=== PATIENT | female | born 1960 | race Caucasian/White ===

== ENCOUNTER 2020-05-17 14:38 | Outpatient (REF) | payer OTHER, SELFPAY ==
[2020-05-17 15:36] LABS: MANUAL DIFF FLAG NO
[2020-05-17 15:38] LABS: Basophils Absolute Auto 0.1 X10*3/uL (0.0-0.2); Basophils Percent Auto 0.6 % (0-2); Eosinophils Absolute Auto 0.2 X10*3/uL (0.0-0.4); Eosinophils Percent Auto 2.6 % (0-4); Hematocrit 40.3 % (37-47); Imm Gran Abs Auto 0.04 X10*3/uL (0.00-0.03); Imm Gran Pct Auto 0.4 % (0.0-0.4); Lymphocytes Absolute Auto 2.6 X10*3/uL (1.2-4.9); Lymphocytes Percent Auto 29.2 % (20-40); Mean Corpuscular HGB Conc 32.3 g/dl (31.0-35.0); Mean Platelet Volume 11.6 fL (9.4-12.3); Monocytes Absolute Auto 0.8 X10*3/uL (0.1-1.2); Monocytes Percent Auto 8.7 % (2-11); NRBC Pct Auto 0.9 /100WBC (0.0-0.2); Neutrophils Absolute Auto 5.2 X10*3/uL (2.0-8.3); Neutrophils Percent Auto 58.5 % (45-73); Platelet Count 291 X10*3/uL (160-400); Red Blood Count 4.48 X10*6/uL (4.20-5.50); Red Cell Distribution Width 14.2 % (11.0-16.0); White Blood Count 8.9 X10*3/uL (4.8-10.8)
[2020-05-17 16:02] LABS: Alanine Aminotransferase 16 U/L (0-31); Alkaline Phosphatase 68 U/L (39-117); Aspartate Amino Transferase 19 U/L (5-31); Bilirubin Direct 0.2 mg/dL (0.0-0.5); Bilirubin Total 0.6 mg/dL (0.0-1.0)
[2020-05-17 16:23] LABS: Vitamin D 25-OH Total 31.5 ng/mL (>30)
[2020-05-17 18:53] LABS: Vitamin B12 755 pg/mL (200-900)
[2020-05-18 12:01] LABS: Lyme Abs Screen <0.90 index
[2020-05-18 13:32] LABS: Anti Nuclear Antibody Screen NEGATIVE (NEGATIVE)
[2020-05-21 14:07] LABS: DNAds, Crithidia Antibody Negative (Negative)
[2020-05-21 21:07] LABS: JCV Ab Inhibition FINAL RSLT: NEGATIVE; JCV Antibody INDETERMINATE; JCV Index Value 0.25
== END 2020-05-17 14:39 | disposition home or self-care (01) ==
LOC: HO.LAB 14:38
PROVIDERS: PCP Internal Medicine; Visit Provider Physician Assistant
DX: G35 Multiple sclerosis (principal)
CPT/HCPCS: 36415; 80076; 82306; 82607; 85025; 86038; 86039; 86255; 86618; 86711

== ENCOUNTER 2020-06-28 07:22 | Outpatient (REF) | payer OTHER, SELFPAY ==
--- NOTE | 2020-06-28 | MR_ITS ---
EXAMINATION: MR CERVICAL SPINE WITHOUT CONTRAST MR THORACIC SPINE WITHOUT CONTRAST CLINICAL INFORMATION: History of multiple sclerosis. Numbness in left thigh. Back pain. COMPARISON: None. TECHNIQUE: Multiplanar, multisequential imaging of the cervical and thoracic spine was performed without contrast. FINDINGS: CERVICAL SPINE: VERTEBRAL BODIES AND PARASPINAL SOFT TISSUES: The marrow signal is within normal limits. There is a mild reversal of the normal cervical lordosis. Moderate multilevel disc space narrowing and endplate spurring evident. There are no compression fractures or subluxations. The paraspinal soft tissues are unremarkable. The lung apices are clear. On the localizer acquisition, there is significant mucosal thickening in the maxillary sinuses with subtotal opacification. There is also severe frontoethmoid sinus disease partially visualized. CERVICOMEDULLARY JUNCTION AND VISUALIZED POSTERIOR FOSSA: The craniovertebral junction and imaged portions of the brain parenchyma are normal. There is fluid signal in the central canal cord from the C5-C7 levels, measuring up to 2 mm in diameter. No discrete cord lesion identified. SPINAL LEVELS: C2-C3: No focal disc protrusion, central canal stenosis, or foraminal narrowing. Mild facet arthropathy. C3-C4: Small central disc protrusion. No central canal stenosis or foraminal narrowing. C4-C5: Moderate loss of disc height with endplate spurring and a mild disc bulge. No central canal stenosis. Mild right foraminal narrowing. C5-C6: Moderate loss of disc height and disc-osteophyte complex without central canal stenosis. Eidbhdtb-tz-qukutk left foraminal narrowing and gvin-ze-czbrbuxd right foraminal encroachment. C6-C7: Disc-osteophyte complex without central canal stenosis. Severe left foraminal narrowing. Mild right foraminal encroachment. C7-T1: No disc pathology. Patent central canal and foramina. THORACIC SPINE: No cord lesions are identified. The conus tip terminates normally at the L1 level. The visualized cauda equina nerve roots are normal. There is no central canal stenosis or significant foraminal narrowing. At the T6-T7 level, there is a small right paracentral disc protrusion distortion of the ventral cord. A right paracentral disc protrusion mildly distorts the ventral cord at T7-T8. There is a small central disc protrusion at T8-T9 with ventral cord deformity as well. Small subarticular zone disc protrusions are visible at T9-T10. The marrow signal is heterogeneous with regions of fatty change. There is kamq-xs-lalhnqpv multilevel disc space narrowing particularly in the midthoracic spine. No subluxations or compression fractures identified. The paraspinal soft tissues are normal. The imaged portions of the lungs are clear. MR/MR cervical spine wo con IMPRESSION: CERVICAL SPINE: Moderate cervical spondylosis without central canal stenosis. Small central disc protrusion at C3-C4. Significant left foraminal narrowing at C5-C6 and C6-C7. 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 No cord lesions identified. Significant paranasal sinus disease. THORACIC SPINE: Small disc protrusions at T6-T7, T7-T8, T8-T9, and at T9-T10. No central canal stenosis or significant foraminal narrowing. Mild thoracic spondylosis. No cord signal abnormality.
--- NOTE | 2020-06-28 | MR_ITS ---
EXAMINATION: MR CERVICAL SPINE WITHOUT CONTRAST MR THORACIC SPINE WITHOUT CONTRAST CLINICAL INFORMATION: History of multiple sclerosis. Numbness in left thigh. Back pain. COMPARISON: None. TECHNIQUE: Multiplanar, multisequential imaging of the cervical and thoracic spine was performed without contrast. FINDINGS: CERVICAL SPINE: VERTEBRAL BODIES AND PARASPINAL SOFT TISSUES: The marrow signal is within normal limits. There is a mild reversal of the normal cervical lordosis. Moderate multilevel disc space narrowing and endplate spurring evident. There are no compression fractures or subluxations. The paraspinal soft tissues are unremarkable. The lung apices are clear. On the localizer acquisition, there is significant mucosal thickening in the maxillary sinuses with subtotal opacification. There is also severe frontoethmoid sinus disease partially visualized. CERVICOMEDULLARY JUNCTION AND VISUALIZED POSTERIOR FOSSA: The craniovertebral junction and imaged portions of the brain parenchyma are normal. There is fluid signal in the central canal cord from the C5-C7 levels, measuring up to 2 mm in diameter. No discrete cord lesion identified. SPINAL LEVELS: C2-C3: No focal disc protrusion, central canal stenosis, or foraminal narrowing. Mild facet arthropathy. C3-C4: Small central disc protrusion. No central canal stenosis or foraminal narrowing. C4-C5: Moderate loss of disc height with endplate spurring and a mild disc bulge. No central canal stenosis. Mild right foraminal narrowing. C5-C6: Moderate loss of disc height and disc-osteophyte complex without central canal stenosis. Yepncpml-ts-tqryhg left foraminal narrowing and uaxd-za-pvtpeazn right foraminal encroachment. C6-C7: Disc-osteophyte complex without central canal stenosis. Severe left foraminal narrowing. Mild right foraminal encroachment. C7-T1: No disc pathology. Patent central canal and foramina. THORACIC SPINE: No cord lesions are identified. The conus tip terminates normally at the L1 level. The visualized cauda equina nerve roots are normal. There is no central canal stenosis or significant foraminal narrowing. At the T6-T7 level, there is a small right paracentral disc protrusion distortion of the ventral cord. A right paracentral disc protrusion mildly distorts the ventral cord at T7-T8. There is a small central disc protrusion at T8-T9 with ventral cord deformity as well. Small subarticular zone disc protrusions are visible at T9-T10. The marrow signal is heterogeneous with regions of fatty change. There is oskk-zx-unruamxb multilevel disc space narrowing particularly in the midthoracic spine. No subluxations or compression fractures identified. The paraspinal soft tissues are normal. The imaged portions of the lungs are clear. MR/MR thoracic spine wo con IMPRESSION: CERVICAL SPINE: Moderate cervical spondylosis without central canal stenosis. Small central disc protrusion at C3-C4. Significant left foraminal narrowing at C5-C6 and C6-C7. 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 No cord lesions identified. Significant paranasal sinus disease. THORACIC SPINE: Small disc protrusions at T6-T7, T7-T8, T8-T9, and at T9-T10. No central canal stenosis or significant foraminal narrowing. Mild thoracic spondylosis. No cord signal abnormality.
== END 2020-06-28 07:23 | disposition home or self-care (01) ==
LOC: HO.MRI 07:22
PROVIDERS: PCP Internal Medicine; Visit Provider Physician Assistant
DX: G35 Multiple sclerosis (principal)
CPT/HCPCS: 72141; 72146

== ENCOUNTER 2021-01-05 06:24 | Outpatient (REF) | payer OTHER, SELFPAY ==
--- NOTE | ~2021-01-05 | XR_ITS ---
EXAMINATION: XR LUMBOSACRAL SPINE CLINICAL INFORMATION: Low back pain. COMPARISON: None TECHNIQUE: Three views of the lumbosacral spine. FINDINGS: There is maintained lumbar lordosis. There is loss of L2-L3 through L4-L5 disc heights with ventral and lateral spondylosis. There is minimal scoliosis mid lumbar spine. No visible acute fracture or dislocation seen. The vertebral heights is maintained normal. Bilateral SI joints are symmetrical and normal. XR/XR lumbar spine 2-3V IMPRESSION: There are degenerative disc changes with spondylosis L2-L3 through L4-L5 disc levels. There is moderate spondylosis lumbar spine. No visible acute fracture, dislocation or lytic process seen.
[2021-01-05 07:05] LABS: MANUAL DIFF FLAG NO
[2021-01-05 07:12] LABS: Basophils Absolute Auto 0.1 X10*3/uL (0.0-0.2); Eosinophils Absolute Auto 0.3 X10*3/uL (0.0-0.4); Eosinophils Percent Auto 4.1 % (0-4); Hemoglobin 12.8 g/dl (12.0-16.0); Imm Gran Abs Auto 0.04 X10*3/uL (0.00-0.03); Imm Gran Pct Auto 0.5 % (0.0-0.4); Lymphocytes Absolute Auto 2.9 X10*3/uL (1.2-4.9); Lymphocytes Percent Auto 36.8 % (20-40); Mean Corpuscular Hemoglobin 28.9 pg (27.0-33.0); Mean Corpuscular Volume 90.3 fL (80-98); Mean Platelet Volume 10.6 fL (9.4-12.3); Monocytes Absolute Auto 0.7 X10*3/uL (0.1-1.2); Monocytes Percent Auto 8.5 % (2-11); NRBC Pct Auto 0.6 /100WBC (0.0-0.2); Neutrophils Absolute Auto 3.8 X10*3/uL (2.0-8.3); Neutrophils Percent Auto 49.1 % (45-73); Platelet Count 303 X10*3/uL (160-400); Red Blood Count 4.43 X10*6/uL (4.20-5.50); Red Cell Distribution Width 13.1 % (11.0-16.0); White Blood Count 7.8 X10*3/uL (4.8-10.8)
[2021-01-05 07:30] LABS: Alanine Aminotransferase 20 U/L (0-31); Albumin Level 4.3 g/dL (3.5-5.0); Alkaline Phosphatase 98 U/L (39-117); Anion Gap 14 (12-20); Aspartate Amino Transferase 18 U/L (5-31); Bilirubin Total 0.8 mg/dL (0.0-1.0); Blood Urea Nitrogen 11 mg/dL (9-16); Calcium 9.6 mg/dL (8.4-10.2); Carbon Dioxide 27 mmol/L (22-29); Chloride 105 mmol/L (96-108); Cholesterol 192 mg/dL; Estimated Glomerular Filt Rate > 60; Glucose Fasting 99 mg/dL (60-99); HDL Cholesterol 70 mg/dL; LDL Cholesterol Calculated 111 mg/dl; Potassium 4.4 mmol/L (3.3-5.1); Sodium 142 mmol/L (135-145); Total Protein 6.5 g/dL (6.5-8.0); Triglycerides 58 mg/dL
[2021-01-05 09:11] LABS: Vitamin B12 250 pg/mL (200-900)
[2021-01-13 13:06] LABS: Vitamin D 25-OH, D2 <4 ng/mL; Vitamin D 25-OH, D3 23 ng/mL; Vitamin D 25-OH, Total 23 ng/mL (30-100)
== END 2021-01-05 06:25 | disposition home or self-care (01) ==
LOC: HO.LAB 06:24
PROVIDERS: PCP Internal Medicine; Visit Provider Internal Medicine
DX: M54.5 Low back pain (principal); F41.1 Generalized anxiety disorder; K21.9 Gastro-esophageal reflux disease without esophagitis; J45.909 Unspecified asthma, uncomplicated; E78.9 Disorder of lipoprotein metabolism, unspecified; G35 Multiple sclerosis; Z91.09 Other allergy status, other than to drugs and biological substances
CPT/HCPCS: 36415; 72100; 80053; 80061; 82306; 82607; 84443; 85025

== ENCOUNTER 2021-05-12 14:09 | Outpatient (REF) | payer OTHER, SELFPAY | END 2021-05-12 14:10 | disposition home or self-care (01) | LOC: HO.LNP 14:09 | PROVIDERS: Visit Provider Physician Assistant Medical | DX: J01.90 Acute sinusitis, unspecified (principal); Z20.822 Contact with and (suspected) exposure to COVID-19 | CPT/HCPCS: U0003; U0005 ==

== ENCOUNTER 2021-06-18 08:40 | Outpatient (REF) | payer OTHER, SELFPAY ==
--- NOTE | ~2021-06-18 | MM_ITS ---
EXAMINATION: MM SCREENING DIGITAL BREAST TOMOSYNTHESIS, BILATERAL CLINICAL INFORMATION: Screening. Asymptomatic. The lifetime risk of breast cancer based on the Tyrer-Cuzick Model is 9%. COMPARISON: Mammography: 04/10/2020, 10/26/2018, 09/01/2017 TECHNIQUE: Digital breast tomosynthesis is performed in both the craniocaudal and mediolateral oblique views along with computer-aided detection (CAD). Synthesized 2D images are generated from the tomosynthesis. FINDINGS: There are scattered areas of fibroglandular density (ACR BI-RADS breast composition Category b). There are no significant masses, abnormal calcifications, or other abnormalities. Parenchymal pattern is similar to prior studies. The axilla and skin contours are unremarkable. MM/MM tomosynthesis screening BI IMPRESSION: No mammographic evidence of malignancy. ASSESSMENT: BI-RADS 1: Negative RECOMMENDATION: Routine annual mammography screening. This patient's information was entered into a reminder system with a target due date for their next mammogram.
== END 2021-06-18 08:41 | disposition home or self-care (01) ==
LOC: HO.MAMMO 08:40
PROVIDERS: PCP Internal Medicine; Visit Provider Internal Medicine
DX: Z12.31 Encounter for screening mammogram for malignant neoplasm of breast (principal)
CPT/HCPCS: 77063; 77067

== ENCOUNTER 2021-06-21 16:29 | Outpatient (REF) | payer OTHER, SELFPAY ==
[2021-06-21 16:46] LABS: MANUAL DIFF FLAG NO
[2021-06-21 17:38] LABS: Basophils Absolute Auto 0.1 X10*3/uL (0.0-0.2); Basophils Percent Auto 1.1 % (0-2); Eosinophils Absolute Auto 0.5 X10*3/uL (0.0-0.4); Eosinophils Percent Auto 5.3 % (0-4); Hematocrit 36.9 % (37.0-47.0); Imm Gran Abs Auto 0.05 X10*3/uL (0.00-0.03); Imm Gran Pct Auto 0.5 % (0.0-0.4); Lymphocytes Absolute Auto 3.2 X10*3/uL (1.2-4.9); Lymphocytes Percent Auto 34.1 % (20-40); Mean Corpuscular HGB Conc 32.5 g/dl (31.0-35.0); Mean Corpuscular Hemoglobin 29.1 pg (27.0-33.0); Mean Corpuscular Volume 89.6 fL (80.0-98.0); Mean Platelet Volume 10.3 fL (9.4-12.3); Monocytes Absolute Auto 0.9 X10*3/uL (0.1-1.2); Monocytes Percent Auto 9.4 % (2-11); NRBC Pct Auto 0.8 /100WBC (0.0-0.2); Neutrophils Absolute Auto 4.6 x10*3/uL (2.0-8.3); Neutrophils Percent Auto 49.6 % (45-73); Platelet Count 282 X10*3/uL (160-400); Red Blood Count 4.12 X10*6/uL (4.20-5.50); Red Cell Distribution Width 13.6 % (11.0-16.0); White Blood Count 9.3 X10*3/uL (4.8-10.8)
[2021-06-24 23:41] LABS: JCV Antibody NEGATIVE; JCV Index Value 0.16
== END 2021-06-21 16:30 | disposition home or self-care (01) ==
LOC: HO.LAB 16:29
PROVIDERS: PCP Internal Medicine; Visit Provider Psychiatry & Neurology Neurology
DX: G35 Multiple sclerosis (principal)
CPT/HCPCS: 36415; 85025; 86711

== ENCOUNTER 2021-08-05 07:51 | Outpatient (REF) | payer OTHER, SELFPAY ==
[2021-08-05 08:02] LABS: MANUAL DIFF FLAG NO
[2021-08-05 09:56] LABS: Basophils Absolute Auto 0.1 X10*3/uL (0.0-0.2); Eosinophils Absolute Auto 0.6 X10*3/uL (0.0-0.4); Eosinophils Percent Auto 6.5 % (0-4); Hematocrit 43.2 % (37.0-47.0); Hemoglobin 13.8 g/dl (12.0-16.0); Imm Gran Abs Auto 0.03 X10*3/uL (0.00-0.03); Imm Gran Pct Auto 0.3 % (0.0-0.4); Lymphocytes Absolute Auto 3.4 X10*3/uL (1.2-4.9); Lymphocytes Percent Auto 34.7 % (20-40); Mean Corpuscular HGB Conc 31.9 g/dl (31.0-35.0); Mean Corpuscular Hemoglobin 28.8 pg (27.0-33.0); Mean Corpuscular Volume 90.2 fL (80.0-98.0); Mean Platelet Volume 10.5 fL (9.4-12.3); Monocytes Absolute Auto 0.8 X10*3/uL (0.1-1.2); Monocytes Percent Auto 7.9 % (2-11); NRBC Pct Auto 0.7 /100WBC (0.0-0.2); Neutrophils Absolute Auto 4.8 x10*3/uL (2.0-8.3); Neutrophils Percent Auto 49.6 % (45-73); Platelet Count 302 X10*3/uL (160-400); Red Blood Count 4.79 X10*6/uL (4.20-5.50); Red Cell Distribution Width 12.9 % (11.0-16.0); White Blood Count 9.7 X10*3/uL (4.8-10.8)
[2021-08-05 10:24] LABS: Alanine Aminotransferase 31 U/L (0-31); Albumin Level 4.5 g/dL (3.5-5.0); Alkaline Phosphatase 103 U/L (39-117); Anion Gap 16 (12-20); Aspartate Amino Transferase 34 U/L (5-31); Bilirubin Total 0.9 mg/dL (0.0-1.0); Blood Urea Nitrogen 15 mg/dL (9-16); Calcium 9.6 mg/dL (8.4-10.2); Carbon Dioxide 25 mmol/L (22-29); Chloride 103 mmol/L (96-108); Estimated Glomerular Filt Rate > 60; Glucose Random 62 mg/dL (60-115); Potassium 4.1 mmol/L (3.3-5.1); Sodium 140 mmol/L (135-145); Total Protein 7.3 g/dL (6.5-8.0)
== END 2021-08-05 07:52 | disposition home or self-care (01) ==
LOC: HO.LAB 07:51
PROVIDERS: PCP Internal Medicine; Visit Provider Internal Medicine
DX: E78.9 Disorder of lipoprotein metabolism, unspecified (principal); F41.1 Generalized anxiety disorder; J45.40 Moderate persistent asthma, uncomplicated; K21.9 Gastro-esophageal reflux disease without esophagitis; Z91.09 Other allergy status, other than to drugs and biological substances
CPT/HCPCS: 36415; 80053; 85025

== ENCOUNTER 2021-12-20 16:14 | Outpatient (REF) | payer OTHER, SELFPAY ==
[2021-12-20 16:30] LABS: MANUAL DIFF FLAG NO
[2021-12-20 16:56] LABS: Basophils Absolute Auto 0.1 X10*3/uL (0.0-0.2); Basophils Percent Auto 0.9 % (0-2); Eosinophils Absolute Auto 0.5 X10*3/uL (0.0-0.4); Eosinophils Percent Auto 5.8 % (0-4); Hematocrit 38.8 % (37.0-47.0); Hemoglobin 12.7 g/dl (12.0-16.0); Imm Gran Abs Auto 0.02 X10*3/uL (0.00-0.03); Imm Gran Pct Auto 0.2 % (0.0-0.4); Lymphocytes Absolute Auto 3.5 X10*3/uL (1.2-4.9); Mean Corpuscular HGB Conc 32.7 g/dl (31.0-35.0); Mean Corpuscular Hemoglobin 28.7 pg (27.0-33.0); Mean Corpuscular Volume 87.6 fL (80.0-98.0); Mean Platelet Volume 10.5 fL (9.4-12.3); Monocytes Absolute Auto 0.7 X10*3/uL (0.1-1.2); Monocytes Percent Auto 7.7 % (2-11); NRBC Pct Auto 0.5 /100WBC (0.0-0.2); Neutrophils Absolute Auto 4.5 x10*3/uL (2.0-8.3); Neutrophils Percent Auto 48.4 % (45-73); Platelet Count 276 X10*3/uL (160-400); Red Blood Count 4.43 X10*6/uL (4.20-5.50); Red Cell Distribution Width 13.3 % (11.0-16.0); White Blood Count 9.4 X10*3/uL (4.8-10.8)
[2021-12-20 17:45] LABS: Erythrocyte Sedimentation Rate 14 MM/HR (0-20)
[2021-12-22 03:15] LABS: Lyme Abs Screen <0.90 index
[2021-12-29 03:07] LABS: JCV Antibody INDETERMINATE; JCV Index Value 0.23
[2021-12-30 02:37] LABS: JCV Ab Inhibition FINAL RSLT: NEGATIVE
== END 2021-12-20 16:15 | disposition home or self-care (01) ==
LOC: HO.LAB 16:14
PROVIDERS: PCP Internal Medicine; Visit Provider Psychiatry & Neurology Neurology
DX: H46.9 Unspecified optic neuritis (principal)
CPT/HCPCS: 36415; 85025; 85652; 86617; 86618; 86711

== ENCOUNTER 2022-04-07 14:01 | Outpatient (REF) | payer OTHER, SELFPAY ==
[2022-04-07 14:24] LABS: Binax Internal Control QC Valid; Binax Now Covid-19 Ag Negative (Negative)
== END 2022-04-07 14:02 | disposition home or self-care (01) ==
LOC: HO.HMGCLDS 14:01
PROVIDERS: PCP Internal Medicine
DX: Z20.822 Contact with and (suspected) exposure to COVID-19 (principal); R11.10 Vomiting, unspecified; R35.0 Frequency of micturition
CPT/HCPCS: 87086; 87811; C9803

== ENCOUNTER 2022-05-15 14:07 | Outpatient (REF) | payer OTHER, SELFPAY ==
[2022-05-15 14:19] LABS: MANUAL DIFF FLAG NO
[2022-05-15 14:51] LABS: Basophils Absolute Auto 0.1 X10*3/uL (0.0-0.2); Basophils Percent Auto 0.9 % (0-2); Eosinophils Absolute Auto 0.1 X10*3/uL (0.0-0.4); Eosinophils Percent Auto 1.2 % (0-4); Hematocrit 40.1 % (37.0-47.0); Hemoglobin 12.9 g/dl (12.0-16.0); Imm Gran Abs Auto 0.04 X10*3/uL (0.00-0.03); Imm Gran Pct Auto 0.4 % (0.0-0.4); Lymphocytes Percent Auto 30.5 % (20-40); Mean Corpuscular HGB Conc 32.2 g/dl (31.0-35.0); Mean Corpuscular Hemoglobin 27.8 pg (27.0-33.0); Mean Corpuscular Volume 86.4 fL (80.0-98.0); Mean Platelet Volume 10.1 fL (9.4-12.3); Monocytes Absolute Auto 0.8 X10*3/uL (0.1-1.2); Monocytes Percent Auto 8.5 % (2-11); NRBC Pct Auto 0.6 /100WBC (0.0-0.2); Neutrophils Absolute Auto 5.8 x10*3/uL (2.0-8.3); Neutrophils Percent Auto 58.5 % (45-73); Platelet Count 290 X10*3/uL (160-400); Red Blood Count 4.64 X10*6/uL (4.20-5.50); Red Cell Distribution Width 14.2 % (11.0-16.0); White Blood Count 9.9 X10*3/uL (4.8-10.8)
[2022-05-23 19:16] LABS: JCV Antibody INDETERMINATE; JCV Index Value 0.23
[2022-05-23 20:48] LABS: JCV Ab Inhibition FINAL RSLT: NEGATIVE
== END 2022-05-15 14:08 | disposition home or self-care (01) ==
LOC: HO.LAB 14:07
PROVIDERS: Absent Provider Internal Medicine; PCP Internal Medicine; Visit Provider Psychiatry & Neurology Neurology
DX: R79.89 Other specified abnormal findings of blood chemistry (principal); H46.9 Unspecified optic neuritis
CPT/HCPCS: 36415; 85025; 86711

== ENCOUNTER 2022-06-24 08:30 | Outpatient (REF) | payer OTHER, SELFPAY ==
--- NOTE | ~2022-06-24 | MM_ITS ---
EXAMINATION: MM SCREENING DIGITAL BREAST TOMOSYNTHESIS, BILATERAL CLINICAL INFORMATION: Screening. Asymptomatic. The lifetime risk of breast cancer based on the Tyrer-Cuzick Model is 9%. COMPARISON: Mammography: 06/18/2021, 04/10/2020, 10/26/2018, 09/01/2017 TECHNIQUE: Digital breast tomosynthesis is performed in both the craniocaudal and mediolateral oblique views along with computer-aided detection (CAD). Synthesized 2D images are generated from the tomosynthesis. FINDINGS: There are scattered areas of fibroglandular density (ACR BI-RADS breast composition Category b). There are no significant masses, abnormal calcifications, or other abnormalities. Parenchymal pattern is similar to prior studies. Scattered minor asymmetries are stable. No developing density. The axilla are unremarkable. No significant changes. MM/MM tomosynthesis screening BI IMPRESSION: No mammographic evidence of malignancy. ASSESSMENT: BI-RADS 2: Benign RECOMMENDATION: Routine annual mammography screening. This patient's information was entered into a reminder system with a target due date for their next mammogram.
== END 2022-06-24 08:31 | disposition home or self-care (01) ==
LOC: HO.MAMMO 08:30
PROVIDERS: PCP Internal Medicine; Visit Provider Internal Medicine
DX: Z12.31 Encounter for screening mammogram for malignant neoplasm of breast (principal)
CPT/HCPCS: 77063; 77067

== ENCOUNTER 2022-09-26 06:17 | Emergency (ER) | payer OTHER, SELFPAY ==
[2022-09-26 07:03] VITALS: BP 147/79; PULSE 77; RESP 18; TEMP 36.4; O2SAT 98; BMI 35.7
[2022-09-26 07:29] LABS: Appearance Urine Clear; Color Urine Yellow; Glucose Urine UA Negative (Negative); Leukocyte Esterase Urine Small (1+) (Negative); Nitrite Urine Negative (Negative); PH 5.5 (5.0-9.0); UMIC TRIGGER UACC YES; Urine Blood Negative (Negative); Urine Ketones Negative (Negative); Urine Protein Negative (Neg-Trace)
[2022-09-26 07:39] LABS: Bacteria Urine None Seen (None Seen); Hyaline Casts Urine 0-2 /LPF (0-2); RBC Urine 0-2 /HPF (0-2); Squamous Epithelial Cell Urine 0-2 /HPF (0-2); UACC Culture Trigger YES; WBC Urine 0-5 /HPF (0-5)
--- NOTE | 2022-09-26 08:47 | ED.FEMALEGU ---
HPI - Female Genitourinary General Chief complaint: Urogenital-Female Stated complaint: ?uti Time Seen by Provider: 09/26/22 08:45 Source: patient Mode of arrival: ambulatory Limitations: no limitations History of Present Illness HPI Narrative: patient feels abdominal fullness, she is concerned that she has a UTI or MS flair, she discussed with Dr. Watkins, denies hematuria Pertinent past history: recurrent UTIs Onset (ago): day(s) Severity: mild Consistency: constant Related Data Home Medications Medication Instructions Recorded Confirmed albuterol sulfate 90 mcg/actuation 0 mcg inhalation 09/03/20 06/30/22 aerosol inhaler fluticasone 250 mcg-salmeterol 50 1 inh inhalation BID 09/03/20 06/30/22 mcg/dose blistr powdr for inhalation (Advair Diskus) natalizumab 300 mg/15 mL 300 mg IV Q4W 09/03/20 06/30/22 intravenous solution (Tysabri) omeprazole 20 mg tablet,delayed 20 mg PO DAILY 09/03/20 06/30/22 release fluticasone propionate 93 1 spray intranasal BID 12/31/20 06/30/22 mcg/actuation breath activated aerosol (Xhance) Previous Rx's Medication Instructions Recorded nitrofurantoin 100 mg PO Q12H 3 days #6 caps 04/04/22 monohydrate/macrocrystals 100 mg capsule (Macrobid) ondansetron 4 mg disintegrating 4 mg PO Q6H PRN nausea and 04/07/22 tablet vomiting #10 tabs azithromycin 250 mg tablet See Rx Instructions PO .COMPLEX #6 06/30/22 tabs Allergies Allergy/AdvReac Type Severity Reaction Status Date / Time hydrocodone [From VICODIN] Allergy Severe SWELLING Verified 06/30/22 11:26 aspirin [ASPIRIN] Allergy Intermediate HIVES Verified 06/30/22 11:26 oxycodone [OXYCODONE] Allergy Intermediate HIVES Verified 06/30/22 11:26 acetaminophen [Vicodin] Allergy Unknown rash, hives Verified 06/30/22 11:26 ibuprofen Allergy Unknown Unknown Verified 06/30/22 11:26 Environmental Allergy Unknown Unknown Uncoded 06/30/22 11:26 Review of Systems Review of Systems: Yes all other systems are reviewed and are negative Gastrointestinal: Comments: abdominal fullness Neurologic: Denies Sensory deficit (Neuro) PMFSH Past Medical History Medical History Vomiting Surgical History H/O arthroscopy of knee H/O prior ablation treatment History of arthroscopy of right shoulder History of esophagogastroduodenoscopy (EGD) History of sinus surgery S/P dilation and curettage Family History Family History Father HTN (hypertension) Mother HTN (hypertension) Rectal cancer Brother No problems noted. Brother No problems noted. Sister No problems noted. Sister No problems noted. Social History Social History Housing: Condominium Alcohol intake: current Alcohol intake frequency: a few times a month Patient Tobacco Use Status: Former Tobacco user (30 years ago ) Advance Directives: Yes Advance Directives Information Provided: No Advance Directives on File: No Current occupational status: employed Physical Exam Vital Signs: Vital Signs: Last Vital Signs Temp 97.6 F 09/26/22 07:03 Pulse 77 09/26/22 07:03 Resp 18 09/26/22 07:03 BP 147/79 H 09/26/22 07:03 Pulse Ox 98 09/26/22 07:03 O2 Del Method 09/26/22 07:03 BMI result Body Mass Index 35.7 Const: General: healthy appearing Nutritional Appearance: average body habitus Orientation/consciousness: oriented to person and patient oriented x3 Limitations: no limitations HEENT: Head: Yes normal to inspection Ears: external ears normal General nose exam: Normal external nose present Mouth: Normal oral and palatal mucosa present and oropharynx normal Throat: Yes posterior oropharynx normal Eyes: General: appearance normal, both eyes and all related structures Neck: Other: supple Neck: Yes normal visual inspection Chest: Chest palpation & inspection: normal inspection of the chest Resp: Auscultation: clear to auscultation bilaterally Cardio: Jugular venous distension: no JVD Rate: regular rate Rhythm: regular rhythm Heart sounds: S1 normal heart sound present and S2 normal heart sound present GI: Inspection: Yes normal to inspection Palpation (GI): Soft to palpation, nontender and No hepatosplenomegaly present Auscultation: normal bowel sounds : General: Yes no CVA tenderness Back/Spine/Pelvis: Back: no CVA tenderness Skin: General skin exam: no rashes or lesions noted Neuro: General: oriented to person and patient oriented x3 Cranial nerves: Yes CN's II-XII intact bilaterally Motor exam (neuro): 5/5 motor strength present throughout Sensory Exam: No Sensory deficit (Neuro) Extrem: General: Yes normal to inspection Psych: Appearance: grossly normal Medical Decision Making Differential Diagnosis Differential Diagnoses: The differential diagnosis associated with the presentation includes (UTI, kidney stone, diverticulitis all considered) Lab Data MDM Lab Attestation statement: I reviewed the patient's lab results. urine not infected Labs: Lab Results 09/26/22 Range/Units 07:21 Urine Color Yellow Urine Appearance Clear Urine pH 5.5 (5.0-9.0) Ur Specific [place] 1.020 (1.005-1.025) Urine Protein Negative (Neg-Trace) mg/dL Urine Glucose (UA) Negative (Negative) mg/dL Urine Ketones Negative (Negative) mg/dL Urine Blood Negative (Negative) Urine Nitrite Negative (Negative) Ur Leukocyte Esterase Small (1+) H (Negative) Urine RBC 0-2 (0-2) /HPF Urine WBC 0-5 (0-5) /HPF Ur Squamous Epith Cells 0-2 (0-2) /HPF Urine Bacteria None Seen (None Seen) Hyaline Casts 0-2 (0-2) /LPF Tests considered The following testing was considered but not selected: CT of abdomen considered but not indicated based on physical and vitals Discharge Plan Discharge Clinical Impression: Abdominal pain Patient Disposition: Home, Self-Care Instructions: Abdominal Pain (ED) Prescriptions: No Action omeprazole 20 mg tablet,delayed release (DR/EC) 20 mg PO DAILY albuterol sulfate 90 mcg/actuation HFA aerosol inhaler 0 mcg inhalation fluticasone propion-salmeterol [Advair Diskus] 250-50 mcg/dose blister with device 1 inh inhalation BID Tysabri 300 mg/15 mL solution 300 mg IV Q4W Rx Instructions: administer over 60 mins Xhance 93 mcg/actuation aerosol breath activated 1 spray intranasal BID Rx Instructions: into each nostril nitrofurantoin monohyd/m-cryst [Macrobid] 100 mg capsule 100 mg PO Q12H 3 Days Qty: 6 0RF Rx Instructions: must administer with a meal/food ondansetron 4 mg tablet,disintegrating 4 mg PO Q6H PRN (Reason: nausea and vomiting) Qty: 10 0RF azithromycin 250 mg tablet See Rx Instructions PO .COMPLEX Qty: 6 0RF Rx Instructions: take 500 mg today (day 1), then 250 mg for 4 days (days 2-5) PO Referrals: Cari Ambrose MD [Primary Care Provider] - 5 days
== END 2022-09-26 09:18 | disposition home or self-care (01) ==
PROVIDERS: Emergency Provider Emergency Medicine; PCP Internal Medicine
DX: R10.9 Unspecified abdominal pain (principal); Z87.440 Personal history of urinary (tract) infections
CPT/HCPCS: 81001; 87086; 99282

== ENCOUNTER 2023-01-16 13:53 | Outpatient (REF) | payer OTHER, SELFPAY | END 2023-01-16 13:54 | disposition home or self-care (01) | LOC: HO.MDS 13:53 | PROVIDERS: PCP Internal Medicine; Visit Provider Psychiatry & Neurology Neurology | DX: G35 Multiple sclerosis (principal) | CPT/HCPCS: 96365; J2930 ==

== ENCOUNTER 2023-01-17 13:46 | Outpatient (REF) | payer OTHER, SELFPAY | END 2023-01-17 13:47 | disposition home or self-care (01) | LOC: HO.MDS 13:46 | PROVIDERS: Visit Provider Psychiatry & Neurology Neurology | DX: G35 Multiple sclerosis (principal) | CPT/HCPCS: 96365; J2930 ==

== ENCOUNTER 2023-01-18 13:46 | Outpatient (REF) | payer OTHER, SELFPAY | END 2023-01-18 13:47 | disposition home or self-care (01) | LOC: HO.MDS 13:46 | PROVIDERS: PCP Internal Medicine; Visit Provider Psychiatry & Neurology Neurology | DX: G35 Multiple sclerosis (principal) | CPT/HCPCS: 96365; J2930 ==

== ENCOUNTER 2023-01-26 06:32 | Outpatient (REF) | payer OTHER, SELFPAY ==
[2023-01-26 06:43] LABS: MANUAL DIFF FLAG NO
[2023-01-26 07:29] LABS: Estimated Average Glucose 105 mg/dL; Hemoglobin A1c % 5.3 %
[2023-01-26 07:31] LABS: Basophils Absolute Auto 0.1 X10*3/uL (0.0-0.2); Basophils Percent Auto 0.7 % (0-2); Eosinophils Absolute Auto 0.2 X10*3/uL (0.0-0.4); Eosinophils Percent Auto 1.9 % (0-4); Hematocrit 42.1 % (37.0-47.0); Hemoglobin 13.3 g/dl (12.0-16.0); Imm Gran Abs Auto 0.28 X10*3/uL (0.00-0.03); Imm Gran Pct Auto 2.4 % (0.0-0.4); Lymphocytes Absolute Auto 4.2 X10*3/uL (1.2-4.9); Lymphocytes Percent Auto 35.8 % (20-40); Mean Corpuscular HGB Conc 31.6 g/dl (31.0-35.0); Mean Corpuscular Hemoglobin 28.5 pg (27.0-33.0); Mean Corpuscular Volume 90.3 fL (80.0-98.0); Mean Platelet Volume 10.4 fL (9.4-12.3); Monocytes Absolute Auto 1.1 X10*3/uL (0.1-1.2); Monocytes Percent Auto 9.6 % (2-11); Neutrophils Absolute Auto 5.9 x10*3/uL (2.0-8.3); Neutrophils Percent Auto 49.6 % (45-73); Platelet Count 275 X10*3/uL (160-400); Red Blood Count 4.66 X10*6/uL (4.20-5.50); Red Cell Distribution Width 14.5 % (11.0-16.0); White Blood Count 11.8 X10*3/uL (4.8-10.8)
[2023-01-26 07:34] LABS: NRBC Pct Auto 1.2 /100WBC (0.0-0.2)
[2023-01-26 08:06] LABS: Alanine Aminotransferase 21 U/L (0-31); Albumin Level 3.7 g/dL (3.5-5.0); Alkaline Phosphatase 84 U/L (39-117); Anion Gap 14 (12-20); Aspartate Amino Transferase 19 U/L (5-31); Bilirubin Total 0.7 mg/dL (0.0-1.0); Blood Urea Nitrogen 11 mg/dL (9-16); Calcium 9.7 mg/dL (8.4-10.2); Carbon Dioxide 25 mmol/L (22-29); Chloride 106 mmol/L (96-108); Cholesterol 278 mg/dL; Estimated Glomerular Filt Rate > 60; Glucose Fasting 79 mg/dL (60-99); HDL Cholesterol 63 mg/dL; LDL Cholesterol Calculated 195 mg/dl; Potassium 3.9 mmol/L (3.3-5.1); Sodium 141 mmol/L (135-145); Total Protein 6.6 g/dL (6.5-8.0); Triglycerides 104 mg/dL
[2023-01-26 08:39] LABS: Appearance Urine Clear; Color Urine Yellow; Glucose Urine UA Negative (Negative); Leukocyte Esterase Urine Trace (Negative); Nitrite Urine Negative (Negative); UMIC TRIGGER UACC YES; Urine Blood Negative (Negative); Urine Ketones Trace mg/dL (Negative); Urine Protein Negative (Neg-Trace)
[2023-01-26 08:44] LABS: Bacteria Urine None Seen (None Seen); Hyaline Casts Urine 0-2 /LPF (0-2); RBC Urine 0-2 /HPF (0-2); Squamous Epithelial Cell Urine 0-2 /HPF (0-2); WBC Urine 0-5 /HPF (0-5)
== END 2023-01-26 06:33 | disposition home or self-care (01) ==
LOC: HO.LAB 06:32
PROVIDERS: PCP Internal Medicine; Visit Provider Internal Medicine
DX: Z00.01 Encounter for general adult medical examination with abnormal findings (principal); E78.9 Disorder of lipoprotein metabolism, unspecified; G35 Multiple sclerosis; J45.909 Unspecified asthma, uncomplicated; K21.9 Gastro-esophageal reflux disease without esophagitis; E66.9 Obesity, unspecified
CPT/HCPCS: 36415; 80053; 80061; 81001; 83036; 84443; 85025

== ENCOUNTER 2023-03-13 16:13 | Outpatient (AMB) | payer OTHER, SELFPAY ==
--- NOTE | 2023-03-13 16:13 | MHC.OFFWIV ---
Intake Vital Signs 03/13/23 16:14 Height 5 ft 2 in Weight 204 lb 6 oz BMI 37.4 BP 134/76 Blood Pressure Location Rt brachial Position Sitting Pulse 85 Pulse Source Pulse Oximeter Temp 98.2 F Temp Source Oral Pulse Oximetry (%) 96 Oxygen Delivery Method Room Air Intake Visit Reasons: EP, Left Leg Pain Intake Note: Pt is here today for Lt leg pain. Pt states she had a couple falls. Been in pain since Sunday Pt says It feels broken . Patient Tobacco Use Status: Former Tobacco user (30 years ago ) Allergies hydrocodone [From VICODIN] Allergy (Severe, Verified 03/14/23 16:15) SWELLING aspirin [ASPIRIN] Allergy (Intermediate, Verified 03/14/23 16:15) HIVES oxycodone [OXYCODONE] Allergy (Intermediate, Verified 03/14/23 16:15) HIVES acetaminophen [Vicodin] Allergy (Unknown, Verified 03/14/23 16:15) rash, hives ibuprofen Allergy (Unknown, Verified 03/14/23 16:15) Unknown Environmental Allergy (Unknown, Uncoded 03/14/23 16:15) Unknown Medication List - Last Reconciled 03/14/23 by Daquan Sparks MD albuterol sulfate 90 mcg/actuation 0 mcg inhalation alprazolam 0.25 mg PO DAILY PRN cyclobenzaprine 10 mg PO BEDTIME fluticasone propion-salmeterol 250-50 mcg/dose (Advair Diskus) 1 inh inhalation BID fluticasone propionate 93 mcg/actuation (Xhance) 1 spray intranasal BID meloxicam 15 mg PO DAILY natalizumab (Tysabri) 300 mg IV Q4W omeprazole 20 mg PO DAILY simvastatin 10 mg PO DAILY 90 days HPI EP, Left Leg Pain HPI Details 62-year-old female presents to the office for a sick visit. Patient is complaining of left leg pain for the past few days. She came in walking without assistance. She had a fall few days ago. 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 PFSH Medical History Vomiting Surgical History H/O arthroscopy of knee H/O prior ablation treatment History of arthroscopy of right shoulder History of esophagogastroduodenoscopy (EGD) History of sinus surgery S/P dilation and curettage Family History Father HTN (hypertension) Mother HTN (hypertension) Rectal cancer Brother No problems noted. Brother No problems noted. Sister No problems noted. Sister No problems noted. 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 No visible bruising. Full range of motion of the ankle. Assessment & Plan Assessment & Plan (1) Contusion of leg, left: Code(s): S80.12XA - Contusion of left lower leg, initial encounter Plan: Meloxicam and Cyclobenzaprine prescribed. If sx are not better to follow up here. Medications: New meloxicam 15 mg PO DAILY 14 tabs 0RF cyclobenzaprine 10 mg PO BEDTIME 14 tabs 0RF Coding Level of Care Code Est Pt Level 3 (57138) Diagnoses Contusion of leg, left S80.12XA
[2023-03-13 16:14] VITALS: BP 134/76; PULSE 85; TEMP 36.8; O2SAT 96; BMI 37.4
== END 2023-03-13 16:42 | disposition home or self-care (01) ==
PROVIDERS: PCP Internal Medicine; Visit Provider Internal Medicine
DX: S80.12XA Contusion of left lower leg, initial encounter (principal)
CPT/HCPCS: 99213

== ENCOUNTER 2023-03-14 14:11 | Outpatient (REF) | payer OTHER, SELFPAY ==
[2023-03-14 17:06] LABS: Erythrocyte Sedimentation Rate 30 MM/HR (0-20)
[2023-03-16 05:33] LABS: Lyme Abs Screen <0.90 index
[2023-03-19 15:18] LABS: Anti Nuclear Antibody Screen NEGATIVE (NEGATIVE)
[2023-03-23 01:38] LABS: JCV Antibody NEGATIVE
== END 2023-03-14 14:12 | disposition home or self-care (01) ==
LOC: HO.LAB 14:11
PROVIDERS: PCP Internal Medicine; Visit Provider Psychiatry & Neurology Neurology
DX: H46.9 Unspecified optic neuritis (principal)
CPT/HCPCS: 36415; 85652; 86038; 86617; 86618; 86711

== ENCOUNTER 2023-04-19 06:51 | Outpatient (REF) | payer OTHER, SELFPAY ==
[2023-04-19 08:32] LABS: Erythrocyte Sedimentation Rate 21 MM/HR (0-20)
== END 2023-04-19 06:52 | disposition home or self-care (01) ==
LOC: HO.LAB 06:51
PROVIDERS: PCP Internal Medicine; Visit Provider Psychiatry & Neurology Neurology
DX: G35 Multiple sclerosis (principal)
CPT/HCPCS: 36415; 85652

== ENCOUNTER 2023-06-06 13:36 | Outpatient (REF) | payer OTHER, SELFPAY ==
[2023-06-06 16:00] LABS: Appearance Urine Clear; Color Urine Yellow; Glucose Urine UA Negative (Negative); Leukocyte Esterase Urine Trace (Negative); Nitrite Urine Negative (Negative); Specific Gravity - Urine <= 1.005 (1.005-1.025); UMIC TRIGGER UACC YES; Urine Blood Negative (Negative); Urine Ketones Negative (Negative); Urine Protein Negative (Neg-Trace)
[2023-06-06 16:02] LABS: Bacteria Urine None Seen (None Seen); Hyaline Casts Urine 0-2 /LPF (0-2); RBC Urine 0-2 /HPF (0-2); Squamous Epithelial Cell Urine 0-2 /HPF (0-2); WBC Urine 0-5 /HPF (0-5)
== END 2023-06-06 13:37 | disposition home or self-care (01) ==
LOC: HO.HMGCLDS 13:36
PROVIDERS: PCP Internal Medicine; Visit Provider Internal Medicine
DX: R30.0 Dysuria (principal)
CPT/HCPCS: 81001; 81003

== ENCOUNTER 2023-06-19 06:47 | Day surgery (SDC) | payer OTHER, SELFPAY ==
[2023-06-15 13:54] VITALS: BMI 37.5
--- NOTE | 2023-06-18 08:54 | HO.ANESPROP2 ---
Documented by User: So Koroma NP 06/18/23 09:03 HPI - Anesthesia Eval Consult details Narrative: 62yo F for Upper Endoscopy and Colonoscopy [facility] Active Problems Active Problems: All Active Problems (Updated 06/15/23 @ 13:50 by Daniela Lomeli RN) Contusion of leg, left (Acute) Colon cancer screening (Acute) Encounter for general adult medical examination with abnormal findings (Acute) Upper respiratory tract infection (Acute) Frequency of urination (Acute) Obesity (BMI 30-39.9) (Acute) Depression, major, recurrent, moderate (Acute) Radiculitis of left cervical region (Acute) Foraminal stenosis of cervical region (Acute) Abnormal CBC measurement (Acute) Dysuria (Acute) Sinusitis, acute (Acute) Anxiety, generalized (Acute) Lumbar pain (Acute) Cataract (Acute) Chronic GERD (Acute) Environmental allergies (Acute) Asthma, moderate (Acute) Lipid disorder (Acute) Multiple sclerosis (Acute) Vomiting (Acute) Past Medical History Medical History Elevated cholesterol Asthma Anxiety Multiple sclerosis GERD (gastroesophageal reflux disease) Depression Vomiting Family History Family History Father HTN (hypertension) Mother HTN (hypertension) Rectal cancer Brother No problems noted. Brother No problems noted. Sister No problems noted. Sister No problems noted. Surgical History Surgical History History of esophagogastroduodenoscopy (EGD) S/P dilation and curettage H/O prior ablation treatment H/O arthroscopy of knee History of arthroscopy of right shoulder History of sinus surgery Social History Social History Housing: Condominium Alcohol intake: current Alcohol intake frequency: holidays/special occasions only Patient Tobacco Use Status: Former Tobacco user Are you DNR?: No Advance Directives: No Advance Directives Information Provided: Yes Recently lost weight without trying: No Nutrition Risks: No Nutritional Risk Current occupational status: employed Cognitive needs: No Hearing needs: No Vision needs: Yes Meds Allergies Allergy/AdvReac Type Severity Reaction Status Date / Time hydrocodone [From VICODIN] Allergy Severe SWELLING Verified 03/14/23 16:15 aspirin [ASPIRIN] Allergy Intermediate HIVES Verified 03/14/23 16:15 oxycodone [OXYCODONE] Allergy Intermediate HIVES Verified 03/14/23 16:15 ibuprofen Allergy Unknown Unknown Verified 03/14/23 16:15 Environmental Allergy Unknown Unknown Uncoded 03/14/23 16:15 Home Medications Medication Instructions Recorded Confirmed Last Taken Type albuterol sulfate 90 mcg/actuation 1 puff inhalation Q4H PRN 09/03/20 06/15/23 Unknown History aerosol inhaler Shortness Of Breath Or Wheezing fluticasone 250 mcg-salmeterol 50 1 inh inhalation BID 09/03/20 06/15/23 Unknown History mcg/dose blistr powdr for inhalation (Advair Diskus) natalizumab 300 mg/15 mL 300 mg IV Q4W 09/03/20 06/15/23 Unknown History intravenous solution (Tysabri) omeprazole 20 mg tablet,delayed 20 mg PO DAILY 09/03/20 06/15/23 Unknown History release fluticasone propionate 93 1 spray intranasal BID 12/31/20 03/14/23 06/18/23 History mcg/actuation breath activated aerosol (Xhance) montelukast 10 mg tablet 10 mg PO QPM 06/15/23 06/15/23 Unknown History Exam Exam Date and Time: June 18, 2023 0854 Height,Weight and Vital Signs: Height 5 ft 2 in Weight 92.986 kg Pertinent Lab Results Pertinent Lab Results: Laboratory Tests 01/26/23 06:42 WBC 11.8 H Hgb 13.3 Hct 42.1 Plt Count 275 Sodium 141 Potassium 3.9 Chloride 106 Carbon Dioxide 25 BUN 11 Creatinine 0.73 Assessment and Plan Assessment Anesthesia Assessment: Chart Reviewed Documented by User: Mckenzie Otto MD 06/19/23 09:25 PMFSH Active Problems Active Problems: All Active Problems (Updated 06/19/23 @ 07:50 by Mckenzie Otto MD) Colon cancer screening (Acute) Encounter for general adult medical examination with abnormal findings (Acute) Obesity (BMI 30-39.9) (Acute) BMI 37.5 Denies LEIDY Depression, major, recurrent, moderate (Acute) Radiculitis of left cervical region (Acute) Foraminal stenosis of cervical region (Acute) H/o Abnormal CBC measurement (Acute) Anxiety, generalized (Acute) Lumbar pain (Acute) Cataract (Acute) Chronic GERD (Acute) Environmental allergies (Acute) Asthma, moderate (Acute) Lipid disorder (Acute) Multiple sclerosis (Acute)- stable. Injections every month. Next injection Sunday06/22/23 Past Medical History Medical History Elevated cholesterol Asthma Anxiety Multiple sclerosis GERD (gastroesophageal reflux disease) Depression Vomiting Family History Family History Father HTN (hypertension) Mother HTN (hypertension) Rectal cancer Brother No problems noted. Brother No problems noted. Sister No problems noted. Sister No problems noted. Family history of problems with anesthesia: No Surgical History Surgical History History of esophagogastroduodenoscopy (EGD) S/P dilation and curettage H/O prior ablation treatment H/O arthroscopy of knee History of arthroscopy of right shoulder History of sinus surgery History of Problems with Anesthesia: No Social History Social History Housing: Condominium Alcohol intake: current Alcohol intake frequency: holidays/special occasions only Patient Tobacco Use Status: Former Tobacco user Are you DNR?: No Advance Directives: No Advance Directives Information Provided: Yes Recently lost weight without trying: No Nutrition Risks: No Nutritional Risk Current occupational status: employed Cognitive needs: No Hearing needs: No Vision needs: Yes Meds Allergies Allergy/AdvReac Type Severity Reaction Status Date / Time hydrocodone [From VICODIN] Allergy Severe SWELLING Verified 03/14/23 16:15 aspirin [ASPIRIN] Allergy Intermediate HIVES Verified 03/14/23 16:15 oxycodone [OXYCODONE] Allergy Intermediate HIVES Verified 03/14/23 16:15 ibuprofen Allergy Unknown Unknown Verified 03/14/23 16:15 Environmental Allergy Unknown Unknown Uncoded 03/14/23 16:15 Home Medications Medication Instructions Recorded Confirmed Last Taken Type albuterol sulfate 90 mcg/actuation 1 puff inhalation Q4H PRN 09/03/20 06/15/23 Unknown History aerosol inhaler Shortness Of Breath Or Wheezing fluticasone 250 mcg-salmeterol 50 1 inh inhalation BID 09/03/20 06/15/23 Unknown History mcg/dose blistr powdr for inhalation (Advair Diskus) natalizumab 300 mg/15 mL 300 mg IV Q4W 09/03/20 06/15/23 Unknown History intravenous solution (Tysabri) omeprazole 20 mg tablet,delayed 20 mg PO DAILY 09/03/20 06/15/23 Unknown History release fluticasone propionate 93 1 spray intranasal BID 12/31/20 03/14/23 06/18/23 History mcg/actuation breath activated aerosol (Xhance) montelukast 10 mg tablet 10 mg PO QPM 06/15/23 06/15/23 Unknown History Exam Height,Weight and Vital Signs: Height 5 ft 2 in Weight 92.986 kg Vital Signs Temp Pulse Resp BP Pulse Ox O2 Del Method 06/19/23 06:59 97 F 79 18 136/71 97 Room Air Airway Mallampati Class: II TM Dist: >3cm Neck ROM: Full (extension ok but has arthritis in neck with UE numbness L>R sometimes ) Loose/Missing/Broken Teeth: No (Denies broken, loose, missing teeth) Heart: RRR Lungs: CTAB Assessment and Plan Assessment Anesthesia Assessment: Anesthesia Plan Discussed Final Anesthetic Review Family History of Problems with Anesthesia: No History of Problems with Anesthesia: No NPO: Yes ASA Class: III Final Preanesthetic Review: No Changes in Pt Med Stat, Meds/Allgs Chart Reviewed, Consent Obtained/Reviewed and Anes Risks/Benef Reviewed Patient Risk: Intermediate Procedure Risk: Low Assessment/Block/Sedation in SS: Assess/Block/Sedation-SS Anesthetic Plan Anesthetic Plan: MAC: Disposition: Standard PACU
--- OUTSIDE RECORDS SUMMARY | 2023-06-19 06:49 | XMS_ITS | Continuity of Care Document ---
Author Name Unknown Organization [facility] ter Address [address] [place] [id number] Care Team Providers Care Disease Case Manager Name Role Phone Arnol [facility]UT[facility]RRE[facility], [facility] Encounter [facility] Date(s): 10/06/20 - 10/06/[address] [id number] Discharge Disposition: A-D/C Home Attending Physician: Althea Morales MD Admitting Physician: Althea Morales MD Referring Physician: Althea Morales MD Allergies, Adverse Reactions, Alerts Substance Reaction Severity Status aspirin Resp DIstress Active Biaxin GI upset Active Bactrim hives Active NSAIDs resp distress Active oxyCODONE body swells up Active Medications Advair Diskus 250 mcg-50 mcg inhalation powder 1, puffs, Inhalation, 2 times a day, # 180 each, Refills 0, Maintenance, 08/31/20 16:13:00 EST, Powder Start Date: 08/31/20 Status: Ordered montelukast 10 mg oral tablet 10 mg, 1, tablet, By Mouth, Daily in PM, # 90 tablet, Refills 0, Maintenance, 08/31/20 16:15:00 EST, Partial fill upon patient request if the prescription is for a schedule II opioid drug. Start Date: 08/31/20 Status: Ordered omeprazole 20 mg oral delayed release tablet 1 tablet = 20 mg, By Mouth, Daily in AM, # 30 tablet, 0 Refills, Maintenance, 08/31/20 16:14:00 EST, CR Tablet, Partial fill upon patient request if the prescription is for a schedule II opioid drug. Start Date: 08/31/20 Status: Ordered simvastatin 10 mg oral tablet 10 mg, 1, tablet, By Mouth, Daily at bedtime, # 30 tablet, Refills 0, Maintenance, 08/31/20 16:14:00 EST, Partial fill upon patient request if the prescription is for a schedule II opioid drug. Start Date: 08/31/20 Status: Ordered Tysabri 300 mg/15 mL intravenous concentrate = 300 mg, IV Infusion, Every 30 days, 0 Refills, Maintenance, 08/31/20 16:16:00 EST, Partial fill upon patient request if the prescription is for a schedule II opioid drug. Start Date: 08/31/20 Status: Ordered ZyrTEC 10 mg oral tablet 1 tablet = 10 mg, By Mouth, Daily in AM, # 90 tablet, 0 Refills, Maintenance, 08/31/20 16:15:00 EST, Tablet, Partial fill upon patient request if the prescription is for a schedule II opioid drug. Start Date: 08/31/20 Status: Ordered Vital Signs Most recent to oldest [Reference Range]: 1 2 3 Height 157.48 cm (10/06/20 6:41 AM) 157.48 cm (09/29/20 10:47 AM) Weight 95.1 kg (10/06/20 6:41 AM) 95.91 kg (09/29/20 10:47 AM) Oxygen Saturation [94-100 %] 100 % (10/06/20 8:00 AM) 98 % (10/06/20 6:41 AM) Pulse Rate [55-90 bpm] 76 bpm (10/06/20 6:41 AM) Body Mass Index [18.5-24.99] 38.35 *>HHI* (10/06/20 6:41 AM) 38.67 *>HHI* (09/29/20 10:47 AM) Blood Pressure [90-138/55-84 mm Hg] 141/69mm Hg *H* (10/06/20 8:00 AM) 157/73mm Hg *H* (10/06/20 6:41 AM) Respiratory Rate [16-30 br/min] 36 br/min *H* (10/06/20 8:00 AM) 18 br/min (10/06/20 6:41 AM) Temperature [96.8-100.4 DegF] 98.5 DegF (10/06/20 8:45 AM) 98.2 DegF (10/06/20 8:00 AM) 98.8 DegF (10/06/20 6:41 AM) Mode of Delivery (Oxygen) Room air (10/06/20 8:45 AM) Room air (10/06/20 8:00 AM) Room air (10/06/20 6:41 AM) Blood pressure sites Arm, left (10/06/20 8:00 AM) Arm, right (10/06/20 6:41 AM) Temperature Route Temporal (10/06/20 8:45 AM) Temporal (10/06/20 8:00 AM) Temporal (10/06/20 6:41 AM) Dry Weight 95.1 kg (10/06/20 6:41 AM) 95.91 kg (09/29/20 10:47 AM) Weight Obtained Via Patient/family state d (09/29/20 10:47 AM) Dry Weight Obtained Via Patient/family s tated (09/29/20 10:47 AM)
--- OUTSIDE RECORDS SUMMARY | 2023-06-19 06:49 | XMS_ITS | Continuity of Care Document ---
Author Name Unknown Organization [facility] ter Address [address] [place] [id number]- Care Team Providers Care Manager Gaming Name Role Phone Arnol GUTIÉRREZ, Asma Primary Care Physician Encounter [facility] [facility] Date(s): 09/08/20 - 09/08/[address] [id number] Discharge Disposition: A-D/C Home Attending Physician: Althea [...] recent to oldest [Reference Range]: 1 2 Height 157.48 cm (09/08/20 8:32 AM) 157.48 cm (08/31/20 4:34 PM) Weight 94 kg (09/08/20 8:32 AM) 95.91 kg (08/31/20 4:34 PM) Oxygen Saturation [94-100 %] 98 % (09/08/20 10:15 AM) 99 % (09/08/20 8:32 AM) Pulse Rate [55-90 bpm] 80 bpm (09/08/20 8:32 AM) Body Mass Index [18.5-24.99] 37.9 *>HHI* (09/08/20 8:32 AM) 38.67 *>HHI* (08/31/20 4:34 PM) Blood Pressure [90-138/55-84 mm Hg] 144/ 78mm Hg *H* (09/08/20 10:15 AM) 137/78mm Hg (09/08/20 8:32 AM) Respiratory Rate [16-30 br/min] 21 br/mi n (09/08/20 10:15 AM) 16 br/min (09/08/20 8:32 AM) Temperature [96.8-100.4 DegF] 97.7 DegF (09/08/20 10:15 AM) 98.9 DegF (09/08/20 8:32 AM) Mode of Delivery (Oxygen) Room air (09/08/20 10:15 AM) Room air (09/08/20 8:32 AM) Blood pressure sites Arm, left (09/08/20 10:15 AM) Arm, left (09/08/20 8:32 AM) Temperature Route Temporal (09/08/20 10:15 AM) Temporal (09/08/20 8:32 AM) Dry Weight 94 kg (09/08/20 8:32 AM) 95.91 kg (08/31/20 4:34 PM) Weight Obtained Via Standing scale (09/08/20 8:32 AM) Patient/family stated (08/31/20 4:34 PM) Dry Weight Obtained Via Standing scale (09/08/20 8:32 AM) Patient/family stated (08/31/20 4:34 PM)
[2023-06-19 06:59] VITALS: BP 136/71; PULSE 79; RESP 18; TEMP 36.1; O2SAT 97
[2023-06-19] MEDS: Lactated Ringers 1,000 ML 100 ML IVCONT (07:18)
--- NOTE | 2023-06-19 08:50 | MHC.SHP ---
Pre-Procedural Eval Section A Date of Service: 06/19/23 The patient is an INPATIENT: No Changes since office visit: No Cold of Flu in the past 2 weeks, No New Medical Problems, No Changes in Medication and No Patient answered all questions The History & Physical has been completed within 30 days and I have reviewed it.: Yes Section B Chief Complaint: gerd,screening Allergies: Allergies Allergy/AdvReac Type Severity Reaction Status Date / Time hydrocodone [From VICODIN] Allergy Severe SWELLING Verified 03/14/23 16:15 aspirin [ASPIRIN] Allergy Intermediate HIVES Verified 03/14/23 16:15 oxycodone [OXYCODONE] Allergy Intermediate HIVES Verified 03/14/23 16:15 ibuprofen Allergy Unknown Unknown Verified 03/14/23 16:15 Environmental Allergy Unknown Unknown Uncoded 03/14/23 16:15 Plan I have reviewed the history and physical and performed a pertinent physical examination on my patient. No changes have occurred unless specified. Time Spent With Patient Time: Total time managing care of this patient today ____ minutes.
[2023-06-19 09:42] VITALS: BP 137/71; PULSE 88; RESP 16; TEMP 36.8; O2SAT 98
[2023-06-19 09:57] VITALS: BP 129/72; PULSE 74; RESP 18; TEMP 36.8; O2SAT 99
--- NOTE | 2023-06-19 09:57 | OP_ITS ---
DATE OF SERVICE: 06/19/2023 SURGEON: Ash Obando MD INDICATIONS: 1. Gastroesophageal reflux disease. 2. Colon cancer screening and family history of colon cancer. PREOPERATIVE DIAGNOSIS: POSTOPERATIVE DIAGNOSIS: PROCEDURE PERFORMED: ESTIMATED BLOOD LOSS: COMPLICATIONS: ANESTHESIA: Monitored anesthesia care. ASSISTANTS: SPECIMENS: PROCEDURES PERFORMED: Upper endoscopy with biopsy, colonoscopy to the terminal ileum with biopsy. DESCRIPTION OF PROCEDURE: A history and physical were performed. The risks and benefits of the procedure were explained to the patient. Informed consent was obtained. The patient was placed in the left lateral decubitus position. A digital rectal exam was performed prior to the colonoscopy and was found to be normal. The Olympus video gastroscope was introduced into the esophagus, stomach, and duodenum. Examination was performed, and the scope was removed. She tolerated the procedure well. She was repositioned for colonoscopy. The Olympus pediatric video colonoscope was introduced into the rectum and advanced to the cecum. The cecum was identified by transillumination, palpation, and identification of ileocecal valve. Examination was performed, and the scope was removed. She tolerated both procedures well and was returned to recovery in stable condition. FINDINGS: Upper endoscopy: 1. Esophagus. The esophagus was normal. There was no esophagitis. The EG junction was slightly irregular and this was biopsied. There was a small sliding hiatal hernia. 2. Stomach. The stomach showed several benign-appearing polyps, consistent with fundic gland polyps. Antral biopsies were obtained to rule out H. pylori. 3. Duodenum, the bulb and second portion were normal. Colonoscopy: The terminal ileum was normal. The visualized colonic mucosa was normal. The quality of prep was good. Two polyps were identified; the first was located at 65 cm and removed with biopsy forceps. The second was located at 15 cm and was removed with biopsy forceps. This measured less than 5 mm. No other polyps were identified. Retroflexed examination was normal. IMPRESSION: 1. Gastroesophageal reflux disease. 2. Colon polyps. RECOMMENDATION: 1. Follow up the biopsy results. MD ZENOBIA Archuleta/LUIS / [id number] MTDD
== END 2023-06-19 10:29 | disposition home or self-care (01) ==
PROVIDERS: PCP Internal Medicine; Visit Provider Internal Medicine Gastroenterology
PROC: (CPT 45380; principal; 2023-06-19 08:10)
DX: Z12.11 Encounter for screening for malignant neoplasm of colon (principal); Z80.0 Family history of malignant neoplasm of digestive organs; D12.4 Benign neoplasm of descending colon; K63.5 Polyp of colon; K59.00 Constipation, unspecified; K21.9 Gastro-esophageal reflux disease without esophagitis; K31.7 Polyp of stomach and duodenum; K44.9 Diaphragmatic hernia without obstruction or gangrene; K22.70 Barrett's esophagus without dysplasia; F50.2 Bulimia nervosa; Z68.37 Body mass index [BMI] 37.0-37.9, adult; J45.909 Unspecified asthma, uncomplicated; G35 Multiple sclerosis; E78.5 Hyperlipidemia, unspecified; Z79.51 Long term (current) use of inhaled steroids; Z79.899 Other long term (current) drug therapy; Z87.891 Personal history of nicotine dependence
CPT/HCPCS: 45380; 43239; 88305; 88342; J2704

== ENCOUNTER 2023-07-21 11:52 | Outpatient (AMB) | payer OTHER, SELFPAY ==
--- NOTE | 2023-07-21 11:54 | MHC.OFFWIV ---
Intake Vital Signs 07/21/23 12:00 BP 124/80 Blood Pressure Location Lt brachial Position Sitting Pulse 84 Pulse Source Pulse Oximeter Pulse Oximetry (%) 98 Oxygen Delivery Method Room Air Intake Visit Reasons: EP Lower RT back groin leg pain Intake Note: Patient here for lower right back pain, pain radiates to the groin which has been happening for about 1 week. Patient Tobacco Use Status: Former Tobacco user Allergies hydrocodone [From VICODIN] Allergy (Severe, Verified 07/21/23 11:59) SWELLING aspirin [ASPIRIN] Allergy (Intermediate, Verified 07/21/23 11:59) HIVES oxycodone [OXYCODONE] Allergy (Intermediate, Verified 07/21/23 11:59) HIVES ibuprofen Allergy (Unknown, Verified 07/21/23 11:59) Unknown Environmental Allergy (Unknown, Uncoded 07/21/23 11:59) Unknown Do you need a note to return to daycare/school/sports/work: No HPI HPI Comments History of Present Illness Details 62-year-old female history of MS, obesity, lipid disorder, asthma presenting to the clinic for evaluation of right-sided lower back pain, difficulties with urination, right-sided groin pain ongoing for the past week. No history of kidney stones. No blunt trauma. Pain worse with movement however present at all times, severe was intermittent stabbing now constant. No associated nausea, vomiting, fevers, chills, saddle paresthesias, numbness, tingling, urine/bowel incontinence/retention, fevers, chills Physical exam right lumbar paraspinous tenderness to the right. No saddle paresthesias. Ambulating with steady gait. Plan will obtain a urine UA without blood. This is likely musculoskeletal unlikely kidney stone. Unlikely pyelonephritis, cauda equina, epidural abscess, cord compression, acute MS flare At this time will discharge patient home with prednisone, Tylenol, Lidoderm and muscle relaxer [facility] Medical History Elevated cholesterol Asthma Anxiety Multiple sclerosis GERD (gastroesophageal reflux disease) Depression Vomiting Surgical History History of esophagogastroduodenoscopy (EGD) S/P dilation and curettage H/O prior ablation treatment H/O arthroscopy of knee History of arthroscopy of right shoulder History of sinus surgery Family History Father HTN (hypertension) Mother HTN (hypertension) Rectal cancer Brother No problems noted. Brother No problems noted. Sister No problems noted. Sister No problems noted. [facility] Alcohol intake: current Alcohol intake frequency: holidays/special occasions only Patient Tobacco Use Status: Former Tobacco user Current occupational status: employed Cognitive needs: No Hearing needs: No Vision needs: Yes Review of Systems Const Details: Constitutional : No Weight loss, No Fever, No Chills, ENT/Mouth : No Hearing loss, No Ear Pain, No Nasal Congestion, No Sinus Pain, No Hoarseness, No sore throat, No Rhinorrhea, No Swallowing Difficulty Cardiovascular : No Chest Pain, No SOB Respiratory : No Cough, No Dyspnea Gastrointestinal : No Nausea, No Vomiting, No Diarrhea, No abdominal Pain, No Hematochezia, No Melena Genitourinary : No Dysuria, No Urinary Frequency, No Hematuria, No Urinary Incontinence, Musculoskeletal : positive back pain Skin : No Skin Lesions, No rash Neuro : No Weakness, No Numbness, No Paresthesias, no loss of bowel or bladder incontinence, no saddle anesthesia All systems reviewed & are unremarkable except as noted in HPI and below Physical Exam Vital Signs: Last Vital Signs Pulse 84 07/21/23 12:00 BP 124/80 07/21/23 12:00 Pulse Ox 98 07/21/23 12:00 Oxygen Delivery Method Room Air 07/21/23 12:00 vss Appearance: Alert.? Oriented X3.? No acute distress.? Head: Normocephalic, atraumatic, no step-offs or deformities Eyes: Pupils equal, round and reactive to light.? CVS: Normal heart rate and rhythm.? Pulses normal.? Respiratory: No respiratory distress.? Breath sounds normal.? Abdomen: Soft and nontender.? Skin: Skin warm and dry.? Normal skin color.? Normal skin turgor.? back: lumbar paraspinous tenderness to the right. No saddle paresthesias. Ambulating with steady gait. Extremities: No lower extremity edema.? No calf ttp. 5/5 strength to bilateral upper and lower extremities Neuro: Oriented X 3.? No motor deficit.? No sensory deficit. CN 2-12 intact . No saddle paresthesias Results AMB Urinalysis, Automated UA Leukoctes 0 Yary/uL Last Edit by MARK Gil on 07/21/23 12:22 UA Nitrite Negative Last Edit by Gi Adams [facility] on 07/21/23 12:22 UA Urobilinogen 0.2 mg/dL Last Edit by Gi Adams [facility] on 07/21/23 12:22 UA Protein 0 mg/dL Last Edit by Gi Adams [facility] on 07/21/23 12:22 UA pH 6.0 Last Edit by Gi Adams [facility] on 07/21/23 12:22 UA Blood 0 Hossein/uL Last Edit by Gi Adams [facility] on 07/21/23 12:22 UA Specific [place] 1.030 Last Edit by Gi Adams [facility] on 07/21/23 12:22 UA Ketone Negative Last Edit by Gi Adams [facility] on 07/21/23 12:22 UA Bilirubin 0 mg/dL Last Edit by Gi Adams [facility] on 07/21/23 12:22 UA Glucose 0 mg/dL Last Edit by Gi Adams [facility] on 07/21/23 12:22 Assessment & Plan Assessment & Plan (1) Right low back pain: Code(s): M54.50 - Low back pain, unspecified Plan Take your medications as prescribed. If you were prescribed antibiotics today, it is important that you take your medication to their entirety, do not skip any doses, do not finish them early. Follow-up with your primary care provider this week. Return to the emergency department with new or worsening symptoms. Such as fevers, chills, chest pain, shortness of breath, nausea, vomiting, dizziness, headache, vision changes, lethargy In case of emergency call 911 Orders: Orders AMB Urinalysis Automated Today Z13.9 - Encounter for screening, unspecified Medications: New acetaminophen (Tylenol) 650 mg (2 x 325 mg) PO Q4H PRN 30 tabs 0RF fever lidocaine 4% (AsperFlex (lidocaine)) 1 patch topical DAILY PRN 15 ea 0RF pain cyclobenzaprine 10 mg PO BEDTIME PRN 14 tabs 0RF muscle spasm prednisone 40 mg (2 x 20 mg) PO DAILY 10 tabs 0RF 5 days Coding Level of Care Code Est Pt Level 3 (52899) Diagnoses Right low back pain M54.50
[2023-07-21 12:00] VITALS: BP 124/80; PULSE 84; O2SAT 98
== END 2023-07-21 13:17 | disposition home or self-care (01) ==
PROVIDERS: PCP Internal Medicine; Visit Provider Physician Assistant
DX: M54.50 Low back pain, unspecified (principal)
CPT/HCPCS: 81003; 99051; 99213

== ENCOUNTER 2023-08-11 08:23 | Outpatient (REF) | payer OTHER, SELFPAY | END 2023-08-11 08:24 | disposition home or self-care (01) | LOC: HO.MAMMO 08:23 | PROVIDERS: PCP Internal Medicine; Visit Provider Internal Medicine | DX: Z12.31 Encounter for screening mammogram for malignant neoplasm of breast (principal) | CPT/HCPCS: 77063; 77067 ==

== ENCOUNTER → 2023-08-11 08:45 | Outpatient (BNV) | payer OTHER, SELFPAY | PROVIDERS: PCP Internal Medicine; Visit Provider Radiology Diagnostic Radiology | DX: Z12.31 Encounter for screening mammogram for malignant neoplasm of breast (principal) | CPT/HCPCS: 77063; 77067 ==

== ENCOUNTER 2023-11-21 15:21 | Outpatient (AMB) | payer OTHER, SELFPAY ==
--- NOTE | 2023-11-21 15:26 | MHC.PC.OV ---
Vital Signs 11/21/23 15:28 Height 5 ft 2 in Weight 188 lb BMI 34.4 BP 110/70 Blood Pressure Location Rt brachial Position Sitting Pulse 79 Pulse Source Pulse Oximeter Pulse Oximetry (%) 98 Oxygen Delivery Method Room Air Intake Visit Reasons: PE Allergies hydrocodone [From VICODIN] Allergy (Severe, Verified 11/21/23 15:27) SWELLING aspirin [ASPIRIN] Allergy (Intermediate, Verified 11/21/23 15:27) HIVES oxycodone [OXYCODONE] Allergy (Intermediate, Verified 11/21/23 15:27) HIVES ibuprofen Allergy (Unknown, Verified 11/21/23 15:27) Unknown Environmental Allergy (Unknown, Uncoded 11/21/23 15:27) Unknown Medication List - Last Reconciled 11/21/23 by Cari Ambrose MD acetaminophen (Tylenol) 650 mg (2 x 325 mg) PO Q4H PRN albuterol sulfate 90 mcg/actuation 1 puff inhalation Q4H PRN alprazolam 0.25 mg PO DAILY PRN fluticasone propion-salmeterol 250-50 mcg/dose (Advair Diskus) 1 inh inhalation BID lidocaine 4% (AsperFlex (lidocaine)) 1 patch topical DAILY PRN meloxicam 15 mg PO DAILY montelukast 10 mg PO QPM natalizumab (Tysabri) 300 mg IV Q4W omeprazole 20 mg PO DAILY simvastatin 10 mg PO DAILY 90 days Tobacco use date assessed: 11/21/23 Dental Screening Dental Screen Date: 11/21/23 Did you have a dental visit in the last 12 months?: No Was dental information given to patient?: Patient has dentist HPI PE HPI Details Patient is 63-year-old female came in today for physical examination Patient have MS she is seeing Dr. 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 Brother No problems noted. Sister No problems noted. Sister No problems noted. [facility] Alcohol intake: current Alcohol intake frequency: holidays/special occasions only Patient Tobacco Use Status: Former Tobacco user e-Cigarette/Vaping Use: Never Used Current occupational status: employed Cognitive needs: No Hearing needs: No Vision needs: Yes Questionnaire PHQ-9 Over the last 2 weeks, how often have you been bothered by any of the following problems? 1. Little interest or pleasure in doing things: not at all 2. Feeling down, depressed, or hopeless: not at all 3. Trouble falling or staying asleep, or sleeping too much: not at all 4. Feeling tired or having little energy: not at all 5. Poor appetite or overeating: not at all 6. Feeling bad about yourself - or that you are a failure or have let yourself or your family down: not at all 7. Trouble concentrating on things, such as reading the newspaper or watching television: not at all 8. Moving or speaking so slowly that other people could have noticed. Or the opposite - being so fidgety or restless that you have been moving around a lot more than usual: not at all 9. Thoughts that you would be better off or of hurting yourself in some way: not at all Total score: 0 Depression Screening Interpretation: Negative Depression Screening Done: Yes 52910 - PHQ-9 Billing: Yes Source: Developed by Allan Españaet B.W. Silvano, Олег Robles and colleagues, with an educational azam from [employer]. Thrive Questionnaire Date Thrive assessed: 11/21/23 I am a: Patient What is your living situation today?: I have a steady place to live Within the past 12 months, did the food you bought not last and you didn't have the money to get more?: Never true Within the past 12 months, did you worry whether your food would run out before you got money to buy more?: Never true Do you have trouble paying for medicines?: No Do you have trouble getting transportation to medical appointments?: No Do you have trouble paying your heating and electricity bill?: No Do you have trouble taking care of your child, family member or friend?: No Do you have trouble with day-to-day activities such as bathing, preparing meals, shopping, managing finances, etc.?: No Are you currently unemployed and looking for a job?: No Are you interested in more education?: No THRIVE Score: 0 AUDIT C Alcohol Use Questionnaire (AUDIT-C) 1. How often do you have a drink containing alcohol?: Never Total Score: 0 ANTELMO-7 AMB Questionnaire ANTELMO-7 Date ANTELMO - 7 assessed: 11/21/23 Feeling nervous, anxious, or on edge: 0 = Not at all Not being able to stop or control worryin = Not at all Worrying too much about different things: 0 = Not at all Trouble relaxin = Not at all Being so restless that it is hard to sit still: 0 = Not at all Becoming easily annoyed or irritable: 0 = Not at all Feeling afraid as if something awful might happen: 0 = Not at all Total ANTELMO-7 score (0-4 normal; 5-9 mild; 10-14 moderate; 15-21 severe): 0 Source: Developed by Drs. Ino Horton, Lona Schaefer, Олег Robles and colleagues, with an educational azam from [employer]. Review of Systems Const Denies chills, Denies fever(s) and Denies headache(s) Eyes Denies blurry vision ENT Denies headache(s), Denies nasal discharge, Denies nasal obstruction, Denies odynophagia and Denies sinus pain Card Denies chest pain at rest and Denies chest pain with activity Resp Denies cough and Denies hemoptysis GI Denies diarrhea, Denies odynophagia, Denies vomiting and Denies hematemesis Reports as per HPI Musc Denies abnormal gait Skin/Breast Reports as per HPI Neuro Denies Neuro-related abnormal movements, Denies Abnormal speech present, Denies abnormal gait, Denies headache(s) and Denies Sensory deficit (Neuro) Psych Denies mood swings and Denies paranoia Endo Reports as per HPI Marcelo/Lymph Reports as per HPI Aller/Immun Reports as per HPI Physical exam (Primary Care) Vital Signs: Last Vital Signs Pulse 79 11/21/23 15:28 BP 110/70 11/21/23 15:28 Pulse Ox 98 11/21/23 15:28 Oxygen Delivery Method Room Air 11/21/23 15:28 BMI result Body Mass Index 34.4 Tobacco/Smoking Status: Tobacco use Status Tobacco use date assessed 11/21/23 11/21/23 15:30 Patient Tobacco Use Status Former Tobacco user 11/21/23 15:30 e-Cigarette/Vaping Use Never Used 11/21/23 15:30 PHQ-9: PHQ-9 Score PHQ-9: Total score 0 11/21/23 15:33 Depression Screening Interpretation: Negative Thrive Assessment: Date of Thrive Assessment Date Thrive assessed 11/21/23 11/21/23 15:33 Const General: cooperative, comfortable and no acute distress Orientation/consciousness: patient oriented x3 HENMT Head: Yes normocephalic and Yes atraumatic Eyes General: appearance normal, both eyes and all related structures Pupils: Equal, round and reactive pupils present EOM: EOMs intact bilaterally Neck Neck: Yes supple and No lymphadenopathy Thyroid: Thyroid normal Lymphatic: no lymphadenopathy noted Chest Breast/axilla palpation: normal palpation of the breasts Resp Effort & Inspection: normal respiratory effort and able to speak in complete sentences Auscultation: clear to auscultation bilaterally Cardio Heart sounds: S1 normal heart sound present and S2 normal heart sound present GI Palpation (GI): Soft to palpation and nontender Auscultation: normal bowel sounds General: Yes no CVA tenderness Back/Spine/Pelvis Back: no CVA tenderness Skin General skin exam: elasticity normal and turgor normal Neuro General: patient oriented x3 and gait normal Cranial nerves: Yes Equal, round and reactive pupils present Speech: No Abnormal speech present Sensory Exam: No Sensory deficit (Neuro) Coordination: tandem gait normal and Romberg test negative Extrem General: Yes normal exam except as noted and No edema Assessment and Plan Assessment & Plan (1) Encounter for general adult medical examination with abnormal findings: Code(s): Z00.01 - Encounter for general adult medical examination with abnormal findings (2) Obesity (BMI 30-39.9): Code(s): E66.9 - Obesity, unspecified (3) Chronic GERD: Code(s): K21.9 - Gastro-esophageal reflux disease without esophagitis (4) Environmental allergies: Code(s): Z91.09 - Other allergy status, other than to drugs and biological substances (5) Asthma, moderate: Code(s): J45.909 - Unspecified asthma, uncomplicated Qualifiers: Asthma persistence: persistent Asthma complication type: uncomplicated Qualified Code(s): J45.40 - Moderate persistent asthma, uncomplicated (6) Lipid disorder: Code(s): E78.9 - Disorder of lipoprotein metabolism, unspecified (7) Multiple sclerosis: Code(s): G35 - Multiple sclerosis Plan Patient is 63-year-old female came in today for physical examination Patient have MS she is seeing Dr. 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 Panel Fast Today E66.9 - Obesity, unspecified, E78.9 - Disorder of lipoprotein metabolism, unspecified, Z00.01 - Encounter for general adult medical examination with abnormal findings Lipid Panel Today E66.9 - Obesity, unspecified, E78.9 - Disorder of lipoprotein metabolism, unspecified, Z00.01 - Encounter for general adult medical examination with abnormal findings Lipid Panel 6 Months E78.9 - Disorder of lipoprotein metabolism, unspecified Liver Panel 6 Months E78.9 - Disorder of lipoprotein metabolism, unspecified Coding Level of Care Code Est Pt Prev Care 40-64y(57523) Diagnoses Encounter for general adult medical examination with abnormal findings Z00.01 Obesity (BMI 30-39.9) E66.9 Chronic GERD K21.9 Environmental allergies Z91.09 Moderate persistent asthma without complication J45.40 Asthma persistence: persistent Asthma complication type: uncomplicated Lipid disorder E78.9 Multiple sclerosis G35
[2023-11-21 15:28] VITALS: BP 110/70; PULSE 79; O2SAT 98; BMI 34.4
== END 2023-11-21 15:49 | disposition home or self-care (01) ==
PROVIDERS: Visit Provider Internal Medicine
DX: Z00.00 Encounter for general adult medical examination without abnormal findings (principal); G35 Multiple sclerosis; E66.9 Obesity, unspecified; Z68.34 Body mass index [BMI] 34.0-34.9, adult; J45.40 Moderate persistent asthma, uncomplicated; K21.9 Gastro-esophageal reflux disease without esophagitis; Z91.09 Other allergy status, other than to drugs and biological substances; E78.9 Disorder of lipoprotein metabolism, unspecified
CPT/HCPCS: 99396

== ENCOUNTER 2023-12-07 07:12 | Outpatient (REF) | payer OTHER, SELFPAY ==
[2023-12-07 07:23] LABS: MANUAL DIFF FLAG NO
[2023-12-07 09:08] LABS: Basophils Absolute Auto 0.1 X10*3/uL (0.0-0.2); Basophils Percent Auto 0.8 % (0-2); Eosinophils Absolute Auto 0.5 X10*3/uL (0.0-0.4); Eosinophils Percent Auto 4.7 % (0-4); Hematocrit 42.1 % (37.0-47.0); Hemoglobin 13.6 g/dl (12.0-16.0); Imm Gran Abs Auto 0.04 X10*3/uL (0.00-0.03); Imm Gran Pct Auto 0.4 % (0.0-0.4); Lymphocytes Absolute Auto 3.4 X10*3/uL (1.2-4.9); Lymphocytes Percent Auto 34.1 % (20-40); Mean Corpuscular HGB Conc 32.3 g/dl (31.0-35.0); Mean Corpuscular Hemoglobin 29.2 pg (27.0-33.0); Mean Corpuscular Volume 90.5 fL (80.0-98.0); Mean Platelet Volume 10.8 fL (9.4-12.3); Monocytes Absolute Auto 0.9 X10*3/uL (0.1-1.2); Monocytes Percent Auto 8.8 % (2-11); NRBC Pct Auto 0.9 /100WBC (0.0-0.2); Neutrophils Absolute Auto 5.1 x10*3/uL (2.0-8.3); Neutrophils Percent Auto 51.2 % (45-73); Platelet Count 302 X10*3/uL (160-400); Red Blood Count 4.65 X10*6/uL (4.20-5.50); Red Cell Distribution Width 14.7 % (11.0-16.0)
[2023-12-07 09:58] LABS: Alanine Aminotransferase 23 U/L (0-31); Albumin Level 4.2 g/dL (3.5-5.0); Alkaline Phosphatase 80 U/L (39-117); Anion Gap 16 (12-20); Aspartate Amino Transferase 23 U/L (5-31); Bilirubin Total 0.6 mg/dL (0.0-1.0); Blood Urea Nitrogen 7 mg/dL (9-16); Calcium 10.2 mg/dL (8.4-10.2); Carbon Dioxide 22 mmol/L (22-29); Chloride 105 mmol/L (96-108); Cholesterol 161 mg/dL (<200); Estimated Glomerular Filt Rate > 60; Glucose Fasting 92 mg/dL (60-99); HDL Cholesterol 53 mg/dL (>40); LDL Cholesterol Calculated 95 mg/dL (<100); Potassium 3.7 mmol/L (3.3-5.1); Sodium 139 mmol/L (135-145); Total Protein 6.8 g/dL (6.5-8.0); Triglycerides 66 mg/dL (<150)
== END 2023-12-07 07:13 | disposition home or self-care (01) ==
LOC: HO.LAB 07:12
PROVIDERS: PCP Internal Medicine; Visit Provider Internal Medicine
DX: Z00.01 Encounter for general adult medical examination with abnormal findings (principal); E66.9 Obesity, unspecified; E78.9 Disorder of lipoprotein metabolism, unspecified
CPT/HCPCS: 36415; 80053; 80061; 85025

== ENCOUNTER 2024-01-29 15:32 | Outpatient (REF) | payer OTHER, SELFPAY ==
[2024-01-29 17:41] LABS: Alanine Aminotransferase 24 U/L (0-31); Albumin Level 4.1 g/dL (3.5-5.0); Alkaline Phosphatase 85 U/L (39-117); Aspartate Amino Transferase 27 U/L (5-31); Bilirubin Direct 0.1 mg/dL (0.0-0.5); Bilirubin Total 0.4 mg/dL (0.0-1.0); Total Protein 6.7 g/dL (6.5-8.0)
[2024-02-05 03:19] LABS: JCV Antibody NEGATIVE; JCV Index Value 0.16
== END 2024-01-29 15:33 | disposition home or self-care (01) ==
LOC: HO.LAB 15:32
PROVIDERS: PCP Internal Medicine; Visit Provider Registered Nurse
DX: G35 Multiple sclerosis (principal)
CPT/HCPCS: 36415; 80076; 86711

== ENCOUNTER 2024-04-30 13:09 | Outpatient (AMB) | payer OTHER, SELFPAY ==
[2024-04-30 13:26] VITALS: BP 112/70; PULSE 90; O2SAT 98; BMI 36.9
--- NOTE | 2024-04-30 13:26 | A.OFFPC_ITS ---
Vital Signs 04/30/24 13:26 Height 5 ft 2 in Weight 201 lb 8 oz BMI 36.9 BP 112/70 Blood Pressure Location Rt brachial Position Sitting Pulse 90 Pulse Source Pulse Oximeter Pulse Oximetry (%) 98 Oxygen Delivery Method Room Air Intake Visit Reasons: Discuss weight med~ Allergies hydrocodone [From VICODIN] Allergy (Severe, Verified 04/30/24 13:31) SWELLING aspirin [ASPIRIN] Allergy (Intermediate, Verified 04/30/24 13:31) HIVES oxycodone [OXYCODONE] Allergy (Intermediate, Verified 04/30/24 13:31) HIVES ibuprofen Allergy (Unknown, Verified 04/30/24 13:31) Unknown Environmental Allergy (Unknown, Uncoded 11/21/23 15:27) Unknown Medication List - Last Reconciled 04/30/24 by Cari Ambrose MD acetaminophen (Tylenol) 650 mg (2 x 325 mg) PO Q4H PRN albuterol sulfate 90 mcg/actuation 1 puff inhalation Q4H PRN alprazolam 0.25 mg PO DAILY PRN fluticasone propion-salmeterol 250-50 mcg/dose (Advair Diskus) 1 inh inhalation BID lidocaine 4% (AsperFlex (lidocaine)) 1 patch topical DAILY PRN montelukast 10 mg PO QPM natalizumab (Tysabri) 300 mg IV Q4W omeprazole 20 mg PO DAILY simvastatin 10 mg PO DAILY 90 days Tobacco use date assessed: 04/30/24 Dental Screening Dental Screen Date: 04/30/24 Did you have a dental visit in the last 12 months?: Yes Did you have a dental problem in the last 6 months where you did not have access to dental care?: No Was dental information given to patient?: Patient has dentist HPI Discuss weight med~ HPI Details Patient is a 63-year-old female with a history of MS And BMI of 36.9 Patient also suffers from back pain and asthma She would like to start semaglutide injection to lose weight She will be also modified her diet and start to exercise more Mood trin[place] patient is stable there is no depression anxiety She will talk to neurologist before she starts the injection Lab order placed as a baseline She is aware of side effects of semaglutide, we reviewed them again Once she start the medication she will call so we can book appointment for follow-up in a month [facility] Medical History Elevated cholesterol Asthma Anxiety Multiple sclerosis GERD (gastroesophageal reflux disease) Depression Vomiting Surgical History History of esophagogastroduodenoscopy (EGD) S/P dilation and curettage H/O prior ablation treatment H/O arthroscopy of knee History of arthroscopy of right shoulder History of sinus surgery Family History Father HTN (hypertension) Mother HTN (hypertension) Rectal cancer Brother No problems noted. Brother No problems noted. Sister No problems noted. Sister No problems noted. Social History Housing: [facility]ominium Alcohol intake: current Alcohol intake frequency: holidays/special occasions only Patient Tobacco Use Status: Former Tobacco user e-Cigarette/Vaping Use: Never Used Current occupational status: employed Cognitive needs: No Hearing needs: No Vision needs: Yes Questionnaire PHQ-9 Over the last 2 weeks, how often have you been bothered by any of the following problems? 1. Little interest or pleasure in doing things: not at all 2. Feeling down, depressed, or hopeless: not at all 3. Trouble falling or staying asleep, or sleeping too much: not at all 4. Feeling tired or having little energy: not at all 5. Poor appetite or overeating: several days 6. Feeling bad about yourself - or that you are a failure or have let yourself or your family down: not at all 7. Trouble concentrating on things, such as reading the newspaper or watching television: not at all 8. Moving or speaking so slowly that other people could have noticed. Or the opposite - being so fidgety or restless that you have been moving around a lot more than usual: not at all 9. Thoughts that you would be better off or of hurting yourself in some way: not at all Total score: 1 Depression Screening Interpretation: Negative Depression Screening Done: Yes 75441 - PHQ-9 Billing: Yes Source: Developed by Drs. Ino Horton, Lona Schaefer, Олег Robles and colleagues, with an educational azam from [employer]. Thrive Questionnaire Date Thrive assessed: 04/30/24 I am a: Patient What is your living situation today?: I have a steady place to live Within the past 12 months, did the food you bought not last and you didn't have the money to get more?: Never true Within the past 12 months, did you worry whether your food would run out before you got money to buy more?: Never true Do you have trouble paying for medicines?: No Do you have trouble getting transportation to medical appointments?: No Do you have trouble paying your heating and electricity bill?: No Do you have trouble taking care of your child, family member or friend?: No Do you have trouble with day-to-day activities such as bathing, preparing meals, shopping, managing finances, etc.?: No Are you currently unemployed and looking for a job?: No Are you interested in more education?: No Please select the resources that you would like help with: None Currently or been in a relationship where the following occur: No concerns reported THRIVE Score: 0 AUDIT C Alcohol Use Questionnaire (AUDIT-C) 1. How often do you have a drink containing alcohol?: Monthly or less 2. How many drinks containing alcohol do you have on a typical day when you are drinking?: 1 or 2 3. How often do you have six or more drinks on one occasion?: Never Total Score: 1 Score Reviewed/Action Taken: Yes ANTELMO-7 AMB Questionnaire ANTELMO-7 Date ANTELMO - 7 assessed: 04/30/24 Feeling nervous, anxious, or on edge: 0 = Not at all Not being able to stop or control worryin = Not at all Worrying too much about different things: 0 = Not at all Trouble relaxin = Not at all Being so restless that it is hard to sit still: 0 = Not at all Becoming easily annoyed or irritable: 0 = Not at all Feeling afraid as if something awful might happen: 0 = Not at all Total ANTELMO-7 score (0-4 normal; 5-9 mild; 10-14 moderate; 15-21 severe): 0 Source: Developed by Drs. Ino Horton, Олег Rosales and colleagues, with an educational azam from [employer]. ANTELMO-7 Assessment Billing ANTELMO-7 Assessment Tool: ANTELMO-7 Assessment 05722 Review of Systems Const Denies chills and Denies fever(s) ENT Denies epistaxis and Denies nasal discharge Card Denies chest pain Resp Denies chest congestion, Denies cough and Denies hemoptysis GI Denies diarrhea and Denies nausea Skin/Breast Denies rash Neuro Reports no additional complaints Psych Reports no additional complaints Endo Reports no additional complaints Physical exam (Primary Care) Vital Signs: Last Vital Signs Pulse 90 04/30/24 13:26 BP 112/70 04/30/24 13:26 Pulse Ox 98 04/30/24 13:26 Oxygen Delivery Method Room Air 04/30/24 13:26 BMI result Body Mass Index 36.9 Tobacco/Smoking Status: Tobacco use Status Tobacco use date assessed 04/30/24 04/30/24 13:32 Patient Tobacco Use Status Former Tobacco user 04/30/24 13:30 e-Cigarette/Vaping Use Never Used 04/30/24 13:30 PHQ-9: PHQ-9 Score PHQ-9: Total score 1 04/30/24 13:46 Depression Screening Interpretation: Negative Thrive Assessment: Date of Thrive Assessment Date Thrive assessed 04/30/24 04/30/24 13:32 Currently or been in a relationship where the following occur: No concerns reported Const General: cooperative, comfortable and no acute distress Orientation/consciousness: patient oriented x3 HENMT Head: Yes normocephalic Eyes General: appearance normal, both eyes and all related structures Neck Neck: Yes supple Resp Effort & Inspection: normal respiratory effort, no cough and no stridor Cardio Rhythm: regular rhythm Heart sounds: S1 normal heart sound present and S2 normal heart sound present Skin General skin exam: turgor normal Neuro General: patient oriented x3, tone normal and moves all extremities Extrem Right lower extremity: no edema Left lower extremity: no edema Assessment and Plan Assessment & Plan (1) Obesity (BMI 30-39.9): Code(s): E66.9 - Obesity, unspecified (2) Lipid disorder: Code(s): E78.9 - Disorder of lipoprotein metabolism, unspecified (3) Asthma, moderate: Code(s): J45.909 - Unspecified asthma, uncomplicated Qualifiers: Asthma complication type: uncomplicated Asthma persistence: persistent Qualified Code(s): J45.40 - Moderate persistent asthma, uncomplicated (4) Chronic GERD: Code(s): K21.9 - Gastro-esophageal reflux disease without esophagitis (5) Lumbar pain: Code(s): M54.5 - Low back pain (6) Radiculitis of left cervical region: Code(s): M54.12 - Radiculopathy, cervical region Plan Patient is a 63-year-old female with a history of MS And BMI of 36.9 Patient also suffers from back pain and asthma She would like to start semaglutide injection to lose weight She will be also modified her diet and start to exercise more Mood trin[place] patient is stable there is no depression anxiety She will talk to neurologist before she starts the injection Lab order placed as a baseline She is aware of side effects of semaglutide, we reviewed them again Once she start the medication she will call so we can book appointment for follow-up in a month Orders: Orders TSH reflex Free T4 Today E66.9 - Obesity, unspecified, E78.9 - Disorder of lipoprotein metabolism, unspecified, J45.40 - Moderate persistent asthma, uncomplicated, M54.12 - Radiculopathy, cervical region Complete Blood Count Auto Diff Today E66.9 - Obesity, unspecified, E78.9 - Disorder of lipoprotein metabolism, unspecified, J45.40 - Moderate persistent asthma, uncomplicated, M54.12 - Radiculopathy, cervical region Comprehensive Met. Panel Today E66.9 - Obesity, unspecified, E78.9 - Disorder of lipoprotein metabolism, unspecified, J45.40 - Moderate persistent asthma, uncomplicated, M54.12 - Radiculopathy, cervical region Lipase Today E66.9 - Obesity, unspecified, E78.9 - Disorder of lipoprotein metabolism, unspecified, J45.40 - Moderate persistent asthma, uncomplicated, M54.12 - Radiculopathy, cervical region LDL Cholesterol Direct Today E66.9 - Obesity, unspecified, E78.9 - Disorder of lipoprotein metabolism, unspecified, J45.40 - Moderate persistent asthma, uncomplicated, M54.12 - Radiculopathy, cervical region Amylase Today E66.9 - Obesity, unspecified, E78.9 - Disorder of lipoprotein metabolism, unspecified, J45.40 - Moderate persistent asthma, uncomplicated, M54.12 - Radiculopathy, cervical region Medications: New semaglutide for 4 weeks 0.25 mg (0.368 mL) subcut QWEEK 2 mL 0RF 30 days E66.9 - Obesity, unspecified, E78.9 - Disorder of lipoprotein metabolism, unspecified, J45.40 - Moderate persistent asthma, uncomplicated, K21.9 - Gastro-esophageal reflux disease without esophagitis, M54.12 - Radiculopathy, cervical region, M54.5 - Low back pain Coding Level of Care Code Est Pt Level 4 (45728) Diagnoses Obesity (BMI 30-39.9) E66.9 Lipid disorder E78.9 Moderate persistent asthma without complication J45.40 Asthma complication type: uncomplicated Asthma persistence: persistent Chronic GERD K21.9 Lumbar pain M54.5 Radiculitis of left cervical region M54.12 Additional Codes ANTELMO-7 Assessment Billing - ANTELMO-7 Assessment Tool: ANTELMO-7 Assessment [id number] ([id number])
== END 2024-04-30 14:08 | disposition home or self-care (01) ==
PROVIDERS: PCP Internal Medicine; Visit Provider Internal Medicine
DX: J45.40 Moderate persistent asthma, uncomplicated (principal); E66.9 Obesity, unspecified; Z68.36 Body mass index [BMI] 36.0-36.9, adult; E78.9 Disorder of lipoprotein metabolism, unspecified; K21.9 Gastro-esophageal reflux disease without esophagitis; M54.50 Low back pain, unspecified; M54.12 Radiculopathy, cervical region

== ENCOUNTER → 2024-04-30 13:09 | Outpatient (BNVA) | payer OTHER, SELFPAY | PROVIDERS: PCP Internal Medicine; Visit Provider Internal Medicine | DX: E66.9 Obesity, unspecified (principal) ==

== ENCOUNTER 2024-04-30 13:44 | Outpatient (REF) | payer OTHER, SELFPAY ==
[2024-04-30 16:20] LABS: MANUAL DIFF FLAG NO
[2024-04-30 16:30] LABS: Basophils Absolute Auto 0.1 X10*3/uL (0.0-0.2); Eosinophils Absolute Auto 0.6 X10*3/uL (0.0-0.4); Eosinophils Percent Auto 6.4 % (0-4); Hematocrit 40.3 % (37.0-47.0); Hemoglobin 12.8 g/dl (12.0-16.0); Imm Gran Abs Auto 0.03 X10*3/uL (0.00-0.03); Imm Gran Pct Auto 0.3 % (0.0-0.4); Lymphocytes Absolute Auto 3.3 X10*3/uL (1.2-4.9); Lymphocytes Percent Auto 33.6 % (20-40); Mean Corpuscular HGB Conc 31.8 g/dl (31.0-35.0); Mean Corpuscular Hemoglobin 28.6 pg (27.0-33.0); Mean Platelet Volume 9.8 fL (9.4-12.3); Monocytes Absolute Auto 0.7 X10*3/uL (0.1-1.2); Monocytes Percent Auto 7.4 % (2-11); NRBC Pct Auto 0.4 /100WBC (0.0-0.2); Neutrophils Absolute Auto 5.1 x10*3/uL (2.0-8.3); Neutrophils Percent Auto 51.3 % (45-73); Platelet Count 287 X10*3/uL (160-400); Red Blood Count 4.48 X10*6/uL (4.20-5.50); Red Cell Distribution Width 13.7 % (11.0-16.0); White Blood Count 9.9 X10*3/uL (4.8-10.8)
[2024-04-30 17:02] LABS: Alanine Aminotransferase 22 U/L (0-31); Albumin Level 4.1 g/dL (3.5-5.0); Alkaline Phosphatase 86 U/L (39-117); Amylase 37 U/L (28-100); Anion Gap 12 (12-20); Aspartate Amino Transferase 24 U/L (5-31); Bilirubin Total 0.5 mg/dL (0.0-1.0); Blood Urea Nitrogen 7 mg/dL (9-16); Calcium 9.6 mg/dL (8.4-10.2); Carbon Dioxide 27 mmol/L (22-29); Chloride 107 mmol/L (96-108); Estimated Glomerular Filt Rate > 60; Glucose Random 106 mg/dL (60-115); Lipase 29 U/L (8-78); Sodium 142 mmol/L (135-145); Total Protein 6.8 g/dL (6.5-8.0)
[2024-04-30 17:18] LABS: TSH reflex Free T4 1.24 uIU/mL (0.32-4.0)
[2024-05-02 09:28] LABS: LDL Cholesterol Direct 108 mg/dL (<100)
== END 2024-04-30 13:45 | disposition home or self-care (01) ==
LOC: HO.HMGCLDS 13:44
PROVIDERS: PCP Internal Medicine; Visit Provider Internal Medicine
DX: E66.9 Obesity, unspecified (principal); M54.12 Radiculopathy, cervical region; J45.40 Moderate persistent asthma, uncomplicated; E78.9 Disorder of lipoprotein metabolism, unspecified
CPT/HCPCS: 36415; 80053; 82150; 83690; 83721; 84443; 85025; 96127

== ENCOUNTER 2024-06-10 14:56 | Outpatient (AMB) | payer OTHER, SELFPAY ==
[2024-06-10 15:02] VITALS: BP 118/82; PULSE 92; O2SAT 99; BMI 34.7
--- NOTE | 2024-06-10 15:02 | MHC.PC.OV ---
Vital Signs 06/10/24 15:02 Height 5 ft 2 in Weight 189 lb 8 oz BMI 34.7 BP 118/82 Blood Pressure Location Rt brachial Position Sitting Pulse 92 Pulse Source Pulse Oximeter Pulse Oximetry (%) 99 Oxygen Delivery Method Room Air Intake Visit Reasons: Follow Up Weight Check Allergies hydrocodone [From VICODIN] Allergy (Severe, Verified 06/10/24 15:02) SWELLING aspirin [ASPIRIN] Allergy (Intermediate, Verified 06/10/24 15:02) HIVES oxycodone [OXYCODONE] Allergy (Intermediate, Verified 06/10/24 15:02) HIVES ibuprofen Allergy (Unknown, Verified 06/10/24 15:02) Unknown Environmental Allergy (Unknown, Uncoded 11/21/23 15:27) Unknown Medication List - Last Reconciled 06/10/24 by Cari Ambrose MD acetaminophen (Tylenol) 650 mg (2 x 325 mg) PO Q4H PRN albuterol sulfate 90 mcg/actuation 1 puff inhalation Q4H PRN alprazolam 0.25 mg PO DAILY PRN fluticasone propion-salmeterol 250-50 mcg/dose (Advair Diskus) 1 inh inhalation BID lidocaine 4% (AsperFlex (lidocaine)) 1 patch topical DAILY PRN montelukast 10 mg PO QPM natalizumab (Tysabri) 300 mg IV Q4W omeprazole 20 mg PO DAILY semaglutide (weight loss) 0.5 mg (0.5 mL) subcut QWEEK 30 days simvastatin 10 mg PO DAILY 90 days Tobacco use date assessed: 06/10/24 Dental Screening Dental Screen Date: 06/10/24 Did you have a dental visit in the last 12 months?: Yes Did you have a dental problem in the last 6 months where you did not have access to dental care?: No Was dental information given to patient?: Patient has dentist HPI Follow Up Weight Check HPI Details Patient is 63-year-old female with a history of MS, lipid disorder, asthma Came in for weight management visit Patient is currently on semaglutide 0.25 mg injection weekly She has managed to lose 12 lb We are going up on the dose to 0.5 mg, patient is to continue that for next three-month She will return in 3 months for follow-up appointment Lab order placed that needs to be done before visit. [facility] Medical History Elevated cholesterol Asthma Anxiety Multiple sclerosis GERD (gastroesophageal reflux disease) Depression Vomiting Surgical History History of esophagogastroduodenoscopy (EGD) S/P dilation and curettage H/O prior ablation treatment H/O arthroscopy of knee History of arthroscopy of right shoulder History of sinus surgery Family History Father HTN (hypertension) Mother HTN (hypertension) Rectal cancer Brother No problems noted. Brother No problems noted. Sister No problems noted. Sister No problems noted. Social History Housing: Condominium Alcohol intake: current Alcohol intake frequency: holidays/special occasions only Patient Tobacco Use Status: Former Tobacco user e-Cigarette/Vaping Use: Never Used Current occupational status: employed Cognitive needs: No Hearing needs: No Vision needs: Yes Questionnaire PHQ-9 Over the last 2 weeks, how often have you been bothered by any of the following problems? 2. Feeling down, depressed, or hopeless: not at all Source: Developed by Drs. Ino Horton, Lona Schaefer, Олег Robles and colleagues, with an educational azam from [employer]. Thrive Questionnaire Date Thrive assessed: 06/10/24 I am a: Patient What is your living situation today?: I have a steady place to live Within the past 12 months, did the food you bought not last and you didn't have the money to get more?: Never true Within the past 12 months, did you worry whether your food would run out before you got money to buy more?: Never true Do you have trouble paying for medicines?: No Do you have trouble getting transportation to medical appointments?: No Do you have trouble paying your heating and electricity bill?: No Do you have trouble taking care of your child, family member or friend?: No Do you have trouble with day-to-day activities such as bathing, preparing meals, shopping, managing finances, etc.?: No Are you currently unemployed and looking for a job?: No Are you interested in more education?: No Please select the resources that you would like help with: None Currently or been in a relationship where the following occur: No concerns reported THRIVE Score: 0 AUDIT C Alcohol Use Questionnaire (AUDIT-C) 1. How often do you have a drink containing alcohol?: Monthly or less 2. How many drinks containing alcohol do you have on a typical day when you are drinking?: 1 or 2 3. How often do you have six or more drinks on one occasion?: Never Total Score: 1 Score Reviewed/Action Taken: Yes ANTELMO-7 AMB Questionnaire ANTELMO-7 Date ANTELMO - 7 assessed: 06/10/24 Source: Developed by Drs. Ino Horton, Lona Schaefer, Олег Robles and colleagues, with an educational azam from [employer]. Review of Systems Const Denies chills and Denies fever(s) ENT Denies epistaxis and Denies nasal discharge Card Denies chest pain Resp Denies chest congestion, Denies cough and Denies hemoptysis GI Denies diarrhea and Denies nausea Skin/Breast Denies rash Neuro Reports no additional complaints Psych Reports no additional complaints Endo Reports no additional complaints Physical exam (Primary Care) Vital Signs: Last Vital Signs Pulse 92 06/10/24 15:02 BP 118/82 06/10/24 15:02 Pulse Ox 99 06/10/24 15:02 Oxygen Delivery Method Room Air 06/10/24 15:02 BMI result Body Mass Index 34.7 Tobacco/Smoking Status: Tobacco use Status Tobacco use date assessed 04/30/24 06/10/24 15:02 Patient Tobacco Use Status Former Tobacco user 06/10/24 15:02 e-Cigarette/Vaping Use Never Used 06/10/24 15:02 Thrive Assessment: Date of Thrive Assessment Date Thrive assessed 04/23/24 06/10/24 15:02 Currently or been in a relationship where the following occur: No concerns reported Const General: cooperative, comfortable and no acute distress Orientation/consciousness: patient oriented x3 HENMT Head: Yes normocephalic Eyes General: appearance normal, both eyes and all related structures Neck Neck: Yes supple Resp Effort & Inspection: normal respiratory effort, no cough and no stridor Cardio Rhythm: regular rhythm Heart sounds: S1 normal heart sound present and S2 normal heart sound present Skin General skin exam: turgor normal Neuro General: patient oriented x3, tone normal and moves all extremities Extrem Right lower extremity: no edema Left lower extremity: no edema Coding Level of Care Code Est Pt Level 3 (19559) Diagnoses Multiple sclerosis G35 Lipid disorder E78.9 Moderate persistent asthma without complication J45.40 Asthma persistence: persistent Asthma complication type: uncomplicated Obesity (BMI 30-39.9) E66.9 Assessment & Plan Assessment & Plan (1) Multiple sclerosis: Code(s): G35 - Multiple sclerosis Category: Medical (2) Lipid disorder: Code(s): E78.9 - Disorder of lipoprotein metabolism, unspecified Category: Medical (3) Asthma, moderate: Code(s): J45.909 - Unspecified asthma, uncomplicated Category: Medical Qualifiers: Asthma persistence: persistent Asthma complication type: uncomplicated Qualified Code(s): J45.40 - Moderate persistent asthma, uncomplicated (4) Obesity (BMI 30-39.9): Code(s): E66.9 - Obesity, unspecified Category: Medical Plan Patient is 63-year-old female with a history of MS, lipid disorder, asthma Came in for weight management visit Patient is currently on semaglutide 0.25 mg injection weekly She has managed to lose 12 lb We are going up on the dose to 0.5 mg, patient is to continue that for next three-month She will return in 3 months for follow-up appointment Lab order placed that needs to be done before visit. Orders: Orders Amylase Today E66.9 - Obesity, unspecified, E78.9 - Disorder of lipoprotein metabolism, unspecified, G35 - Multiple sclerosis, J45.40 - Moderate persistent asthma, uncomplicated Lipase Today E66.9 - Obesity, unspecified, E78.9 - Disorder of lipoprotein metabolism, unspecified, G35 - Multiple sclerosis, J45.40 - Moderate persistent asthma, uncomplicated Complete Blood Count Auto Diff Today E66.9 - Obesity, unspecified, E78.9 - Disorder of lipoprotein metabolism, unspecified, G35 - Multiple sclerosis, J45.40 - Moderate persistent asthma, uncomplicated Comprehensive Met. Panel Today E66.9 - Obesity, unspecified, E78.9 - Disorder of lipoprotein metabolism, unspecified, G35 - Multiple sclerosis, J45.40 - Moderate persistent asthma, uncomplicated TSH reflex Free T4 Today E66.9 - Obesity, unspecified, E78.9 - Disorder of lipoprotein metabolism, unspecified, G35 - Multiple sclerosis, J45.40 - Moderate persistent asthma, uncomplicated Medications: Changed From Wegovy (semaglutide (weight loss)) administer weeks 1 through 4 of therapy 0.25 mg (0.5 mL) subcut QWEEK 2 mL 1RF NS To semaglutide (weight loss) administer weeks 1 through 4 of therapy 0.5 mg (0.5 mL) subcut QWEEK 30 days 2.5 mL 2RF
== END 2024-06-10 15:21 | disposition home or self-care (01) ==
LOC: HO.HMCC 14:57
PROVIDERS: PCP Internal Medicine; Visit Provider Internal Medicine
DX: J45.40 Moderate persistent asthma, uncomplicated (principal); G35 Multiple sclerosis; E66.9 Obesity, unspecified; Z68.34 Body mass index [BMI] 34.0-34.9, adult; E78.9 Disorder of lipoprotein metabolism, unspecified

== ENCOUNTER 2024-06-27 08:05 | Outpatient (AMB) | payer OTHER, SELFPAY ==
--- NOTE | 2024-06-27 08:10 | AM.OFFWIN_ITS ---
Intake Vital Signs 06/27/24 08:11 Height 5 ft 2 in Weight 184 lb BMI 33.7 BP 126/80 Blood Pressure Location Lt brachial Position Sitting Pulse 74 Pulse Source Pulse Oximeter Temp 98.6 F Temp Source Oral Pulse Oximetry (%) 95 Oxygen Delivery Method Room Air Intake Visit Reasons: EP lower back pain & stomach pain ? UTI also Intake Note: Patient here for lower back pain and lower abdominal pain that has been present for about 3 days. Patient Tobacco Use Status: Former Tobacco user Allergies hydrocodone [From VICODIN] Allergy (Severe, Verified 06/27/24 08:31) SWELLING aspirin [ASPIRIN] Allergy (Intermediate, Verified 06/27/24 08:31) HIVES oxycodone [OXYCODONE] Allergy (Intermediate, Verified 06/27/24 08:31) HIVES ibuprofen Allergy (Unknown, Verified 06/27/24 08:31) Unknown Environmental Allergy (Unknown, Uncoded 06/27/24 08:31) Unknown Do you need a note to return to daycare/school/sports/work: No HPI HPI Comments History of Present Illness Details The patient is a 63-year-old female presenting with symptoms consistent with a urinary tract infection. She reports experiencing significant lower back pain and lower middle/left abdominal pain, for the past three days. The pain is described as severe enough to impede walking and is associated with a sensation of fullness in the lower abdominal area. The patient has a history of multiple sclerosis, making her susceptible to urinary tract infections and bladder issues. For the management of multiple sclerosis and related symptoms, she uses acetaminophen and cyclobenzaprine; however, these medications have not provided relief for the current symptoms. Additionally, she is being treated with Wegovy for weight management, which has impacted her appetite and dietary habits. The patient has increased her fiber intake but continues to use a suppository for bowel movements. Three days prior to this visit, the patient experienced feverish feelings and clamminess, although she did not measure her temperature. There is no history of hematuria or kidney stones. The patient is also on a 40 mg dose of omeprazole daily for GERD, and she reports recent exacerbation in heartburn symptoms, possibly related to Wegovy administration. [facility] Medical History Elevated cholesterol Asthma Anxiety Multiple sclerosis GERD (gastroesophageal reflux disease) Depression Vomiting Surgical History History of esophagogastroduodenoscopy (EGD) S/P dilation and curettage H/O prior ablation treatment H/O arthroscopy of knee History of arthroscopy of right shoulder History of sinus surgery Family History Father HTN (hypertension) Mother HTN (hypertension) Rectal cancer Brother No problems noted. Brother No problems noted. Sister No problems noted. Sister No problems noted. Social History Housing: Condominium Alcohol intake: current Alcohol intake frequency: holidays/special occasions only Patient Tobacco Use Status: Former Tobacco user e-Cigarette/Vaping Use: Never Used Current occupational status: employed Cognitive needs: No Hearing needs: No Vision needs: Yes Review of Systems Const All systems reviewed & are unremarkable except as noted in HPI and below Physical Exam Vital Signs: Last Vital Signs Temp 98.6 F 06/27/24 08:11 Pulse 74 06/27/24 08:11 BP 126/80 06/27/24 08:11 Pulse Ox 95 06/27/24 08:11 Oxygen Delivery Method Room Air 06/27/24 08:11 BMI result Body Mass Index 33.7 Const General: cooperative, healthy appearing, comfortable and no acute distress Orientation/consciousness: patient oriented x3 HEENT Head: Yes normal to inspection Ears: hearing grossly normal bilaterally General nose exam: Normal external nose present Face and sinus: Yes normal facial exam Neck Neck: Yes normal visual inspection, Yes trachea midline and Yes supple Resp Effort & Inspection: normal respiratory effort and able to speak in complete sentences GI Inspection: Yes normal to inspection Palpation (GI): Soft to palpation and Tenderness to palpation present (GI) suprapubicly Skin General skin exam: no rashes or lesions noted Neuro General: patient oriented x3 Psych Appearance: grossly normal Speech and movement: Normal speech and movement present Attitude: cooperative Thought process: Normal thought process present Insight: Good insight present (Psych) Judgement: Good judgement present (Psych) Results AMB Urinalysis, Automated UA Leukoctes 15 Yary/uL Last Edit by MARK Gil on 06/27/24 08:5 5 UA Nitrite Negative Last Edit by Gi Adams CCM on 06/27/24 08:55 UA Urobilinogen 0.2 mg/dL Last Edit by Gi Adams [facility] on 06/27/24 08:55 UA Protein 0 mg/dL Last Edit by Gi Adams [facility] on 06/27/24 08:55 UA pH 6.0 Last Edit by Gi Adams [facility] on 06/27/24 08:55 UA Blood 0 Hossein/uL Last Edit by Gi Adams [facility] on 06/27/24 08:55 UA Specific [place] 1.015 Last Edit by Gi Adams [facility] on 06/27/24 08:55 UA Ketone Positive Last Edit by Gi Adams [facility] on 06/27/24 08:55 UA Bilirubin 0 mg/dL Last Edit by Gi Adams [facility] on 06/27/24 08:55 UA Glucose 0 mg/dL Last Edit by Gi Adams [facility] on 06/27/24 08:55 Assessment & Plan Assessment & Plan (1) UTI (urinary tract infection): Code(s): N39.0 - Urinary tract infection, site not specified Qualifiers: Urinary tract infection type: acute cystitis Hematuria presence: without hematuria Qualified Code(s): N30.00 - Acute cystitis without hematuria Plan: 1. Urinary Tract Infection: The patient will be treated with cefuroxime axetil, prescribed at a dosage of twice daily for five days. A urine culture will be sent to guide antibiotic therapy further and confirm the initial management choice. Adjustments to the antibiotic regimen may be made based on culture results. The patient is advised to increase fluid intake over the following days to aid in symptom relief. 2. GERD: Due to potential interaction with cefuroxime, the patient is encouraged to consider temporarily reducing the omeprazole dosage or using Tums if possible. She is advised to skip omeprazole on the days she takes cefuroxime if it does not exacerbate symptoms significantly. 3. Multiple Sclerosis: No changes to the current management plan for multiple sclerosis were discussed during this visit. The primary care physician should continue overseeing the comprehensive care of this condition. 4. Allergic Reaction to Aspirin: Although not directly relevant to the current presentation, medication selection will continue to account for this known drug allergy. Patient was informed and verbally consented to the use of an ambient scribe for clinic note documentation during this visit Orders: Orders Urine Culture Today N39.0 - Urinary tract infection, site not specified Medications: New cefuroxime axetil 500 mg PO Q12H 10 tabs 0RF Coding Level of Care Code Est Pt Level 3 (29374) Diagnoses Acute cystitis without hematuria N30.00 Urinary tract infection type: acute cystitis Hematuria presence: without hematuria
[2024-06-27 08:11] VITALS: BP 126/80; PULSE 74; TEMP 37; O2SAT 95; BMI 33.7
== END 2024-06-27 09:13 | disposition home or self-care (01) ==
PROVIDERS: PCP Internal Medicine; Visit Provider Physician Assistant
DX: Z13.9 Encounter for screening, unspecified (principal); N30.00 Acute cystitis without hematuria

== ENCOUNTER 2024-06-27 08:05 | Outpatient (REF) | payer OTHER, SELFPAY | END 2024-06-27 08:06 | disposition home or self-care (01) | LOC: HO.LAB 08:05 | PROVIDERS: PCP Internal Medicine; Visit Provider Physician Assistant | DX: N39.0 Urinary tract infection, site not specified (principal) | CPT/HCPCS: 81003; 87086 ==

== ENCOUNTER 2024-08-16 07:53 | Outpatient (REF) | payer OTHER, SELFPAY | END 2024-08-16 07:54 | disposition home or self-care (01) | LOC: HO.MAMMO 07:53 | PROVIDERS: PCP Internal Medicine; Visit Provider Internal Medicine | DX: Z12.31 Encounter for screening mammogram for malignant neoplasm of breast (principal) | CPT/HCPCS: 77063; 77067 ==

== ENCOUNTER → 2024-08-16 08:15 | Outpatient (BNV) | payer OTHER, SELFPAY | PROVIDERS: PCP Internal Medicine; Visit Provider Internal Medicine | DX: Z12.31 Encounter for screening mammogram for malignant neoplasm of breast (principal) | CPT/HCPCS: 77063; 77067 ==

== ENCOUNTER 2024-09-09 07:25 | Outpatient (REF) | payer OTHER, SELFPAY ==
--- OUTSIDE RECORDS SUMMARY | 2024-09-09 07:28 | XMS_ITS | Clinical Summary ---
Author Organization [facility] Address [address] [place] [id number] Care Team Providers Care Principal Administrative Clerk Name Role Phone Cari Ambrose MD Primary Care Provider [phone] Allergies Active Allergy Reactions Criticality Noted Date Comments Aspirin 04/13/2020 Hydrocodone 12/20/2021 Oxycodone 05/13/2020 Medications Medication Sig Dispensed Refills Start Date End Date Status cetirizine (ZyrTEC) 10 MG tablet Take 10 mg by mouth. 0 Active omeprazole (PriLOSEC) 20 MG capsule Take 2 capsules (40 mg total) by mouth daily. 0 Active simvastatin (ZOCOR) tablet 10 mg Take 10 mg by mouth every night at bedtime. 0 Active montelukast (SINGULAIR) 10 MG tablet Take 10 mg by mouth every night at bedtime. 0 Active fluticasone-salmeterol (ADVAIR HFA) 115-21 MCG/ACT inhaler Inhale 2 puffs into the lungs 2 (two) times a day. 0 Active NATALIZUMAB IV Inject 300 mg into the vein every 28 days. 0 Active amitriptyline (ELAVIL) 10 MG tablet 2.5 tablets (25 mg total). 0 07/26/2023 Active Wegovy 0.25 MG/0.5ML subcutaneous auto-injector 0 05/06/2024 Active Active Problems Problem Noted Date Diagnosed Date Multiple sclerosis 12/20/2021 Seasonal allergies 05/16/2020 HLD (hyperlipidemia) 05/16/2020 Social History Tobacco Use Types Packs/Day Years Used Date Smoking Tobacco: Former Smokeless Tobacco: Never Tobacco Cessation:Counseling Given: Not Answered Comments:quit 25yrs ago Sex and Gender Information Value Date Recorded Sex Assigned at Female 03/02/2022 9:19 AM EDT Gender Identity Female 06/23/2022 2:45 PM EST Sexual Orientation Straight 06/23/2022 2: 45 PM EST Job Start Date Occupation Industry Not on file Not on file Not on file Last Filed Vital Signs Vital Sign Reading Time Taken Comments Blood Pressure 129/70 05/23/2024 1:30 PM EDT Pulse 90 05/23/2024 1:30 PM EDT Temperature 36.4 ??C (97.5 ??F) 05/23/2024 1:30 PM ED T Respiratory Rate 18 05/23/2024 1:30 PM EDT Oxygen Saturation 98% 05/23/2024 1:30 PM EDT Inhaled Oxygen Concentration - - Weight 83 kg (182 lb 15.7 oz) 02/29/2024 1:33 PM EDT Height 157.5 cm (5' 2 ) 10/22/2020 7:50 AM EDT Body Mass Index 33.47 10/22/2020 7:50 AM EDT Plan of Treatment Health Maintenance Due Date Last Done Comments Hepatitis C Screening 1962 COVID-19 Vaccine (#1) 05/01/1963 Depression Screening 1974 BMI Counseling 1980 Preventative Health Evaluation 1980 DTap / Tdap / Td (1 - Tdap) 1981 Cervical Cancer Screening (P ap Smear) 10/30/1983 Colon Cancer Screening (Colonoscopy) 10/30/2007 Breast Cancer Screening (Mammogram) 2012 Shingrix-Zoster Vaccine (1 of 2) 2012 Influenza Vaccine (#1) 2024 RSV Adult > 60+ Yrs or Pregn ant (1 - 1-dose 75+ series) 2037 Hepatitis B Vaccines Aged Out No long er eligible based on patient's age to complete this topic Pneumococcal Vaccine Aged Out No long er eligible based on patient's age to complete this topic RSV Ped < 20 months Aged Out No longe r eligible based on patient's age to complete this topic Care Teams Principal Administrative Clerk Relationship Specialty Start Date End Date Cari Ambrose MD [address] [place] [phone] PCP - General Internal Medicine 04/13/20
--- OUTSIDE RECORDS SUMMARY | 2024-09-09 07:28 | XMS_ITS | Encounter Summary ---
Author Organization [facility] Address [address] [place] [address] Care Team Providers Care Optician Apprentice Dispensing Name Role Phone Cari Ambrose MD Primary Care Provider [phone] Encounter Details Date Type Department Care Team (Late st Contact Info) Description 05/23/2024 1:18 PM EDT Hospital Encounter TH HISTORIC ENCOUNTERS EASTERN CONVERSION ONLY Social History Tobacco Use Types Packs/Day Years Used Date Smoking Tobacco: Former Smokeless Tobacco: Never Sex and Gender Information Value Date Recorded Sex Assigned at Female 08/22/2024 1:17 PM EST Gender Identity Female 08/22/2024 1:17 PM EST Sexual Orientation Choose not to disclose 2024 1:17 PM EST Job Start Date Occupation Industry Not on file Not on file Not on file documented as of this encounter Last Filed [...] Care Team (Late st Contact Info) Description 09/19/2024 1:30 PM EST Appointment [facility] [address] [place] [phone] 10/17/2024 1:30 PM EDT Appointment [facility] [address] [place] [address] [phone] documented as of this encounter Visit Diagnoses Not on filedocumented in this encounter Care Teams Optician Apprentice Dispensing Relationship Specialty Start Date End Date Cari Ambrose MD [address] [place] [phone] PCP - General Internal Medicine 04/13/20 documented as of this encounter
--- OUTSIDE RECORDS SUMMARY | 2024-09-09 07:28 | XMS_ITS | Data Portability ---
Author Organization [place] - [facility], Allergy Address [address] [place] [phone] Care Team Providers Care Mmi Teacher Name Role Phone DESIREE SNYDER Primary Care Provider Assessment Encounter Date Assessment Date Assessment LastModified by Organization Details LastModified Time 03/24/2024 03/24/2024 Patient with history of aspirin exacerbated respiratory disease currently on topical steroid irrigations. Recent mild flareup of her moderately persistent asthma. I have suggested an extra dose of her long-acting beta agonist/inhaled corticosteroid in the evening for 2 weeks She will otherwise continue the current regimen and see me back in 6 months nanda Not available 03/24/2024 15:48:00 Plan of Treatment Reminders Order Date Submit Date Provider Last Modified By Organization Details Last Modified Time Details Appointments Establish ed 30 2024 03:30P M JAYCE HOOVER MD Not available Not available Not available Lab None recorded. Referral None recorded. Procedures None recorded. Surgeries None recorded. Imaging None recorded. Medication Orders budesonid e 0.5 mg/2 mL suspensio n for nebulizat ion 2023 024 [id number], [address], [place], [phone], 03/24/2024 15:49:24 Patient TargetsNo targets recorded. Patient InstructionsNo instructions recorded. Reason for Referral None Reported. Results Created Date Observation Date Name Description Value Unit Range Abnormal Flag Note LastModifiedBy Organization Detail LastModifiedTime 03/26/20 24 03/21/2022 imagi ng/di agnos tic resul t No observ ation record ed. [email or web address] Not Available 21:37:20 03/26/20 24 03/21/2022 imagi ng/di agnos tic resul t No observ ation record ed. [email or web address] Not Available 21:37:26 03/26/20 24 04/04/2020 imagi ng/di agnos tic resul t No observ ation record ed. [email or web address] Not Available 21:37:27 03/26/20 24 04/05/2020 imagi ng/di agnos tic resul t No observ ation record ed. [email or web address] Not Available 21:37:30 Result Notes None recorded. 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 Other specified respirator y disorders; Note: Date Diagnosed: 01/05/2020 1:51 PM (J98.8) Not Available [facility] 4 02:36:57 Uncomplic ated moderate persisten t asthma 569152690 Active 2016 Moderate persistent asthma, uncomplica ab; Note: Date Diagnosed: 10/07/2015 10:19 AM (J45.40) Not Available [facility] 4 02:36:51 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 374337352 Active 2016 Coagulatio n defects: Other hemorrhagi c disorder due to intrinsic circulatin g anticoagul ants, antibodies , or inhibitors ; Note: Date Diagnosed: 05/12/2015 8:41 AM () Not Available [facility] 4 02:36:51 Allergy to drug 612006374 Active 2016 Allergy status to analgesic agent status; CMS Risk: moderate risk Note: Date Diagnosed: 05/12/2015 8:43 AM (Z88.6) Not Available [facility] 4 02:36:57 Disorder of respirato ry system 14572994 Active 2016 Respirator y conditions due to other specified external agents; CMS Risk: moderate risk Note: Date Diagnosed: 05/12/2015 8:43 AM (J70.8) Not Available [facility] 4 02:36:57 Epistaxis Active 2016 Epistaxis; Note: Date Diagnosed: 05/12/2015 8:41 AM () Not Available [facility] 4 02:36:49 Uncomplic ated asthma 222622715 Active 2014 Asthma NOS; Note: Date Diagnosed: 02/03/2015 9:14 AM (J45.909) [mapped from ICD9 code: 493.90] Not Available [facility] 4 02:36:55 Nasal polyp Active 2014 Nasal polyps; Note: Date Diagnosed: 09/28/2014 5:00 PM (471.0) Not Available [facility] 4 02:36:45 Bleeding from nose 651132193 Active 2016 Epistaxis; Note: Date Diagnosed: 05/12/2015 8:42 AM () Note: Date Diagnosed: 05/12/2015 8:42 AM () Not Available [facility] 4 01:05:06 Chronic rhinitis 33612838 Active 2016 Rhinitis, chronic; Note: Date Diagnosed: 01/04/2017 12:17 PM (472.0) Chronic rhinitis; Note: Date Diagnosed: 11/27/2014 10:45 AM (472.0) ; Start Date : 11/27/2014 Not Available [facility] 4 02:36:46 Exacerbat ion of mild persisten t asthma 165074086 Active 2014 Mild persistent asthma with (acute) exacerbati on; CMS Risk: moderate risk [facility] Treatment: establishe d problem (to examiner): unstable or worsening Note: Date Diagnosed: 05/12/2015 9:03 AM (J45.31) Not Available [facility] 4 02:36:53 Herpes zoster with nervous system complicat ion 555774795 Active 2014 Herpes zoster: Other; Note: Date Diagnosed: 08/31/2014 3:03 PM (053.19) Not Available [facility] 4 02:36:46 Allergic rhinitis 50438626 Active 2019 Allergic Rhinitis; Note: Date Diagnosed: 03/04/2015 4:21 PM (477.9) ; Start Date : 03/04/2015 Allergic rhinitis: Due to other allergen; CMS Risk: moderate risk CMS Treatment: new problem (to examiner): additional workup planned No te: Date Diagnosed: 07/10/2014 3:08 PM (477.8) ; Start Date : 07/10/2014 Allergic rhinitis: Due to other allergen; CMS Risk: moderate risk CMS Treatment: new problem (to examiner): additional workup planned No te: Date Diagnosed: 02/12/2015 11:38 AM (477.8) ; Start Date : 07/10/2014 Other allergic rhinitis; Note: Date Diagnosed: 01/05/2020 1:51 PM (J30.89) Not Available [facility] 4 02:36:44 Disorder of smell 664917865 Active 2020 Other disturbanc es of smell and taste; Note: Date Diagnosed: 09/27/2020 3:36 PM (R43.8) Not Available [facility] 4 02:36:49 Disorder of taste 485925788 Active 2020 Other disturbanc es of smell and taste; Note: Date Diagnosed: 09/27/2020 3:36 PM (R43.8) Not Available [facility] 4 02:36:49 Chronic pansinusi tis 52653761 Active 2014 Chronic pansinusit is; Note: Date Diagnosed: 02/03/2015 9:14 AM (J32.4) [mapped from ICD9 code: 473.8] Not Available [facility] 4 02:36:54 Multiple sclerosis 30630973 Active 2019 Multiple sclerosis; Note: Date Diagnosed: 04/07/2020 10:34 AM (G35) Not Available [facility] 4 02:36:48 Postopera tive visit 203088031 Active 2016 Post Op Visit; Note: Date Diagnosed: 12/22/2016 1:59 PM (V67.0) Not Available [facility] 4 02:36:51 Uncomplic ated mild persisten t asthma 060042603 Active 2016 Mild persistent asthma, uncomplica ab; Note: Date Diagnosed: 10/07/2015 10:18 AM (J45.30) Not Available [facility] 4 02:36:54 Headache 99187640 Active 2021 Headache, unspecifie d; Note: Date Diagnosed: 02/03/2022 4:09 PM (R51.9) Not Available [facility] 4 02:36:49 Long-term current use of anticoagu lant 968115421 Active 2016 snf (current) use of anticoagul ants; Note: Date Diagnosed: 05/12/2015 8:42 AM () Not Available [facility] 4 02:36:45 Chronic maxillary sinusitis 34196859 Active 2014 Chronic maxillary sinusitis; Note: Date Diagnosed: 11/27/2014 10:45 AM (473.0) Not Available [facility] 4 02:36:46 Seasonal allergic rhinitis 800706012 Active 2014 Other seasonal allergic rhinitis; Note: Date Diagnosed: 02/03/2015 9:14 AM (J30.2) [mapped from ICD9 code: 477.8] Not Available [facility] 4 02:36:47 Chronic sinusitis 52261889 Active 2018 Chronic pansinusit is; CMS Risk: moderate risk CMS Treatment: establishe d problem (to examiner): unstable or worsening Note: Date Diagnosed: 07/24/2014 11:10 AM (473.8) ; Start Date : 07/24/2014 Other chronic sinusitis; Note: Date Diagnosed: 11/20/2018 4:09 PM (J32.8) Not Available [facility] 4 02:36:48 Asthma 264449277 Active 2014 Asthma; Note: Date Diagnosed: 09/28/2014 5:00 PM (493.90) Not Available [facility] 4 02:36:48 Acute sinusitis 34469001 Active 2019 Other acute sinusitis; Note: Date Diagnosed: 03/18/2020 3:53 PM (J01.80) Not Available [facility] 4 02:36:55 Polyp of nasal cavity 476598673 Active 2014 Polyp of nasal cavity; Note: Date Diagnosed: 02/03/2015 9:14 AM (J33.0) [mapped from ICD9 code: 471.0] Not Available [facility] 4 02:36:51 Polyp of nasal cavity and/or nasal sinus 538098488 Active 2023 JAYCE COVARRUBIAS MD [address] [facility],[place] [address], [place], [phone] , [facility] - [facility] 4 15:46:43 Moderate persisten t asthma 233708511 Active 2023 JAYCE COVARRUBIAS MD [address] [facility],[place] [address], [place], [phone] , [facility] 4 09:29:22 Problem Notes None recorded. Procedures Surgical History Date Name Laterality Status Provider Name and Address Organization Details Recorded Time 4 JMSNasal/Sinu s Endoscopy-BIANKA OR surgical cavities completed JAYCE SNYDER MD [address] [facility],[place] [address], [place], [phone], [facility] 03/24/2024 15:46:29 Imaging Results Imaging Date Name Status LastModified by Organiz ation Details LastModified Time 03/21/2022 imaging/diag nostic result completed Information not available 03/26/2024 21:37:20 03/21/2022 imaging/diag nostic result completed Information not available 03/26/2024 21:37:26 04/04/2020 imaging/diag nostic result completed Information not available 03/26/2024 21:37:27 04/05/2020 imaging/diag nostic result completed Information not available 03/26/2024 21:37:30 Procedure Notes None recorded. Medical Equipment None Reported. Allergies Allergen ID Allergen Name Allergen Category Reaction Reaction Severity Criticality Documentation Date Start Date Code Code System Note Provider Name and Address Organization Details Recorded Time 46800 aspirin medicatio n wheezing Not available Not available 12/18/2023 1191 RxNorm React ion: asthm a;; Not Available [facility] 4 00:58:11 69692 clarithro mycin medicatio n other Not available Not available 12/18/2023 85468 RxNorm React ion: unkno wn, unspe cifie d;; Not Available [facility] 4 00:28:41 59737 oxycodone medicatio n other Not available Not available 12/18/2023 7804 RxNorm React ion: unkno wn, unspe cifie d;; Not Available [facility] 4 00:58:13 Medications Name Sig Start Date Stop Date Status Note LastModified by Organization Details LastModified Time Prescript ion - Prior Authoriza tion Request active Script Copy/Bianka or Auth^ ipt Copy/Bianka or Auth Not Available Not Available Not Available cyclobenz aprine 10 mg tablet TAKE 1 TABLET BY MOUTH AT BEDTIME NEEDED FOR MUSCLE SPASM active Not Available Not Available No t Available Topamax 200 mg tablet 03/04 completed Medicati on ID: [id number] Br and Name: Topamax Send Method: E-Prescr ibed Sub s Allowed: subs OK Medic ationGen ericName : Topamax Not Available Not Available Not Available Augmentin 875 mg-125 mg tablet 2013 active Medicati on ID: [id number] Du ration Value: 21 Prescri bed By Name: Tay Fraga nd Name: Augmenti n Send Method: E-Prescr ibed Sub s Allowed: subs OK Speci al Instruct ion: 1 po bid for 21 days Med icationG enericNa me: Augmenti n Not Available Not Available Not Available acetamino phen 325 mg tablet TAKE 1 TABLET BY MOUTH EVERY 8 HOURS NEEDED active Not Available Not Available No t Available prednison e 10 mg tablet 2013 active Medicati on ID: [id number] Du ration Value: 5 Prescri bed By Name: Tay Fraga nd Name: predniso ne Send Method: E-Prescr ibed Sub s Allowed: subs OK Speci al Instruct ion: take as instruct ed Medic ationGen ericName : predniso ne Not Available Not Available Not Available doxycycli ne hyclate 100 mg capsule by mouth 05/21 completed Medicati on ID: [id number] D uration Value: 10 Prescri bed By Name: Tay Reed nd Name: doxycycl ine hyclate Send Method: E-Prescr ibed Sub s Allowed: subs OK Speci al Instruct ion: Take 1 po BID X 10 days Med icationG enericNa me: doxycycl ine hyclate Not Available Not Available Not Available valacyclo vir 1 gram tablet 03/04 completed Medicati on ID: [id number] Pr escribed By Name: Tay Fraga nd Name: valacycl ovir Sen d Method: E-Prescr ibed Sub s Allowed: subs OK Speci al Instruct ion: 1 pill PO q8hr x 7 days Med icationG enericNa me: valacycl ovir Not Available Not Available Not Available sumatript an 100 mg tablet TAKE 1 TABLET BY MOUTH AT ONSET OF MIGRAINE EVERY 4 HOURS UP TO 2X FOR 24 HOURS active Not Available Not Available No t Available hydrocodo ne 5 mg-acetam inophen 325 mg tablet 1 tablet by mouth 2016 active Medicati on ID: [id number] D uration Value: 3 Prescri bed By Name: Tay Reed nd Name: hydrocod one-acet aminophe n Send Method: E-Prescr ibed Sub s Allowed: subs OK Medic ationGen ericName : hydrocod one-acet aminophe n Not Available Not Available Not Available prednison e 20 mg tablet TAKE 2 TABLETS BY MOUTH DAILY FOR 5 DAYS active Not Available Not Available No t Available rizatript an 10 mg tablet TAKE 1 TABLET AT LEAST 4 HOURS BETWEEN DOSES NEEDED UP TO 2 DOSES PER 24 HOURS active Not Available Not Available No t Available sertralin e 100 mg tablet 03/04 completed Medicati on ID: [id number] Br and Name: sertrali ne Send Method: E-Prescr ibed Sub s Allowed: subs OK Medic ationGen ericName : sertrali ne Not Available Not Available Not Available simvastat in 10 mg tablet TAKE 1 TABLET BY MOUTH DAILY active Not Available Not Available No t Available Biaxin 500 mg tablet 1 tablet by mouth 2015 active Medicati on ID: [id number] D uration Value: 21 Prescri bed By Name: MITZI Alfredo nd Name: Biaxin S end Method: E-Prescr ibed Sub s Allowed: subs OK Medic ationGen ericName : Biaxin Not Available Not Available Not Available Nexium 40 mg capsule,d elayed release 10/27 completed Medicati on ID: [id number] D uration Value: 30 Reason: () Brand Name: Nexium S end Method: E-Prescr ibed Sub s Allowed: subs OK Speci al Instruct ion: 1 po qam Medi cationGe nericNam e: Nexium Not Available Not Available Not Available Zyrtec 10 mg tablet 2013 active Medicati on ID: [id number] Br and Name: Zyrtec S end Method: E-Prescr ibed Sub s Allowed: subs OK Medic ationGen ericName : Zyrtec Not Available Not Available Not Available Aspir-Low 81 mg tablet,de layed release 12/30 completed Medicati on ID: [id number] Br and Name: Aspir-Lo w Send Method: E-Prescr ibed Sub s Allowed: subs OK Medic ationGen ericName : Aspir-Lo w Not Available Not Available Not Available omeprazol e 40 mg capsule,d elayed release TAKE 1 CAPSULE BY MOUTH EVERY DAY 30 MINUTES BEFORE BREAKFAS T active Not Available Not Available No t Available lidocaine -prilocai ne 2.5 %-2.5 % topical cream active Not Available Not Available Not Available alprazola m 0.25 mg tablet active Medicati on ID: [id number] B rand Name: alprazol am Send Method: E-Prescr ibed Sub s Allowed: subs OK Medic ationGen ericName : alprazol am Not Available Not Available Not Available amitripty line 25 mg tablet TAKE 1 TABLET BY MOUTH EVERY NIGHT AT BEDTIME active Not Available Not Available No t Available amitripty line 10 mg tablet TAKE 1 TABLET BY MOUTH EVERY NIGHT AT BEDTIME FOR 1 WEEK THEN 2 TABLETS DIRECTED active Not Available Not Available No t Available doxycycli ne monohydra te 100 mg capsule 1 capsule by mouth 2016 active Medicati on ID: [id number] D uration Value: 21 Prescri bed By Name: Tay Reed nd Name: doxycycl ine monohydr ate Send Method: E-Prescr ibed Sub s Allowed: subs OK Medic ationGen ericName : doxycycl ine monohydr ate Not Available Not Available Not Available Advair Diskus 500 mcg-50 mcg/dose powder for inhalatio n 1 puff 2019 active Medicati on ID: [id number] D uration Value: 30 Prescri bed By Name: Tay Reed nd Name: Advair Diskus S end Method: E-Prescr ibed Sub s Allowed: subs OK Medic ationGen ericName : Advair Diskus Not Available Not Available Not Available budesonid e 0.5 mg/2 mL suspensio n for nebulizat ion Mix 1 vial in 8 ounces of distille d water with a buffered saline packet. Irrigate nose twice daily. Use half a bottle on each side 2023 active Not Available Not Available Not Avai lable monteluka st 10 mg tablet TAKE 1 TABLET BY MOUTH DAILY active Not Available Not Available No t Available mupirocin 2 % topical ointment APPLY A SMALL AMOUNT TOPICALL Y EVERY [address] IN IRRIGATI ON TWICE DAILY AND ALONG THE NASAL APERTURE active Not Available Not Available No t Available epinephri ne 0.3 mg/0.3 mL injection , auto-inje ctor Inject 1 pen injector single dose as needed 2022 active Medicati on ID: [id number] D uration Value: 180 Brand Name: epinephr ine Send Method: E-Prescr ibed Sub s Allowed: subs OK Medic ationGen ericName : epinephr ine Not Available Not Available Not Available Bactrim DS 800 mg-160 mg tablet 1 tablet by mouth 01/06 completed Medicati on ID: [id number] Pr escribed By Name: Tay Reed nd Name: Bactrim DS Send Method: E-Prescr ibed Sub s Allowed: subs OK Medic ationGen ericName : Bactrim DS Not Available Not Available Not Available cyclobenz aprine 5 mg tablet TAKE 1 TABLET BY MOUTH DAILY AT BEDTIME NEEDED active Not Available Not Available No t Available Spiriva with HandiHale r 18 mcg and inhalatio n capsules Inhale 1 capsule once a day 03/21 completed Medicati on ID: [id number] D uration Value: 30 Prescri bed By Name: Tay Reed nd Name: Spiriva with HandiHal er Send Method: E-Prescr ibed Sub s Allowed: subs OK Medic ationGen ericName : Spiriva with HandiHal er Not Available Not Available Not Available Tysabri 300 mg/15 mL intraveno us solution 2019 active Medicati on ID: [id number] B rand Name: Tysabri Send Method: E-Prescr ibed Sub s Allowed: subs OK Medic ationGen ericName : Tysabri Not Available Not Available Not Available prednison e 2016 active Medicati on ID: [id number] D uration Value: 10 Prescri bed By Name: Tay Reed nd Name: predniso ne Send Method: E-Prescr ibed Sub s Allowed: subs OK Speci al Instruct ion: takes 3 tablets daily for 3 days, 2 tablets daily for 3 daysand 1 tablet daily for 3 days Med icationG enericNa me: predniso ne Not Available Not Available Not Available ProAir HFA 90 mcg/actua tion aerosol inhaler Inhale 2 puff every six hours as needed 2021 active Medicati on ID: [id number] D uration Value: 30 Prescri bed By Name: Tay Reed nd Name: ProAir HFA Send Method: E-Prescr ibed Sub s Allowed: subs OK Medic ationGen ericName : ProAir HFA Not Available Not Available Not Available Theraflu Cold-Sore Throat (PE) 20 mg-10 mg-325 mg oral powder packet 03/04 completed Medicati on ID: [id number] Br and Name: Theraflu Cold-Sor e Throat (PE) Sen d Method: E-Prescr ibed Sub s Allowed: subs OK Medic ationGen ericName : Theraflu Cold-Sor e Throat (PE) Not Available Not Available Not Available Nasacort 55 mcg nasal spray aerosol 12/30 completed Medicati on ID: [id number] Br and Name: Nasacort Send Method: E-Prescr ibed Sub s Allowed: subs OK Medic ationGen ericName : Nasacort Not Available Not Available Not Available Aspercrem e (lidocain e) 4 % topical patch APPLY 1 PATCH TOPICALL Y DAILY NEEDED FOR PAIN active Not Available Not Available No t Available Xhance 93 mcg/actua tion breath activated aerosol Inhale 1 puff twice a day 2023 active Medicati on ID: [id number] D uration Value: 90 Prescri bed By Name: Tay Reed nd Name: Andres Macias end Method: E-Prescr ibed Sub s Allowed: subs OK Medic ationGen ericName : Xhance Not Available Not Available Not Available Wixela Inhub 250 mcg-50 mcg/dose powder for inhalatio n 1 puff BID 2023 active Not Available Not Available Not Avai lable Wegovy 0.25 mg/0.5 mL subcutane ous pen injector active Not Available Not Available Not Available Vitals Date Recorded Body height Body mass index (BMI) Body weight Provider Name and Address Organization Details Last Updated DateTime 03/24/2024 157.48 cm 33.8 kg/m2 96893.59 g Humphrey Benton [place] - [facility] 03/24/2024 15:29:33 Social History None recorded. Functional Status None recorded. Mental Status None recorded. Family History Nothing Reported. Medical History No medical history recorded. Gynecological HistoryNo gynecological history recorded. Obstetrics History GPAL:G 0 P 0 0 0 0 Past Encounters Encounter ID Performer Location Encounter Start Date Encounter Closed Date Diagnosis/Indication Diagnosis SNOMED-CT Code Diagnosis ICD10 Code Diagnosis Note [id number] JAYCE COVARRUBIAS MD [facility] [address] [phone] 03/24/2024 15:11:59 03/24/2024 15:51:16 Allergy to drug 187335074 Z88.6 Exacerbati on of moderate persistent asthma 799884926 J45.41 Disorder o f respiratory system 30895268 J70.8 Polyp of nasal cavity 73 9645334 J33.0 Chronic sinusitis 270148 00 J32.9 Health Concerns Section Related Observation LastModified by Organization Detai ls LastModified Time None Recorded Concern Status LastModified by Organization Details LastModified Time None Recorded Advance Directives Directive None Recorded Payers Encounter Date Sequence Insurance Name Policy Number Policy Benavides Covered Member ID Benavides Member ID Guarantor Name 03/24/2024 1 [facility] Tanya Bonilla [id number] Tanya Bonilla Notes Date Note Type Note Provider Name and Address Organization Details Recorded Time 03/24/2024 text/html Patient with his tory of aspirin exacerbated respiratory disease. They {{have* have not}} undergone aspirin desensitization. It {{was was not*}} successful. They {{are are not*}} presently taking{{325 mg of 650 mg of 975mg of 1350mg of}} aspirin daily. They are presently using {{topical budesonide irrigations* enhance d delivery fluticasone standard fluticasone intranas al steroids}}. They are taking a {{leukotriene modifier long-acting beta agonist with inhaled corticosteroid* inha led corticosteroid for asthma}} and a {{leukotriene modifier* long-actin g beta agonist with inhaled corticosteroid inhal ed corticosteroid for asthma}}. Albuterol not needed recently < >They {{have* have not}} previously undergone endoscopic sinus surgery {{once twice* multip le procedures}}. < >Presently {{the are* are not}} experiencing asthma symptoms. No need for albuterol < > Their sense of smell is {{normal abnormal*}} . < > They {{are are not*}} presently taking biologic therapy {{Dupixent Nucal Fas enra Xolair}}.She is on Tysabri for MS JAYCE SNYDER MD [address] [place] [address], [phone], [facility] 03/24/2024 15:49:52 OBGyn Episode No OBEpisode recorded.
--- OUTSIDE RECORDS SUMMARY | 2024-09-09 07:28 | XMS_ITS | Encounter Summary ---
Author Organization [facility] Address [address] [place] [address] Care Team Providers Care Dinkey Engineer Name Role Phone Cari Ambrose MD Primary Care Provider [phone] Reason for Visit * Episode Based Medications (Routine) - Authorized Specialty Diagnoses / Procedures Referred By Charlene t Referred To Contact Diagnoses MS (multiple sclerosis) (CMS/HCC) Manda Casillas MD [address] [place] [address] [place] [address] [facility] [address] [place] [phone] Referral ID Status Reason Start Date Expiration Date V isits Requested Visits Authorized [id number] Authorized 06/20/2024 06/20/2025 1 51 Encounter Details Date Type Department Care Team (Latest Contact Info) Description 08/22/2024 1:20 PM EST - 08/22/2024 11:59 PM EST Hospital Encounter [facility] [address] [place] [phone] Manda Casillas MD [address] [place] [address] [place] [id number] MS (multiple sclerosis) (CMS/HCC) (Primary Dx) Discharge Disposition: Home or Self Care Social History Tobacco Use Types Packs/Day Years [...] Sign Reading Time Taken Comments Blood Pressure 123/72 08/22/2024 1:27 PM EST Pulse 93 08/22/2024 1:27 PM EST Temperature 36.7 ??C (98 ??F) 08/22/2024 1:27 PM EST Respiratory Rate 18 08/22/2024 1:27 PM EST Oxygen Saturation 100% 08/22/2024 1:27 PM EST Inhaled Oxygen Concentration - - Weight 80.3 kg (177 lb 0.5 oz) 08/22/2024 1:27 P M EST Height - - Body Mass Index 32.38 10/22/2020 7:50 AM EDT documented in this encounter Medications at Time of Discharge Medication Sig Dispensed Refills Start Date End Date acetaminophen (TYLENOL) 325 mg tablet Take 1 tablet (325 mg total) by mouth every 8 (eight) hours if needed. 05/23/2024 albuterol HFA (PROAIR HFA ; PROVENTIL HFA ; VENTOLIN HFA) 90 mcg/actuation inhaler Inhale 2 puffs by mouth every 6 hours as needed. 11/20/2017 amitriptyline (ELAVIL) 25 mg tablet Take 1 tablet (25 mg total) by mouth. at bedtime Aspercreme, lidocaine, 4 % patch APPLY 1 PATCH TOPICALLY DAILY NEEDED FOR PAIN 07/21/2023 budesonide (PULMICORT) 0.5 mg/2 mL nebulizer solution Inhale 4 mL (1 mg total) by mouth daily. 04/25/2017 cyclobenzaprine (FLEXERIL) 5 mg tablet Take 1 tablet (5 mg total) by mouth at bedtime as needed. 05/21/2024 EPINEPHrine (EPIPEN) 0.3 mg/0.3 mL injection Inject 0.3 mL (0.3 mg total) into the thigh once daily as needed. fluticasone propion-salmeteroL (ADVAIR DISKUS) 500-50 mcg/dose diskus inhaler Inhale 1 puff by mouth 2 times daily. 10/31/2016 lidocaine-prilocaine (EMLA) 2.5-2.5 % cream External for 30 montelukast (SINGULAIR) 10 mg tablet TAKE 1 TABLET BY MOUTH EVERY DAY IN THE EVENING Oral for 90 08/03/2017 natalizumab (Tysabri) 300 mg/15 mL injection as directed Intravenous 021 omeprazole (PriLOSEC) [address] capsule TAKE 1 CAPSULE BY MOUTH EVERY DAY 30 MINUTES BEFORE BREAKFAST rizatriptan (MAXALT) 10 mg tablet 1 tablet (10 mg total). simvastatin (ZOCOR) 10 mg tablet Take 1 tablet (10 mg total) by mouth 1 (one) time each day. Wegovy 0.5 mg/0.5 mL injection pen 06/19/2024 documented as of this encounter Discharge Disposition Disposition Code Departure Means Destination Home or Self Care documented in this encounter Progress Notes * Paola Pisano RN - 08/22/2024 1:30 PM EST 1410- Pt arrived today for monthly tysabri infusion. Pt reports continued left leg numbness but expressed for the past week a tightness/pressure in the calf like someone is squeezing it. Stable assessment otherwise. Tysabri checklist completed. Port accessed without diff. Treatment released and initiated. Pt resting comfortably at this time. Call hutchinson in reach. 1525- Pt rested comfortably throughout treatment. Tysabri completed without incident. Next appts made and provided. No further questions. Port flushed/deaccessed per protocol. Pt left unit, stable atD/C. documented in this encounter Plan of Treatment Upcoming Encounters Date Type Department Care Team (Late st Contact Info) Description 09/19/2024 1:30 PM EST Appointment [facility] [address] [place] [phone] 10/17/2024 1:30 PM EDT Appointment [facility] [address] [place] [phone] documented as of this encounter Visit Diagnoses Diagnosis MS (multiple sclerosis) ([facility])- Primary Multiple sclerosis documented in this encounter Administered Medications Inactive Administered Medications - up to 3 most recent administrations Medication Order MAR Action Action Date Dose Rate Site natalizumab (TYSABRI) 300 mg in sodium chloride 0.9 % 115 mL IVPB 300 mg, intravenous, at 115 mL/hr, Administer over 60 Minutes, Once, On Sun08/22/24 at 1400, For 1 dose, ?? After the infusion is complete, flush with Sodium Chloride Injection 0.9% (NS) New Bag 08/22/2024 2:07 PM EST 300 mg 115 mL/hr documented in this encounter Orders Medications Ordered That James ht Not Have Been Administered Count Last Ordered Date First Ordered Date sodium chloride 0.9 % infusion 1 08/22/2024 Nursing Count Last Ordered Date First Orde red Date ONC NURSING COMMUNICATION 1 08/22/2024 ONC NURSING COMMUNICATION 10 1 08/22/2024 ONC NURSING COMMUNICATION 3 1 08/22/2024 ONC NURSING COMMUNICATION 5 1 08/22/2024 TREATMENT CONDITIONS 3 08/22/2024 Appointment Requests Count Last Ordered Date Fi rst Ordered Date ONCBCN INFUSION APPOINTMENT REQUEST 06 1 documented in this encounter Care Teams Dinkey Engineer Relationship Specialty Start Date End Date Cari Ambrose MD [address] [place] [phone] PCP - General Internal Medicine 04/13/20 documented as of this encounter
--- OUTSIDE RECORDS SUMMARY | 2024-09-09 07:28 | XMS_ITS | Clinical Summary ---
Author Organization [facility] Address [address] [place] [address] Phone Care Team Providers Care Atomizer Assembler Name Role Phone Cari Ambrose MD Primary Care Provider [phone] Allergies No known active allergies Medications Medication Sig Dispensed Refills Start Date End Date Status acetaminophen (TYLENOL) 325 mg tablet Take 1 tablet (325 mg total) by mouth every 8 (eight) hours if needed. 05/23/2024 Active albuterol HFA (PROAIR HFA ; PROVENTIL HFA ; VENTOLIN HFA) 90 mcg/actuation inhaler Inhale 2 puffs by mouth every 6 hours as needed. 11/20/2017 Active amitriptyline (ELAVIL) 25 mg tablet Take 1 tablet (25 mg total) by mouth. at bedtime Active budesonide (PULMICORT) 0.5 mg/2 mL nebulizer solution Inhale 4 mL (1 mg total) by mouth daily. 04/25/2017 Active cyclobenzaprine (FLEXERIL) 5 mg tablet Take 1 tablet (5 mg total) by mouth at bedtime as needed. 05/21/2024 Active EPINEPHrine (EPIPEN) 0.3 mg/0.3 mL injection Inject 0.3 mL (0.3 mg total) into the thigh once daily as needed. Active fluticasone propion-salmeteroL (ADVAIR DISKUS) 500-50 mcg/dose diskus inhaler Inhale 1 puff by mouth 2 times daily. 10/31/2016 Active Aspercreme, lidocaine, 4 % patch APPLY 1 PATCH TOPICALLY DAILY NEEDED FOR PAIN 07/21/2023 Active lidocaine-prilocaine (EMLA) 2.5-2.5 % cream External for 30 Active montelukast (SINGULAIR) 10 mg tablet TAKE 1 TABLET BY MOUTH EVERY DAY IN THE EVENING Oral for 90 08/03/2017 Active natalizumab (Tysabri) 300 mg/15 mL injection as directed Intravenous 08/31/2020 Active omeprazole (PriLOSEC) [address] capsule TAKE 1 CAPSULE BY MOUTH EVERY DAY 30 MINUTES BEFORE BREAKFAST Active rizatriptan (MAXALT) 10 mg tablet 1 tablet (10 mg total). Active Wegovy 0.5 mg/0.5 mL injection pen 06/19/2024 Active simvastatin (ZOCOR) 10 mg tablet Take 1 tablet (10 mg total) by mouth 1 (one) time each day. Active Active Problems Problem Noted Date Diagnosed Date MS (multiple sclerosis) 06/20/2024 Encounters Date Type Department Care Team Description 08/22/2024 1:20 PM EST - 08/22/2024 11:59 PM EST Hospital Encounter [facility] In[facility] [address] [place] [phone] Manda Casillas MD MS (multiple sclerosis) ([facility]) (Primary Dx) Discharge Disposition: Home or Self Care 07/18/2024 1:16 PM EST - 07/18/2024 11:59 PM EST Hospital Encounter [facility] [address] [place] [phone] MS (multiple sclerosis) ([facility]) (Primary Dx) Discharge Disposition: Home or Self Care 06/20/2024 1:20 PM EST - 06/20/2024 11:59 PM EST Hospital Encounter [facility] [address] [place] [phone] MS (multiple sclerosis) ([facility]) (Primary Dx) Discharge Disposition: Home or Self Care from Last 3 Months Surgical History Surgery Date Site/Laterality Comments KNEE ARTHROSCOPY W/ PARTIAL MEDIAL MENISCECTOMY Bilateral PROCEDURE:KNEE ARTHROSCOPY W/ PARTIAL MEDIAL MENISCECTOMY SHOULDER ARTHROSCOPY Bilateral PROCEDURE:SHOULDER ARTHROSCOPY PORTACATH PLACEMENT Right Anterior PROCEDURE:PORTACATH PLACEMENT CATARACT EXTRACTION, BILATERAL Bilateral PROCEDURE:CATARACT EXTRACTION, BILATERAL Medical History Medical History Date Comments Optic neuritis DX:Optic neuriti s Multiple sclerosis (CMS/HCC) DX: Multiple sclerosis (HCC) Insomnia DX:Insomnia Asthma DX:Asthma Cataracts, bilateral 07/2021 DX:Cataract s, bilateral;COMMENT:first surgery in first week of September Viveros esophagus DX:Viveros eso phagus Social History Tobacco Use Types Packs/Day Years Used Date Smoking Tobacco: Former Smokeless Tobacco: Never Sex and Gender Information Value Date Recorded Sex Assigned at Female 08/22/2024 1:17 PM EST Gender Identity Female 08/22/2024 1:17 PM EST Sexual Orientation Choose not to disclose 2024 1:17 PM EST Job Start Date Occupation Industry Not on file Not on file Not on file Obstetrics History Last Filed Vital Signs Vital Sign Reading [...] oz) 08/22/2024 1:27 P M EST Height 157.5 cm (5' 2 ) 10/22/2020 7:50 AM EDT Body Mass Index 32.38 10/22/2020 7:50 AM EDT Plan of Treatment Upcoming Encounters Date Type Department Care Team (Late st Contact Info) Description 09/19/2024 1:30 PM EST Appointment [facility] [address] [phone] 10/17/2024 1:30 PM EDT Appointment [facility] [address] [place] [phone] Health Maintenance Due Date Last Done Comments Breast Cancer Screening 1962 Pneumococcal Vaccine: Pediatrics (0 to 5 Years) and At-Risk Patients (6 to 64 Years) (1 of 2 - PCV) 1968 DTaP,Tdap,and Td Vaccines (1 - Tdap) 1981 Cervical Cancer Screening: Pap Smear 10/30/1983 Zoster Vaccines (1 of 2) 2012 Cholesterol Screening (Lipid Panel) 07/08/2022 Colorectal Cancer Screening: Colonoscopy 07/08/2022 Depression Screening 07/08/2022 HIV Screening 07/08/2022 Hepatitis C Screening 07/08/2022 Social Influencers of Health Screening 07/08/2022 RSV Immunization Patients 60+ Years Old (1 - Risk 60-74 years 1-dose series) 2022 COVID-19 Vaccine ( season) 2024 06/07/2022, 11/21/2021, 06/01/2021, Additional history exists Influenza Vaccine (#1) 2024 , 05/07/2019, 05/09/2017, Additional history exists HIB Vaccines Aged Out No longer eligi ble based on patient's age to complete this topic HPV Vaccines Aged Out No longer eligi ble based on patient's age to complete this topic Hepatitis A Vaccines Aged Out No long er eligible based on patient's age to complete this topic Hepatitis B Vaccines Aged Out No long er eligible based on patient's age to complete this topic IPV Vaccines Aged Out No longer eligi ble based on patient's age to complete this topic MMR Vaccines Aged Out No longer eligi ble based on patient's age to complete this topic Meningococcal ACWY Vaccine Aged Out N o longer eligible based on patient's age to complete this topic RSV Immunization Patients Under 20 months Aged Out No longer eligible based on patient's age to complete this topic Varicella Vaccines Aged Out No longer eligible based on patient's age to complete this topic Care Teams Atomizer Assembler Relationship Specialty Start Date End Date Cari Ambrose MD [address] [place] [phone] PCP - General Internal Medicine 04/13/20
[2024-09-09 07:36] LABS: MANUAL DIFF FLAG NO
[2024-09-09 08:02] LABS: Basophils Absolute Auto 0.1 X10*3/uL (0.0-0.2); Basophils Percent Auto 0.8 % (0-2); Eosinophils Absolute Auto 0.2 X10*3/uL (0.0-0.4); Hematocrit 40.1 % (37.0-47.0); Imm Gran Abs Auto 0.03 X10*3/uL (0.00-0.03); Imm Gran Pct Auto 0.4 % (0.0-0.4); Lymphocytes Absolute Auto 2.9 X10*3/uL (1.2-4.9); Lymphocytes Percent Auto 37.1 % (20-40); Mean Corpuscular HGB Conc 32.4 g/dl (31.0-35.0); Mean Corpuscular Hemoglobin 29.3 pg (27.0-33.0); Mean Corpuscular Volume 90.5 fL (80.0-98.0); Mean Platelet Volume 10.1 fL (9.4-12.3); Monocytes Absolute Auto 0.7 X10*3/uL (0.1-1.2); Monocytes Percent Auto 8.8 % (2-11); NRBC Pct Auto 0.5 /100WBC (0.0-0.2); Neutrophils Absolute Auto 3.9 x10*3/uL (2.0-8.3); Neutrophils Percent Auto 49.9 % (45-73); Platelet Count 254 X10*3/uL (160-400); Red Blood Count 4.43 X10*6/uL (4.20-5.50); Red Cell Distribution Width 14.1 % (11.0-16.0); White Blood Count 7.9 X10*3/uL (4.8-10.8)
[2024-09-09 08:45] LABS: Alanine Aminotransferase 24 U/L (0-31); Albumin Level 4.1 g/dL (3.5-5.0); Alkaline Phosphatase 71 U/L (39-117); Amylase 39 U/L (28-100); Anion Gap 17 (12-20); Aspartate Amino Transferase 37 U/L (5-31); Bilirubin Direct 0.1 mg/dL (0.0-0.5); Bilirubin Total 0.5 mg/dL (0.0-1.0); Blood Urea Nitrogen 12 mg/dL (9-16); Calcium 8.9 mg/dL (8.4-10.2); Carbon Dioxide 26 mmol/L (22-29); Chloride 104 mmol/L (96-108); Cholesterol 155 mg/dL (<200); Estimated Glomerular Filt Rate > 60; Glucose Random 79 mg/dL (60-115); HDL Cholesterol 55 mg/dL (>40); LDL Cholesterol Calculated 90 mg/dL (<100); Lipase 35 U/L (8-78); Potassium 4.1 mmol/L (3.3-5.1); Sodium 143 mmol/L (135-145); Total Protein 7.3 g/dL (6.5-8.0); Triglycerides 50 mg/dL (<150)
[2024-09-09 08:54] LABS: TSH reflex Free T4 1.46 uIU/mL (0.32-4.0)
== END 2024-09-09 07:26 | disposition home or self-care (01) ==
LOC: HO.LAB 07:25
PROVIDERS: Visit Provider Internal Medicine
DX: E66.9 Obesity, unspecified (principal); E78.9 Disorder of lipoprotein metabolism, unspecified; J45.40 Moderate persistent asthma, uncomplicated; G35 Multiple sclerosis
CPT/HCPCS: 36415; 80053; 80061; 82150; 82248; 83690; 84443; 85025

== ENCOUNTER 2024-09-10 14:59 | Outpatient (AMB) | payer OTHER, SELFPAY ==
[2024-09-10 15:01] VITALS: BP 120/76; PULSE 78; TEMP 36.8; O2SAT 98; BMI 31.7
--- NOTE | 2024-09-10 15:01 | A.OFFPC_ITS ---
Vital Signs 09/10/24 15:01 Height 5 ft 2 in Weight 173 lb 6 oz BMI 31.7 BP 120/76 Blood Pressure Location Rt brachial Position Sitting Pulse 78 Pulse Source Pulse Oximeter Temp 98.2 F Temp Source Oral Pulse Oximetry (%) 98 Oxygen Delivery Method Room Air Intake Visit Reasons: 3m follow up Allergies hydrocodone [From VICODIN] Allergy (Severe, Verified 09/10/24 15:01) SWELLING aspirin [ASPIRIN] Allergy (Intermediate, Verified 09/10/24 15:01) HIVES oxycodone [OXYCODONE] Allergy (Intermediate, Verified 09/10/24 15:01) HIVES ibuprofen Allergy (Unknown, Verified 09/10/24 15:01) Unknown Environmental Allergy (Unknown, Uncoded 06/27/24 08:31) Unknown Medication List - Last Reconciled 09/10/24 by Cari Ambrose MD acetaminophen (Tylenol) 650 mg (2 x 325 mg) PO Q4H PRN albuterol sulfate 90 mcg/actuation 1 puff inhalation Q4H PRN alprazolam 0.25 mg PO DAILY PRN amitriptyline 25 mg PO BEDTIME fluticasone propion-salmeterol 250-50 mcg/dose (Advair Diskus) 1 inh inhalation BID lidocaine 4% (AsperFlex (lidocaine)) 1 patch topical DAILY PRN montelukast 10 mg PO QPM natalizumab (Tysabri) 300 mg IV Q4W omeprazole 40 mg PO DAILY semaglutide (weight loss) 1 mg (0.5 mL) subcut QWEEK 90 days simvastatin 10 mg PO DAILY 90 days Tobacco use date assessed: 09/10/24 Dental Screening Dental Screen Date: 09/10/24 Did you have a dental visit in the last 12 months?: Yes Did you have a dental problem in the last 6 months where you did not have access to dental care?: No Was dental information given to patient?: Patient has dentist HPI 3m follow up HPI Details - Patient is a 63-year-old female presen ting for follow up apt - She experiences increased joint crepit us, likely representing osteoarthritic changes. - She reports neck muscle tightness and tenderness persisting for two to three weeks. she is being treated by her Neuro with Tylenol and muscle relaxer I do not have any x-ray in the chart, order is placed - Her weight management has involved tary changes with significant weight loss over a three-month period. - Her multiple sclerosis conditions infl uence her mobility and necessitate adapted exercise programs. - She denies nausea or vomiting and is a ddressing dietary challenges with protein supplementation. - asthma is stable - allergies stable - continue simvastatin 10 mg for lipid d isorder - continue omeprazole for GERD Medications - Semaglutide 1 mg for weight management - Amitriptyline 25 mg at bedtime for brittany n management - Advair for asthma, taken in the mornin g - Montelukast taken at night for asthma/ allergies - Omeprazole for gastroesophageal reflux disease in the morning - Simvastatin at night for hyperlipidemi a - Acetaminophen and cyclobenzaprine 5 mg at night for muscle pain Problem List - Multiple Sclerosis (MS) - Osteoarthritis - Neck Pain - obesity - Gastroesophageal Reflux Disease (GERD) - Asthma - Hyperlipidemia Diagnostic results - Labs: All recent blood work was review ed and within normal limits. [place] of Care: Dr. Casillas Neu[facility] Patient Instructions - Continue current medications as prescr ibed. - For neck pain, continue stretching exe rcises as tolerated, and consider Tylenol during the day. - Complete neck x-ray today, results aj l be communicated once available. - Maintain dietary alterations aimed at weight loss, continue supplementation with protein shakes and bars. - Participate in prescribed eight-week l ow-impact exercise program. - Follow-up appointment scheduled for ph ysical examination in November. Review of Systems General: No fever no chills neurological: No headaches no dizziness ear nose throat: No sore throat no hearing difficulty no ear pain cardiovascular: No syncope, no chest pain, no palpitations gastrointestinal: No nausea vomiting or diarrhea endocrine: No polyuria polydipsia no heat intolerance genitourinary: No dysuria skin: No new complaints Physical Exam general: No acute distress HEENT: No acute findings neck: Tender, tight, and has been for at least two or three weeks respiratory system: Able to talk in full sentences, no audible wheeze no stridor cardiovascular: S1-S2 gastrointestinal: No pain extremities: No new findings CHASSIS WIRER: Alert awake oriented x3 motor sensory intact skin: Normal turgor [facility] Medical History Elevated cholesterol Asthma Anxiety Multiple sclerosis GERD (gastroesophageal reflux disease) Depression Vomiting Surgical History History of esophagogastroduodenoscopy (EGD) S/P dilation and curettage H/O prior ablation treatment H/O arthroscopy of knee History of arthroscopy of right shoulder History of sinus surgery Family History Father HTN (hypertension) Mother HTN (hypertension) Rectal cancer Brother No problems noted. Brother No problems noted. Sister No problems noted. Sister No problems noted. Social History Housing: Condominium Alcohol intake: current Alcohol intake frequency: holidays/special occasions only Patient Tobacco Use Status: Former Tobacco user e-Cigarette/Vaping Use: Never Used service: No Current occupational status: employed Cognitive needs: No Hearing needs: No Vision needs: Yes Questionnaire PHQ-9 Over the last 2 weeks, how often have you been bothered by any of the following problems? 1. Little interest or pleasure in doing things: not at all 2. Feeling down, depressed, or hopeless: not at all 3. Trouble falling or staying asleep, or sleeping too much: not at all 4. Feeling tired or having little energy: not at all 5. Poor appetite or overeating: not at all 6. Feeling bad about yourself - or that you are a failure or have let yourself or your family down: not at all 7. Trouble concentrating on things, such as reading the newspaper or watching television: not at all 8. Moving or speaking so slowly that other people could have noticed. Or the opposite - being so fidgety or restless that you have been moving around a lot more than usual: not at all 9. Thoughts that you would be better off or of hurting yourself in some way: not at all Total score: 0 Depression Screening Interpretation: Negative Depression Screening Done: Yes 99159 - PHQ-9 Billing: Yes Source: Developed by Drs. Ino Horton, Lona Schaefer, Олег Robles and colleagues, with an educational azam from [employer]. Thrive Questionnaire Date Thrive assessed: 09/10/24 I am a: Patient What is your living situation today?: I have a steady place to live Within the past 12 months, did the food you bought not last and you didn't have the money to get more?: Never true Within the past 12 months, did you worry whether your food would run out before you got money to buy more?: Never true Do you have trouble paying for medicines?: No Do you have trouble getting transportation to medical appointments?: No Do you have trouble paying your heating and electricity bill?: No Do you have trouble taking care of your child, family member or friend?: No Do you have trouble with day-to-day activities such as bathing, preparing meals, shopping, managing finances, etc.?: No Are you currently unemployed and looking for a job?: No Are you interested in more education?: No Please select the resources that you would like help with: None Currently or been in a relationship where the following occur: No concerns reported THRIVE Score: 0 AUDIT C Alcohol Use Questionnaire (AUDIT-C) 1. How often do you have a drink containing alcohol?: 2-4 times a month 2. How many drinks containing alcohol do you have on a typical day when you are drinking?: 1 or 2 3. How often do you have six or more drinks on one occasion?: Never Total Score: 2 Score Reviewed/Action Taken: Yes ANTELMO-7 AMB Questionnaire ANTELMO-7 Date ANTELMO - 7 assessed: 09/10/24 Feeling nervous, anxious, or on edge: 0 = Not at all Not being able to stop or control worryin = Not at all Worrying too much about different things: 0 = Not at all Trouble relaxin = Not at all Being so restless that it is hard to sit still: 0 = Not at all Becoming easily annoyed or irritable: 0 = Not at all Feeling afraid as if something awful might happen: 0 = Not at all Total ANTELMO-7 score (0-4 normal; 5-9 mild; 10-14 moderate; 15-21 severe): 0 Source: Developed by Drs. Ino Horton, Lona Schaefer, Олег Robles and colleagues, with an educational azam from [employer]. ANTELMO-7 Assessment Billing ANTELMO-7 Assessment Tool: ANTELMO-7 Assessment 21246 Physical exam (Primary Care) Vital Signs: Last Vital Signs Temp 98.2 F 09/10/24 15:01 Pulse 78 09/10/24 15:01 BP 120/76 09/10/24 15:01 Pulse Ox 98 09/10/24 15:01 Oxygen Delivery Method Room Air 09/10/24 15:01 BMI result Body Mass Index 31.7 Tobacco/Smoking Status: Tobacco use Status Tobacco use date assessed 09/10/24 09/10/24 15:04 Patient Tobacco Use Status Former Tobacco user 09/10/24 15:04 e-Cigarette/Vaping Use Never Used 09/10/24 15:04 PHQ-9: PHQ-9 Score PHQ-9: Total score 0 09/10/24 15:04 Depression Screening Interpretation: Negative Thrive Assessment: Date of Thrive Assessment Date Thrive assessed 09/10/24 09/10/24 15:04 Currently or been in a relationship where the following occur: No concerns reported Coding Level of Care Code Est Pt Level 4 (38166) Diagnoses Neck pain M54.2 Obesity (BMI 30-39.9) E66.9 Moderate persistent asthma without complication J45.40 Asthma persistence: persistent Asthma complication type: uncomplicated Multiple sclerosis G35 Lipid disorder E78.9 Environmental allergies Z91.09 Chronic GERD K21.9 Additional Codes ANTELMO-7 Assessment Billing - ANTELMO-7 Assessment Tool: ANTELMO-7 Assessment 25869 ([id number]) PHQ-9 - 45737 - PHQ-9 Billing: Yes ([id number]) Assessment & Plan Assessment & Plan (1) Neck pain: Code(s): M54.2 - Cervicalgia Category: Medical (2) Obesity (BMI 30-39.9): Code(s): E66.9 - Obesity, unspecified Category: Medical (3) Asthma, moderate: Code(s): J45.909 - Unspecified asthma, uncomplicated Category: Medical Qualifiers: Asthma persistence: persistent Asthma complication type: uncomplicated Qualified Code(s): J45.40 - Moderate persistent asthma, uncomplicated (4) Multiple sclerosis: Code(s): G35 - Multiple sclerosis Category: Medical (5) Lipid disorder: Code(s): E78.9 - Disorder of lipoprotein metabolism, unspecified Category: Medical (6) Environmental allergies: Code(s): Z91.09 - Other allergy status, other than to drugs and biological substances Category: Medical (7) Chronic GERD: Code(s): K21.9 - Gastro-esophageal reflux disease without esophagitis Category: Medical Plan - Patient is a 63-year-old female presenting for follow up apt - She experiences increased joint crepitus, likely representing osteoarthritic changes. - She reports neck muscle tightness and tenderness persisting for two to three weeks. she is being treated by her Neuro with Tylenol and muscle relaxer I do not have any x-ray in the chart, order is placed - Her weight management has involved dietary changes with significant weight loss over a three-month period. - Her multiple sclerosis conditions influence her mobility and necessitate adapted exercise programs. - She denies nausea or vomiting and is addressing dietary challenges with protein supplementation. - asthma is stable - allergies stable - continue simvastatin 10 mg for lipid disorder - continue omeprazole for GERD Medications - Semaglutide 1 mg for weight management - Amitriptyline 25 mg at bedtime for pain management - Advair for asthma, taken in the morning - Montelukast taken at night for asthma/allergies - Omeprazole for gastroesophageal reflux disease in the morning - Simvastatin at night for hyperlipidemia - Acetaminophen and cyclobenzaprine 5 mg at night for muscle pain Problem List - Multiple Sclerosis (MS) - Osteoarthritis - Neck Pain - obesity - Gastroesophageal Reflux Disease (GERD) - Asthma - Hyperlipidemia Diagnostic results - Labs: All recent blood work was reviewed and within normal limits. [place] of Care: Dr. Casillas Neurology Patient Instructions - Continue current medications as prescribed. - For neck pain, continue stretching exercises as tolerated, and consider Tylenol during the day. - Complete neck x-ray today, results will be communicated once available. - Maintain dietary alterations aimed at weight loss, continue supplementation with protein shakes and bars. - Participate in prescribed eight-week low-impact exercise program. - Follow-up appointment scheduled for physical examination in November. Orders: Orders Amylase 3 Months E66.9 - Obesity, unspecified, E78.9 - Disorder of lipoprotein metabolism, unspecified, G35 - Multiple sclerosis, J45.40 - Moderate persistent asthma, uncomplicated, K21.9 - Gastro-esophageal reflux disease without esophagitis, M54.2 - Cervicalgia, Z91.09 - Other allergy status, other than to drugs and biological substances TSH reflex Free T4 3 Months E66.9 - Obesity, unspecified, E78.9 - Disorder of lipoprotein metabolism, unspecified, G35 - Multiple sclerosis, J45.40 - Moderate persistent asthma, uncomplicated, K21.9 - Gastro-esophageal reflux disease without esophagitis, M54.2 - Cervicalgia, Z91.09 - Other allergy status, other than to drugs and biological substances XR cervical spine 2V Today M54.2 - Cervicalgia Lipase 3 Months E66.9 - Obesity, unspecified, E78.9 - Disorder of lipoprotein metabolism, unspecified, G35 - Multiple sclerosis, J45.40 - Moderate persistent asthma, uncomplicated, K21.9 - Gastro-esophageal reflux disease without esophagitis, M54.2 - Cervicalgia, Z91.09 - Other allergy status, other than to drugs and biological substances Comprehensive Met. Panel 3 Months E66.9 - Obesity, unspecified, E78.9 - Disorder of lipoprotein metabolism, unspecified, G35 - Multiple sclerosis, J45.40 - Moderate persistent asthma, uncomplicated, K21.9 - Gastro-esophageal reflux disease without esophagitis, M54.2 - Cervicalgia, Z91.09 - Other allergy status, other than to drugs and biological substances Medications: New [low impact exercise program] as tolerated by the patient 1 units 0RF E66.9 - Obesity, unspecified Discontinued alprazolam Discontinued Reason: Doctor's Order 0.25 mg PO DAILY PRN 30 tabs 0RF anxiety
--- OUTSIDE RECORDS SUMMARY | 2024-09-10 16:05 | XMS_ITS | Data Portability ---
Author Organization [place] - [facility], Allergy Address [address] [place] [address] Care Team Providers Care Manager Long Term Care Name Role Phone DESIREE SNYDER Primary Care Provider [phone] Assessment Encounter Date Assessment Date Assessment LastModified [...] suspensio n for nebulizat ion 2023 024 [id number], [address], [place], [id number], 03/24/2024 15:49:24 Patient TargetsNo targets recorded. 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 Other specified respirator y disorders; Note: Date Diagnosed: 01/05/2020 1:51 PM (J98.8) Not Available [facility] 4 02:36:57 Uncomplic ated moderate persisten t asthma 833737309 Active 2016 Moderate persistent asthma, uncomplica ab; Note: Date Diagnosed: 10/07/2015 10:19 AM (J45.40) Not Available [facility] 4 02:36:51 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 932626058 Active 2016 Coagulatio n defects: Other hemorrhagi c disorder due to intrinsic circulatin g anticoagul ants, antibodies , or inhibitors ; Note: Date Diagnosed: 05/12/2015 8:41 AM () Not Available [facility] 4 02:36:51 Allergy to drug 856129532 Active 2016 Allergy status to analgesic agent status; CMS Risk: moderate risk Note: Date Diagnosed: 05/12/2015 8:43 AM (Z88.6) Not Available [facility] 4 02:36:57 Disorder of respirato ry system 15389529 Active 2016 Respirator y conditions due to other specified external agents; CMS Risk: moderate risk Note: Date Diagnosed: 05/12/2015 8:43 AM (J70.8) Not Available [facility] 4 02:36:57 Epistaxis Active 2016 Epistaxis; Note: Date Diagnosed: 05/12/2015 8:41 AM () Not Available [facility] 4 02:36:49 Uncomplic ated asthma 078950696 Active 2014 Asthma NOS; Note: Date Diagnosed: 02/03/2015 9:14 AM (J45.909) [mapped from ICD9 code: 493.90] Not Available [facility] 4 02:36:55 Nasal polyp Active 2014 Nasal polyps; Note: Date Diagnosed: 09/28/2014 5:00 PM (471.0) Not Available [facility] 4 02:36:45 Bleeding from nose 291829747 Active 2016 Epistaxis; Note: Date Diagnosed: 05/12/2015 8:42 AM () Note: Date Diagnosed: 05/12/2015 8:42 AM () Not Available [facility] 4 01:05:06 Chronic rhinitis 48615527 Active 2016 Rhinitis, chronic; Note: Date Diagnosed: 01/04/2017 12:17 PM (472.0) Chronic rhinitis; Note: Date Diagnosed: 11/27/2014 10:45 AM (472.0) ; Start Date : 11/27/2014 Not Available [facility] 4 02:36:46 Exacerbat ion of mild persisten t asthma 293758751 Active 2014 Mild persistent asthma with (acute) exacerbati on; CMS Risk: moderate risk [facility] Treatment: establishe d problem (to examiner): unstable or worsening Note: Date Diagnosed: 05/12/2015 9:03 AM (J45.31) Not Available [facility] 4 02:36:53 Herpes zoster with nervous system complicat ion 620821379 Active 2014 Herpes zoster: Other; Note: Date Diagnosed: 08/31/2014 3:03 PM (053.19) Not Available [facility] 4 02:36:46 Allergic rhinitis 36456579 Active 2019 Allergic Rhinitis; Note: Date Diagnosed: [...] Diagnosed: 01/05/2020 1:51 PM (J30.89) Not Available [facility] 4 02:36:44 Disorder of smell 134611712 Active 2020 Other disturbanc es of smell and taste; Note: Date Diagnosed: 09/27/2020 3:36 PM (R43.8) Not Available [facility] 4 02:36:49 Disorder of taste 702846069 Active 2020 Other disturbanc es of smell and taste; Note: Date Diagnosed: 09/27/2020 3:36 PM (R43.8) Not Available [facility] 4 02:36:49 Chronic pansinusi tis 16436179 Active 2014 Chronic pansinusit is; Note: Date Diagnosed: 02/03/2015 9:14 AM (J32.4) [mapped from ICD9 code: 473.8] Not Available [facility] 4 02:36:54 Multiple sclerosis 95415805 Active 2019 Multiple sclerosis; Note: Date Diagnosed: 04/07/2020 10:34 AM (G35) Not Available [facility] 4 02:36:48 Postopera tive visit 344595470 Active 2016 Post Op Visit; Note: Date Diagnosed: 12/22/2016 1:59 PM (V67.0) Not Available [facility] 4 02:36:51 Uncomplic ated mild persisten t asthma 098769300 Active 2016 Mild persistent asthma, uncomplica ab; Note: Date Diagnosed: 10/07/2015 10:18 AM (J45.30) Not Available [facility] 4 02:36:54 Headache 68139205 Active 2021 Headache, unspecifie d; Note: Date Diagnosed: 02/03/2022 4:09 PM (R51.9) Not Available [facility] 4 02:36:49 Long-term current use of anticoagu lant 985200496 Active 2016 detention (current) use of anticoagul ants; Note: Date Diagnosed: 05/12/2015 8:42 AM () Not Available [facility] 4 02:36:45 Chronic maxillary sinusitis 56013908 Active 2014 Chronic maxillary sinusitis; Note: Date Diagnosed: 11/27/2014 10:45 AM (473.0) Not Available [facility] 4 02:36:46 Seasonal allergic rhinitis 698972187 Active 2014 Other seasonal allergic rhinitis; Note: Date Diagnosed: 02/03/2015 9:14 AM (J30.2) [mapped from ICD9 code: 477.8] Not Available [facility] 4 02:36:47 Chronic sinusitis 36119745 Active 2018 Chronic pansinusit is; CMS Risk: moderate risk CMS Treatment: establishe d problem (to examiner): unstable or worsening Note: Date Diagnosed: 07/24/2014 11:10 AM (473.8) ; Start Date : 07/24/2014 Other chronic sinusitis; Note: Date Diagnosed: 11/20/2018 4:09 PM (J32.8) Not Available [facility] 4 02:36:48 Asthma 670014287 Active 2014 Asthma; Note: Date Diagnosed: 09/28/2014 5:00 PM (493.90) Not Available [facility] 4 02:36:48 Acute sinusitis 44068785 Active 2019 Other acute sinusitis; Note: Date Diagnosed: 03/18/2020 3:53 PM (J01.80) Not Available [facility] 4 02:36:55 Polyp of nasal cavity 448596156 Active 2014 Polyp of nasal cavity; Note: Date Diagnosed: 02/03/2015 9:14 AM (J33.0) [mapped from ICD9 code: 471.0] Not Available [facility] 4 02:36:51 Polyp of nasal cavity and/or nasal sinus 991101025 Active 2023 JAYCE COVARRUBIAS MD [address] [facility],[place] [address], [place], [address] , [facility] - [facility] 4 15:46:43 Moderate persisten t asthma 414783314 Active 2023 JAYCE COVARRUBIAS MD [address] [facility],[place] [address], [place], [address] , [facility] 4 09:29:22 Problem Notes None recorded. Procedures Surgical History Date Name Laterality Status Provider Name and Address Organization Details Recorded Time 4 JMSNasal/Sinu s Endoscopy-BIANKA OR surgical cavities completed JAYCE SNYDER MD [address] [facility],[place] [address], [place], [phone], [facility] 03/24/2024 15:46:29 Imaging Results Imaging Date Name [...] Name and Address Organization Details Recorded Time 07160 aspirin medicatio n wheezing Not available Not available 12/18/2023 1191 RxNorm React ion: asthm a;; Not Available [facility] 4 00:58:11 09586 clarithro mycin medicatio n other Not available Not available 12/18/2023 92513 RxNorm React ion: unkno wn, unspe cifie d;; Not Available [facility] 4 00:28:41 42409 oxycodone medicatio n other Not available Not available 12/18/2023 7804 RxNorm React ion: unkno wn, unspe cifie d;; Not Available [facility] 4 00:58:13 Medications Name Sig Start Date [...] mg tablet 03/04 completed Medicati on ID: 12655 Br and Name: Topamax Send Method: E-Prescr ibed Sub s Allowed: subs OK Medic ationGen ericName : Topamax Not Available Not Available Not Available Augmentin 875 mg-125 mg tablet 2013 active Medicati on ID: 54128 Du ration Value: 21 Prescri bed By [...] mg tablet 2013 active Medicati on ID: 07065 Du ration Value: 5 Prescri bed By Name: Tay Fraga nd Name: predniso ne Send Method: E-Prescr ibed Sub s Allowed: subs OK Speci al Instruct ion: take as instruct ed Medic ationGen ericName : predniso ne Not Available Not Available Not Available doxycycli ne hyclate 100 mg capsule by mouth 05/21 completed Medicati on ID: 651085 D uration Value: 10 Prescri bed By Name: Tay Reed nd Name: doxycycl ine hyclate Send Method: E-Prescr ibed Sub s Allowed: subs OK Speci al Instruct ion: Take 1 po BID X 10 days Med icationG enericNa me: doxycycl ine hyclate Not Available Not Available Not Available valacyclo vir 1 gram tablet 03/04 completed Medicati on ID: 44226 Pr escribed By Name: Tay Fraga nd [...] by mouth 2016 active Medicati on ID: 580099 D uration Value: 3 Prescri bed By [...] mg tablet 03/04 completed Medicati on ID: 61759 Br and Name: sertrali ne Send Method: E-Prescr ibed Sub s Allowed: subs OK Medic ationGen ericName : sertrali ne Not Available Not Available Not Available simvastat in 10 mg tablet TAKE 1 TABLET BY MOUTH DAILY active Not Available Not Available No t Available Biaxin 500 mg tablet 1 tablet by mouth 2015 active Medicati on ID: 230874 D uration Value: 21 Prescri bed By Name: MITZI Alfredo nd Name: Biaxin S end Method: E-Prescr ibed Sub s Allowed: subs OK Medic ationGen ericName : Biaxin Not Available Not Available Not Available Nexium 40 mg capsule,d elayed release 10/27 completed Medicati on ID: 901120 D uration Value: 30 Reason: () Brand Name: Nexium S end Method: E-Prescr ibed Sub s Allowed: subs OK Speci al Instruct ion: 1 po qam Medi cationGe nericNam e: Nexium Not Available Not Available Not Available Zyrtec 10 mg tablet 2013 active Medicati on ID: 80071 Br and Name: Zyrtec S end Method: E-Prescr ibed Sub s Allowed: subs OK Medic ationGen ericName : Zyrtec Not Available Not Available Not Available Aspir-Low 81 mg tablet,de layed release 12/30 completed Medicati on ID: 60131 Br and Name: Aspir-Lo w Send Method: [...] 0.25 mg tablet active Medicati on ID: 800084 B rand Name: alprazol am Send Method: [...] by mouth 2016 active Medicati on ID: 684671 D uration Value: 21 Prescri bed By Name: Tay Reed nd Name: doxycycl ine monohydr ate Send Method: E-Prescr ibed Sub s Allowed: subs OK Medic ationGen ericName : doxycycl ine monohydr ate Not Available Not Available Not Available Advair Diskus 500 mcg-50 mcg/dose powder for inhalatio n 1 puff 2019 active Medicati on ID: 651548 D uration Value: 30 Prescri bed By [...] as needed 2022 active Medicati on ID: 676766 D uration Value: 180 Brand Name: epinephr ine Send Method: E-Prescr ibed Sub s Allowed: subs OK Medic ationGen ericName : epinephr ine Not Available Not Available Not Available Bactrim DS 800 mg-160 mg tablet 1 tablet by mouth 01/06 completed Medicati on ID: 40360 Pr escribed By Name: Tay Reed nd [...] a day 03/21 completed Medicati on ID: 959325 D uration Value: 30 Prescri bed By Name: Tay Reed nd Name: Spiriva with HandiHal er Send Method: E-Prescr ibed Sub s Allowed: subs OK Medic ationGen ericName : Spiriva with HandiHal er Not Available Not Available Not Available Tysabri 300 mg/15 mL intraveno us solution 2019 active Medicati on ID: 745617 B rand Name: Tysabri Send Method: E-Prescr ibed Sub s Allowed: subs OK Medic ationGen ericName : Tysabri Not Available Not Available Not Available prednison e 2016 active Medicati on ID: 777034 D uration Value: 10 Prescri bed By [...] as needed 2021 active Medicati on ID: 254413 D uration Value: 30 Prescri bed By Name: Tay Reed nd Name: ProAir HFA Send Method: E-Prescr ibed Sub s Allowed: subs OK Medic ationGen ericName : ProAir HFA Not Available Not Available Not Available Theraflu Cold-Sore Throat (PE) 20 mg-10 mg-325 mg oral powder packet 03/04 completed Medicati on ID: 95769 Br and Name: Theraflu Cold-Sor e Throat (PE) Sen d Method: E-Prescr ibed Sub s Allowed: subs OK Medic ationGen ericName : Theraflu Cold-Sor e Throat (PE) Not Available Not Available Not Available Nasacort 55 mcg nasal spray aerosol 12/30 completed Medicati on ID: 78988 Br and Name: Nasacort Send Method: E-Prescr [...] a day 2023 active Medicati on ID: 099930 D uration Value: 90 Prescri bed By [...] Updated DateTime 03/24/2024 157.48 cm 33.8 kg/m2 95553.59 g Humphrey Benton [place] - [facility] 03/24/2024 15:29:33 Social History None recorded. Functional Status None recorded. Mental Status None recorded. Family History Nothing Reported. Medical History No medical history recorded. Gynecological HistoryNo gynecological history recorded. Obstetrics History GPAL:G 0 P 0 0 0 0 Past Encounters Encounter ID Performer Location Encounter Start Date Encounter Closed Date Diagnosis/Indication Diagnosis SNOMED-CT Code Diagnosis ICD10 Code Diagnosis Note [id number] JAYCE COVARRUBIAS MD [facility] [address] [phone] 03/24/2024 15:11:59 03/24/2024 15:51:16 Allergy to drug 408948696 Z88.6 Exacerbati on of moderate persistent asthma 130883341 J45.41 Disorder o f respiratory system 64330153 J70.8 Polyp of nasal cavity 73 1011785 J33.0 Chronic sinusitis 021091 00 J32.9 Health Concerns Section Related Observation LastModified by Organization Detai ls LastModified Time None Recorded Concern Status LastModified by Organization Details LastModified Time None Recorded Advance Directives Directive None Recorded Payers Encounter Date Sequence Insurance Name Policy Number Policy Benavides Covered Member ID Benavides Member ID Guarantor Name 03/24/2024 1 [facility] [place] [place] Tanya Bonilla [id number] Tanya Bonilla Notes Date Note Type [...] on Tysabri for MS JAYCE SNYDER MD [address] [place] [address], [phone], [facility] 03/24/2024 15:49:52 OBGyn Episode No OBEpisode recorded.
--- OUTSIDE RECORDS SUMMARY | 2024-09-10 16:05 | XMS_ITS | Encounter Summary ---
Author Organization [facility] Address [address] [place] [address] Care Team Providers Care Industrial Machinery Mechanic Name Role Phone Cari Ambrose MD Primary Care Provider [phone] Encounter Details Date Type Department Care Team [...] Info) Description 09/19/2024 1:30 PM EST Appointment [facility] [address] [place] [phone] 10/17/2024 1:30 PM EDT Appointment [facility] [address] [place] [phone] documented as of this encounter Visit Diagnoses Not on filedocumented in this encounter Care Teams Industrial Machinery Mechanic Relationship Specialty Start Date End Date Cari Ambrose MD [address] [place] [phone] PCP - General Internal Medicine 04/13/20 documented as of this encounter
--- OUTSIDE RECORDS SUMMARY | 2024-09-10 16:05 | XMS_ITS | Clinical Summary ---
Author Organization [facility] Address [address] [place] [address] Care Team Providers Care Vet Assistant Name Role Phone Cari Ambrose MD Primary Care Provider [phone] Allergies Active Allergy Reactions Criticality Noted Date [...] age to complete this topic Care Teams Vet Assistant Relationship Specialty Start Date End Date Cari Ambrose MD [address] [place] [address] PCP - General Internal Medicine 04/13/20
--- OUTSIDE RECORDS SUMMARY | 2024-09-10 16:05 | XMS_ITS | Clinical Summary ---
Author Organization [facility] Address [address] [place] [address] Phone Care Team Providers Care Sand Tester Name Role Phone Cari Ambrose MD Primary Care Provider [phone] Allergies No known active allergies Medications Medication [...] - 08/22/2024 11:59 PM EST Hospital Encounter [facility] [address] [place] [phone] Manda Casillas MD MS (multiple sclerosis) ([facility]) (Primary Dx) Discharge Disposition: Home or Self Care 07/18/2024 1:16 PM EST - 07/18/2024 11:59 PM EST Hospital Encounter [facility] [address] [place] [phone] MS (multiple sclerosis) ([facility]) (Primary Dx) Discharge Disposition: Home or Self Care 06/20/2024 1:20 PM EST - 06/20/2024 11:59 PM EST Hospital Encounter [facility] [address] [place] [phone] MS (multiple sclerosis) ([facility]) (Primary Dx) Discharge Disposition: Home or Self [...] Info) Description 09/19/2024 1:30 PM EST Appointment [facility] [address] [phone] 10/17/2024 1:30 PM EDT Appointment [facility] [address] [place] [phone] Health Maintenance Due Date Last Done Comments [...] age to complete this topic Care Teams Sand Tester Relationship Specialty Start Date End Date Cari Ambrose MD [address] [place] [address] PCP - General Internal Medicine 04/13/20
--- OUTSIDE RECORDS SUMMARY | 2024-09-10 16:06 | XMS_ITS | Encounter Summary ---
Author Organization [facility] Address [address] [place] [address] Care Team Providers Care Material Mover Name Role Phone Cari Ambrose MD Primary Care Provider [phone] Reason for Visit * Episode Based Medications (Routine) - Authorized Specialty Diagnoses / Procedures Referred By Charlene t Referred To Contact Diagnoses MS (multiple sclerosis) (CMS/HCC) Manda Casillas MD [address] [place] [address] [place] [address] [facility] [address] [place] [phone] Referral ID Status Reason Start Date Expiration Date V isits Requested Visits Authorized [id number] Authorized 06/20/2024 06/20/2025 1 51 Encounter Details Date Type Department Care Team (Latest Contact Info) Description 08/22/2024 1:20 PM EST - 08/22/2024 11:59 PM EST Hospital Encounter [facility] [address] [place] [phone] Manda Casillas MD [address] [place] [address] [place] [address] MS (multiple sclerosis) (CMS/HCC) (Primary Dx) Discharge [...] Info) Description 09/19/2024 1:30 PM EST Appointment [facility] [address] [place] [phone] 10/17/2024 1:30 PM EDT Appointment [facility] [address] [place] [phone] documented as of this encounter Visit Diagnoses Diagnosis MS (multiple sclerosis) ([facility])- Primary Multiple sclerosis documented in this [...] 1 documented in this encounter Care Teams Material Mover Relationship Specialty Start Date End Date Cari Ambrose MD [address] [place] [phone] PCP - General Internal Medicine 04/13/20 documented as of this encounter
== END 2024-09-10 15:32 | disposition home or self-care (01) ==
PROVIDERS: PCP Internal Medicine; Visit Provider Internal Medicine
DX: M54.2 Cervicalgia (principal); E66.9 Obesity, unspecified; G35 Multiple sclerosis; Z68.31 Body mass index [BMI] 31.0-31.9, adult; J45.40 Moderate persistent asthma, uncomplicated; E78.9 Disorder of lipoprotein metabolism, unspecified; Z91.09 Other allergy status, other than to drugs and biological substances; K21.9 Gastro-esophageal reflux disease without esophagitis

== ENCOUNTER 2024-09-10 14:59 | Outpatient (REF) | payer OTHER, SELFPAY ==
--- NOTE | ~2024-09-10 | XR_ITS ---
EXAMINATION: XR CERVICAL SPINE CLINICAL INFORMATION: M54.2 - Cervicalgia COMPARISON: None available. TECHNIQUE: 3 views of the cervical spine were obtained. FINDINGS: Is mild straightening of cervical lordosis. There is loss of C4-C5, C5-6 and C6 testis 7 disc heights with ventral spondylosis. Rest of the disc heights are normal. There is no visible acute fracture, dislocation or subluxation seen. The prevertebral soft tissues are normal. XR/XR cervical spine 2V IMPRESSION: Degenerative disc changes C4-C5, C5-6 and C6-7 disc levels . Electronically signed by: Kris Muniz MD 09/11/2024 07:45 AM EST
== END 2024-09-10 15:00 | disposition home or self-care (01) ==
LOC: HO.HMGCX 14:59
PROVIDERS: PCP Internal Medicine; Visit Provider Internal Medicine
DX: M54.2 Cervicalgia (principal); E66.9 Obesity, unspecified; Z68.31 Body mass index [BMI] 31.0-31.9, adult; J45.40 Moderate persistent asthma, uncomplicated; G35 Multiple sclerosis; E78.9 Disorder of lipoprotein metabolism, unspecified; K21.9 Gastro-esophageal reflux disease without esophagitis; Z79.899 Other long term (current) drug therapy; Z91.09 Other allergy status, other than to drugs and biological substances
CPT/HCPCS: 72040; 96127

== ENCOUNTER → 2024-09-10 15:25 | Outpatient (BNV) | payer OTHER, SELFPAY | PROVIDERS: PCP Internal Medicine; Visit Provider Radiology Diagnostic Radiology | DX: M50.321 Other cervical disc degeneration at C4-C5 level (principal); M50.322 Other cervical disc degeneration at C5-C6 level; M50.323 Other cervical disc degeneration at C6-C7 level | CPT/HCPCS: 72040 ==

== ENCOUNTER 2024-10-13 15:08 | Outpatient (AMB) | payer OTHER, SELFPAY ==
--- NOTE | 2024-10-13 15:14 | AM.OFFWIN_ITS ---
Intake Vital Signs 10/13/24 15:17 Height 5 ft 2 in Weight 169 lb BMI 30.9 BP 122/80 Blood Pressure Location Rt brachial Position Sitting Pulse 107 H Pulse Source Pulse Oximeter Temp 98.9 F Temp Source Oral Pulse Oximetry (%) 98 Oxygen Delivery Method Room Air Intake Visit Reasons: EP Gerd, aspirated?? Intake Note: Patient here for GERD, woke up in the middle of the night chocking. Patient Tobacco Use Status: Former Tobacco user Allergies hydrocodone [From VICODIN] Allergy (Severe, Verified 10/13/24 15:18) SWELLING aspirin [ASPIRIN] Allergy (Intermediate, Verified 10/13/24 15:18) HIVES oxycodone [OXYCODONE] Allergy (Intermediate, Verified 10/13/24 15:18) HIVES ibuprofen Allergy (Unknown, Verified 10/13/24 15:18) Unknown Environmental Allergy (Unknown, Uncoded 10/13/24 15:18) Unknown Do you need a note to return to daycare/school/sports/work: No HPI HPI Comments History of Present Illness Details 63 y/o female patient who presents to [facility] walk [facility] with c/o low energy, body aches, chills, cough and Fatigue since this morning. Pt reports waking up in the middle of the night coughing and choking and thinks she might have aspirated and could have Pneumonia. She does have h/o chronic GERD/Viveros esophagus and uses Omeprazole 20 mg daily. She is also under the care of GI. Denies SOB, chest tightness, wheezing, chest Pains, nausea or vomiting. [facility] Medical History Elevated cholesterol Asthma Anxiety Multiple sclerosis GERD (gastroesophageal reflux disease) Depression Vomiting Surgical History History of esophagogastroduodenoscopy (EGD) S/P dilation and curettage H/O prior ablation treatment H/O arthroscopy of knee History of arthroscopy of right shoulder History of sinus surgery Family History Father HTN (hypertension) Mother HTN (hypertension) Rectal cancer Brother No problems noted. Brother No problems noted. Sister No problems noted. Sister No problems noted. Social History Housing: Condominium Alcohol intake: current Alcohol intake frequency: holidays/special occasions only Patient Tobacco Use Status: Former Tobacco user e-Cigarette/Vaping Use: Never Used service: No Current occupational status: employed Cognitive needs: No Hearing needs: No Vision needs: Yes Review of Systems Const All systems reviewed & are unremarkable except as noted in HPI and below Physical Exam Vital Signs: Last Vital Signs Temp 98.9 F 10/13/24 15:17 Pulse 107 H 10/13/24 15:17 BP 122/80 10/13/24 15:17 Pulse Ox 98 10/13/24 15:17 Oxygen Delivery Method Room Air 10/13/24 15:17 BMI result Body Mass Index 30.9 Const General: cooperative and no acute distress Nutritional Appearance: overweight Orientation/consciousness: patient oriented x3 Resp Effort & Inspection: normal respiratory effort, able to speak in complete senten maddie and no audible wheezes Auscultation: clear to auscultation bilaterally, no crackles, no rales, no rhonchi and no wheezes Cardio Rate: regular rate Heart sounds: S1 normal heart sound present and S2 normal heart sound present Neuro General: patient oriented x3 Psych Speech and movement: Normal speech and movement present Assessment & Plan Assessment & Plan (1) Chronic GERD: Code(s): K21.9 - Gastro-esophageal reflux disease without esophagitis Plan: Low Risk for Aspiration at this time. Vital signs and exam negative. Advised to continue monitoring her symptoms at home, RTC if getting worse. Continue taking Omeprazole as prescribed. F/U with GI Coding Level of Care Code Est Pt Level 4 (43840) Diagnoses Chronic GERD K21.9 Time Spent (min) 20
[2024-10-13 15:17] VITALS: BP 122/80; PULSE 107; TEMP 37.2; O2SAT 98; BMI 30.9
--- OUTSIDE RECORDS SUMMARY | 2024-10-13 17:18 | XMS_ITS ---
Author Organization [facility] Address [address] [place] [address] Care Team Providers Care Black Mill Operator Name Role Phone Arnol GUTIÉRREZ, [facility] Primary Care Provider Ash Ernandez Jr REASON FOR VISIT new insurance? Encounters Encounter Location Date Provider Diagnosis [facility] [address] [place] [address] 10/02/2023 Ash Obando Jr Plan Of Treatment Next Appt Details Provider Name:Ash escobar Jr, 10/30/2024 03:35:00 PM, [address], [address], [place], [address], Progress Notes * LUZMARIA COLESOB:1960 (62 yo F)Acc No.[id number]:10/02/2023 Patient:?CORINA COLES :1960???Age:62 Y???Sex:Female Address:[address] [place] [address], [id number] * true * Date:? Generated for Jen painter/Rachel/eTransmitting on:?10/13/2024 05:18 PM EDT
--- OUTSIDE RECORDS SUMMARY | 2024-10-13 17:18 | XMS_ITS | Continuity of Care Document ---
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 Breathing and asthma are doing well. She will continue the current regimen and see me back in 6 months nanda Not available 09/26/2024 15:59:50 Plan of Treatment Reminders Order Date Submit Date Provider Last Modified By Organization Details Last Modified Time Details Appointments Establish ed 30 2024 03:30P M JAYCE HOOVER MD Not available Not available Not available Lab None recorded. Referral None recorded. Procedures None recorded. Surgeries None recorded. Imaging None recorded. Medication Orders None recorded. Patient TargetsNo targets recorded. Patient Instructions Encounter Date Encounter Id Patient Instructions Last Modified By Organization Details Last Modified Time 09/26/2024 [id number] Overall doing well. No evidence of recurrent nasal polyps. Cerumen impaction removed from the left ear. Asthma appears to be under control. Continue current regimen. Vinegar drops recommended to prevent cerumen buildup. Avoid Q-tips erickstein Not available 09/26/2024 15:59:30 Reason for Referral None Reported. 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 Other specified respirato ry disorders ; Note: Date Diagnosed : 01/05/2020 1:51 PM (J98.8) Not Available [facility] 4 02:36:57 Uncomplic ated moderate persisten t asthma 481492457 Active 2016 Moderate persisten t asthma, uncomplic ated; Note: Date Diagnosed : 10/07/2015 10:19 AM (J45.40) Not Available [facility] 4 02:36:51 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 130716107 Active 2016 Coagulati on defects: Other hemorrhag ic disorder due to intrinsic circulati ng anticoagu lants, antibodie s, or inhibitor s; Note: Date Diagnosed : 05/12/2015 8:41 AM () Not Available [facility] 4 02:36:51 Allergy to drug 087579844 Active 2016 Allergy status to analgesic agent status; CMS Risk: moderate risk Note : Date Diagnosed : 05/12/2015 8:43 AM (Z88.6) Not Available [facility] 4 02:36:57 Disorder of respirato ry system 82720103 Active 2016 Respirato ry condition s due to other specified external agents; CMS Risk: moderate risk Note : Date Diagnosed : 05/12/2015 8:43 AM (J70.8) Not Available [facility] 4 02:36:57 Epistaxis Active 2016 Epistaxis ; Note: Date Diagnosed : 05/12/2015 8:41 AM () Not Available [facility] 4 02:36:49 Uncomplic ated asthma 107408651 Active 2014 Asthma NOS; Note: Date Diagnosed : 02/03/2015 9:14 AM (J45.909) [mapped from ICD9 code: 493.90] Not Available [facility] 4 02:36:55 Nasal polyp Active 2014 Nasal polyps; Note: Date Diagnosed : 09/28/2014 5:00 PM (471.0) Not Available [facility] 4 02:36:45 Bleeding from nose 773825543 Active 2016 Epistaxis ; Note: Date Diagnosed : 05/12/2015 8:42 AM () Note: Date Diagnosed : 05/12/2015 8:42 AM () Not Available [facility] 4 01:05:06 Chronic rhinitis 49960488 Active 2016 Rhinitis, chronic; Note: Date Diagnosed : 01/04/2017 12:17 PM (472.0) Chronic rhinitis; Note: Date Diagnosed : 11/27/2014 10:45 AM (472.0) ; Start Date : 5 Not Available [facility] 4 02:36:46 Exacerbat ion of mild persisten t asthma 088986819 Active 2014 Mild persisten t asthma with (acute) exacerbat ion; CMS Risk: moderate risk CMS Treatment : establish ed problem (to examiner) : unstable or worsening Note: Date Diagnosed : 05/12/2015 9:03 AM (J45.31) Not Available [facility] 4 02:36:53 Herpes zoster with nervous system complicat ion 068938188 Active 2014 Herpes zoster: Other; Note: Date Diagnosed : 08/31/2014 3:03 PM (053.19) Not Available [facility] 4 02:36:46 Allergic rhinitis 10949080 Active 2019 Allergic Rhinitis; Note: Date Diagnosed : 03/04/2015 4:21 PM (477.9) ; Start Date : 5 Allergi c rhinitis: Due to other allergen; CMS Risk: moderate risk CMS Treatment : new problem (to examiner) : additiona l workup planned N ote: Date Diagnosed : 07/10/2014 3:08 PM (477.8) ; Start Date : 4 Allergi c rhinitis: Due to other allergen; CMS Risk: moderate risk [facility] Treatment : new problem (to examiner) : additiona l workup planned N ote: Date Diagnosed : 02/12/2015 11:38 AM (477.8) ; Start Date : 4 Other allergic rhinitis; Note: Date Diagnosed : 01/05/2020 1:51 PM (J30.89) Not Available [facility] 4 02:36:44 Disorder of smell 776554872 Active 2020 Other disturban maddie of smell and taste; Note: Date Diagnosed : 09/27/2020 3:36 PM (R43.8) Not Available [facility] 4 02:36:49 Disorder of taste 890691559 Active 2020 Other disturban maddie of smell and taste; Note: Date Diagnosed : 09/27/2020 3:36 PM (R43.8) Not Available [facility] 4 02:36:49 Chronic pansinusi tis 97139153 Active 2014 Chronic pansinusi tis; Note: Date Diagnosed : 02/03/2015 9:14 AM (J32.4) [mapped from ICD9 code: 473.8] Not Available [facility] 4 02:36:54 Multiple sclerosis 64302719 Active 2019 Multiple sclerosis ; Note: Date Diagnosed : 04/07/2020 10:34 AM (G35) Not Available [facility] 4 02:36:48 Postopera tive visit 098384421 Active 2016 Post Op Visit; Note: Date Diagnosed : 12/22/2016 1:59 PM (V67.0) Not Available [facility] 4 02:36:51 Uncomplic ated mild persisten t asthma 965203850 Active 2016 Mild persisten t asthma, uncomplic ated; Note: Date Diagnosed : 10/07/2015 10:18 AM (J45.30) Not Available [facility] 4 02:36:54 Headache 85154687 Active 2021 Headache, unspecifi ed; Note: Date Diagnosed : 02/03/2022 4:09 PM (R51.9) Not Available [facility] 4 02:36:49 Long-term current use of anticoagu lant 880484404 Active 2016 [facility] (current) use of anticoagu lants; Note: Date Diagnosed : 05/12/2015 8:42 AM () Not Available [facility] 4 02:36:45 Chronic maxillary sinusitis 29691761 Active 2014 Chronic maxillary sinusitis ; Note: Date Diagnosed : 11/27/2014 10:45 AM (473.0) Not Available [facility] 4 02:36:46 Seasonal allergic rhinitis 697444625 Active 2014 Other seasonal allergic rhinitis; Note: Date Diagnosed : 02/03/2015 9:14 AM (J30.2) [mapped from ICD9 code: 477.8] Not Available [facility] 4 02:36:47 Chronic sinusitis 31345463 Active 2018 Chronic pansinusi tis; CMS Risk: moderate risk CMS Treatment : establish ed problem (to examiner) : unstable or worsening Note: Date Diagnosed : 4 11:10 AM (473.8) ; Start Date : 4 Other chronic sinusitis ; Note: Date Diagnosed : 11/20/2018 4:09 PM (J32.8) Not Available [facility] 4 02:36:48 Asthma 417019274 Active 2014 Asthma; Note: Date Diagnosed : 09/28/2014 5:00 PM (493.90) Not Available [facility] 4 02:36:48 Acute sinusitis 83611487 Active 2019 Other acute sinusitis ; Note: Date Diagnosed : 03/18/2020 3:53 PM (J01.80) Not Available [facility] 4 02:36:55 Polyp of nasal cavity 171394994 Active 2014 Polyp of nasal cavity; Note: Date Diagnosed : 02/03/2015 9:14 AM (J33.0) [mapped from ICD9 code: 471.0] Not Available [facility] 4 02:36:51 Polyp of nasal cavity and/or nasal sinus 861038787 Active 2023 JAYCE COVARRUBIAS MD [address], [place], [address] , [facility] - [facility] 4 15:46:43 Moderate persisten t asthma 862400650 Active 2023 JAYCE COVARRUBIAS MD [address], [place], [place], [address] , [facility] - [facility] 4 09:29:22 Impacted cerumen in left ear 33991651449 96816 Active 2024 JAYCE COVARRUBIAS MD [address], [place], [place], [address] , [facility] - [facility] 5 15:58:55 Problem Notes None recorded. Procedures Surgical History Date Name Laterality Status Provider Name and Address Organization Details Recorded Time 5 JMSNasal/Sinu s Endoscopy-BIANKA OR surgical cavities completed JAYCE SNYDER MD [address] [address], [place], [address], [facility] 09/26/2024 16:00:02 4 JMSNasal/Sinu s Endoscopy-BIANKA OR surgical cavities completed JAYCE SNYDER MD [address] [facility], [place], [address], [facility] 03/24/2024 15:46:29 Imaging Results None recorded. Procedure Notes None recorded. Medical Equipment None Reported. Allergies Allergen ID Allergen Name Allergen Category Reaction Reaction Severity Criticality Documentation Date Start Date Code Code System Note Provider Name and Address Organization Details Recorded Time 87709 aspirin medicatio n wheezing Not available Not available 12/18/2023 1191 RxNorm React ion: asthm a;; Not Available [facility] 4 00:58:11 20412 clarithro mycin medicatio n other Not available Not available 12/18/2023 16405 RxNorm React ion: unkno wn, unspe cifie d;; Not Available [facility] 4 00:28:41 09313 oxycodone medicatio n other Not available Not available 12/18/2023 7804 RxNorm React ion: unkno wn, unspe cifie d;; Not Available [facility] 4 00:58:13 Medications Name Sig Start Date Stop Date Status Note LastModified by Organization Details LastModified Time Prescript ion - Prior Authoriza tion Request active Script Copy/Bianka or Auth^Scr ipt Copy/Bianka or Auth_202 Not Available Not Available Not Available cyclobenz aprine 10 mg tablet TAKE 1 TABLET BY MOUTH AT BEDTIME NEEDED FOR MUSCLE SPASM active Not Available Not Available No t Available Topamax 200 mg tablet 03/04 completed Medicati on ID: [id number] Br and Name: Topamax Send Method: E-Prescr ibed Sub s Allowed: subs OK Medic ationGen ericName : Topamax Not Available Not Available Not Available Augmentin 875 mg-125 mg tablet 09/26 completed Medicati on ID: [id number] Du ration Value: 21 Prescri bed By Name: Tay Fraga nd Name: Augmenti n Send Method: E-Prescr ibed Sub s Allowed: subs OK Speci al Instruct ion: 1 po bid for 21 days Med icationG enericNa me: Augmenti n Not Available Not Available Not Available fluticaso ne 250 mcg-salme terol 50 mcg/dose blistr powdr for inhalatio n 1 puff BID active Not Available Not Available No t Available acetamino phen 325 mg tablet TAKE 1 TABLET BY MOUTH EVERY 8 HOURS NEEDED active Not Available Not Available No t Available prednison e 10 mg tablet 09/26 completed Medicati on ID: [id number] Du ration Value: 5 Prescri bed By Name: Tay Fraga nd Name: predniso ne Send Method: E-Prescr ibed Sub s Allowed: subs OK Speci al Instruct ion: take as instruct ed Medic ationGen ericName : predniso ne Not Available Not Available Not Available doxycycli ne hyclate 100 mg capsule by mouth 05/21 completed Medicati on ID: [id number] D uration Value: 10 Prescri bed By Name: Tay Reed nd Name: doxycycl ine hyclate Send Method: E-Prescr ibed Sub s Allowed: subs OK Speci al Instruct ion: Take 1 po BID X 10 days Med icationG enericNa me: doxycycl ine hyclate Not Available Not Available Not Available valacyclo vir 1 gram tablet 03/04 [place]: [id number] Pr escribed By Name: Tay Fraga nd [...] HOURS UP TO 2X FOR 24 HOURS 09/26 completed Not Available Not Available Not Available hydrocodo ne 5 mg-acetam inophen 325 mg tablet 1 tablet by mouth 09/26 completed Medicati on ID: [id number] D uration Value: 3 Prescri bed By Name: Tay Reed nd Name: hydrocod one-acet aminophe n Send Method: E-Prescr ibed Sub s Allowed: subs OK Medic ationGen ericName : hydrocod one-acet aminophe n Not Available Not Available Not Available prednison e 20 mg tablet TAKE 2 TABLETS BY MOUTH DAILY FOR 5 DAYS 09/26 completed Not Available Not Available Not Available rizatript an 10 mg tablet TAKE 1 TABLET AT LEAST 4 HOURS BETWEEN DOSES NEEDED UP TO 2 DOSES PER 24 HOURS 09/26 completed Not Available Not Available Not Available sertralin e 100 mg tablet 03/04 completed Medicati on ID: [id number] Br and Name: sertrali ne Send Method: E-Prescr ibed Sub s Allowed: subs OK Medic ationGen ericName : sertrali ne Not Available Not Available Not Available simvastat in 10 mg tablet TAKE 1 TABLET BY MOUTH EVERY DAY active Not Available Not Available No t Available Biaxin 500 mg tablet 1 tablet by mouth 09/26 completed Medicati on ID: [id number] D uration Value: 21 Prescri bed By Name: MITZI Alfredo nd Name: Biaxin S end Method: E-Prescr ibed Sub s Allowed: subs OK Medic ationGen ericName : Biaxin Not Available Not Available Not Available Nexium 40 mg capsule,d elayed release 10/27 completed Medicati on ID: [id number] D uration Value: 30 Reason: () Brand Name: Nexium S end Method: E-Prescr ibed Sub s Allowed: subs OK Speci al Instruct ion: 1 po qam Medi cationGe nericNam e: Nexium Not Available Not Available Not Available Zyrtec 10 mg tablet 09/26 completed Medicati on ID: [id number] Br and Name: Zyrtec S end Method: E-Prescr ibed Sub s Allowed: subs OK Medic ationGen ericName : Zyrtec Not Available Not Available Not Available Aspir-Low 81 mg tablet,de layed release 12/30 completed Medicati on ID: [id number] Br and Name: Aspir-Lo w Send Method: E-Prescr ibed Sub s Allowed: subs OK Medic ationGen ericName : Aspir-Lo w Not Available Not Available Not Available omeprazol e 40 mg capsule,d elayed release TAKE 1 CAPSULE BY MOUTH EVERY DAY 30 MINUTES BEFORE BREAKFAS T active Not Available Not Available No t Available lidocaine -prilocai ne 2.5 %-2.5 % topical cream 09/26 completed Not Available Not Available Not Available alprazola m 0.25 mg tablet 09/26 completed Medicati on ID: [id number] B rand Name: alprazol am Send Method: [...] FOR 1 WEEK THEN 2 TABLETS DIRECTED 09/26 completed Not Available Not Available Not Available doxycycli ne monohydra te 100 mg capsule 1 capsule by mouth 09/26 completed Medicati on ID: [id number] D uration Value: 21 Prescri bed By Name: Tay Reed nd Name: doxycycl ine monohydr ate Send Method: E-Prescr ibed Sub s Allowed: subs OK Medic ationGen ericName : doxycycl ine monohydr ate Not Available Not Available Not Available Advair Diskus 500 mcg-50 mcg/dose powder for inhalatio n 1 puff 2019 active Medicati on ID: [id number] D uration Value: 30 Prescri bed By [...] TWICE DAILY AND ALONG THE NASAL APERTURE 09/26 completed Not Available Not Available Not Available epinephri ne 0.3 mg/0.3 mL injection , auto-inje ctor Inject 1 pen injector single dose as needed 2022 active Medicati on ID: [id number] D uration Value: 180 Brand Name: epinephr ine Send Method: E-Prescr ibed Sub s Allowed: subs OK Medic ationGen ericName : epinephr ine Not Available Not Available Not Available cefuroxim e axetil 500 mg tablet TAKE 1 TABLET BY MOUTH EVERY 12 HOURS active Not Available Not Available No t Available Bactrim DS 800 mg-160 mg tablet 1 tablet by mouth 01/06 completed Medicati on ID: [id number] Pr escribed By Name: Tay Reed nd Name: Bactrim DS Send Method: E-Prescr ibed Sub s Allowed: subs OK Medic ationGen ericName : Bactrim DS Not Available Not Available Not Available cyclobenz aprine 5 mg tablet TAKE 1 TABLET BY MOUTH DAILY AT BEDTIME NEEDED 09/26 completed Not Available Not Available Not Available Spiriva with HandiHale r 18 mcg and inhalatio n capsules Inhale 1 capsule once a day 03/21 completed Medicati on ID: [id number] D uration Value: 30 Prescri bed By Name: Tay Reed nd Name: Spiriva with HandiHal er Send Method: E-Prescr ibed Sub s Allowed: subs OK Medic ationGen ericName : Spiriva with HandiHal er Not Available Not Available Not Available Tysabri 300 mg/15 mL intraveno us solution 09/26 completed Medicati on ID: [id number] B rand Name: Tysabri Send Method: E-Prescr ibed Sub s Allowed: subs OK Medic ationGen ericName : Tysabri Not Available Not Available Not Available prednison e 09/26 completed Medicati on ID: [id number] D uration Value: 10 Prescri bed By [...] 2 puff every six hours as needed 09/26 completed Medicati on ID: [id number] D uration Value: 30 Prescri bed By Name: Tay Reed nd Name: ProAir HFA Send Method: E-Prescr ibed Sub s Allowed: subs OK Medic ationGen ericName : ProAir HFA Not Available Not Available Not Available Theraflu Cold-Sore Throat (PE) 20 mg-10 mg-325 mg oral powder packet 03/04 completed Medicati on ID: [id number] Br and Name: Theraflu Cold-Sor e Throat (PE) Sen d Method: E-Prescr ibed Sub s Allowed: subs OK Medic ationGen ericName : Theraflu Cold-Sor e Throat (PE) Not Available Not Available Not Available Nasacort 55 mcg nasal spray aerosol 12/30 completed Medicati on ID: [id number] Br and Name: Nasacort Send Method: E-Prescr ibed Sub s Allowed: subs OK Medic ationGen ericName : Nasacort Not Available Not Available Not Available Aspercrem e (lidocain e) 4 % topical patch APPLY 1 PATCH TOPICALL Y DAILY NEEDED FOR PAIN 09/26 completed Not Available Not Available Not Available Xhance 93 mcg/actua tion breath activated aerosol Inhale 1 puff twice a day 2023 active Medicati on ID: [id number] D uration Value: 90 Prescri bed By Name: Tay Reed nd Name: Xana S end Method: E-Prescr ibed Sub s Allowed: subs OK Medic ationGen ericName : Xhance Not Available Not Available Not Available Wegovy 1 mg/0.5 mL subcutane ous pen injector active Not Available Not Available Not Available Wegovy 0.25 mg/0.5 mL subcutane ous pen injector 09/26 completed Not Available Not Available Not Available Wegovy 0.5 mg/0.5 mL subcutane ous pen injector 09/26 completed Not Available Not Available Not Available Vitals Date Recorded Body height Body weight Provider Name and Address Organization Details Last Updated DateTime 09/26/2024 157.48 cm 96749.59 g Danika Smith [place] - [facility] 09/26/2024 15:23:55 Social History None recorded. Functional Status None recorded. Mental Status None recorded. Family History Nothing Reported. Medical History Condition Response Allergies/Hayfever Y Rhinitis Y Arthritis Y Migraines Y Nasal polyps Y Asthma Y Nasal or Sinus Problems Y Immune System Disorder Y High Cholesterol Y GERD/Reflux Y Headaches Y Gynecological HistoryNo gynecological history recorded. Obstetrics History GPAL:G 0 P 0 0 0 0 Past Encounters Encounter ID Performer Location Encounter Start Date Encounter Closed Date Diagnosis/Indication Diagnosis SNOMED-CT Code Diagnosis ICD10 Code Diagnosis Note [id number] JAYCE COVARRUBIAS MD [facility] [address] [address] 09/26/2024 15:06:10 09/26/2024 16:01:28 Allergy to drug 539738077 Z88.6 Polyp of n [place] cavity and/or nasal sinus 428508880 J33.1 Moderate p ersistent asthma 779992569 J45.40 Disorder o f respiratory system 16617020 J70.8 Impacted c erumen in left ear 2849295798 452932 H61.22 Suggested 3 drops distilled vinegar in each ear twice weekly to prevent the buildup of cerumen Health Concerns Section Related Observation LastModified by Organization Detai ls LastModified Time None Recorded Concern Status LastModified by Organization Details LastModified Time None Recorded Payers Encounter Date Sequence Insurance Name Policy Number Policy Benavides Covered Member ID Benavides Member ID Guarantor Name 09/26/2024 1 [facility] Tanya Bonilla [id number] Tanya Bonilla Notes Date Note Type Note Provider Name and Address Organization Details Recorded Time 09/26/2024 text/html Patient with his tory of aspirin [...] ed corticosteroid for asthma}}. Albuterol not needed recently<>They {{have* have not}} previously undergone endoscopic sinus surgery {{once twice* multip le procedures}}.<>Prese ntly {{the are are not*}} experiencing asthma symptoms. No need for albuterol for over 30 days<> Their sense of smell is {{normal abnormal*}} .<> They {{are are not*}} presently taking biologic therapy {{Dupixent Nucal Fas enra Xolair}}.She is on Tysabri for MS She notes blockage and crackling in the left ear. She has lost 35 pounds since starting Wegovy May 06 JAYCE SNYDER MD [address] [place] [address], [place], [address], [facility] - [facility] 09/26/2024 16:00:28 OBGyn Episode No OBEpisode recorded.
--- OUTSIDE RECORDS SUMMARY | 2024-10-13 17:18 | XMS_ITS ---
Author Organization [facility] Address [address] [place] [phone] Care Team Providers Care Underwater Hunter Name Role Phone Arnol GUTIÉRREZ, [facility] Primary Care Provider Ash Ernandez Jr Unavailable [phone] Allergies Allergen (clinical drug ingredient) Drug/Non Drug Allergy documented on EMR Reaction Allergy Type Onset Date Status Vicodin Unknown Drug Allergy Active acetaminophen / oxycodone Percocet Unknown Drug Allergy Active aspirin Aspirin Unknown Drug Allergy Active REASON FOR VISIT Patient presents today for Viveros's Esophagus Medications Medication SIG (Take, Route, Frequency, Duration) Notes Start Date End Date Status ProAir HFA Active Simvastatin 10 MG TAKE 1 TABLET BY DAILY Oral for 90 Active Tysabri 300 MG/15ML as directed Intravenous Active Budesonide Active EpiPen Active Montelukast Sodium 10 MG TAKE 1 TABLET B Y MOUTH EVERY DAY IN THE EVENING Oral for 90 Active Lidocaine-Prilocaine 2.5-2.5 % External for 30 Not-Taking Amitriptyline HCl 25 MG Oral for 30 Active Fluticasone-Salmeterol 250-50 MCG/ACT INHALE 2 PUFFS INTO THE LUNGS EVERY DAY DIRECTED Inhalation for 90 Active Omeprazole 40 MG 1 capsule 30 minutes before morning meal Orally Once a day for 30 day(s) 06/19/2023 Active Rizatriptan Benzoate 10 MG TAKE 1 TABLET AT LEAST 4 HOURS BETWEEN DOSES NEEDED UP TO 2 DOSES PER 24 HOURS Oral for 30 Active Social History Tobacco Use: Social History Observation Description Date Details (start date - stop date) Former Smoker NA - NA Tobacco Use/Smoking Question Answer Notes Patient is a former smoker When did you stop smoking? 25 years ago How long has it been since you last smoked? > 10 years Alcohol Screen Question Answer Notes Did you have a drink containing alcohol in the p ast year? 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) Active confirmed Problem 206812406 Adenomatous polyp of colon, unspecified part of colon (D12.6) Active confirmed Vital Signs Blood pressure systolic 00 mm Hg 11/01/19 24 Blood pressure diastolic 00 mm Hg 024 Height 62 in 11/01/2023 Weight 190 lbs 11/01/2023 BMI 34.75 kg/m2 11/01/2023 Encounters Encounter Location Date Provider Diagnosis [facility] [address] [place] [address] 11/01/2023 Ash Obando Jr Viveros's esophagus without dysplasia K22.70 ; Adenomatous polyp of colon, unspecified part of colon D12.6 and Family history of colon cancer Z80.0 Assessments Encounter Date Diagnosis (ICD Code) Assessment Notes Treatment Notes Treatment Clinical Notes Section Notes 11/01/2023 Viveros's esophagus without dysplasia (ICD-10 - K22.70) Viveros esophagus material was printed We discussed Viveros's esophagus today including pathophysiology and increased risk of esophageal adenocarcinoma. We recommended she continue to use diet, lifestyle modifications, and weight management to control her reflux. She'll also continue omeprazole. Two-year followup endoscopy will be arranged. We reviewed the pathology of her colon polyp. We did recommend followup colonoscopy in 5 years. 11/01/2023 Adenomatous polyp of colon, unspecified part of colon (ICD-10 - D12.6) We discussed Viveros's esophagus today including pathophysiology and increased risk of esophageal adenocarcinoma. We recommended she continue to use diet, lifestyle modifications, and weight management to control her reflux. She'll also continue omeprazole. Two-year followup endoscopy will be arranged. We reviewed the pathology of her colon polyp. We did recommend followup colonoscopy in 5 years. 11/01/2023 Family history of colon cancer (ICD-10 - Z80.0) We discussed Viveros's esophagus today including pathophysiology and increased risk of esophageal adenocarcinoma. We recommended she continue to use diet, lifestyle modifications, and weight management to control her reflux. She'll also continue omeprazole. Two-year followup endoscopy will be arranged. We reviewed the pathology of her colon polyp. We did recommend followup colonoscopy in 5 years. Plan Of Treatment Treatment Notes Assessment Notes Viveros's esophagus without dysplasia Ba rrett esophagus material was printed Next Appt Details Follow Up: 1 Year, Reason: Provider Name:Ash escobar , 10/30/2024 03:35:00 PM, [address] [place] [address], [address], [place], [phone], Progress Notes * CORINA COLES ADOB:[birth year] (63 yo F)Acc No.[id number]:11/01/2023 Progress Notes Patient:?CORINA COLES A Provider:?Ash Obando MD :1960???Age:63 Y???Sex:Female D ate:11/01/2023 Address:[address] [place], [place] [id number] Pcp:Cari Ambrose MD Subjective: * Chief Complaints: * ???1. Patient presents today for Viveros's Esophagus. * HPI: ???New symptom(s):? Corina is a 63-year-old woman seen today in followup. She underwent upper endoscopy in June, which showed no H. pylori. Viveros's esophagus changes were noted with no dysplasia. Colonoscopy at the same time showed a tubular adenoma. Five-year followup was recommended. ?Currently she is doing well. She continues on omeprazole 40 mg daily with good control her reflux. She has no dysphagia, hematemesis, or melena. She has no lower GI symptoms. * ROS:?No dysphagia. * Medical History:?Gastroesoph ageal reflux disease, EGD in 06/28, BE with no dysplasia, ten-year followup, Seasonal allergies, Asthma, Bulimia, Multiple sclerosis, Colonoscopy 06/28, tubular adenoma, five-year followup, Hyperlipidemia. * Surgical History:?Shoulder s urgery x2 , Knee surgery x2 . * Family History:?Father: dece ased, diagnosed with HTN (hypertension).?Mother: , rectal cancer/ heart failure/ kidney cancer, diagnosed with Heart disease, HTN (hypertension).? Mother had rectal cancer and underwent colostomy surgery at 86. Her brother had polyps. Her father had Viveros's esophagus. past in 2020 two sisters with barretts esophagus. * Social History:?Tobacco Use:?Tobacco Use/Smoking?Patient is a?former smoker,?When did you stop smoking??25 years ago,?How long has it been since you last smoked??> 10 years.?Drugs/Alcohol:?Alcohol Screen?Did you have a drink containing alcohol in the past year??No,?Points?0,?Interpretation?Negative.?Miscellaneous:?Marital status: . 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 * Medications:?Taking Tysabri 300 MG/15ML Concentrate as directed Intravenous , Taking Budesonide , Taking EpiPen , Taking ProAir HFA , Taking Simvastatin 10 MG Tablet TAKE 1 TABLET BY MOUTH DAILY Oral , Taking Omeprazole 40 MG Capsule Delayed Release 1 capsule 30 minutes before morning meal Orally Once a day, Taking Rizatriptan Benzoate 10 MG Tablet TAKE 1 TABLET AT LEAST 4 HOURS BETWEEN DOSES NEEDED UP TO 2 DOSES PER 24 HOURS Oral , Taking Amitriptyline HCl 25 MG Tablet Oral , Taking Fluticasone-Salmeterol 250-50 MCG/ACT Aerosol Powder Breath Activated INHALE 2 PUFFS INTO THE LUNGS EVERY DAY DIRECTED Inhalation , Taking Montelukast Sodium 10 MG Tablet TAKE 1 TABLET BY MOUTH EVERY DAY IN THE EVENING Oral , Not-Taking/PRN Lidocaine-Prilocaine 2.5-2.5 % Cream External , Discontinued Wixela Inhub 250-50 MCG/ACT Aerosol Powder Breath Activated INHALE 2 PUFFS INTO THE LUNGS TWICE DAILY DIRECTED Inhalation , Discontinued Singulair , Medication List reviewed and reconciled with the patient * Allergies:?Aspirin, Vicodin, Percocet. Objective: * Vitals:?Wt: 190 lbs, Ht: 62 in, BMI:34.75 Index, BP: 00/00 mm Hg. * Examination: ???General Examination: ???On examination today, she appears well. Skin is anicteric. Lungs are clear. Heart shows regular rate and rhythm. Abdomen is soft without focal masses or tenderness. Extremities are without edema. Assessment: * Assessment: 1.?Viveros's esophagus witho ut dysplasia - K22.70 (Primary)?2.?Adenomatous polyp of colon, unspecified part of colon - D12.6?3.?Family history of colon cancer - Z80.0? We discussed Viveros's esoph lisa today including pathophysiology and increased risk of esophageal adenocarcinoma. We recommended she continue to use diet, lifestyle modifications, and weight management to control her reflux. She'll also continue omeprazole. Two-year followup endoscopy will be arranged. We reviewed the pathology of her colon polyp. We did recommend followup colonoscopy in 5 years. Plan: * Treatment: * Procedure Codes:?3017F COLOR ECTAL CA SCREEN DOC REV, G9903 Pt scrn tbco id as non user, G9745 DOC RSN FOR NOT SCREEN/REC F/U HBP * Preventive Medicine:? ??Counseling:?Care goal follow-up plan:?Above Normal BMI Follow-up?Giving encouragement to exercise,?BMI management provided?Yes.? * Follow Up:?1 Year * * Sign off status: Completed true * Provider:?Ash Obando MD Date:?0 11/01/2023 Generated for Jen painter/Rachel/eTaaronsmitting on:?10/13/2024 05:18 PM EDT History and Physical Notes * HPI (History of Present Illness) Category Sub-Category Detail Notes Category Not es New symptom(s) Corina is a 63-year-old woman seen today in followup. She underwent upper endoscopy in June, which showed no H. pylori. Viveros's esophagus changes were noted with no dysplasia. Colonoscopy at the same time showed a tubular adenoma. Five-year followup was recommended. Currently she is doing well. She continues on omeprazole 40 mg daily with good control her reflux. She has no dysphagia, hematemesis, or melena. She has no lower GI symptoms. Examination Category Sub-Category Detail Notes Category Not es General Examination On exami nation today, she appears well. Skin is anicteric. Lungs are clear. Heart shows regular rate and rhythm. Abdomen is soft without focal masses or tenderness. Extremities are without edema.
--- OUTSIDE RECORDS SUMMARY | 2024-10-13 17:18 | XMS_ITS | Clinical Summary ---
Author Organization [facility] Address [address] [place] [address] Care Team Providers Care Pickers Material Handlers Name Role Phone Cari Ambrose MD Primary Care Provider [phone] Allergies Active Allergy Reactions Criticality Noted Date [...] age to complete this topic Care Teams Pickers Material Handlers Relationship Specialty Start Date End Date Cari Ambrose MD [address] [place] [address] PCP - General Internal Medicine 04/13/20
--- OUTSIDE RECORDS SUMMARY | 2024-10-13 17:19 | XMS_ITS | Clinical Summary ---
Author Organization [facility] Address [address] [place] [address] Phone Care Team Providers Care Warehouse Puller Name Role Phone Cari Ambrose MD Primary Care Provider [phone] Allergies No known active allergies Medications acetaminophen (TYLENOL) 325 mg tablet Take 1 tablet (325 mg total) by mouth every 8 (eight) hours if needed. 4 Active albuterol HFA (PROAIR HFA ; PROVENTIL HFA ; VENTOLIN HFA) 90 mcg/actuation inhaler Inhale 2 puffs by mouth every 6 hours as needed. 8 Active amitriptyline (ELAVIL) 25 mg tablet Take 1 tablet (25 mg total) by mouth. at bedtime Active budesonide (PULMICORT) 0.5 mg/2 mL nebulizer solution Inhale 4 mL (1 mg total) by mouth daily. 7 Active cyclobenzaprine (FLEXERIL) 5 mg tablet Take 1 tablet (5 mg total) by mouth at bedtime as needed. 4 Active EPINEPHrine (EPIPEN) 0.3 mg/0.3 mL injection Inject 0.3 mL (0.3 mg total) into the thigh once daily as needed. Active fluticasone propion-salmete roL (ADVAIR DISKUS) 500-50 mcg/dose diskus inhaler Inhale 1 puff by mouth 2 times daily. 7 Active Aspercreme, lidocaine, 4 % patch APPLY 1 PATCH TOPICALLY DAILY NEEDED FOR PAIN 3 Active lidocaine-prilo matilda (EMLA) 2.5-2.5 % cream External for 30 Active montelukast (SINGULAIR) 10 mg tablet TAKE 1 TABLET BY MOUTH EVERY DAY IN THE EVENING Oral for 90 7 Active natalizumab (Tysabri) 300 mg/15 mL injection as directed Intravenous 1 Active omeprazole (PriLOSEC) [address] capsule TAKE 1 CAPSULE BY MOUTH EVERY DAY 30 MINUTES BEFORE BREAKFAST Active rizatriptan (MAXALT) 10 mg tablet 1 tablet (10 mg total). Active Wegovy 0.5 mg/0.5 mL injection pen 4 Active simvastatin (ZOCOR) 10 mg tablet Take 1 tablet (10 mg total) by mouth 1 (one) time each day. Active Active Problems Problem Noted Date Diagnosed Date MS (multiple sclerosis) 06/20/2024 Encounters Date Type Department Care Team Description 09/19/2024 1:13 PM EST - 09/19/2024 11:59 PM EST Hospital Encounter [facility] [address] [place] [phone] Manda Casillas MD MS (multiple sclerosis) ([facility]) (Primary Dx) Discharge Disposition: Home or Self Care 08/22/2024 1:20 PM EST - 08/22/2024 11:59 PM EST Hospital Encounter [facility] [address] [place] [phone] Manda Casillas MD MS (multiple sclerosis) ([facility]) (Primary Dx) Discharge Disposition: Home or Self Care 07/18/2024 1:16 PM EST - 07/18/2024 11:59 PM EST Hospital Encounter [facility] [address] [place] [phone] MS (multiple sclerosis) ([facility]) (Primary Dx) Discharge Disposition: Home or Self [...] not to disclose 2024 1:17 PM EST Obstetrics History Last Filed Vital Signs Vital Sign Reading Time Taken Comments Blood Pressure 120/80 09/19/2024 1:25 PM EST Pulse 84 09/19/2024 1:25 PM EST Temperature 36.4 ??C (97.6 ??F) 09/19/2024 1:25 PM ES T Respiratory Rate 18 09/19/2024 1:25 PM EST Oxygen Saturation 98% 09/19/2024 1:25 PM EST Inhaled Oxygen Concentration - - Weight 78.2 kg (172 lb 6.4 oz) 09/19/2024 1:25 P M EST Height 157.5 cm (5' 2 ) 10/22/2020 7:50 AM EDT Body Mass Index 31.53 10/22/2020 7:50 AM EDT Plan of Treatment Upcoming Encounters Date Type Department Care Team (Late st Contact Info) Description 10/17/2024 1:[address] [facility] [address] [place] [phone] 11/14/2024 1:30 PM EDT Appointment [facility] [address] [place] [phone] 12/12/2024 1:30 PM EDT Appointment [facility] [address] [phone] 01/09/2025 1:[address] [facility] [address] [phone] Health Maintenance Due Date Last Done Comments Breast Cancer Screening 1960 DTaP,Tdap,and Td Vaccines (1 - Tdap) 1981 Pneumococcal Vaccine: 50+ Years (1 of 2 - PCV) 1981 Pneumococcal Vaccine: Pediatrics (0 to 5 Years) and At-Risk Patients (6 to 64 Years) (1 of 2 - PCV) 1981 Cervical Cancer Screening: Pap Smear 10/30/1983 [...] patient's age to complete this topic Meningococcal B Vacine Aged Out No lo nger eligible based on patient's age to complete this topic RSV Immunization Patients Under 20 months Aged Out No longer eligible based on patient's age to complete this topic Varicella Vaccines Aged Out No longer eligible based on patient's age to complete this topic Insurance [facility] Care Teams Warehouse Puller Relationship Specialty Start Date End Date Cari Ambrose MD [address] [place] [address] PCP - General Internal Medicine 04/13/20
--- OUTSIDE RECORDS SUMMARY | 2024-10-13 17:19 | XMS_ITS | Data Portability ---
Author Organization [place] - [facility], Allergy Address [address] [address] Care Team Providers Care Pvc Monitor Name Role Phone DESIREE SNYDER Primary Care Provider [phone] Assessment Encounter Date Assessment Date Assessment LastModified [...] and see me back in 6 months [email or web address] Not available 03/24/2024 15:48:00 09/26/2024 09/26/2024 Patient with history of aspirin exacerbated respiratory disease currently on topical steroid irrigations. Breathing and asthma are doing well. She will continue the current regimen and see me back in 6 months [email or web address] Not available 09/26/2024 15:59:50 Plan of Treatment [...] suspensio n for nebulizat ion 2023 024 [id number], [address], [place], [phone], 03/24/2024 15:49:24 Patient TargetsNo targets recorded. Patient Instructions Encounter Date Encounter Id Patient Instructions Last Modified By Organization Details Last Modified Time 09/26/2024 [id number] Overall doing well. No evidence of recurrent nasal polyps. Cerumen impaction removed from the left ear. Asthma appears to be under control. Continue current regimen. Vinegar drops recommended to prevent cerumen buildup. Avoid Q-tips [email or web address] Not available 09/26/2024 15:59:30 Reason for Referral None Reported. 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 2019 Other specified respirato ry disorders ; Note: Date Diagnosed : 01/05/2020 1:51 PM (J98.8) Not Available [facility] 4 02:36:57 Uncomplic ated moderate persisten t asthma 894795965 Active 2016 Moderate persisten t asthma, uncomplic ated; Note: Date Diagnosed : 10/07/2015 10:19 AM (J45.40) Not Available [facility] 4 02:36:51 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 685365946 Active 2016 Coagulati on defects: Other hemorrhag ic disorder due to intrinsic circulati ng anticoagu lants, antibodie s, or inhibitor s; Note: Date Diagnosed : 05/12/2015 8:41 AM () Not Available [facility] 4 02:36:51 Allergy to drug 928000240 Active 2016 Allergy status to analgesic agent status; CMS Risk: moderate risk Note : Date Diagnosed : 05/12/2015 8:43 AM (Z88.6) Not Available [facility] 4 02:36:57 Disorder of respirato ry system 47789671 Active 2016 Respirato ry condition s due to other specified external agents; CMS Risk: moderate risk Note : Date Diagnosed : 05/12/2015 8:43 AM (J70.8) Not Available [facility] 4 02:36:57 Epistaxis Active 2016 Epistaxis ; Note: Date Diagnosed : 05/12/2015 8:41 AM () Not Available [facility] 4 02:36:49 Uncomplic ated asthma 030966330 Active 2014 Asthma NOS; Note: Date Diagnosed : 02/03/2015 9:14 AM (J45.909) [mapped from ICD9 code: 493.90] Not Available [facility] 4 02:36:55 Nasal polyp Active 2014 Nasal polyps; Note: Date Diagnosed : 09/28/2014 5:00 PM (471.0) Not Available [facility] 4 02:36:45 Bleeding from nose 374990602 Active 2016 Epistaxis ; Note: Date Diagnosed : 05/12/2015 8:42 AM () Note: Date Diagnosed : 05/12/2015 8:42 AM () Not Available [facility] 4 01:05:06 Chronic rhinitis 19020686 Active 2016 Rhinitis, chronic; Note: Date Diagnosed : 01/04/2017 12:17 PM (472.0) Chronic rhinitis; Note: Date Diagnosed : 11/27/2014 10:45 AM (472.0) ; Start Date : 5 Not Available [facility] 4 02:36:46 Exacerbat ion of mild persisten t asthma 540094525 Active 2014 Mild persisten t asthma with (acute) exacerbat ion; CMS Risk: moderate risk CMS Treatment : establish ed problem (to examiner) : unstable or worsening Note: Date Diagnosed : 05/12/2015 9:03 AM (J45.31) Not Available [facility] 4 02:36:53 Herpes zoster with nervous system complicat ion 496858880 Active 2014 Herpes zoster: Other; Note: Date Diagnosed : 08/31/2014 3:03 PM (053.19) Not Available [facility] 4 02:36:46 Allergic rhinitis 00043362 Active 2019 Allergic Rhinitis; Note: Date Diagnosed [...] : 01/05/2020 1:51 PM (J30.89) Not Available [facility] 4 02:36:44 Disorder of smell 092901300 Active 2020 Other disturban maddie of smell and taste; Note: Date Diagnosed : 09/27/2020 3:36 PM (R43.8) Not Available [facility] 4 02:36:49 Disorder of taste 096191701 Active 2020 Other disturban maddie of smell and taste; Note: Date Diagnosed : 09/27/2020 3:36 PM (R43.8) Not Available [facility] 4 02:36:49 Chronic pansinusi tis 25577538 Active 2014 Chronic pansinusi tis; Note: Date Diagnosed : 02/03/2015 9:14 AM (J32.4) [mapped from ICD9 code: 473.8] Not Available [facility] 4 02:36:54 Multiple sclerosis 51346317 Active 2019 Multiple sclerosis ; Note: Date Diagnosed : 04/07/2020 10:34 AM (G35) Not Available [facility] 4 02:36:48 Postopera tive visit 575472859 Active 2016 Post Op Visit; Note: Date Diagnosed : 12/22/2016 1:59 PM (V67.0) Not Available [facility] 4 02:36:51 Uncomplic ated mild persisten t asthma 613522419 Active 2016 Mild persisten t asthma, uncomplic ated; Note: Date Diagnosed : 10/07/2015 10:18 AM (J45.30) Not Available [facility] 4 02:36:54 Headache 34163913 Active 2021 Headache, unspecifi ed; Note: Date Diagnosed : 02/03/2022 4:09 PM (R51.9) Not Available [facility] 4 02:36:49 Long-term current use of anticoagu lant 264264120 Active 2016 care home (current) use of anticoagu lants; Note: Date Diagnosed : 05/12/2015 8:42 AM () Not Available [facility] 4 02:36:45 Chronic maxillary sinusitis 73277416 Active 2014 Chronic maxillary sinusitis ; Note: Date Diagnosed : 11/27/2014 10:45 AM (473.0) Not Available [facility] 4 02:36:46 Seasonal allergic rhinitis 745110429 Active 2014 Other seasonal allergic rhinitis; Note: Date Diagnosed : 02/03/2015 9:14 AM (J30.2) [mapped from ICD9 code: 477.8] Not Available [facility] 4 02:36:47 Chronic sinusitis 74663288 Active 2018 Chronic pansinusi tis; CMS Risk: moderate risk CMS Treatment : establish ed problem (to examiner) : unstable or worsening Note: Date Diagnosed : 4 11:10 AM (473.8) ; Start Date : 4 Other chronic sinusitis ; Note: Date Diagnosed : 11/20/2018 4:09 PM (J32.8) Not Available [facility] 4 02:36:48 Asthma 680066013 Active 2014 Asthma; Note: Date Diagnosed : 09/28/2014 5:00 PM (493.90) Not Available [facility] 4 02:36:48 Acute sinusitis 79812729 Active 2019 Other acute sinusitis ; Note: Date Diagnosed : 03/18/2020 3:53 PM (J01.80) Not Available [facility] 4 02:36:55 Polyp of nasal cavity 989694756 Active 2014 Polyp of nasal cavity; Note: Date Diagnosed : 02/03/2015 9:14 AM (J33.0) [mapped from ICD9 code: 471.0] Not Available [facility] 4 02:36:51 Polyp of nasal cavity and/or nasal sinus 764071432 Active 2023 JAYCE COVARRUBIAS MD [address] [facility],[place] [address], [place], [address] , [place] - [facility] 4 15:46:43 Moderate persisten t asthma 167946175 Active 2023 JAYCE COVARRUBIAS MD [address] [place] [address],[place] [address], [place], [address] , [place] - [facility] 4 09:29:22 Impacted cerumen in left ear 96606000795 53577 Active 2024 JAYCE COVARRUBIAS MD [address] [facility],[place] [address], [place], [address] , [place] - [facility] 5 15:58:55 Problem Notes None recorded. Procedures Surgical History Date Name Laterality Status Provider Name and Address Organization Details Recorded Time 5 JMSNasal/Sinu s Endoscopy[facility] [place] surgical cavities completed JAYCE SNYDER MD [address] [facility],[place] [address], [place], [address], [facility] - [facility] 09/26/2024 16:00:02 4 JMSNasal/Sinu s Endoscopy[facility] [place] surgical cavities completed JAYCE SNYDER MD [address] [facility],[place] [address], [place], [address], [place] - [facility] 03/24/2024 15:46:29 Imaging Results Imaging Date Name [...] Name and Address Organization Details Recorded Time 40466 aspirin medicatio n wheezing Not available Not available 12/18/2023 1191 RxNorm React ion: asthm a;; Not Available [facility] 00:58:11 79000 clarithro mycin medicatio n other Not available Not available 12/18/2023 60620 RxNorm React ion: unkno wn, unspe cifie d;; Not Available [facility] 4 00:28:41 59585 oxycodone medicatio n other Not available Not available 12/18/2023 7804 RxNorm React ion: unkno wn, unspe cifie d;; Not Available [facility] 4 00:58:13 Medications Name Sig Start Date [...] mg tablet 03/04 completed Medicati on ID: [id number] Br and Name: Topamax Send Method: E-Prescr ibed Sub s Allowed: subs OK Medic ationGen ericName : Topamax Not Available Not Available Not Available Augmentin 875 mg-125 mg tablet 09/26 [place]: [id number] Du ration Value: 21 Prescri bed By [...] mg tablet 09/26 completed Medicati on ID: [id number] Du ration Value: 5 Prescri bed By Name: Tay Fraga nd Name: predniso ne Send Method: E-Prescr ibed Sub s Allowed: subs OK Speci al Instruct ion: take as instruct ed Medic ationGen ericName : predniso ne Not Available Not Available Not Available doxycycli ne hyclate 100 mg capsule by mouth 05/21 completed Medicati on ID: [id number] D uration Value: 10 Prescri bed By Name: Tay Reed nd Name: doxycycl ine hyclate Send Method: E-Prescr ibed Sub s Allowed: subs OK Speci al Instruct ion: Take 1 po BID X 10 days Med icationG enericNa me: doxycycl ine hyclate Not Available Not Available Not Available valacyclo vir 1 gram tablet 03/04 completed Medicati on ID: [id number] Pr escribed By Name: Tay Fraga nd [...] by mouth 09/26 completed Medicati on ID: [id number] D uration Value: 3 Prescri bed By [...] mg tablet 03/04 completed Medicati on ID: [id number] Br and Name: sertrali ne Send Method: E-Prescr ibed Sub s Allowed: subs OK Medic ationGen ericName : sertrali ne Not Available Not Available Not Available simvastat in 10 mg tablet TAKE 1 TABLET BY MOUTH EVERY DAY active Not Available Not Available No t Available Biaxin 500 mg tablet 1 tablet by mouth 09/26 completed Medicati on ID: [id number] D uration Value: 21 Prescri bed By Name: MITZI Alfredo nd Name: Biaxin S end Method: E-Prescr ibed Sub s Allowed: subs OK Medic ationGen ericName : Biaxin Not Available Not Available Not Available Nexium 40 mg capsule,d elayed release 10/27 completed Medicati on ID: [id number] D uration Value: 30 Reason: () Brand Name: Nexium S end Method: E-Prescr ibed Sub s Allowed: subs OK Speci al Instruct ion: 1 po qam Medi cationGe nericNam e: Nexium Not Available Not Available Not Available Zyrtec 10 mg tablet 09/26 completed Medicati on ID: [id number] Br and Name: Zyrtec S end Method: E-Prescr ibed Sub s Allowed: subs OK Medic ationGen ericName : Zyrtec Not Available Not Available Not Available Aspir-Low 81 mg tablet,de layed release 12/30 completed Medicati on ID: [id number] Br and Name: Aspir-Lo w Send Method: [...] mg tablet 09/26 completed Medicati on ID: [id number] B rand Name: alprazol am Send Method: [...] by mouth 09/26 completed Medicati on ID: [id number] D uration Value: 21 Prescri bed By Name: Tay Reed nd Name: doxycycl ine monohydr ate Send Method: E-Prescr ibed Sub s Allowed: subs OK Medic ationGen ericName : doxycycl ine monohydr ate Not Available Not Available Not Available Advair Diskus 500 mcg-50 mcg/dose powder for inhalatio n 1 puff 2019 active Medicati on ID: [id number] D uration Value: 30 Prescri bed By [...] as needed 2022 active Medicati on ID: [id number] D uration Value: 180 Brand Name: epinephr [...] by mouth 01/06 completed Medicati on ID: [id number] Pr escribed By Name: Tay Reed nd [...] a day 03/21 completed Medicati on ID: [id number] D uration Value: 30 Prescri bed By Name: Tay Reed nd Name: Spiriva with HandiHal er Send Method: E-Prescr ibed Sub s Allowed: subs OK Medic ationGen ericName : Spiriva with HandiHal er Not Available Not Available Not Available Tysabri 300 mg/15 mL intraveno us solution 09/26 completed Medicati on ID: [id number] B rand Name: Tysabri Send Method: E-Prescr ibed Sub s Allowed: subs OK Medic ationGen ericName : Tysabri Not Available Not Available Not Available prednison e 09/26 completed Medicati on ID: [id number] D uration Value: 10 Prescri bed By [...] as needed 09/26 completed Medicati on ID: [id number] D uration Value: 30 Prescri bed By Name: Tay Reed nd Name: ProAir HFA Send Method: E-Prescr ibed Sub s Allowed: subs OK Medic ationGen ericName : ProAir HFA Not Available Not Available Not Available Theraflu Cold-Sore Throat (PE) 20 mg-10 mg-325 mg oral powder packet 03/04 completed Medicati on ID: [id number] Br and Name: Theraflu Cold-Sor e Throat (PE) Sen d Method: E-Prescr ibed Sub s Allowed: subs OK Medic ationGen ericName : Theraflu Cold-Sor e Throat (PE) Not Available Not Available Not Available Nasacort 55 mcg nasal spray aerosol 12/30 completed Medicati on ID: [id number] Br and Name: Nasacort Send Method: E-Prescr [...] a day 2023 active Medicati on ID: [id number] D uration Value: 90 Prescri bed By Name: Tay Reed nd Name: Xhance S end Method: E-Prescr ibed Sub s [...] Updated DateTime 03/24/2024 157.48 cm 33.8 kg/m2 34416.59 g Humphrey Benton [place] - [facility] 03/24/2024 15:29:33 Date Recorded Body height Body weight Provider Name and Address Organization Details Last Updated DateTime 09/26/2024 157.48 cm 43591.59 g Danika Smith [place] - [facility] 09/26/2024 15:23:55 Social History None recorded. Functional [...] SNOMED-CT Code Diagnosis ICD10 Code Diagnosis Note [id number] JAYCE COVARRUBIAS MD [facility] [address] [address] 03/24/2024 15:11:59 03/24/2024 15:51:16 Allergy to drug 188795611 Z88.6 Exacerbati on of moderate persistent asthma 330332627 J45.41 Disorder o f respiratory system 24489266 J70.8 Polyp of nasal cavity 73 7668098 J33.0 Chronic sinusitis 113532 00 J32.9 [id number] JAYCE COVARRUBIAS MD [facility] [address] [address] 09/26/2024 15:06:10 09/26/2024 16:01:28 Allergy to drug 716223275 Z88.6 Polyp of n [place] cavity and/or nasal sinus 206030049 J33.1 Moderate p ersistent asthma 613902599 J45.40 Disorder o f respiratory system 92850719 J70.8 Impacted c erumen in left ear 5116935560 571453 H61.22 Suggested 3 drops distilled vinegar in [...] Benavides Member ID Guarantor Name 03/24/2024 1 [facility] Tanya Bonilla [id number] Tanya Bonilla 09/26/2024 1 [facility] Tanya Castilloraul [id number] Tanya A Irene Notes Date Note Type Note Provider Name [...] on Tysabri for MS JAYCE SNYDER MD [address] [place] [address], [address], [facility] 03/24/2024 15:49:52 09/26/2024 text/html Patient with his tory of [...] starting Wegovy May 06 JAYCE SNYDER MD [address] [place] [address], [address], [facility] - [facility] 09/26/2024 16:00:28 OBGyn Episode No OBEpisode recorded.
--- OUTSIDE RECORDS SUMMARY | 2024-10-13 17:19 | XMS_ITS | Patient Health Record ---
Author Organization [facility] Address [address] [facility] [address] [place] [address] Care Team Providers Care Instrument Panel Assembler Name Role Phone Arnol GUTIÉRREZ, [facility] Primary [facility] Provider Ash Ernandez Jr Unavailable Allergies Allergen (clinical drug ingredient) Drug/Non Drug Allergy documented on EMR Reaction Allergy Type Onset Date Status Vicodin Unknown Drug Allergy Active acetaminophen / oxycodone Percocet Unknown Drug Allergy Active aspirin Aspirin Unknown Drug Allergy Active Reason For Referral Referring Provider First Name Cari Referring Provider Last Name Arnol Referring Provider Speciality Internal M edicine Referred Organization [facility] Referred Provider Ash Obando Jr Referred Address [address] [place] [address], [address],[place], [place],[address], Referred Provider Specialty Gastroentero logy General Notes Maureen Cannon 2024 12:44:32 PM >requested a [facility] referral from Dr. Ambrose's office for appt with Dr. Obando on 10-30-2024 Referral Priority Routine Medications Medication SIG (Take, Route, Frequency, Duration) Notes Start Date End Date Status ProAir HFA Active Simvastatin 10 MG TAKE 1 TABLET BY YASMEEN DAILY Oral for 90 Active Omeprazole 40 MG 1 capsule 30 minutes before morning meal Orally Once a day for 30 day(s) 06/19/2023 Active Montelukast Sodium 10 MG TAKE 1 TABLET B Y MOUTH EVERY DAY IN THE EVENING Oral for 90 Active Tysabri 300 MG/15ML as directed Intravenous Active Lidocaine-Prilocaine 2.5-2.5 % External for 30 Not-Taking Budesonide Active EpiPen Active Amitriptyline HCl 25 MG Oral for 30 Active Fluticasone-Salmeterol 250-50 MCG/ACT INHALE 2 PUFFS INTO THE LUNGS EVERY DAY DIRECTED Inhalation for 90 Active Rizatriptan Benzoate 10 MG TAKE 1 [...] ast year? 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) Active confirmed Problem 671087044 Gastroesophageal reflux disease without esophagitis (K21.9) Active confirmed Problem 236035863 Family history o f colon cancer (Z80.0) Active confirmed Problem 099387550 FH: colon cancer (Z80.0) Active confirmed Problem 014641789 Adenomatous poly p of colon, unspecified part of colon (D12.6) Active confirmed Vital Signs Blood pressure diastolic 00 mm Hg 11/01/2023 Height 62 in 11/01/2023 Blood pressure systolic 00 mm Hg 11/01/2023 Weight 190 lbs 11/01/2023 BMI 34.75 kg/m2 11/01/2023 Encounters Encounter Location Date Provider Diagnosis [facility] [address] [place] [address] 11/01/2023 Ash Obando Jr Viveros's esophagus without dysplasia K22.70 ; Adenomatous polyp of colon, unspecified part of colon D12.6 and Family history of colon cancer Z80.0 [facility] [address] [place] [address] 10/13/2024 Ash Obando Jr Assessments Encounter Date Diagnosis (ICD Code) Assessment [...] colonoscopy in 5 years. Plan Of Treatment Future Test Test Name Order Date UPPER GI ENDOSCOPY 12/27/2017 COLONOSCOPY 12/27/2017 UPPER GI ENDOSCOPY 05/24/2023 COLONOSCOPY 05/24/2023 Next Appt Details Provider Name:Ashdemarco escobar , 10/30/2024 03:35:00 PM, [address] [place] [address], [address], [place], [address], Insurance Providers Payer Name Payer Address Payer Phone Subscriber Number Group Number Insured Name Patient Relationship to Insured Coverage Start Date Coverage End Date [employer]ATT[employer]GRIM [address] [place] [phone] [id number] CORINA COLES Self - patient is the insured Medical (General) History Medical History History ICD Code Gastroesophageal reflux dise ase, EGD in 06/28, BE with no dysplasia, ten-year followup Seasonal allergies Asthma Bulimia Multiple sclerosis Colonoscopy 06/28, tubular adenoma, five -year followup Hyperlipidemia Surgical History Surgery Date(Month/Year) Shoulder surgery x2 Knee surgery x2
--- OUTSIDE RECORDS SUMMARY | 2024-10-13 17:19 | XMS_ITS ---
Author Organization [facility] Address [address] [place] [address] Care Team Providers Care Marketing Rotation Associate Name Role Phone Arnol GUTI[facility]RREZ, [facility] Primary [facility] Provider Ash Ernandez Jr REASON FOR VISIT choked/aspirated Encounters Encounter Location Date Provider Diagnosis [facility] [address] [facility] [address] [place] [address] 10/13/2024 Ash Obando Jr Plan Of Treatment Next Appt Details Provider Name:Ash escobar Jr, 10/30/2024 03:35:00 PM, [address] [facility], [address], [place], [address], Progress Notes * CORINA COLES ADOB:[birth year] (63 yo F)Acc No.[id number]:10/13/2024 Patient:?CORINA COLES :1960???Age:63 Y???Sex:Female Address:[address] [place] [address], [address] * * Date:?
--- OUTSIDE RECORDS SUMMARY | 2024-10-13 17:19 | XMS_ITS | Encounter Summary ---
Author Organization [facility] Address [address] [place] [address] Care Team Providers Care Dairy Specialist Name Role Phone Cari Ambrose MD Primary Care Provider [phone] Reason for Visit * Episode Based Medications (Routine) - Authorized Specialty Diagnoses / Procedures Referred By Charlene t Referred To Contact Diagnoses MS (multiple sclerosis) ([facility]) Manda Casillas MD [address] [place] [address] [place] [address] Phone: tel: fax: [facility] [address] [place] [phone] Phone: tel: fax: Referral ID Status Reason Start Date Expiration Date V isits Requested Visits Authorized [id number] Authorized 06/20/2024 06/20/2025 1 52 Encounter Details Date Type Department Care Team (Latest Contact Info) Description 09/19/2024 1:13 PM EST - 09/19/2024 11:59 PM EST Hospital Encounter [facility] [address] [place] [phone] Manda Casillas MD [address] [place] [address] Dr [place]in [place] [phone] MS (multiple sclerosis) ([facility]) (Primary Dx) Discharge Disposition: Home [...] oz) 09/19/2024 1:25 P M EST Height - - Body Mass Index 31.53 10/22/2020 7:50 AM EDT documented in this encounter Medications at Time of Discharge acetaminophen (TYLENOL) 325 mg tablet Take 1 [...] the thigh once daily as needed. fluticasone propion-salmeter oL (ADVAIR DISKUS) 500-50 mcg/dose diskus inhaler Inhale 1 puff by mouth 2 times daily. 10/31/2016 lidocaine-priloc abdiel (EMLA) 2.5-2.5 % cream External for 30 montelukast (SINGULAIR) 10 mg tablet TAKE 1 TABLET BY MOUTH EVERY DAY IN THE EVENING Oral for 90 08/03/2017 natalizumab (Tysabri) 300 mg/15 mL injection as directed Intravenous 08/31/2020 omeprazole (PriLOSEC) [address] capsule TAKE [...] Progress Notes * Paola Pisano RN - 09/19/2024 1:30 PM EST 1340- Pt arrived today for Tysabri infusion. Pt feeling well overall but does express having difficulty starting stream for urinating when she first wakes up in the morning. Pt continues with fatigueas well. Port accessed without diff. Treatment released. Pt resting comfortably at this time. Call hutchinson in reach. 1505- Pt rested comfortably throughout treatment. Tysabri initiated and completed without incident.Next appts in place and reviewed. A few more appts requested as well. Port flushed/deaccessed per protocol. Pt up to BR without issue. Left unit, stable at D/C. documented in this encounter Plan of Treatment Upcoming Encounters Date Type Department Care Team (Late st Contact Info) Description 10/17/2024 1:30 PM EDT Appointment [facility] [address] [place] [phone] 11/14/2024 1:30 PM EDT Appointment [facility] [address] [phone] 12/12/2024 1:30 PM EDT Appointment [facility] [address] [phone] 01/09/2025 1:30 PM EDT Appointment [facility] [address] [place] [phone] documented as of this encounter Visit Diagnoses Diagnosis MS (multiple sclerosis) ([facility])- Primary Multiple sclerosis documented in this encounter Administered Medications Inactive Administered Medications - up to 3 most recent administrations Medication Order MAR Action Action Date Dose Rate Site natalizumab (TYSABRI) 300 mg in sodium chloride 0.9 % 115 mL IVPB 300 mg, intravenous, at 115 mL/hr, Administer over 60 Minutes, Once, On Sun09/19/24 at 1400, For 1 dose, ?? After the infusion is complete, flush with Sodium Chloride Injection 0.9% (NS)Indications:MS (multiple sclerosis) (CMS/HCC) New Bag 09/19/2024 1:48 PM EST 300 mg 115 mL/hr documented in this encounter Orders Medications Ordered That James ht Not Have Been Administered Count Last Ordered Date First Ordered Date sodium chloride 0.9 % infusion 1 09/19/2024 Nursing Count Last Ordered Date First Orde red Date ONC NURSING COMMUNICATION 10 1 09/19/2024 ONC NURSING COMMUNICATION 3 1 09/19/2024 ONC NURSING COMMUNICATION 5 09/19/2024 ONC PROVIDER COMMUNICATION 1 09/19/2024 Appointment Requests Count Last Ordered Date Fi rst Ordered Date ONCBCN INFUSION APPOINTMENT REQUEST 06 documented in this encounter Care Teams Dairy Specialist Relationship Specialty Start Date End Date Cari Ambrose MD [address] [place] [phone] PCP - General Internal Medicine 04/13/20 documented as of this encounter
--- OUTSIDE RECORDS SUMMARY | 2024-10-13 17:19 | XMS_ITS | Encounter Summary ---
Author Organization [facility] Address [address] [place] [address] Care Team Providers Care Sales Operations Director Name Role Phone Cari Ambrose MD Primary Care Provider [phone] Encounter Details Date Type Department Care Team [...] Info) Description 10/17/2024 1:30 PM EDT Appointment [facility] [address] [place] [phone] 11/14/2024 1:30 PM EDT Appointment [address] [phone] 12/12/2024 1:30 PM EDT Appointment [facility] [address] [place] [phone] 01/09/2025 1:30 PM EDT Appointment [facility] [address] [place] [phone] documented as of this encounter Visit Diagnoses Not on filedocumented in this encounter Care Teams Sales Operations Director Relationship Specialty Start Date End Date Cari Ambrose MD [address] [place] [phone] PCP - General Internal Medicine 04/13/20 documented as of this encounter
== END 2024-10-13 15:39 | disposition home or self-care (01) ==
PROVIDERS: PCP Internal Medicine; Visit Provider Nurse Practitioner Family
DX: K21.9 Gastro-esophageal reflux disease without esophagitis (principal)

== ENCOUNTER → 2024-10-13 15:08 | Outpatient (BNVA) | payer OTHER, SELFPAY | PROVIDERS: PCP Internal Medicine; Visit Provider Nurse Practitioner Family ==

== ENCOUNTER 2024-11-03 12:53 | Outpatient (REF) | payer OTHER, SELFPAY ==
--- OUTSIDE RECORDS SUMMARY | 2024-11-03 15:50 | XMS_ITS | Clinical Summary ---
Author Organization [facility] Address [address] [place] [address] Phone Care Team Providers Care Jewel Bearing Maker Name Role Phone Cari Ambrose MD Primary Care Provider [phone] Allergies No known active allergies Medications acetaminophen [...] - 10/17/2024 11:59 PM EDT Hospital Encounter [facility] [address] [place] [phone] Manda Casillas MD MS (multiple sclerosis) ([facility]) (Primary Dx) Discharge Disposition: Home or Self Care 09/19/2024 1:13 PM EST - 09/19/2024 11:59 PM EST Hospital Encounter [facility] [address] [place] [phone] Manda Casillas MD MS (multiple sclerosis) ([facility]) (Primary Dx) Discharge Disposition: Home or Self Care 08/22/2024 1:20 PM EST - 08/22/2024 11:59 PM EST Hospital Encounter [facility] [address] [place] [phone] Manda Casillas MD MS (multiple sclerosis) (CMS/HCC) [...] Info) Description 11/14/2024 1:30 PM EDT Appointment [facility] [address] [place] [phone] 12/12/2024 1:30 PM EDT Appointment [facility] [address] [place] [phone] 01/09/2025 1:30 PM EDT Appointment [facility] [address] [phone] Health Maintenance Due Date Last Done Comments [...] patient's age to complete this topic Insurance [facility] Care Teams Jewel Bearing Maker Relationship Specialty Start Date End Date Cari Ambrose MD [address] [place] [phone] PCP - General Internal Medicine 04/13/20
--- OUTSIDE RECORDS SUMMARY | 2024-11-03 15:50 | XMS_ITS | Encounter Summary ---
Author Organization [facility] Address [address] [place] [address] Care Team Providers Care Hunting Sales Associate Name Role Phone Cari Ambrose MD Primary Care Provider [phone] Encounter Details Date Type Department Care Team [...] Info) Description 11/14/2024 1:30 PM EDT Appointment [address] [phone] 12/12/2024 1:30 PM EDT Appointment [address] [phone] 01/09/2025 1:30 PM EDT Appointment [address] [phone] documented as of this encounter Visit Diagnoses Not on filedocumented in this encounter Care Teams Hunting Sales Associate Relationship Specialty Start Date End Date Cari Ambrose MD [address] [place] [address] PCP - General Internal Medicine 04/13/20 documented as of this encounter
--- OUTSIDE RECORDS SUMMARY | 2024-11-03 15:50 | XMS_ITS | Data Portability ---
Author Organization [place] - [facility], Allergy Address [address] [address] Care Team Providers Care Fur Finisher Tailor Name Role Phone DESIREE SNYDER Primary Care [...] suspensio n for nebulizat ion 2023 024 [id number], [address], [place], [phone], 03/24/2024 15:49:24 Patient TargetsNo targets recorded. Patient Instructions Encounter Date Encounter Id Patient Instructions Last Modified By Organization Details Last Modified Time 09/26/2024 [id number] Overall doing well. 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 Other specified respirato ry disorders ; Note: Date Diagnosed : 01/05/2020 1:51 PM (J98.8) Not Available [facility] 4 02:36:57 Uncomplic ated moderate persisten t asthma 544457409 Active 2016 Moderate persisten t asthma, uncomplic ated; Note: Date Diagnosed : 10/07/2015 10:19 AM (J45.40) Not Available [facility] 4 02:36:51 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 958781272 Active 2016 Coagulati on defects: Other hemorrhag ic disorder due to intrinsic circulati ng anticoagu lants, antibodie s, or inhibitor s; Note: Date Diagnosed : 05/12/2015 8:41 AM () Not Available [facility] 4 02:36:51 Allergy to drug 652618180 Active 2016 Allergy status to analgesic agent status; CMS Risk: moderate risk Note : Date Diagnosed : 05/12/2015 8:43 AM (Z88.6) Not Available [facility] 4 02:36:57 Disorder of respirato ry system 62156270 Active 2016 Respirato ry condition s due to other specified external agents; CMS Risk: moderate risk Note : Date Diagnosed : 05/12/2015 8:43 AM (J70.8) Not Available [facility] 4 02:36:57 Epistaxis Active 2016 Epistaxis ; Note: Date Diagnosed : 05/12/2015 8:41 AM () Not Available [facility] 4 02:36:49 Uncomplic ated asthma 368606432 Active 2014 Asthma NOS; Note: Date Diagnosed : 02/03/2015 9:14 AM (J45.909) [mapped from ICD9 code: 493.90] Not Available [facility] 4 02:36:55 Nasal polyp Active 2014 Nasal polyps; Note: Date Diagnosed : 09/28/2014 5:00 PM (471.0) Not Available [facility] 4 02:36:45 Bleeding from nose 556119467 Active 2016 Epistaxis ; Note: Date Diagnosed : 05/12/2015 8:42 AM () Note: Date Diagnosed : 05/12/2015 8:42 AM () Not Available [facility] 4 01:05:06 Chronic rhinitis 08391856 Active 2016 Rhinitis, chronic; Note: Date Diagnosed : 01/04/2017 12:17 PM (472.0) Chronic rhinitis; Note: Date Diagnosed : 11/27/2014 10:45 AM (472.0) ; Start Date : 5 Not Available [facility] 4 02:36:46 Exacerbat ion of mild persisten t asthma 015836684 Active 2014 Mild persisten t asthma with (acute) exacerbat ion; CMS Risk: moderate risk CMS Treatment : establish ed problem (to examiner) : unstable or worsening Note: Date Diagnosed : 05/12/2015 9:03 AM (J45.31) Not Available [facility] 4 02:36:53 Herpes zoster with nervous system complicat ion 658091647 Active 2014 Herpes zoster: Other; Note: Date Diagnosed : 08/31/2014 3:03 PM (053.19) Not Available [facility] 4 02:36:46 Allergic rhinitis 72668056 Active 2019 Allergic Rhinitis; Note: Date Diagnosed [...] : 01/05/2020 1:51 PM (J30.89) Not Available [facility] 4 02:36:44 Disorder of smell 532606815 Active 2020 Other disturban maddie of smell and taste; Note: Date Diagnosed : 09/27/2020 3:36 PM (R43.8) Not Available [facility] 4 02:36:49 Disorder of taste 566064154 Active 2020 Other disturban maddie of smell and taste; Note: Date Diagnosed : 09/27/2020 3:36 PM (R43.8) Not Available [facility] 4 02:36:49 Chronic pansinusi tis 78276234 Active 2014 Chronic pansinusi tis; Note: Date Diagnosed : 02/03/2015 9:14 AM (J32.4) [mapped from ICD9 code: 473.8] Not Available [facility] 4 02:36:54 Multiple sclerosis 62619935 Active 2019 Multiple sclerosis ; Note: Date Diagnosed : 04/07/2020 10:34 AM (G35) Not Available [facility] 4 02:36:48 Postopera tive visit 304881195 Active 2016 Post Op Visit; Note: Date Diagnosed : 12/22/2016 1:59 PM (V67.0) Not Available [facility] 4 02:36:51 Uncomplic ated mild persisten t asthma 315791533 Active 2016 Mild persisten t asthma, uncomplic ated; Note: Date Diagnosed : 10/07/2015 10:18 AM (J45.30) Not Available [facility] 4 02:36:54 Headache 81843383 Active 2021 Headache, unspecifi ed; Note: Date Diagnosed : 02/03/2022 4:09 PM (R51.9) Not Available [facility] 4 02:36:49 Long-term current use of anticoagu lant 315156991 Active 2016 shelter (current) use of anticoagu lants; Note: Date Diagnosed : 05/12/2015 8:42 AM () Not Available [facility] 4 02:36:45 Chronic maxillary sinusitis 11471363 Active 2014 Chronic maxillary sinusitis ; Note: Date Diagnosed : 11/27/2014 10:45 AM (473.0) Not Available [facility] 4 02:36:46 Seasonal allergic rhinitis 038071481 Active 2014 Other seasonal allergic rhinitis; Note: Date Diagnosed : 02/03/2015 9:14 AM (J30.2) [mapped from ICD9 code: 477.8] Not Available [facility] 4 02:36:47 Chronic sinusitis 41002074 Active 2018 Chronic pansinusi tis; CMS Risk: moderate risk CMS Treatment : establish ed problem (to examiner) : unstable or worsening Note: Date Diagnosed : 4 11:10 AM (473.8) ; Start Date : 4 Other chronic sinusitis ; Note: Date Diagnosed : 11/20/2018 4:09 PM (J32.8) Not Available [facility] 4 02:36:48 Asthma 448509992 Active 2014 Asthma; Note: Date Diagnosed : 09/28/2014 5:00 PM (493.90) Not Available [facility] 4 02:36:48 Acute sinusitis 52247366 Active 2019 Other acute sinusitis ; Note: Date Diagnosed : 03/18/2020 3:53 PM (J01.80) Not Available [facility] 4 02:36:55 Polyp of nasal cavity 770300444 Active 2014 Polyp of nasal cavity; Note: Date Diagnosed : 02/03/2015 9:14 AM (J33.0) [mapped from ICD9 code: 471.0] Not Available [facility] 4 02:36:51 Polyp of nasal cavity and/or nasal sinus 508989736 Active 2023 JAYCE COVARRUBIAS MD [address] [facility],[place] [address], [place], [address] , [place] - [facility] 4 15:46:43 Moderate persisten t asthma 602795042 Active 2023 JAYCE COVARRUBIAS MD [address] [place] [address],[place] [address], [place], [address] , [place] - [facility] 4 09:29:22 Impacted cerumen in left ear 30180584837 94311 Active 2024 JAYCE COVARRUBIAS MD [address] [facility],[place] [address], [place], [address] , [place] - [facility] 5 15:58:55 Problem Notes None recorded. Procedures Surgical History Date Name Laterality Status Provider Name and Address Organization Details Recorded Time 5 JMSNasal/Sinu s Endoscopy[facility] [place] surgical cavities completed JAYCE SNYDER MD [address] [facility],[place] [address], [place], [address], [facility] - [facility] 09/26/2024 16:00:02 4 JMSNasal/[facility]u s [facility] [place] surgical cavities completed JAYCE SNYDER MD [address] [facility],[place] [address], [place], [address], [place] - [facility] 03/24/2024 15:46:29 Imaging Results Imaging Date Name [...] Name and Address Organization Details Recorded Time 04607 aspirin medicatio n wheezing Not available Not available 12/18/2023 1191 RxNorm React ion: asthm a;; Not Available [facility] 00:58:11 46070 clarithro mycin medicatio n other Not available Not available 12/18/2023 62550 RxNorm React ion: unkno wn, unspe cifie d;; Not Available [facility] 4 00:28:41 09854 oxycodone medicatio n other Not available Not available 12/18/2023 7804 RxNorm React ion: unkno wn, unspe cifie d;; Not Available [facility] 4 00:58:13 Medications Name Sig Start [...] mg tablet 03/04 completed Medicati on ID: [id number] Br and Name: Topamax Send Method: E-Prescr ibed Sub s Allowed: subs OK Medic ationGen ericName : Topamax Not Available Not Available Not Available Augmentin 875 mg-125 mg tablet 09/26 completed Medicati on ID: [id number] Du ration Value: 21 Prescri bed By [...] mg tablet 09/26 completed Medicati on ID: [id number] Du ration Value: 5 Prescri bed By Name: Tay Fraga nd Name: predniso ne Send Method: E-Prescr ibed Sub s Allowed: subs OK Speci al Instruct ion: take as instruct ed Medic ationGen ericName : predniso ne Not Available Not Available Not Available doxycycli ne hyclate 100 mg capsule by mouth 05/21 completed Medicati on ID: [id number] D uration Value: 10 Prescri bed By Name: Tay Reed nd Name: doxycycl ine hyclate Send Method: E-Prescr ibed Sub s Allowed: subs OK Speci al Instruct ion: Take 1 po BID X 10 days Med icationG enericNa me: doxycycl ine hyclate Not Available Not Available Not Available valacyclo vir 1 gram tablet 03/04 completed Medicati on ID: 94219 Pr escribed By Name: Tay Fraga nd [...] by mouth 09/26 completed Medicati on ID: [id number] D uration Value: 3 Prescri bed By [...] mg tablet 03/04 completed Medicati on ID: [id number] Br and Name: sertrali ne Send Method: E-Prescr ibed Sub s Allowed: subs OK Medic ationGen ericName : sertrali ne Not Available Not Available Not Available simvastat in 10 mg tablet TAKE 1 TABLET BY MOUTH EVERY DAY active Not Available Not Available No t Available Biaxin 500 mg tablet 1 tablet by mouth 09/26 completed Medicati on ID: 379720 D uration Value: 21 Prescri bed By Name: MITZI Alfredo nd Name: Biaxin S end Method: E-Prescr ibed Sub s Allowed: subs OK Medic ationGen ericName : Biaxin Not Available Not Available Not Available Nexium 40 mg capsule,d elayed release 10/27 completed Medicati on ID: 256330 D uration Value: 30 Reason: () Brand Name: Nexium S end Method: E-Prescr ibed Sub s Allowed: subs OK Speci al Instruct ion: 1 po qam Medi cationGe nericNam e: Nexium Not Available Not Available Not Available Zyrtec 10 mg tablet 09/26 completed Medicati on ID: [id number] Br and Name: Zyrtec S end Method: E-Prescr ibed Sub s Allowed: subs OK Medic ationGen ericName : Zyrtec Not Available Not Available Not Available Aspir-Low 81 mg tablet,de layed release 12/30 completed Medicati on ID: 84250 Br and Name: Aspir-Lo w Send Method: [...] mg tablet 09/26 completed Medicati on ID: 109071 B rand Name: alprazol am Send Method: [...] by mouth 09/26 completed Medicati on ID: [id number] D uration Value: 21 Prescri bed By Name: Tay Reed nd Name: doxycycl ine monohydr ate Send Method: E-Prescr ibed Sub s Allowed: subs OK Medic ationGen ericName : doxycycl ine monohydr ate Not Available Not Available Not Available Advair Diskus 500 mcg-50 mcg/dose powder for inhalatio n 1 puff 2019 active Medicati on ID: 343870 D uration Value: 30 Prescri bed By [...] as needed 2022 active Medicati on ID: 158875 D uration Value: 180 Brand Name: epinephr [...] by mouth 01/06 completed Medicati on ID: 87569 Pr escribed By Name: Tay Reed nd [...] a day 03/21 completed Medicati on ID: 615386 D uration Value: 30 Prescri bed By Name: Tay Reed nd Name: Spiriva with HandiHal er Send Method: E-Prescr ibed Sub s Allowed: subs OK Medic ationGen ericName : Spiriva with HandiHal er Not Available Not Available Not Available Tysabri 300 mg/15 mL intraveno us solution 09/26 completed Medicati on ID: [id number] B rand Name: Tysabri Send Method: E-Prescr ibed Sub s Allowed: subs OK Medic ationGen ericName : Tysabri Not Available Not Available Not Available prednison e 09/26 completed Medicati on ID: 533137 D uration Value: 10 Prescri bed By [...] as needed 09/26 completed Medicati on ID: 872181 D uration Value: 30 Prescri bed By Name: Tay Reed nd Name: ProAir HFA Send Method: E-Prescr ibed Sub s Allowed: subs OK Medic ationGen ericName : ProAir HFA Not Available Not Available Not Available Theraflu Cold-Sore Throat (PE) 20 mg-10 mg-325 mg oral powder packet 03/04 completed Medicati on ID: [id number] Br and Name: Theraflu Cold-Sor e Throat (PE) Sen d Method: E-Prescr ibed Sub s Allowed: subs OK Medic ationGen ericName : Theraflu Cold-Sor e Throat (PE) Not Available Not Available Not Available Nasacort 55 mcg nasal spray aerosol 12/30 completed Medicati on ID: 56924 Br and Name: Nasacort Send Method: E-Prescr [...] a day 2023 active Medicati on ID: 219251 D uration Value: 90 Prescri bed By [...] Updated DateTime 03/24/2024 157.48 cm 33.8 kg/m2 59816.59 g Humphrey Benton [place] - [facility] 03/24/2024 15:29:33 Date Recorded Body height Body weight Provider Name and Address Organization Details Last Updated DateTime 09/26/2024 157.48 cm 51323.59 g Danika Smith [place] - [facility] No [...] SNOMED-CT Code Diagnosis ICD10 Code Diagnosis Note [id number] JAYCE COVARRUBIAS MD [facility] [address] [address] 03/24/2024 15:11:59 03/24/2024 15:51:16 Allergy to drug 409966796 Z88.6 Exacerbati on of moderate persistent asthma 085829037 J45.41 Disorder o f respiratory system 03900016 J70.8 Polyp of nasal cavity 73 5883553 J33.0 Chronic sinusitis 564780 00 J32.9 [id number] JAYCE COVARRUBIAS MD [facility] [address] [address] 09/26/2024 15:06:10 09/26/2024 16:01:28 Allergy to drug 499377923 Z88.6 Polyp of n [place] cavity and/or nasal sinus 562301580 J33.1 Moderate p ersistent asthma 836924088 J45.40 Disorder o f respiratory system 82723665 J70.8 Impacted c erumen in left ear 4062219521 441235 H61.22 Suggested 3 drops distilled vinegar in [...] Benavides Member ID Guarantor Name 03/24/2024 1 [facility] ([facility] Tanya Bonilla [id number] 0 Tanya Bonilla 09/26/2024 1 [facility] ([facility] Tanya Castilloraul [id number] Tanya A Irene Notes Date Note [...] on Tysabri for MS JAYCE SNYDER MD [address] [place] [address], [address], [facility] 03/24/2024 [...] starting Wegovy May 06 JAYCE SNYDER MD [address] [place] [address], [address], [facility] - [facility] 09/26/2024 16:00:28 OBGyn Episode No OBEpisode recorded.
--- OUTSIDE RECORDS SUMMARY | 2024-11-03 15:50 | XMS_ITS | Clinical Summary ---
Author Organization [facility] Address [address] [place] [id number] Care Team Providers Care Model Builder Name Role Phone Cari Ambrose MD Primary Care Provider [phone] Allergies Active Allergy Reactions Criticality Noted Date [...] age to complete this topic Care Teams Model Builder Relationship Specialty Start Date End Date Cari Ambrose MD [address] [place] [address] PCP - General Internal Medicine 04/13/20
== END 2024-11-03 12:54 | disposition home or self-care (01) ==
LOC: HO.LAB 12:53
PROVIDERS: PCP Internal Medicine
DX: Z13.9 Encounter for screening, unspecified (principal)
CPT/HCPCS: 81003

== ENCOUNTER 2024-11-03 12:53 | Outpatient (AMB) | payer OTHER, SELFPAY ==
--- NOTE | 2024-11-03 13:25 | MHC.OFFWIV ---
Intake Vital Signs 11/03/24 13:33 Weight 170 lb BP 124/72 Blood Pressure Location Rt brachial Position Sitting Pulse 92 Pulse Source Pulse Oximeter Pulse Oximetry (%) 98 Oxygen Delivery Method Room Air Intake Visit Reasons: EP ? UTI Patient Tobacco Use Status: Former Tobacco user Allergies hydrocodone [From VICODIN] Allergy (Severe, Verified 11/03/24 13:44) SWELLING aspirin [ASPIRIN] Allergy (Intermediate, Verified 11/03/24 13:44) HIVES oxycodone [OXYCODONE] Allergy (Intermediate, Verified 11/03/24 13:44) HIVES ibuprofen Allergy (Unknown, Verified 11/03/24 13:44) Unknown Environmental Allergy (Unknown, Uncoded 11/03/24 13:44) Unknown Do you need a note to return to daycare/school/sports/work: No HPI HPI Comments History of Present Illness Details History of Present Illness - The patient is a 64-year-old female presenting with back pain possibly related to a urinary tract infection x2d. - She reports recent onset of significant lower back pain that interferes with standing and walking. The pain was not alleviated by cyclobenzaprine, aspirin, or acetaminophen. - Frequent urination with a sensation of incomplete voiding suggests a urinary tract infection. No pain, fever, or odor in the urine and no hematuria noted. - Possible recent exposure to COVID-19. The patient tested negative this morning and has no COVID-19 symptoms noted at this time. - Bowel movements remain regular, with one bowel movement per day, and no signs of constipation. - She is advised to stop omeprazole during the antibiotic course to ensure proper medication absorption. Physical Exam General: Cooperative, healthy appearing, comfortable, no acute distress and well developed Orientation: Patient oriented x3 Limitations: No limitations Head: Normal to inspection Ears: Hearing grossly normal bilaterally Nose: Normal External nose present Face and sinus: Normal facial exam Eyes: Appearance normal, both eyes and all related structures Neck: Normal visual inspection and Yes full ROM Respiratory: Normal respiratory effort and able to speak in complete sentences. Skin: No rashes or lesions noted Neuro: Patient oriented x3 Extremities: Normal to inspection [facility] Medical History Elevated cholesterol Asthma Anxiety Multiple sclerosis GERD (gastroesophageal reflux disease) Depression Vomiting Surgical History History of esophagogastroduodenoscopy (EGD) S/P dilation and curettage H/O prior ablation treatment H/O arthroscopy of knee History of arthroscopy of right shoulder History of sinus surgery Family History Father HTN (hypertension) Mother HTN (hypertension) Rectal cancer Brother No problems noted. Brother No problems noted. Sister No problems noted. Sister No problems noted. Social History Housing: Condominium Alcohol intake: current Alcohol intake frequency: holidays/special occasions only Patient Tobacco Use Status: Former Tobacco user e-Cigarette/Vaping Use: Never Used service: No Current occupational status: employed Cognitive needs: No Hearing needs: No Vision needs: Yes Review of Systems Const All systems reviewed & are unremarkable except as noted in HPI and below Physical Exam Vital Signs: Last Vital Signs Pulse 92 11/03/24 13:33 BP 124/72 11/03/24 13:33 Pulse Ox 98 11/03/24 13:33 Oxygen Delivery Method Room Air 11/03/24 13:33 Assessment & Plan Assessment & Plan (1) UTI (urinary tract infection): Code(s): N39.0 - Urinary tract infection, site not specified Qualifiers: Urinary tract infection type: acute cystitis Hematuria presence: without hematuria Qualified Code(s): N30.00 - Acute cystitis without hematuria Plan: A urine culture will be conducted to confirm a urinary tract infection, although the patient displays clear urinalysis but has suggestive symptoms. An empirical antibiotic treatment with cefuroxime will begin for broad bacterial coverage. She is advised to pause omeprazole during the antibiotic course and manage acid issues with an alternative such as Pepcid. She was directed to follow up with her primary care doctor should symptoms persist for further investigation into non-urinary causes of her symptoms. In addition, for possible COVID-19 exposure, she is instructed to observe any symptoms and retest if they develop. No immediate concerns warranted work excuses. Patient was informed and verbally consented to the use of an ambient scribe for clinic note documentation during this visit. Orders: Orders Urine Culture Today N39.0 - Urinary tract infection, site not specified Medications: New cefuroxime axetil 500 mg PO Q12H 10 tabs 0RF Coding Level of Care Code Est Pt Level 3 (28116) Diagnoses Acute cystitis without hematuria N30.00 Urinary tract infection type: acute cystitis Hematuria presence: without hematuria
[2024-11-03 13:33] VITALS: BP 124/72; PULSE 92; O2SAT 98
--- OUTSIDE RECORDS SUMMARY | 2024-11-03 14:27 | XMS_ITS | Encounter Summary ---
Author Organization [facility] Address [address] [place] [address] Care Team Providers Care Health Education Aide Name Role Phone Cari Ambrose MD Primary Care Provider [phone] Encounter Details Date Type Department Care Team [...] Care Team (Late st Contact Info) Description 11/14/2024 1:30 PM EDT Appointment [address] [phone] 12/12/2024 1:30 PM EDT Appointment [address] [phone] 01/09/2025 1:30 PM EDT Appointment [address] [phone] documented as of this encounter Visit Diagnoses Not on filedocumented in this encounter Care Teams Health Education Aide Relationship Specialty Start Date End Date Cari Ambrose MD [address] [place] [phone] PCP - General Internal Medicine 04/13/20 documented as of this encounter
--- OUTSIDE RECORDS SUMMARY | 2024-11-03 14:27 | XMS_ITS ---
Author Organization 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) Active confirmed Problem 702953920 Adenomatous polyp of colon, unspecified part of colon (D12.6) Active confirmed Vital Signs Blood pressure systolic 00 mm Hg 11/01/19 24 Blood pressure diastolic 00 mm Hg 024 Height 62 in 11/01/2023 Weight 190 lbs 11/01/2023 BMI 34.75 kg/m2 11/01/2023 Encounters Encounter Location Date Provider Diagnosis [facility] [address] [place] [address] 11/01/2023 Ash Obando Jr Vievros's esophagus without dysplasia K22.70 ; Adenomatous polyp [...] Follow Up: 1 Year, Reason: Provider Name:Ash Velacso escobar , 06/09/2025 07:30:00 AM, [address] [place] [address] , [place], [place], [phone], Progress Notes * CORINA COLES ADOB:[birth year] (63 yo F)Acc No.[id number]:11/01/2023 Progress Notes Patient:?CORINA COLES A Provider:?Ash Obando MD :1960???Age:63 Y???Sex:Female D ate:11/01/2023 Address:[address] [place] [address] Pcp:Cari Ambrose MD Subjective: * Chief Complaints: [...] the past year??No,?Points?0,?Interpretation?Negative.?Miscellaneous:?Marital status: . 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 * Medications:?Taking Tysabri 300 MG/15ML Concentrate as [...] Obando MD Date:?0 11/01/2023 Generated for Jen painter/Rachel/eTransmitting on:?11/03/2024 02:27 PM EDT History and Physical Notes * [...] Category Not es General Examination On [facility] today, she appears well. Skin is anicteric. Lungs are clear. Heart shows regular rate and rhythm. Abdomen is soft without focal masses or tenderness. Extremities are without edema.
--- OUTSIDE RECORDS SUMMARY | 2024-11-03 14:27 | XMS_ITS | Patient Health Record ---
Author Organization [facility] Address [address] [place] [address] Care Team Providers Care Bulk Sealer Name Role Phone Arnol GUTIÉRREZ, [facility] Primary Care Provider Ash Ernandez Jr [...] Provider Speciality Internal M edicine Referred Organization [facility] Referred Provider Ash Obando Jr Referred Address [address] [place] [address], [address],[place], [place],[address], Referred Provider Specialty Gastroentero logy General Notes Maureen Cannon 2024 12:44:32 PM >requested a orogrande pilgrim referral from Dr. Ambrose's office for appt with Dr. Obando on 10-30-2024 Referral Priority Routine Medications Medication SIG (Take, Route, Frequency, Duration) Notes Start Date End Date Status EpiPen Active Omeprazole 40 MG 1 capsule 30 minutes before morning meal Orally Once a day for 30 day(s) 06/19/2023 Active Rizatriptan Benzoate 10 MG TAKE 1 TABLET AT LEAST 4 HOURS BETWEEN DOSES NEEDED UP TO 2 DOSES PER 24 HOURS Oral for 30 Active Amitriptyline HCl 25 MG Oral for 30 Active Fluticasone-Salmeterol 250-50 MCG/ACT INHALE 2 PUFFS INTO THE LUNGS EVERY DAY DIRECTED Inhalation for 90 Active Montelukast Sodium 10 MG TAKE 1 TABLET B Y MOUTH EVERY DAY IN THE EVENING Oral for 90 Active Famotidine 20 MG 1 tablet at bedtime as needed Orally Once a day for 30 days 10/30/2024 Active Ashwagandha Active Wegovy 1 MG/0.5ML Subcutaneous for 28 Days Active Tysabri 300 MG/15ML as directed Intravenous Active Lidocaine-Prilocaine 2.5-2.5 % External for 30 Not-Taking Budesonide Active ProAir HFA Active Simvastatin 10 MG TAKE 1 TABLET BY YASMEEN DAILY Oral for 90 Active Social History Tobacco Use: Social History [...] Problem Status W/U Status Risk Notes Problem [id number] Colon cancer screening (Z12.11) Active confirmed Problem 825250280 Viveros's esopha thais without dysplasia (K22.70) Active confirmed Problem 055050494 Gastroesophageal reflux disease without esophagitis (K21.9) Active confirmed Problem 268417985 Family history o f colon cancer (Z80.0) Active confirmed Problem 480519404 FH: colon cancer (Z80.0) Active confirmed Problem 319028272 Adenomatous poly p of colon, unspecified part of colon (D12.6) Active confirmed Vital Signs Blood pressure diastolic 11 mm Hg 10/30/2024 Height 62 in 10/30/2024 Blood pressure systolic 111 mm Hg 10/30/2024 Weight 166 lbs 10/30/2024 BMI 30.36 kg/m2 10/30/2024 Encounters Encounter Location Date Provider Diagnosis [facility] [address] [place] [phone] 10/30/2024 Ash Obando Jr Viveros's esophagus without dysplasia K22.70 and Colon cancer screening Z12.11 [facility] [address] [place] [phone] 10/13/2024 Ash Obando Jr Assessments Encounter Date Diagnosis (ICD Code) Assessment Notes Treatment Notes Treatment Clinical Notes Section Notes 10/30/2024 Colon cancer screening (ICD-10 - Z12.11) Currently, she is doing well. She is due for follow-up endoscopy for her history of Viveros's esophagus. We discussed this today. We discussed risks and benefits of endoscopy today. She understands these and agrees to proceed. She is up-to-date on colorectal cancer screening. We reviewed this today. For her breakthrough symptoms of reflux, we have prescribed famotidine 20 mg to be taken in the evening in addition to her PPI therapy. 10/30/2024 Viveros's esophagus without dysplasia (ICD-10 - K22.70) Currently, she is doing well. She is due for follow-up endoscopy for her history of Viveros's esophagus. We discussed this today. We discussed risks and benefits of endoscopy today. She understands these and agrees to proceed. She is up-to-date on colorectal cancer screening. We reviewed this today. For her breakthrough symptoms of reflux, we have prescribed famotidine 20 mg to be taken in the evening in addition to her PPI therapy. Plan Of Treatment Future Test Test Name Order Date UPPER GI ENDOSCOPY 12/27/2017 COLONOSCOPY 12/27/2017 UPPER GI ENDOSCOPY 05/24/2023 COLONOSCOPY 05/24/2023 UPPER GI ENDOSCOPY 10/30/2024 Next Appt Details Provider Name:Ash escobar , 06/09/2025 07:30:00 AM, [address] [place] [address] , [place], [place], [phone], Insurance Providers Payer Name Payer Address Payer Phone Subscriber Number Group Number Insured Name Patient Relationship to Insured Coverage Start Date Coverage End Date [employer] [address] [place] [phone] [id number] CORINA COLES Self - patient is the insured Medical (General) History Medical History History ICD Code Gastroesophageal reflux dise ase, EGD in 06/28, BE with no dysplasia, two-year followup Seasonal allergies Asthma Bulimia Multiple sclerosis Colonoscopy 06/28, tubular adenoma, five -year followup Hyperlipidemia Surgical History Surgery Date(Month/Year) cateracts sinus surgeries x2 Knee surgery x2 Shoulder surgery x2
--- OUTSIDE RECORDS SUMMARY | 2024-11-03 14:27 | XMS_ITS | Clinical Summary ---
Author Organization [facility] Address [address] [place] [address] Phone Care Team Providers Care Dust Sampler Name Role Phone Cari Ambrose MD Primary Care Provider Allergies No known active allergies Medications acetaminophen [...] mouth 1 (one) time each day. Active cyclobenzaprine (FLEXERIL) 10 mg tablet Take 1 tablet (10 mg total) by mouth 2 (two) times a day if needed. Active Active Problems Problem Noted Date Diagnosed Date MS (multiple sclerosis) 06/20/2024 Encounters Date Type Department Care Team Description 10/17/2024 1:22 PM EDT - 10/17/2024 11:59 PM EDT Hospital Encounter [facility] [address] [place] [phone] Manda Casillas MD MS (multiple sclerosis) ([facility]) (Primary Dx) Discharge Disposition: Home or Self Care 09/19/2024 1:13 PM EST - 09/19/2024 11:59 PM EST Hospital Encounter [facility] [address] [place] [phone] Manda Casillas MD MS (multiple sclerosis) ([facility]) (Primary Dx) Discharge Disposition: Home or Self Care 08/22/2024 1:20 PM EST - 08/22/2024 11:59 PM EST Hospital Encounter [facility] [address] [place] [phone] Manda Casillas MD MS (multiple sclerosis) (CMS/HCC) (Primary Dx) Discharge [...] Sign Reading Time Taken Comments Blood Pressure 123/71 10/17/2024 1:35 PM EDT Pulse 84 10/17/2024 1:35 PM EDT Temperature 36.7 ??C (98 ??F) 10/17/2024 1:35 PM EDT Respiratory Rate 16 10/17/2024 1:35 PM EDT Oxygen Saturation 98% 10/17/2024 1:35 PM EDT Inhaled Oxygen Concentration - - Weight 78.2 kg (172 lb 6.4 oz) 09/19/2024 1:25 P M EST Height 157.5 cm (5' 2 ) 10/22/2020 7:50 AM EDT Body Mass Index 31.53 10/22/2020 7:50 AM EDT Plan of Treatment Upcoming Encounters Date Type Department Care Team (Late st Contact Info) Description 11/14/2024 1:30 PM EDT Appointment [facility] [address] [place] [phone] 12/12/2024 1:30 PM EDT Appointment [facility] [address] [place] [phone] 01/09/2025 1:30 PM EDT Appointment [facility] [address] [phone] Health Maintenance Due Date Last Done Comments [...] patient's age to complete this topic Insurance [facility] Care Teams Dust Sampler Relationship Specialty Start Date End Date Cari Ambrose MD [address] [place] [phone] PCP - General Internal Medicine 04/13/20
--- OUTSIDE RECORDS SUMMARY | 2024-11-03 14:27 | XMS_ITS ---
Author Organization [facility] Address [address] [place] [phone] Care Team Providers Care Supervising Floorperson Name Role Phone Arnol [facility]UT[facility]RREZ, [facility] Primary Care Provider Ash Ernandez Jr REASON FOR VISIT choked/aspirated Encounters Encounter Location Date Provider Diagnosis [facility] [address] [place] [phone] 10/13/2024 Ash Obando Jr Plan Of Treatment Next Appt Details Provider Name:Ash escobar Jr, 06/09/2025 07:30:00 AM, [address] [place] [address] , [place], [place], [phone], Progress Notes * CORINA COLES ADOB:[birth year] (63 yo F)Acc No.[id number]:10/13/2024 Patient:?CORINA COLES :1960???Age:63 Y???Sex:Female Address:[address] [place] [address], [address] * true * Date:? Generated for Jen painter/Rachel/eTransmitting on:?11/03/2024 02:27 PM EDT
--- OUTSIDE RECORDS SUMMARY | 2024-11-03 14:27 | XMS_ITS | Clinical Summary ---
Author Organization [facility] Address [address] [place] [address] Care Team Providers Care Diversified Crops Farmworker Name Role Phone Cari Ambrose MD Primary Care Provider [phone] Allergies Active Allergy Reactions Criticality Noted Date [...] age to complete this topic Care Teams Diversified Crops Farmworker Relationship Specialty Start Date End Date Cari Ambrose MD [address] [place] [phone] PCP - General Internal Medicine 04/13/20
--- OUTSIDE RECORDS SUMMARY | 2024-11-03 14:27 | XMS_ITS ---
Author Organization [facility] Address [address] [place] [phone] Care Team Providers Care Car Shakeout Operator Name Role Phone Arnol GUTIÉRREZ, [facility] Primary Care Provider Ash Ernandez Jr Unavailable [phone] Allergies Allergen (clinical drug ingredient) Drug/Non Drug Allergy documented on EMR Reaction Allergy Type Onset Date Status Vicodin Unknown Drug Allergy Active acetaminophen / oxycodone Percocet Unknown Drug Allergy Active aspirin Aspirin Unknown Drug Allergy Active REASON FOR VISIT Patient presents today for barretts Medications Medication SIG (Take, Route, Frequency, Duration) Notes Start Date End Date Status Ashwagandha Active Tysabri 300 MG/15ML as directed Intravenous Active Budesonide Active EpiPen Active ProAir HFA Active Amitriptyline HCl 25 MG Oral for 30 Active Fluticasone-Salmeterol 250-50 MCG/ACT INHALE 2 PUFFS INTO THE LUNGS EVERY DAY DIRECTED Inhalation for 90 Active Montelukast Sodium 10 MG TAKE 1 TABLET B Y MOUTH EVERY DAY IN THE EVENING Oral for 90 Active Wegovy 1 MG/0.5ML Subcutaneous for 28 Days Active Lidocaine-Prilocaine 2.5-2.5 % External for 30 Not-Taking Omeprazole 40 MG 1 capsule 30 minutes before morning meal Orally Once a day for 30 day(s) 06/19/2023 Active Rizatriptan Benzoate 10 MG TAKE 1 TABLET AT LEAST 4 HOURS BETWEEN DOSES NEEDED UP TO 2 DOSES PER 24 HOURS Oral for 30 Active Famotidine 20 MG 1 tablet at bedtime as needed Orally Once a day for 30 days 10/30/2024 Active Simvastatin 10 MG TAKE 1 TABLET BY YASMEEN TH DAILY Oral for 90 Active Social History [...] ast year? 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 10/30/2024 Colon cancer screening (ICD-10 - Z12.11) [...] to her PPI therapy. Plan Of Treatment Medication Medication Name Sig Start Date Stop Date Notes Famotidine 20 MG 1 tablet at bedtime as needed Orally Once a day for 30 days 10/30/2024 Future Test Test Name Order Date UPPER GI ENDOSCOPY 10/30/2024 Next Appt Details Follow Up: 1 Year, Reason: Provider Name:Ash Velasco luz , 06/09/2025 07:30:00 AM, [address] [place] [address] , [place], [place], [phone], Progress Notes * CORINA COLES ADOB:[birth year] (64 yo F)Acc No.[id number]:10/30/2024 Progress Notes Patient:?CORINA COLES A Provider:?Ash Obando MD :[id number]???Age:64 Y???Sex:Female D ate:10/30/2024 Address:[address] [place], [place] [id number] Pcp:Cari Ambrose MD Subjective: * Chief Complaints: * ???1. Patient presents today for barretts. * HPI: ???New symptom(s):? The patient is a pleasant 64-year-old woman seen today in follow-up. 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 She is due this fall. Colonoscopy at the same time showed a tubular adenoma for which 5-year follow-up was recommended. We reviewed this today. She states today she is feeling well. She uses omeprazole 40 mg daily. She still gets episodes of breakthrough reflux approximately 1 time per month with nocturnal coughing. She started taking Wegovy on 06/04. We reviewed the GI side effects of GLP-1 type drugs today. We discussed diet, lifestyle modifications, and weight management regarding the treatment of reflux. There is no dysphagia, hematemesis, or melena. Weight and appetite have been stable. * Medical History:?Gastroesoph ageal reflux disease, EGD in 06/28, BE with no dysplasia, two-year followup, Seasonal allergies, Asthma, Bulimia, Multiple sclerosis, Colonoscopy 06/28, tubular adenoma, five-year followup, Hyperlipidemia. * Surgical History:?Shoulder s urgery x2 , Knee surgery x2 , sinus surgeries x2 , cateracts . * Family History:?Father: dece ased, alzheimer's dementia, diagnosed with HTN (hypertension).?Mother: , rectal cancer/ heart failure/ kidney cancer, diagnosed with Heart disease, HTN (hypertension).? Mother had rectal cancer and underwent colostomy surgery at 86. Her brother had polyps. Her father had Viveros's esophagus. past in 2019 two sisters with barretts esophagus. * Social History:?Tobacco Use:?Tobacco Use/Smoking?Patient is a?former smoker,?When did you stop smoking??25 years ago,?How long has it been since you last smoked??> 10 years.?Drugs/Alcohol:?Alcohol Screen?Did you have a drink containing alcohol in the past year??No,?Points?0,?Interpretation?Negative.?Miscellaneous:?Marital status: . 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 * Medications:?Taking Ashwagan dha , Taking Tysabri 300 MG/15ML Concentrate as directed Intravenous , Taking Budesonide , Taking EpiPen , Taking ProAir HFA , Taking Simvastatin 10 MG Tablet TAKE 1 TABLET BY MOUTH DAILY Oral , Taking Omeprazole 40 MG Capsule Delayed Release 1 capsule 30 minutes before morning meal Orally Once a day , Taking Rizatriptan Benzoate 10 MG Tablet TAKE [...] EVERY DAY IN THE EVENING Oral , Taking Wegovy 1 MG/0.5ML Solution Auto-injector Subcutaneous , Not-Taking/PRN Lidocaine-Prilocaine 2.5-2.5 % Cream External , Medication List reviewed and reconciled with the patient * Allergies:?Aspirin, Vicodin, Percocet. Objective: * Vitals:?Wt: 166 lbs, Ht: 62 in, BMI:30.36Index, BP: 111/11 mm Hg, Wt-k.3. * Examination: ???General Examination: ???On examination today, she appears well. Skin is anicteric. Lungs are clear. Heart shows a regular rate and rhythm. Abdomen is soft without focal masses or tenderness. Extremities are without edema. Assessment: * Assessment: 1.?Viveros's esophagus witho ut dysplasia - K22.70 (Primary)???2.?Colon cancer screening - Z12.11??? Currently, she is doing well . She is due for follow-up endoscopy for [...] evening in addition to her PPI therapy. Plan: * Treatment: * Procedure Codes:?3017F COLOR ECTAL CA SCREEN DOC REV, G9903 Pt scrn tbco id as non user, G8785 BP SCR NOT PRFRM REC REASON NOS * Preventive Medicine:? ??Counseling:?Care goal follow-up plan:?Above Normal BMI Follow-up?Giving encouragement to exercise,?BMI management provided?Yes.? * Follow Up:?1 Year * * Sign off status: Completed true * Provider:?Ash Obando MD Date:?0 10/30/2024 Generated for Jen painter/Rachel/Rhondaitting on:?11/03/2024 02:27 PM EDT History and Physical Notes * HPI (History of Present Illness) Category Sub-Category Detail Notes Category Not es New symptom(s) The patient is a pleasant 64-year-old woman seen today in follow-up. 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 She is due this fall. Colonoscopy at the same time showed a tubular adenoma for which 5-year follow-up was recommended. We reviewed this today. She states today she is feeling well. She uses omeprazole 40 mg daily. She still gets episodes of breakthrough reflux approximately 1 time per month with nocturnal coughing. She started taking Wegovy on 06/04. We reviewed the GI side effects of GLP-1 type drugs today. We discussed diet, lifestyle modifications, and weight management regarding the treatment of reflux. There is no dysphagia, hematemesis, or melena. Weight and appetite have been stable. Examination Category Sub-Category Detail Notes Category Not es General Examination On exami nation today, she appears well. Skin is anicteric. Lungs are clear. Heart shows a regular rate and rhythm. Abdomen is soft without focal masses or tenderness. Extremities are without edema.
== END 2024-11-03 14:20 | disposition home or self-care (01) ==
PROVIDERS: PCP Internal Medicine; Visit Provider Physician Assistant
DX: N30.00 Acute cystitis without hematuria (principal); Z13.9 Encounter for screening, unspecified

== ENCOUNTER 2024-11-26 14:50 | Outpatient (AMB) | payer OTHER, SELFPAY ==
--- NOTE | 2024-11-26 14:54 | A.OFFPC_ITS ---
Vital Signs 11/26/24 14:58 Height 5 ft 2 in Weight 162 lb 5 oz BMI 29.7 BP 118/68 Blood Pressure Location Rt brachial Position Sitting Pulse 97 Pulse Source Pulse Oximeter Pulse Oximetry (%) 97 Oxygen Delivery Method Room Air Intake Visit Reasons: PE Allergies hydrocodone [From VICODIN] Allergy (Severe, Verified 11/26/24 15:01) SWELLING aspirin [ASPIRIN] Allergy (Intermediate, Verified 11/26/24 15:01) HIVES oxycodone [OXYCODONE] Allergy (Intermediate, Verified 11/26/24 15:01) HIVES ibuprofen Allergy (Unknown, Verified 11/26/24 15:01) Unknown Environmental Allergy (Unknown, Uncoded 11/26/24 15:01) Unknown Medication List - Last Reconciled 11/26/24 by Cari Ambrose MD acetaminophen (Tylenol) 650 mg (2 x 325 mg) PO Q4H PRN albuterol sulfate 90 mcg/actuation 1 puff inhalation Q4H PRN amitriptyline 25 mg PO BEDTIME lidocaine 4% (AsperFlex (lidocaine)) 1 patch topical DAILY PRN [low impact exercise program as tolerated by the patient] montelukast 10 mg PO QPM natalizumab (Tysabri) 300 mg IV Q4W omeprazole 40 mg PO DAILY semaglutide (weight loss) 1 mg (0.5 mL) subcut QWEEK 30 days simvastatin 10 mg PO DAILY 90 days Tobacco use date assessed: 11/26/24 Dental Screening Dental Screen Date: 11/26/24 Did you have a dental visit in the last 12 months?: Yes Did you have a dental problem in the last 6 months where you did not have access to dental care?: No Was dental information given to patient?: Patient has dentist HPI PE HPI Details Physical exam - The patient is a 64-year-old female pr esenting for a wellness visit, primarily to address weight management and follow-up on chronic conditions. - History of obesity with a goal to redu ce weight by another 20 pounds. Previous weight of 201 pounds in April 2018, currently 162.5 pounds. - Managed with semaglutide (Wegovy) ther apy, planning to transition to maristagluride (Zepbound). as per insurance req - Multiple Sclerosis managed with IV сергей alizumab every four weeks. Reports improvement in symptoms and sleep. - History of GERD characterized by noctu rnal choking events. Currently taking omeprazole. Advised by regenerator operator to take additional measures for symptom management. has EGD apt coming up in Jun by Dr Obando - Degenerative Disc Disease with changes noted in cervical spine. Symptoms include neck pain and occasional numbness in thumbs, potentially related to MS. - Allergic Rhinitis managed with montelu kast. - Insomnia managed with amitriptyline. - Hyperlipidemia effectively managed wit h simvastatin; LDL documented as 90. - First occurrence of COVID-19 in November 2022, experienced cough and some ear sensitivity following infection. Health Maintenance - Colonoscopy conducted in June 2023 ; next scheduled in five years. - Recent mammogram conducted in August 2022; no abnormalities reported. - CBC, electrolytes, kidney function, gl ucose, and pancreatic enzymes normal as of last labs in September. - Liver enzymes slightly elevated but no t clinically significant; thyroid functions normal. - Encouraged to maintain weight manageme nt plan to achieve desired weight goal. - has not seen Obgyn in a while, i would recommend a visit, patient is to let me know [place] [facility] : Neuro Dr Obando gastro Medications - Tylenol as needed for pain. - Amitriptyline 25 mg for insomnia. - Montelukast for allergic rhinitis. - Omeprazole 40 mg for GERD. - Simvastatin 10 mg for hyperlipidemia. - IV natalizumab every four weeks for Mu ltiple Sclerosis. Diagnostic results - Labs: CBC, electrolytes, kidney functi on, glucose, and pancreatic enzymes normal as per tests conducted in September. - Liver enzymes slightly elevated; thyro id functions normal. - LDL cholesterol documented at 90. - Normal mammogram conducted in August. - Colonoscopy in June 2023, follow-u p scheduled in five years. Patient Instructions - Continue current medications and thera pies as prescribed. - Complete remaining refill of Wegovy be fore starting Zepbound. - Maintain dietary adjustments and exerc ise regimen to support weight management goals. - Ensure not eating anything at least fo ur hours before bedtime to help manage GERD. - Monitor symptoms and report any change s, particularly related to neck pain or GERD symptoms. - Return for follow-up in three months t o monitor weight and overall progress. f/u 3 M Review of Systems - General: No fever no chills - Neurological: No headaches no dizzin ess - Ear nose throat: No sore throat no hearing difficulty no ear pain - Cardiovascular: No syncope, no chest pain, no palpitations - Gastrointestinal: No nausea vomiting or diarrhea - Endocrine: No polyuria polydipsia no heat intolerance - Genitourinary: No dysuria - Skin: No new complaints Physical Exam General: Cooperative, healthy appearing, comfortable, no acute distress Orientation: Patient oriented x3 Head: Normal to inspection Ears: Within normal limit visually Nose: Normal external nose present Face and sinus: Normal facial exam Eyes: Appearance normal, extraocular movement intact pupils reactive Neck: Normal visual inspection and supple, degenerative disc changes noted Respiratory: Normal respiratory effort and able to speak in complete sentences. Clear to auscultation, no stridor Cardiovascular: S1 and S2 RRR GI: Normal to inspection. Soft to palpation and nontender Skin: Turgor normal, no acute findings, thin skin with occasional bruising Neuro: Patient oriented x3, motor sensory intact, balance intact, tandem pass, numbness in thumbs possibly related to MS Extremities: Normal to inspection PFSH Medical History Elevated cholesterol Asthma Anxiety Multiple sclerosis GERD (gastroesophageal reflux disease) Depression Vomiting Surgical History History of esophagogastroduodenoscopy (EGD) S/P dilation and curettage H/O prior ablation treatment H/O arthroscopy of knee History of arthroscopy of right shoulder History of sinus surgery Family History Father HTN (hypertension) Mother HTN (hypertension) Rectal cancer Brother No problems noted. Brother No problems noted. Sister No problems noted. Sister No problems noted. Social History Housing: Condominium Alcohol intake: current Alcohol intake frequency: holidays/special occasions only Patient Tobacco Use Status: Former Tobacco user e-Cigarette/Vaping Use: Never Used service: No Current occupational status: employed Cognitive needs: No Hearing needs: No Vision needs: Yes Questionnaire Thrive Questionnaire Date Thrive assessed: 11/26/24 I am a: Patient What is your living situation today?: I have a steady place to live Within the past 12 months, did the food you bought not last and you didn't have the money to get more?: Never true Within the past 12 months, did you worry whether your food would run out before you got money to buy more?: Never true Do you have trouble paying for medicines?: No Do you have trouble getting transportation to medical appointments?: No Do you have trouble paying your heating and electricity bill?: No Do you have trouble taking care of your child, family member or friend?: No Do you have trouble with day-to-day activities such as bathing, preparing meals, shopping, managing finances, etc.?: No Are you currently unemployed and looking for a job?: No Are you interested in more education?: No Please select the resources that you would like help with: None Currently or been in a relationship where the following occur: No concerns reported THRIVE Score: 0 AUDIT C Alcohol Use Questionnaire (AUDIT-C) 1. How often do you have a drink containing alcohol?: 2-4 times a month 2. How many drinks containing alcohol do you have on a typical day when you are drinking?: 1 or 2 3. How often do you have six or more drinks on one occasion?: Never Total Score: 2 Score Reviewed/Action Taken: Yes ANTELMO-7 AMB Questionnaire ANTELMO-7 Date ANTELMO - 7 assessed: 09/10/24 Source: Developed by Drs. Ino Horton, Lona Schaefer, Олег Robles and colleagues, with an educational azam from [employer]. Physical exam (Primary Care) Vital Signs: Last Vital Signs Pulse 97 11/26/24 14:58 BP 118/68 11/26/24 14:58 Pulse Ox 97 11/26/24 14:58 Oxygen Delivery Method Room Air 11/26/24 14:58 BMI result Body Mass Index 29.7 Tobacco/Smoking Status: Tobacco use Status Tobacco use date assessed 11/26/24 11/26/24 15:02 Patient Tobacco Use Status Former Tobacco user 11/26/24 14:54 e-Cigarette/Vaping Use Never Used 11/26/24 14:54 Thrive Assessment: Date of Thrive Assessment Date Thrive assessed 11/26/24 11/26/24 15:02 Currently or been in a relationship where the following occur: No concerns reported Coding Level of Care Code Est Pt Level 3 (07624) Est Pt Prev Care 40-64y(60874) Diagnoses Encounter for general adult medical examination with abnormal findings Z00.01 Over weight E66.3 Lipid disorder E78.9 Neck pain M54.2 Multiple sclerosis G35 Environmental allergies Z91.09 Chronic GERD K21.9 Assessment & Plan Assessment & Plan (1) Encounter for general adult medical examination with abnormal findings: Code(s): Z00.01 - Encounter for general adult medical examination with abnormal findings Category: Medical (2) Over weight: Code(s): E66.3 - Overweight Category: Medical (3) Lipid disorder: Code(s): E78.9 - Disorder of lipoprotein metabolism, unspecified Category: Medical (4) Neck pain: Code(s): M54.2 - Cervicalgia Category: Medical (5) Multiple sclerosis: Code(s): G35 - Multiple sclerosis Category: Medical (6) Environmental allergies: Code(s): Z91.09 - Other allergy status, other than to drugs and biological substances Category: Medical (7) Chronic GERD: Code(s): K21.9 - Gastro-esophageal reflux disease without esophagitis Category: Medical Plan Physical exam - The patient is a 64-year-old female presenting for a wellness visit, primarily to address weight management and follow-up on chronic conditions. - History of obesity with a goal to reduce weight by another 20 pounds. Previous weight of 201 pounds in April 2018, currently 162.5 pounds. - Managed with semaglutide (Wegovy) therapy, planning to transition to maristagluride (Zepbound). as per insurance req - Multiple Sclerosis managed with IV natalizumab every four weeks. Reports improvement in symptoms and sleep. - History of GERD characterized by nocturnal choking events. Currently taking omeprazole. Advised by regenerator operator to take additional measures for symptom management. has EGD apt coming up in Jun by Dr Obando - Degenerative Disc Disease with changes noted in cervical spine. Symptoms include neck pain and occasional numbness in thumbs, potentially related to MS. - Allergic Rhinitis managed with montelukast. - Insomnia managed with amitriptyline. - Hyperlipidemia effectively managed with simvastatin; LDL documented as 90. - First occurrence of COVID-19 in November 2022, experienced cough and some ear sensitivity following infection. Health Maintenance - Colonoscopy conducted in June 2023; next scheduled in five years. - Recent mammogram conducted in August 2022; no abnormalities reported. - CBC, electrolytes, kidney function, glucose, and pancreatic enzymes normal as of last labs in September. - Liver enzymes slightly elevated but not clinically significant; thyroid functions normal. - Encouraged to maintain weight management plan to achieve desired weight goal. - has not seen Obgyn in a while, i would recommend a visit, patient is to let me know [facility] : Neuro Dr Obando gastro Medications - Tylenol as needed for pain. - Amitriptyline 25 mg for insomnia. - Montelukast for allergic rhinitis. - Omeprazole 40 mg for GERD. - Simvastatin 10 mg for hyperlipidemia. - IV natalizumab every four weeks for Multiple Sclerosis. Diagnostic results - Labs: CBC, electrolytes, kidney function, glucose, and pancreatic enzymes normal as per tests conducted in September. - Liver enzymes slightly elevated; thyroid functions normal. - LDL cholesterol documented at 90. - Normal mammogram conducted in August. - Colonoscopy in June 2023, follow-up scheduled in five years. Patient Instructions - Continue current medications and therapies as prescribed. - Complete remaining refill of Wegovy before starting Zepbound. - Maintain dietary adjustments and exercise regimen to support weight management goals. - Ensure not eating anything at least four hours before bedtime to help manage GERD. - Monitor symptoms and report any changes, particularly related to neck pain or GERD symptoms. - Return for follow-up in three months to monitor weight and overall progress.
[2024-11-26 14:58] VITALS: BP 118/68; PULSE 97; O2SAT 97; BMI 29.7
--- OUTSIDE RECORDS SUMMARY | 2024-11-26 17:41 | XMS_ITS ---
Author Organization [facility] Address [address] [facility] [address] [place] [phone] Care Team Providers Care Statement Request Clerk Name Role Phone Arnol GUTIÉRREZ, [facility] Provider Ash Ernandez Jr REASON FOR VISIT choked/aspirated Encounters Encounter Location Date Provider Diagnosis [facility] [address] [facility] [address] [place] [phone] 10/13/2024 Ash Obando Jr Plan Of Treatment Next Appt Details Provider Name:Ash escobar Jr, 06/09/2025 07:30:00 AM, [address] [place] [address] , [place], [place], [phone], Progress Notes * CORINA COLES ADOB:[birth year] (63 yo F)Acc No.[id number]:10/13/2024 Patient:?CORINA COLES :1960???Age:63 Y???Sex:Female Address:[address] [place] [address], [address] * true * Date:? Generated for Jen painter/Rachel/eTransmitting on:?11/26/2024 05:41 PM EDT
--- OUTSIDE RECORDS SUMMARY | 2024-11-26 17:41 | XMS_ITS ---
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) Active confirmed Problem 098136222 Adenomatous polyp of colon, unspecified part of colon (D12.6) Active confirmed Vital Signs Blood pressure systolic 00 mm Hg 11/01/19 24 Blood pressure diastolic 00 mm Hg 024 Height 62 in 11/01/2023 Weight 190 lbs 11/01/2023 BMI 34.75 kg/m2 11/01/2023 Encounters Encounter Location Date Provider Diagnosis [facility] [address] [place] [address] 11/01/2023 Ash Obando Jr Viveros's esophagus without [...] Up: 1 Year, Reason: Provider Name:Ash Velasco escobar , 06/09/2025 07:30:00 AM, [address] [place] [address] , [place], [place], [phone], Progress Notes * CORINA COLES ADOB:[birth year] (63 yo F)Acc No.[id number]:11/01/2023 Progress Notes Patient:?CORINA COLES A Provider:?Ash Obando MD :1960???Age:63 Y???Sex:Female D ate:11/01/2023 Address:[address] [place] [address] Pcp:Cari Ambrose MD Subjective: * Chief Complaints: [...] the past year??No,?Points?0,?Interpretation?Negative.?Miscellaneous:?Marital status: . 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 * Medications:?Taking Tysabri 300 MG/15ML Concentrate as [...] MD Date:?0 11/01/2023 Generated for Jen painter/Rachel/eTransmitting on:?11/26/2024 05:41 PM EDT History and Physical Notes * [...] Category Not es General Examination On exami [facility] today, she appears well. Skin is anicteric. Lungs are clear. Heart shows regular rate and rhythm. Abdomen is soft without focal masses or tenderness. Extremities are without edema.
--- OUTSIDE RECORDS SUMMARY | 2024-11-26 17:41 | XMS_ITS | Patient Health Record ---
Author Organization [facility] Address [address] [facility] [address] [place] [address] Care Team Providers Care Dinker Name Role Phone Arnol GUTIÉRREZ, [facility] Provider Ash Ernandez Jr [...] Provider Speciality Internal M edicine Referred Organization [facility] Referred Provider Ash Obando Jr Referred Address [address] [place] [address], [address],[place], [place],[address], Referred Provider Specialty Gastroentero logy General Notes Maureen Cannon 2024 12:44:32 PM >requested a afton pilgrim referral from Dr. Ambrose's office for [...] Problem Status W/U Status Risk Notes Problem 242300850 Colon cancer screening (Z12.11) Active confirmed Problem 994994860 Viveros's esopha thais without dysplasia (K22.70) Active confirmed Problem 136497441 Gastroesophageal reflux disease without esophagitis (K21.9) Active confirmed Problem 064831042 Family history o f colon cancer (Z80.0) Active confirmed Problem 301029266 FH: colon cancer (Z80.0) Active confirmed Problem 183895187 Adenomatous poly p of colon, unspecified part of colon (D12.6) Active confirmed Vital Signs Blood pressure diastolic 11 mm Hg 10/30/2024 Height 62 in 10/30/2024 Blood pressure systolic 111 mm Hg 10/30/2024 Weight 166 lbs 10/30/2024 BMI 30.36 kg/m2 10/30/2024 Encounters Encounter Location Date Provider Diagnosis [facility] [address] [place] [phone] 10/30/2024 Ash Obando Jr Viveros's esophagus without dysplasia K22.70 and Colon cancer screening Z12.11 [facility] [address] [place] [phone] 10/13/2024 Ash Obando Jr Assessments Encounter Date [...] Provider Name:Ash escobar , 06/09/2025 07:30:00 AM, [address] [place] [address] , [place], [place], [phone], Insurance Providers Payer Name Payer Address Payer Phone Subscriber Number Group Number Insured Name Patient Relationship to Insured Coverage Start Date Coverage End Date [facility] [id number] [place] [phone] [id number] CORINA COLES Self - patient is the [...]
--- OUTSIDE RECORDS SUMMARY | 2024-11-26 17:41 | XMS_ITS | Data Portability ---
Author Organization [place] [facility], Allergy Address [address] [address] Care Team Providers Care Machine Joiner Cementer Name Role Phone DESIREE SNYDER Primary Care [...] suspensio n for nebulizat ion 2023 024 [id number], [address], [place], [id number], 03/24/2024 15:49:24 Patient TargetsNo targets recorded. Patient Instructions Encounter Date Encounter Id Patient Instructions Last Modified By Organization Details Last Modified Time 09/26/2024 [id number] Overall doing well. 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 Other specified respirato ry disorders ; Note: Date Diagnosed : 01/05/2020 1:51 PM (J98.8) Not Available [facility] 4 02:36:57 Uncomplic ated moderate persisten t asthma 325803379 Active 2016 Moderate persisten t asthma, uncomplic ated; Note: Date Diagnosed : 10/07/2015 10:19 AM (J45.40) Not Available [facility] 4 02:36:51 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 129662586 Active 2016 Coagulati on defects: Other hemorrhag ic disorder due to intrinsic circulati ng anticoagu lants, antibodie s, or inhibitor s; Note: Date Diagnosed : 05/12/2015 8:41 AM () Not Available [facility] 4 02:36:51 Allergy to drug 715686388 Active 2016 Allergy status to analgesic agent status; CMS Risk: moderate risk Note : Date Diagnosed : 05/12/2015 8:43 AM (Z88.6) Not Available [facility] 4 02:36:57 Disorder of respirato ry system 14764226 Active 2016 Respirato ry condition s due to other specified external agents; CMS Risk: moderate risk Note : Date Diagnosed : 05/12/2015 8:43 AM (J70.8) Not Available [facility] 4 02:36:57 Epistaxis Active 2016 Epistaxis ; Note: Date Diagnosed : 05/12/2015 8:41 AM () Not Available [facility] 4 02:36:49 Uncomplic ated asthma 727983072 Active 2014 Asthma NOS; Note: Date Diagnosed : 02/03/2015 9:14 AM (J45.909) [mapped from ICD9 code: 493.90] Not Available [facility] 4 02:36:55 Nasal polyp Active 2014 Nasal polyps; Note: Date Diagnosed : 09/28/2014 5:00 PM (471.0) Not Available [facility] 4 02:36:45 Bleeding from nose 566612942 Active 2016 Epistaxis ; Note: Date Diagnosed : 05/12/2015 8:42 AM () Note: Date Diagnosed : 05/12/2015 8:42 AM () Not Available [facility] 4 01:05:06 Chronic rhinitis 33430729 Active 2016 Rhinitis, chronic; Note: Date Diagnosed : 01/04/2017 12:17 PM (472.0) Chronic rhinitis; Note: Date Diagnosed : 11/27/2014 10:45 AM (472.0) ; Start Date : 5 Not Available [facility] 4 02:36:46 Exacerbat ion of mild persisten t asthma 096074173 Active 2014 Mild persisten t asthma with (acute) exacerbat ion; CMS Risk: moderate risk CMS Treatment : establish ed problem (to examiner) : unstable or worsening Note: Date Diagnosed : 05/12/2015 9:03 AM (J45.31) Not Available [facility] 4 02:36:53 Herpes zoster with nervous system complicat ion 684114330 Active 2014 Herpes zoster: Other; Note: Date Diagnosed : 08/31/2014 3:03 PM (053.19) Not Available [facility] 4 02:36:46 Allergic rhinitis 35151888 Active 2019 Allergic Rhinitis; Note: Date Diagnosed [...] : 01/05/2020 1:51 PM (J30.89) Not Available [facility] 4 02:36:44 Disorder of smell 857634909 Active 2020 Other disturban maddie of smell and taste; Note: Date Diagnosed : 09/27/2020 3:36 PM (R43.8) Not Available [facility] 4 02:36:49 Disorder of taste 597522202 Active 2020 Other disturban maddie of smell and taste; Note: Date Diagnosed : 09/27/2020 3:36 PM (R43.8) Not Available [facility] 4 02:36:49 Chronic pansinusi tis 99487434 Active 2014 Chronic pansinusi tis; Note: Date Diagnosed : 02/03/2015 9:14 AM (J32.4) [mapped from ICD9 code: 473.8] Not Available [facility] 4 02:36:54 Multiple sclerosis 07063506 Active 2019 Multiple sclerosis ; Note: Date Diagnosed : 04/07/2020 10:34 AM (G35) Not Available [facility] 4 02:36:48 Postopera tive visit 538404874 Active 2016 Post Op Visit; Note: Date Diagnosed : 12/22/2016 1:59 PM (V67.0) Not Available [facility] 4 02:36:51 Uncomplic ated mild persisten t asthma 291422407 Active 2016 Mild persisten t asthma, uncomplic ated; Note: Date Diagnosed : 10/07/2015 10:18 AM (J45.30) Not Available [facility] 4 02:36:54 Headache 14559228 Active 2021 Headache, unspecifi ed; Note: Date Diagnosed : 02/03/2022 4:09 PM (R51.9) Not Available [facility] 4 02:36:49 Long-term current use of anticoagu lant 382187373 Active 2016 [facility] (current) use of anticoagu lants; Note: Date Diagnosed : 05/12/2015 8:42 AM () Not Available [facility] 4 02:36:45 Chronic maxillary sinusitis 57955213 Active 2014 Chronic maxillary sinusitis ; Note: Date Diagnosed : 11/27/2014 10:45 AM (473.0) Not Available [facility] 4 02:36:46 Seasonal allergic rhinitis 278446197 Active 2014 Other seasonal allergic rhinitis; Note: Date Diagnosed : 02/03/2015 9:14 AM (J30.2) [mapped from ICD9 code: 477.8] Not Available [facility] 4 02:36:47 Chronic sinusitis 81474446 Active 2018 Chronic pansinusi tis; CMS Risk: moderate risk CMS Treatment : establish ed problem (to examiner) : unstable or worsening Note: Date Diagnosed : 4 11:10 AM (473.8) ; Start Date : 4 Other chronic sinusitis ; Note: Date Diagnosed : 11/20/2018 4:09 PM (J32.8) Not Available [facility] 4 02:36:48 Asthma 988619455 Active 2014 Asthma; Note: Date Diagnosed : 09/28/2014 5:00 PM (493.90) Not Available [facility] 4 02:36:48 Acute sinusitis 00577407 Active 2019 Other acute sinusitis ; Note: Date Diagnosed : 03/18/2020 3:53 PM (J01.80) Not Available [facility] 4 02:36:55 Polyp of nasal cavity 218121807 Active 2014 Polyp of nasal cavity; Note: Date Diagnosed : 02/03/2015 9:14 AM (J33.0) [mapped from ICD9 code: 471.0] Not Available [facility] 4 02:36:51 Polyp of nasal cavity and/or nasal sinus 218841669 Active 2023 JAYCE COVARRUBIAS MD [address] [facility],[place] [address], [place], [address] , [place] [facility] 4 15:46:43 Moderate persisten t asthma 191891762 Active 2023 JAYCE COVARRUBIAS MD [address] [place] [address],[place] [address], [place], [address] , [place] [facility] 4 09:29:22 Impacted cerumen in left ear 31630784109 20624 Active 2024 JAYCE COVARRUBIAS MD [address] [facility],[place] [address], [place], [address] , [place] [facility] 5 15:58:55 Problem Notes None recorded. Procedures Surgical History Date Name Laterality Status Provider Name and Address Organization Details Recorded Time 5 JMSNasal/Sinu s Endoscopy-[facility] [place] surgical cavities completed JAYCE SNYDER MD [address] [facility],[place] [address], [place], [address], [facility] [place] 09/26/2024 16:00:02 4 JMSNasal/Sinu s Endoscopy-[facility] OR surgical cavities completed JAYCE SNYDER MD [address] [facility],[place] [address], [place], [address], [place] [facility] [place] 03/24/2024 15:46:29 Imaging Results Imaging Date Name [...] Name and Address Organization Details Recorded Time 36354 aspirin medicatio n wheezing Not available Not available 12/18/2023 1191 RxNorm React ion: asthm a;; Not Available [facility] 00:58:11 12392 clarithro mycin medicatio n other Not available Not available 12/18/2023 36008 RxNorm React ion: unkno wn, unspe cifie d;; Not Available [facility] 4 00:28:41 13613 oxycodone medicatio n other Not available Not available 12/18/2023 7804 RxNorm React ion: unkno wn, unspe cifie d;; Not Available [facility] 4 00:58:13 Medications Name Sig Start Date [...] mg tablet 03/04 completed Medicati on ID: [id number] Br and Name: Topamax Send Method: E-Prescr ibed Sub s Allowed: subs OK Medic ationGen ericName : Topamax Not Available Not Available Not Available Augmentin 875 mg-125 mg tablet 09/26 completed Medicati on ID: [id number] Du ration Value: 21 Prescri bed By [...] mg tablet 09/26 completed Medicati on ID: [id number] Du ration Value: 5 Prescri bed By Name: Tay Fraga nd Name: predniso ne Send Method: E-Prescr ibed Sub s Allowed: subs OK Speci al Instruct ion: take as instruct ed Medic ationGen ericName : predniso ne Not Available Not Available Not Available doxycycli ne hyclate 100 mg capsule by mouth 05/21 completed Medicati on ID: [id number] D uration Value: 10 Prescri bed By Name: Tay Reed nd Name: doxycycl ine hyclate Send Method: E-Prescr ibed Sub s Allowed: subs OK Speci al Instruct ion: Take 1 po BID X 10 days Med icationG enericNa me: doxycycl ine hyclate Not Available Not Available Not Available valacyclo vir 1 gram tablet 03/04 [place]: [id number] Pr escribed By Name: Tay Fraga nd [...] by mouth 09/26 completed Medicati on ID: [id number] D uration Value: 3 Prescri bed By [...] mg tablet 03/04 completed Medicati on ID: [id number] Br and Name: sertrali ne Send Method: E-Prescr ibed Sub s Allowed: subs OK Medic ationGen ericName : sertrali ne Not Available Not Available Not Available simvastat in 10 mg tablet TAKE 1 TABLET BY MOUTH EVERY DAY active Not Available Not Available No t Available Biaxin 500 mg tablet 1 tablet by mouth 09/26 completed Medicati on ID: [id number] D uration Value: 21 Prescri bed By Name: MITZI Alfredo nd Name: Biaxin S end Method: E-Prescr ibed Sub s Allowed: subs OK Medic ationGen ericName : Biaxin Not Available Not Available Not Available Nexium 40 mg capsule,d elayed release 10/27 completed Medicati on ID: 211496 D uration Value: 30 Reason: () Brand Name: Nexium S end Method: E-Prescr ibed Sub s Allowed: subs OK Speci al Instruct ion: 1 po qam Medi cationGe nericNam e: Nexium Not Available Not Available Not Available Zyrtec 10 mg tablet 09/26 completed Medicati on ID: [id number] Br and Name: Zyrtec S end Method: E-Prescr ibed Sub s Allowed: subs OK Medic ationGen ericName : Zyrtec Not Available Not Available Not Available Aspir-Low 81 mg tablet,de layed release 12/30 completed Medicati on ID: [id number] Br and Name: Aspir-Lo w Send Method: [...] mg tablet 09/26 completed Medicati on ID: 565915 B rand Name: alprazol am Send Method: [...] by mouth 09/26 completed Medicati on ID: [id number] D uration Value: 21 Prescri bed By Name: Tay Reed nd Name: doxycycl ine monohydr ate Send Method: E-Prescr ibed Sub s Allowed: subs OK Medic ationGen ericName : doxycycl ine monohydr ate Not Available Not Available Not Available Advair Diskus 500 mcg-50 mcg/dose powder for inhalatio n 1 puff 2019 active Medicati on ID: 393863 D uration Value: 30 Prescri bed By [...] as needed 2022 active Medicati on ID: 926711 D uration Value: 180 Brand Name: epinephr [...] by mouth 01/06 completed Medicati on ID: [id number] Pr escribed By Name: Tay Reed nd [...] a day 03/21 completed Medicati on ID: [id number] D uration Value: 30 Prescri bed By Name: Tay Reed nd Name: Spiriva with HandiHal er Send Method: E-Prescr ibed Sub s Allowed: subs OK Medic ationGen ericName : Spiriva with HandiHal er Not Available Not Available Not Available Tysabri 300 mg/15 mL intraveno us solution 09/26 completed Medicati on ID: [id number] B rand Name: Tysabri Send Method: E-Prescr ibed Sub s Allowed: subs OK Medic ationGen ericName : Tysabri Not Available Not Available Not Available prednison e 09/26 completed Medicati on ID: [id number] D uration Value: 10 Prescri bed By [...] as needed 09/26 completed Medicati on ID: [id number] D uration Value: 30 Prescri bed By Name: Tay Reed nd Name: ProAir HFA Send Method: E-Prescr ibed Sub s Allowed: subs OK Medic ationGen ericName : ProAir HFA Not Available Not Available Not Available Theraflu Cold-Sore Throat (PE) 20 mg-10 mg-325 mg oral powder packet 03/04 completed Medicati on ID: [id number] Br and Name: Theraflu Cold-Sor e Throat (PE) Sen d Method: E-Prescr ibed Sub s Allowed: subs OK Medic ationGen ericName : Theraflu Cold-Sor e Throat (PE) Not Available Not Available Not Available Nasacort 55 mcg nasal spray aerosol 12/30 completed Medicati on ID: 43073 Br and Name: Nasacort Send Method: E-Prescr [...] a day 2023 active Medicati on ID: 363214 D uration Value: 90 Prescri bed By [...] Updated DateTime 03/24/2024 157.48 cm 33.8 kg/m2 62256.59 g Humphrey Benton [place] - [facility] 03/24/2024 15:29:33 Date Recorded Body height Body weight Provider Name and Address Organization Details Last Updated DateTime 09/26/2024 157.48 cm 71735.59 g Danika Smith [place] - [facility] 09/26/2024 15:23:55 Social History None recorded. Functional Status None recorded. Mental Status None recorded. Family History Nothing Reported. Medical History Condition Response Allergies/Hayfever Y Rhinitis Y Arthritis Y Migraines Y Nasal polyps Y Asthma Y Nasal or Sinus Problems Y Immune System Disorder Y GERD/Reflux Y High Cholesterol Y Headaches Y Gynecological HistoryNo gynecological history recorded. Obstetrics History GPAL:G 0 P 0 0 0 0 Past Encounters Encounter ID Performer Location Encounter Start Date Encounter Closed Date Diagnosis/Indication Diagnosis SNOMED-CT Code Diagnosis ICD10 Code Diagnosis Note [id number] JAYCE COVARRUBIAS MD [facility] [address] [address] 03/24/2024 15:11:59 03/24/2024 15:51:16 Allergy to drug 997357256 Z88.6 Exacerbati on of moderate persistent asthma 625570350 J45.41 Disorder o f respiratory system 53532896 J70.8 Polyp of nasal cavity 73 7988002 J33.0 Chronic sinusitis 408340 00 J32.9 [id number] JAYCE COVARRUBIAS MD [facility] [address] [address] 09/26/2024 15:06:10 09/26/2024 16:01:28 Allergy to drug 465524491 Z88.6 Polyp of n [place] cavity and/or nasal sinus 067728359 J33.1 Moderate p ersistent asthma 128573896 J45.40 Disorder o f respiratory system 66796957 J70.8 Impacted c erumen in left ear 2055313651 744294 H61.22 Suggested 3 drops distilled vinegar in [...] Benavides Member ID Guarantor Name 03/24/2024 1 [facility] Tanya Bonilla [id number] Tanya Bonilla 09/26/2024 1 [facility] Tanya Castilloraul [id number] 0 Tanya A Irene Notes Date Note [...] on Tysabri for MS JAYCE SNYDER MD [address] [place] [address], [phone], [facility] 03/24/2024 15:49:52 09/26/2024 text/html Patient with [...] starting Wegovy May 06 JAYCE SNYDER MD [address] [place] [address], [phone], [facility] - [facility] 09/26/2024 16:00:28 OBGyn Episode No OBEpisode recorded.
--- OUTSIDE RECORDS SUMMARY | 2024-11-26 17:41 | XMS_ITS | Clinical Summary ---
Author Organization [facility] Address [address] [place] [address] Care Team Providers Care Senior Radiation Therapist Name Role Phone Cari Ambrose MD Primary Care Provider [phone] Allergies Active Allergy Reactions Criticality Noted Date [...] age to complete this topic Care Teams Senior Radiation Therapist Relationship Specialty Start Date End Date Cari Ambrose MD [address] [place] [address] PCP - General Internal Medicine 04/13/20
--- OUTSIDE RECORDS SUMMARY | 2024-11-26 17:42 | XMS_ITS ---
Author Organization [facility] Address [address] [place] [address] Care Team Providers Care Database Marketing Analyst Name Role Phone Arnol GUTI[facility]RREZ, [facility] Primary Care Provider Ash Ernandez Jr Unavailable [phone] Allergies Allergen (clinical drug ingredient) Drug/Non Drug [...] 10/30/2024 Encounters Encounter Location Date Provider Diagnosis [facility] [address] [facility] [address] [facility] [address] [place] [address] 10/30/2024 Ash Obando Jr Viveros's esophagus without [...] Name:Ash Velasco luz , 06/09/2025 07:30:00 AM, [address] [place] [address] , [place], [place], [id number], Progress Notes * CORINA COLES ADOB:[birth year] (64 yo F)Acc No.[id number]:10/30/2024 Progress Notes Patient:?CORINA COLES A Provider:?Ash Obando MD :1960???Age:64 Y???Sex:Female D ate:10/30/2024 Address:[address] [place] [id number] Pcp:Cari Ambrose MD Subjective: * Chief Complaints: [...] the past year??No,?Points?0,?Interpretation?Negative.?Miscellaneous:?Marital status: . 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 * Medications:?Taking Ashwagan dha , Taking Tysabri [...] MD Date:?0 10/30/2024 Generated for Jen painter/Rachel/Rhondaitting on:?11/26/2024 05:41 PM EDT History and Physical [...]
--- OUTSIDE RECORDS SUMMARY | 2024-11-26 17:42 | XMS_ITS | Clinical Summary ---
Author Organization [facility] Address [address] [place] [address] Phone Care Team Providers Care Epic Manager Name Role Phone Cari Ambrose MD Primary Care Provider [phone] Allergies No known active allergies Medications acetaminophen [...] Active Wegovy 0.5 mg/0.5 mL injection pen Inject 1 mg under the skin. 4 Active simvastatin (ZOCOR) 10 mg tablet Take 1 tablet (10 mg total) by mouth 1 (one) time each day. Active cyclobenzaprine (FLEXERIL) 10 mg tablet Take 1 tablet (10 mg total) by mouth 2 (two) times a day if needed. Active Active Problems Problem Noted Date Diagnosed Date MS (multiple sclerosis) ([facility] V24, [facility] V2 8) 06/20/2024 Encounters Date Type Department Care Team Description 11/14/2024 1:16 PM EDT - 11/14/2024 11:59 PM EDT Hospital Encounter [facility] [address] [place] [phone] Manda Casillas MD MS (multiple sclerosis) ([facility] V24, [facility] V28) (Primary Dx) Discharge Disposition: Home or Self Care 10/17/2024 1:22 PM EDT - 10/17/2024 11:59 PM EDT Hospital Encounter [facility] [address] [place] [phone] Manda Casillas MD MS (multiple sclerosis) ([facility] V24, [facility] V28) (Primary Dx) Discharge Disposition: Home or Self Care 09/19/2024 1:13 PM EST - 09/19/2024 11:59 PM EST Hospital Encounter [facility] Infusion Center [address] [place] [address] [place] [phone] Manda aCsillas MD MS (multiple sclerosis) ([facility] V24, [facility] V28) (Primary Dx) Discharge Disposition: Home or Self Care from Last 3 Months Surgical History Surgery Date Site/Laterality Comments KNEE ARTHROSCOPY W/ PARTIAL MEDIAL MENISCECTOMY Bilateral PROCEDURE:KNEE ARTHROSCOPY W/ PARTIAL MEDIAL MENISCECTOMY SHOULDER ARTHROSCOPY Bilateral PROCEDURE:SHOULDER ARTHROSCOPY PORTACATH PLACEMENT Right Anterior PROCEDURE:PORTACATH PLACEMENT CATARACT EXTRACTION, BILATERAL Bilateral PROCEDURE:CATARACT EXTRACTION, BILATERAL Medical History Medical History Date Comments Optic neuritis DX:Optic neuriti s Multiple sclerosis ([facility] V24, [facility] V28) DX:Multiple sclerosis ([facility]) Insomnia DX:Insomnia Asthma DX:Asthma Cataracts, bilateral 07/2021 [...] Sign Reading Time Taken Comments Blood Pressure 131/80 11/14/2024 1:21 PM EDT Pulse 95 11/14/2024 1:21 PM EDT Temperature 36.8 ??C (98.2 ??F) 11/14/2024 1:21 PM ED T Respiratory Rate 18 11/14/2024 1:21 PM EDT Oxygen Saturation 99% 11/14/2024 1:21 PM EDT Inhaled Oxygen Concentration - - Weight 73.4 kg (161 lb 12.8 oz) 11/14/2024 1:21 PM EDT Height 157.5 cm (5' 2 ) 10/22/2020 7:50 AM EDT Body Mass Index 29.59 10/22/2020 7:50 AM EDT Plan of Treatment Upcoming Encounters Date Type Department Care Team (Late st Contact Info) Description 12/12/2024 1:30 PM EDT Appointment [facility] [address] [phone] 01/09/2025 1:30 PM EDT Appointment [facility] [address] [address] Health Maintenance Due Date Last Done Comments [...] Influencers of Health Screening 07/08/2022 RSV Immunization Adult Patients (1 - Risk 60-74 years 1-dose series) 2022 COVID-19 Vaccine ( season) 2024 06/07/2022, 11/21/2021, 06/01/2021, Additional history exists Influenza Vaccine (Season Ended) 2025 06/07/2022, 05/07/2019, 05/09/2017, Additional history exists HIB Vaccines [...] age to complete this topic Meningococcal B Vaccine Aged Out No l onger eligible based on patient's age to complete this topic RSV Immunization Patients Under 20 months Aged Out No longer eligible based on patient's age to complete this topic Varicella Vaccines Aged Out No longer eligible based on patient's age to complete this topic Insurance [facility] Care Teams Epic Manager Relationship Specialty Start Date End Date Cari Ambrose MD [address] [place] [address] PCP - General Internal Medicine 04/13/20
--- OUTSIDE RECORDS SUMMARY | 2024-11-26 17:42 | XMS_ITS | Encounter Summary ---
Author Organization [facility] [address] Address [address] [place] [address] Care Team Providers Care Salary And Wage Administrator Name Role Phone Cari Ambrose MD Primary Care Provider [phone] Encounter Details Date Type Department Care Team [...] Info) Description 12/12/2024 1:30 PM EDT Appointment [address] [phone] 01/09/2025 1:30 PM EDT Appointment Infusion Center [address] [place] [phone] documented as of this encounter Visit Diagnoses Not on filedocumented in this encounter Care Teams Salary And Wage Administrator Relationship Specialty Start Date End Date Cari Ambrose MD [address] [place] [address] PCP - General Internal Medicine 04/13/20 documented as of this encounter
== END 2024-11-26 15:24 | disposition home or self-care (01) ==
LOC: HO.HMCC 14:51
PROVIDERS: PCP Internal Medicine; Visit Provider Internal Medicine
DX: Z00.00 Encounter for general adult medical examination without abnormal findings (principal); G35 Multiple sclerosis; E66.3 Overweight; E78.9 Disorder of lipoprotein metabolism, unspecified; M54.2 Cervicalgia; Z91.09 Other allergy status, other than to drugs and biological substances; K21.9 Gastro-esophageal reflux disease without esophagitis

== ENCOUNTER → 2024-11-26 14:50 | Outpatient (BNVA) | payer OTHER, SELFPAY | PROVIDERS: PCP Internal Medicine; Visit Provider Internal Medicine | DX: Z13.89 Encounter for screening for other disorder (principal) ==

== ENCOUNTER → 2025-01-06 15:53 | Outpatient (BNVA) | payer OTHER, SELFPAY | PROVIDERS: PCP Internal Medicine; Visit Provider Internal Medicine ==

== ENCOUNTER 2025-02-25 14:46 | Outpatient (AMB) | payer OTHER, SELFPAY ==
--- NOTE | 2025-02-25 14:48 | MHC.PC.OV ---
Vital Signs 02/25/25 14:50 Height 5 ft 2 in Weight 154 lb BMI 28.2 BP 112/70 Blood Pressure Location Lt brachial Position Sitting Pulse 89 Pulse Source Pulse Oximeter Pulse Oximetry (%) 97 Intake Visit Reasons: 3 months f/up Allergies hydrocodone (From VICODIN) Allergy (Severe, Verified 02/25/25 14:50) SWELLING aspirin (ASPIRIN) Allergy (Intermediate, Verified 02/25/25 14:50) HIVES oxycodone (OXYCODONE) Allergy (Intermediate, Verified 02/25/25 14:50) HIVES ibuprofen Allergy (Unknown, Verified 02/25/25 14:50) Unknown Environmental Allergy (Unknown, Uncoded 11/26/24 15:01) Unknown Medication List - Last Reconciled 02/25/25 by Cari Ambrose MD acetaminophen (Tylenol) 650 mg (2 x 325 mg) PO Q4H PRN albuterol sulfate 90 mcg/actuation 1 puff inhalation Q4H PRN amitriptyline 25 mg PO BEDTIME lidocaine 4% (AsperFlex (lidocaine)) 1 patch topical DAILY PRN [low impact exercise program as tolerated by the patient] montelukast 10 mg PO QPM natalizumab (Tysabri) 300 mg IV Q4W omeprazole 40 mg PO DAILY simvastatin 10 mg PO DAILY 90 days tirzepatide (weight loss) 5 mg (0.5 mL) subcut QWEEK 30 days Tobacco use date assessed: 11/26/24 Dental Screening Dental Screen Date: 11/26/24 HPI 3 months f/up HPI Details - The patient is a 64-year-old female presenting for a wellness visit, primarily to address weight management and follow-up on chronic conditions The patient states her current BMI is 28.2, and she weighs 154 pounds with a height of 5'2 . She was 170 pounds in October. - The patient reports a desire to reach the 140s in weight, with an ideal weight goal of about 130 pounds, citing she often reaches 150 pounds. - The patient notes a concern regarding excess skin, especially on her arms, which she attributes to weight loss and has considered plastic surgery but is hesitant due to age and potential recovery time concerns. - Insurance coverage for weight management treatment is only available until July 05, and the patient expressed anxiety about coverage after this date. - The patient is reportedly doing well on Zepbound without significant issues but describes experiences of slow progress in weight loss. - Labs were supposed to be done before this visit, but they were forgotten, she will do it today - Multiple Sclerosis managed with IV natalizumab every four weeks. Reports improvement in symptoms and sleep. - History of GERD characterized by nocturnal choking events. Currently taking omeprazole. Advised by distillation operator helper to take additional measures for symptom management. has EGD apt coming up in Nov by Dr Obando - Degenerative Disc Disease with changes noted in cervical spine. Symptoms include neck pain and occasional numbness in thumbs, potentially related to MS. - Allergic Rhinitis managed with montelukast. - Insomnia managed with amitriptyline. - Hyperlipidemia effectively managed with simvastatin; LDL documented as 90. [place] of Care : Neuro and Dr Obando gastro Medications - Tylenol as needed for pain. - Amitriptyline 25 mg for insomnia. - Montelukast for allergic rhinitis. - Omeprazole 40 mg for GERD. - Simvastatin 10 mg for hyperlipidemia. - IV natalizumab every four weeks for Multiple Sclerosis Problem List - overweight - Excess skin post weight loss - multiple sclerosis - GERD stable - lipid disorder - allergies Patient Instructions - Continue weight management regimen and monitor weight at home. - Keep track of all medications and verify refills. - Complete the non-fasting lab tests as soon as possible. - Follow up in three months and maintain the current course of Zepbound with adjustments as prescribed. - continue other medications Review of Systems - General: No fever no chills - Neurological: No headaches no dizziness - Ear nose throat: No sore throat no hearing difficulty no ear pain - Cardiovascular: No syncope, no chest pain, no palpitations - Gastrointestinal: No nausea vomiting or diarrhea - Endocrine: No polyuria polydipsia no heat intolerance - Genitourinary: No dysuria , no blood in urine Physical Exam General: No acute distress HEENT: No acute findings Neck: Supple Respiratory system: Able to talk in full sentences, no audible wheeze Cardiovascular: S1-S2 regular in rate and rhythm Gastrointestinal: No pain Extremities: No new findings FARM HELPER: Alert awake oriented x3 motor sensory intact Skin: Hanging skin on arms, normal turgor PFSH Medical History Elevated cholesterol Asthma Anxiety Multiple sclerosis GERD (gastroesophageal reflux disease) Depression Vomiting Surgical History History of esophagogastroduodenoscopy (EGD) S/P dilation and curettage H/O prior ablation treatment H/O arthroscopy of knee History of arthroscopy of right shoulder History of sinus surgery Family History Father HTN (hypertension) Mother HTN (hypertension) Rectal cancer Brother No problems noted. Brother No problems noted. Sister No problems noted. Sister No problems noted. Social History Housing: Condominium Alcohol intake: current Alcohol intake frequency: holidays/special occasions only Patient Tobacco Use Status: Former Tobacco user e-Cigarette/Vaping Use: Never Used service: No Current occupational status: employed Cognitive needs: No Hearing needs: No Vision needs: Yes Questionnaire Thrive Questionnaire Date Thrive assessed: 09/03/24 I am a: Patient What is your living situation today?: I have a steady place to live Within the past 12 months, did the food you bought not last and you didn't have the money to get more?: Never true Within the past 12 months, did you worry whether your food would run out before you got money to buy more?: Never true Do you have trouble paying for medicines?: No Do you have trouble getting transportation to medical appointments?: No Do you have trouble paying your heating and electricity bill?: No Do you have trouble taking care of your child, family member or friend?: No Do you have trouble with day-to-day activities such as bathing, preparing meals, shopping, managing finances, etc.?: No Are you currently unemployed and looking for a job?: No Are you interested in more education?: No Please select the resources that you would like help with: None Currently or been in a relationship where the following occur: No concerns reported THRIVE Score: 0 ANTELMO-7 AMB Questionnaire ANTELMO-7 Date ANTELMO - 7 assessed: 09/10/24 Source: Developed by Drs. Ino Horton, Lona Schaefer, Олег Robles and colleagues, with an educational azam from [employer]. Physical exam (Primary Care) Vital Signs: Last Vital Signs Pulse 89 02/25/25 14:50 BP 112/70 02/25/25 14:50 Pulse Ox 97 02/25/25 14:50 BMI result Body Mass Index 28.2 Tobacco/Smoking Status: Tobacco use Status Tobacco use date assessed 11/26/24 02/25/25 14:49 Patient Tobacco Use Status Former Tobacco user 02/25/25 14:49 e-Cigarette/Vaping Use Never Used 02/25/25 14:49 Thrive Assessment: Date of Thrive Assessment Date Thrive assessed 09/03/24 02/25/25 14:49 Currently or been in a relationship where the following occur: No concerns reported Coding Level of Care Code Est Pt Level 4 (01074) Diagnoses Over weight E66.3 Lipid disorder E78.9 Multiple sclerosis G35 Environmental allergies Z91.09 Chronic GERD K21.9 Assessment & Plan Assessment & Plan (1) Over weight: Code(s): E66.3 - Overweight Category: Medical (2) Lipid disorder: Code(s): E78.9 - Disorder of lipoprotein metabolism, unspecified Category: Medical (3) Multiple sclerosis: Code(s): G35 - Multiple sclerosis Category: Medical (4) Environmental allergies: Code(s): Z91.09 - Other allergy status, other than to drugs and biological substances Category: Medical (5) Chronic GERD: Code(s): K21.9 - Gastro-esophageal reflux disease without esophagitis Category: Medical Plan - The patient is a 64-year-old female presenting for a wellness visit, primarily to address weight management and follow-up on chronic conditions The patient states her current BMI is 28.2, and she weighs 154 pounds with a height of 5'2 . She was 170 pounds in October. - The patient reports a desire to reach the 140s in weight, with an ideal weight goal of about 130 pounds, citing she often reaches 150 pounds. - The patient notes a concern regarding excess skin, especially on her arms, which she attributes to weight loss and has considered plastic surgery but is hesitant due to age and potential recovery time concerns. - Insurance coverage for weight management treatment is only available until July 05, and the patient expressed anxiety about coverage after this date. - The patient is reportedly doing well on Zepbound without significant issues but describes experiences of slow progress in weight loss. - Labs were supposed to be done before this visit, but they were forgotten, she will do it today - Multiple Sclerosis managed with IV natalizumab every four weeks. Reports improvement in symptoms and sleep. - History of GERD characterized by nocturnal choking events. Currently taking omeprazole. Advised by distillation operator helper to take additional measures for symptom management. has EGD apt coming up in Nov by Dr Obando - Degenerative Disc Disease with changes noted in cervical spine. Symptoms include neck pain and occasional numbness in thumbs, potentially related to MS. - Allergic Rhinitis managed with montelukast. - Insomnia managed with amitriptyline. - Hyperlipidemia effectively managed with simvastatin; LDL documented as 90. [place] of Care : Neuro and Dr Obando gastro Medications - Tylenol as needed for pain. - Amitriptyline 25 mg for insomnia. - Montelukast for allergic rhinitis. - Omeprazole 40 mg for GERD. - Simvastatin 10 mg for hyperlipidemia. - IV natalizumab every four weeks for Multiple Sclerosis Problem List - overweight - Excess skin post weight loss - multiple sclerosis - GERD stable - lipid disorder - allergies Patient Instructions - Continue weight management regimen and monitor weight at home. - Keep track of all medications and verify refills. - Complete the non-fasting lab tests as soon as possible. - Follow up in three months and maintain the current course of Zepbound with adjustments as prescribed. - continue other medications Medications: Changed From tirzepatide (weight loss) for 4 weeks 5 mg (0.5 mL) subcut QWEEK 30 days 2.5 mL 0RF To tirzepatide (weight loss) for 4 weeks 7.5 mg (0.5 mL) subcut QWEEK 2.5 mL 2RF 30 days
[2025-02-25 14:50] VITALS: BP 112/70; PULSE 89; O2SAT 97; BMI 28.2
--- OUTSIDE RECORDS SUMMARY | 2025-02-25 15:19 | XMS_ITS | Clinical Summary ---
Author Organization [facility] Address [address] [place] [id number] Care Team Providers Care Billing Department Supervisor Name Role Phone Cari Ambrose MD Primary Care Provider [phone] Allergies Active Allergy Reactions Criticality Noted Date [...] 90 05/23/2024 1:30 PM EDT Temperature 36.4 C (97.5 F) 05/23/2024 1:30 PM EDT Respiratory Rate 18 05/23/2024 1:30 PM EDT [...] (1 of 2) 2012 Influenza Vaccine (#1) 2025 RSV Adult > 60+ Yrs or Pregn [...] age to complete this topic Care Teams Billing Department Supervisor Relationship Specialty Start Date End Date Cari Ambrose MD [address] [place] [address] PCP - General Internal Medicine 04/13/20
--- OUTSIDE RECORDS SUMMARY | 2025-02-25 15:19 | XMS_ITS | Clinical Summary ---
Author Organization [facility] Address [address] [place] [address] Phone Care Team Providers Care Network Services Project Manager Name Role Phone Roxanne Garcia MD Primary Care Provider Anish John MD Unavailable [phone] Allergies Active Allergy Reactions Criticality Noted Date Comments Nsaids (Non-Steroidal Anti-Inflammatory Drug) Shortness Of Breath,Bronchospasm High 12/02/2015 AERD/[place] - requires desensitization Medications omeprazole (PRILOSEC) 40 MG capsule Take 40 mg by mouth daily. Active fluticasone-cornel meterol (ADVAIR DISKUS) 250-50 mcg/dose DISKUS Inhale 1 puff into the lungs 2 (two) times a day. Active cetirizine (ZYRTEC) 10 MG tablet Take 10 mg by mouth daily. Active EPINEPHrine (EPIPEN) 0.3 mg/0.3 mL auto-injector Inject 0.3 mg into the muscle as needed for anaphylaxis. Active fluticasone-cornel meterol (ADVAIR DISKUS) 500-50 mcg/dose DISKUS Inhale 1 puff into the lungs 2 (two) times a day. 1 each 6 7 Active ID-aspirin ([id number]) 325 mg EC tablet Take 2 tablets (650 mg total) by mouth 2 (two) times a day. 240 tablet 7 Active budesonide (PULMICORT) 0.5 mg/2 mL nebulizer solution Take 4 mL (1 mg total) by nebulization daily. 60 vial 6 7 Active montelukast (SINGULAIR) 10 mg tablet Take 1 tablet (10 mg total) by mouth nightly. 30 tablet 6 7 Active albuterol 90 mcg/actuation inhaler Inhale 2 puffs into the lungs every 6 (six) hours as needed for wheezing. 1 Inhaler 3 8 Active Active Problems Problem Noted Date Diagnosed Date Aspirin-sensitive asthma with nasal polyps 12/01 Uncomplicated severe persistent asthma 6 Eosinophilia 12/02/2015 Anosmia 12/02/2015 Family History Medical History Relation Comments Allergic rhinitis Mother Relation Status Comments Mother Social History Tobacco Use Types Packs/Day Years Used Date Smoking Tobacco: Never Assessed Education Answer Date Recorded Are you interested in more education? Not on fabiola e 11/30/2022 Are you concerned about learning? Not on file 11/30/2022 No 11/30/2022 No 11/30/2022 Digital Access Answer Date Recorded No 01/01/2023 No 01/01/2023 No 01/01/2023 Reliable internet access at home? Not on file 01/01/2023 Device with a working camera? Not on file Comments Unknown Sex and Gender Information Value Date Recorded Sex Assigned at Not on file Legal Sex Female 7:49 PM EST Gender Identity Not on file Sexual Orientation Not on file Last Filed Vital Signs Vital Sign Reading Time Taken Comments Blood Pressure 153/84 12/02/2015 2:22 PM EDT Pulse 91 12/02/2015 2:22 PM EDT Temperature 36.6 C (97.8 F) 12/02/2015 2:22 PM EDT Respiratory Rate - - Oxygen Saturation 97% 12/02/2015 2:22 PM EDT Inhaled Oxygen Concentration - - Weight 106.6 kg (235 lb) 12/02/2015 2:22 PM EDT Height 157.5 cm (5' 2 ) 12/02/2015 2:22 PM EDT Body Mass Index 42.98 12/02/2015 2:22 PM EDT Plan of Treatment Health Maintenance Due Date Last Done Comments Adult Td,Tdap Booster 1962 LIPID PANEL 1962 DEPRESSION SCREENING 1974 SMOKING Hx and SMOKELESS TOB ACCO SCREENING 10/30/1975 HEPATITIS C SCREENING 1980 HIV ONE-TIME SCREENING (18-6 5 YEARS) 1980 PNEUMOCOCCAL VACCINES (50+ y ears) (1 of 2 - PCV) 1981 PAP SMEAR 10/30/1983 MAMMOGRAM 2002 COLOGUARD 10/30/2007 COLONOSCOPY 10/30/2007 COLORECTAL CANCER SCREENING 10/30/2007 FIT TEST 10/30/2007 FOBT 10/30/2007 SIGMOIDOSCOPY 10/30/2007 VIRTUAL COLONOSCOPY 10/30/2007 ZOSTER VACCINES (1 of 2) 2012 RSV VACCINE (1 - Risk 60-74 years 1-dose series) 2022 COVID-19 VACCINE (2 - 2023-2 5 season) 2024 11/02/2020 HEPATITIS A VACCINES Aged Out No long er eligible based on patient's age to complete this topic HIB VACCINES Aged Out No longer eligi ble based on patient's age to complete this topic MENINGOCOCCAL VACCINES (ACWY) Aged Out No longer eligible based on patient's age to complete this topic MENINGOCOCCAL VACCINES (B) Aged Out N o longer eligible based on patient's age to complete this topic Medical Devices Not on file Insurance [address] [place], [place] [address] [place] [address] [facility] Care Teams Network Services Project Manager Relationship Specialty Start Date End Date Roxanne Garcia MD [facility] [place] [address] PCP - General Internal Medicine 11/22/15 Anish John MD [facility] [place] [address] [email or web address] Otolaryngology 12/02/15 Additional Source Comments The information contained in this document represents components of the legal health record. It is not the complete legal health record.[facility]
--- OUTSIDE RECORDS SUMMARY | 2025-02-25 15:20 | XMS_ITS | Clinical Summary ---
Author Organization [facility] Address [address] [place] [address] Phone Care Team Providers Care Dye Beck Reel Operator Name Role Phone Cari Ambrose MD Primary Care Provider [phone] Allergies No known active allergies Medications acetaminophen [...] (two) times a day if needed. Active Zepbound 5 mg/0.5 mL injection Inject 0.5 mL (5 mg total) under the skin every 7 (seven) days. Starting week of 02/16 5 Active Zepbound 2.5 mg/0.5 mL injection Inject 0.5 mL (2.5 mg total) under the skin every 7 (seven) days. Dose increasing week of 02/16 5 Active Active Problems Problem Noted Date Diagnosed Date MS (multiple sclerosis) (CMS/[facility] V24, CMS/[facility] V2 8) 06/20/2024 Encounters Date Type Department Care Team Description 02/13/2025 1:11 PM EDT - 02/13/2025 11:59 PM EDT Hospital Encounter [facility] [address] [place] [address] [phone] Manda Casillas MD MS (multiple sclerosis) (CMS/HCC V24, CMS/HCC V28) (Primary Dx) Discharge Disposition: Home or Self Care 02/01/2025 7:37 AM EDT - 02/01/2025 11:59 PM EDT Hospital Encounter [facility] [address] [place] [address] MS (multiple sclerosis) ([facility] V24, [facility] V28) Discharge Disposition: Home or Self Care 01/09/2025 1:29 PM EDT - 01/09/2025 11:59 PM EDT Hospital Encounter [facility] [address] [place] [address] [phone] Manda Casillas MD MS (multiple sclerosis) ([facility] V24, [facility] V28) (Primary Dx) Discharge Disposition: Home or Self Care 12/12/2024 1:16 PM EDT - 12/12/2024 11:59 PM EDT Hospital Encounter [facility] [address] [place] [address] [phone] Manda Casillas MD MS (multiple sclerosis) ([facility] V24, [facility] V28) (Primary Dx) Discharge Disposition: Home or Self Care from Last 3 Months Surgical History Surgery Date Site/Laterality Comments KNEE ARTHROSCOPY W/ PARTIAL MEDIAL MENISCECTOMY Bilateral PROCEDURE:KNEE ARTHROSCOPY W/ PARTIAL MEDIAL MENISCECTOMY SHOULDER ARTHROSCOPY Bilateral PROCEDURE:SHOULDER ARTHROSCOPY PORTACATH PLACEMENT Right Anterior PROCEDURE:PORTACATH PLACEMENT CATARACT EXTRACTION, BILATERAL Bilateral PROCEDURE:CATARACT EXTRACTION, BILATERAL Medical History Medical History Date Comments Optic neuritis DX:Optic neuriti s Multiple sclerosis ([facility]/HCC V24, [facility] V28) DX:Multiple sclerosis (HCC) Insomnia DX:Insomnia Asthma DX:Asthma Cataracts, [...] Sign Reading Time Taken Comments Blood Pressure 109/67 02/13/2025 1:38 PM EDT Pulse 82 02/13/2025 1:38 PM EDT Temperature 36.7 C (98 F) 02/13/2025 1:38 PM EDT Respiratory Rate 18 02/13/2025 1:38 PM EDT Oxygen Saturation 100% 02/13/2025 1:38 PM EDT Inhaled Oxygen Concentration - - Weight 73.9 kg (162 lb 14.7 oz) 12/12/2024 1:25 PM EDT Height 157.5 cm (5' 2 ) 10/22/2020 7:50 AM EDT Body Mass Index 29.8 10/22/2020 7:50 AM EDT Plan of Treatment Upcoming Encounters Date Type Department Care Team (Late st Contact Info) Description 03/13/2025 1:30 PM EDT Appointment [facility] [address] [place] [phone] Health Maintenance Due Date Last Done Comments Breast Cancer Screening 1962 DTaP,Tdap,and Td Vaccines (1 - Tdap) 1981 Pneumococcal Vaccine: 50+ Years (1 of 2 - PCV) 1981 Cervical Cancer Screening: Pap Smear 10/30/1983 Zoster Vaccines (1 of 2) 2012 Cholesterol Screening (Lipid Panel) 07/08/2022 Colorectal Cancer Screening: Colonoscopy 07/08/2022 HIV Screening 07/08/2022 Hepatitis C Screening 07/08/2022 Social Influencers of Health Screening 07/08/2022 RSV Immunization Adult Patients (1 - Risk 60-74 years 1-dose series) 2022 COVID-19 Vaccine ( season) 2024 06/07/2022, 11/21/2021, 06/01/2021, Additional history exists Depression Screening 08/06/2024 Influenza Vaccine (#1) 2025 , 05/07/2019, 05/09/2017, Additional history exists HIB [...] on patient's age to complete this topic Procedures Procedure Name Priority Date/Time Associated Diagnosis Comments MR CERVICAL SPINE WO AND W CONTRAST Routine 02/01/2025 8:56 AM EDT MS (multiple sclerosis) ([facility] V24, [facility] V28) from Last 3 Months Results * MR Cervical Spine wo and w Contrast (02/01/2025 8:56 AM EDT) Anatomical Region Laterality Modality C-spine, Spine Magnetic Resonan ce 02/01/2025 10:4 1 AM EDT Impressions 02/01/2025 10:47 AM EDT No evidence of demyelinating disease involving the cervical cord. Stable very small syrinx. Degenerative changes as detailed above. -------- FINAL REPORT -------- Dictated By: Tian Hylton Dictated Date: 02/01/2025 10:41 ET Assigned Physician: Tian Hylton Reviewed and Electronically Signed By: Tian Hylton Signed Date: 02/01/2025 10:47 ET Workstation ID: [id number] Transcribed By: Self Edit Transcribed Date: 02/01/2025 10:41 ET Narrative 02/01/2025 10:47 AM EDT PROCEDURE: MRI of the cervical spine with intravenous contrast. HISTORY: Multiple sclerosis. COMPARISON: 06/17/2023. TECHNIQUE: Sagittal and axial multisequence MRI of the cervical spine with and without intravenous contrast. IV contrast dose: 15 mL Dotarem from a 15 mL vial with 0 mL discarded. FINDINGS: Visualized portions of the brain and skull base are normal. The paraspinous soft tissues are normal. Normal alignment. No concerning marrow infiltrative lesion. There are no findings to suggest demyelinating disease involving the cervical cord. Stable very small syrinx, most prominent in the lower cervical region, measuring 1-2 mm. No abnormal cord enhancement. Cervical disc levels: C2-3: Mild degenerative irregularity of the endplates and facet joints. No spinal or foraminal stenosis. C3-4: Small anterior endplate osteophytes. Small broad-based central protrusion. Mild left greater than right facet arthropathy. No significant spinal or foraminal stenosis. C4-5: Moderate disc space height loss and endplate irregularity. Moderate anterior endplate osteophytes. Minimal left and small right uncovertebral spurs. Minimal bilateral facet arthropathy. No spinal stenosis. Moderate right foraminal stenosis. C5-6: Mild disc space height loss and moderate endplate irregularity. Small anterior endplate osteophytes. Small bilateral uncovertebral spurs and a small symmetric disc bulge. No significant spinal stenosis. Moderate right and moderate-severe left foraminal stenosis. C6-7: Moderate disc space height loss and endplate irregularity. Minimal anterior endplate osteophytes. Small bilateral uncovertebral spurs and a minimal symmetric disc bulge. No spinal stenosis. Moderate-severe left foraminal stenosis. C7-T1: Minimal endplate irregularity. No spinal or foraminal stenosis. Procedure Note Tian Hylton MD - 02/01/2025 PROCEDURE: MRI of the cervical spine with intravenous contrast. HISTORY: Multiple sclerosis. COMPARISON: 06/17/2023. TECHNIQUE: Sagittal and axial multisequence MRI of the cervical spine withand without intravenous contrast. IV contrast dose: 15 mL Dotarem from a 15 mL vial with 0 mL discarded. FINDINGS: Visualized portions of the brain and skull base are normal. The paraspinous soft tissues are normal. Normal alignment. No concerning marrow infiltrative lesion. There are no findings to suggest demyelinating disease involving thecervical cord. Stable very small syrinx, most prominent in the lowercervical region, measuring 1-2 mm. No abnormal cord enhancement. Cervical disc levels: C2-3: Mild degenerative irregularity of the endplates and facet joints.No spinal or foraminal stenosis. C3-4: Small anterior endplate osteophytes. Small broad-based centralprotrusion. Mild left greater than right facet arthropathy. Nosignificant spinal or foraminal stenosis. C4-5: Moderate disc space height loss and endplate irregularity. Moderateanterior endplate osteophytes. Minimal left and small right uncovertebralspurs. Minimal bilateral facet arthropathy. No spinal stenosis.Moderate right foraminal stenosis. C5-6: Mild disc space height loss and moderate endplate irregularity.Small anterior endplate osteophytes. Small bilateral uncovertebral spursand a small symmetric disc bulge. No significant spinal stenosis.Moderate right and moderate-severe left foraminal stenosis. C6-7: Moderate disc space height loss and endplate irregularity. Minimalanterior endplate osteophytes. Small bilateral uncovertebral spurs and aminimal symmetric disc bulge. No spinal stenosis. Moderate-severe leftforaminal stenosis. C7-T1: Minimal endplate irregularity. No spinal or foraminal stenosis. IMPRESSION: No evidence of demyelinating disease involving the cervical cord. Stable very small syrinx. Degenerative changes as detailed above. -------- FINAL REPORT -------- Dictated By: Tian Hylton Dictated Date: 02/01/2025 10:41 ET Assigned Physician: Tian Hylton Reviewed and Electronically Signed By: Tian Hylton Signed Date: 02/01/2025 10:47 ET Workstation ID: [id number] Transcribed By: Self Edit Transcribed Date: 02/01/2025 10:41 ET Manda Casillas MD IMG MRI PROCEDURES Final Result from Last 3 Months Insurance [facility] Care Teams Dye Beck Reel Operator Relationship Specialty Start Date End Date Cari Ambrose MD [address] [place] [phone] PCP - General Internal Medicine 04/13/20
--- OUTSIDE RECORDS SUMMARY | 2025-02-25 15:20 | XMS_ITS | Data Portability ---
Author Organization [place] - [facility], Allergy Address [address] [place] [address] Care Team Providers Care Physician Liaison Name Role Phone DESIREE SNYDER Primary Care [...] and see me back in 6 months [email or web address] Not available 03/24/2024 15:48:00 09/26/2024 09/26/2024 Patient [...] suspensio n for nebulizat ion 2023 024 [id number], [address], [place], [phone], 03/24/2024 15:49:24 Patient TargetsNo targets recorded. Patient Instructions Encounter Date Encounter Id Patient Instructions Last Modified By Organization Details Last Modified Time 09/26/2024 [id number] Overall doing well. No evidence of recurrent [...] Name and Address Organization Details Recorded Time Herpes zoster with nervous system complicat ion [id number] Active 2014 Herpes zoster: Other; Note: Date Diagnosed : 08/31/2014 3:03 PM (053.19) Not Available [facility] 4 02:36:46 Nasal polyp Active 2014 Nasal polyps; Note: Date Diagnosed : 09/28/2014 5:00 PM (471.0) Not Available [facility] 4 02:36:45 Asthma 089857904 Active 2014 Asthma; Note: Date Diagnosed : 09/28/2014 5:00 PM (493.90) Not Available [facility] 4 02:36:48 Chronic maxillary sinusitis 69329755 Active 2014 Chronic maxillary sinusitis ; Note: Date Diagnosed : 11/27/2014 10:45 AM (473.0) Not Available [facility] 4 02:36:46 Uncomplic ated asthma 483863883 Active 2014 Asthma NOS; Note: Date Diagnosed : 02/03/2015 9:14 AM (J45.909) [mapped from ICD9 code: 493.90] Not Available [facility] 4 02:36:55 Chronic pansinusi tis 01442958 Active 2014 Chronic pansinusi tis; Note: Date Diagnosed : 02/03/2015 9:14 AM (J32.4) [mapped from ICD9 code: 473.8] Not Available [facility] 4 02:36:54 Seasonal allergic rhinitis 948864727 Active 2014 Other seasonal allergic rhinitis; Note: Date Diagnosed : 02/03/2015 9:14 AM (J30.2) [mapped from ICD9 code: 477.8] Not Available [facility] 4 02:36:47 Polyp of nasal cavity 986423617 Active 2014 Polyp of nasal cavity; Note: Date Diagnosed : 02/03/2015 9:14 AM (J33.0) [mapped from ICD9 code: 471.0] Not Available [facility] 4 02:36:51 Exacerbat ion of mild persisten t asthma 454868045 Active 2014 Mild persisten t asthma with (acute) exacerbat ion; CMS Risk: moderate risk CMS Treatment : establish ed problem (to examiner) : unstable or worsening Note: Date Diagnosed : 05/12/2015 9:03 AM (J45.31) Not Available [facility] 4 02:36:53 Mild intermitt ent asthma 159799150 Active 2014 Mild intermitt ent asthma, uncomplic ated; Note: Date Diagnosed : 5 1:21 PM (J45.20) Not Available [facility] 4 02:36:47 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 855921404 Active 2016 Coagulati on defects: Other hemorrhag ic disorder due to intrinsic circulati ng anticoagu lants, antibodie s, or inhibitor s; Note: Date Diagnosed : 05/12/2015 8:41 AM () Not Available [facility] 4 02:36:51 Allergy to drug 995586400 Active 2016 Allergy status to analgesic agent status; CMS Risk: moderate risk Note : Date Diagnosed : 05/12/2015 8:43 AM (Z88.6) Not Available [facility] 4 02:36:57 Disorder of respirato ry system 09002226 Active 2016 Respirato ry condition s due to other specified external agents; CMS Risk: moderate risk Note : Date Diagnosed : 05/12/2015 8:43 AM (J70.8) Not Available [facility] 4 02:36:57 Epistaxis Active 2016 Epistaxis ; Note: Date Diagnosed : 05/12/2015 8:41 AM () Not Available [facility] 4 02:36:49 Bleeding from nose 607815434 Active 2016 Epistaxis ; Note: Date Diagnosed : 05/12/2015 8:42 AM () Note: Date Diagnosed : 05/12/2015 8:42 AM () Not Available [facility] 4 01:05:06 Long-term current use of anticoagu lant 311753781 Active 2016 jail (current) use of anticoagu lants; Note: Date Diagnosed : 05/12/2015 8:42 AM () Not Available [facility] 4 02:36:45 Postopera tive visit 101670960 Active 2016 Post Op Visit; Note: Date Diagnosed : 12/22/2016 1:59 PM (V67.0) Not Available [facility] 4 02:36:51 Chronic rhinitis 61721211 Active 2016 Rhinitis, chronic; Note: Date Diagnosed : 01/04/2017 12:17 PM (472.0) Chronic rhinitis; Note: Date Diagnosed : 11/27/2014 10:45 AM (472.0) ; Start Date : 5 Not Available [facility] 4 02:36:46 Uncomplic ated moderate persisten t asthma 347248315 Active 2016 Moderate persisten t asthma, uncomplic ated; Note: Date Diagnosed : 10/07/2015 10:19 AM (J45.40) Not Available [facility] 4 02:36:51 Uncomplic ated mild persisten t asthma 325885148 Active 2016 Mild persisten t asthma, uncomplic ated; Note: Date Diagnosed : 10/07/2015 10:18 AM (J45.30) Not Available [facility] 4 02:36:54 Chronic sinusitis 55224480 Active 2018 Chronic pansinusi tis; CMS Risk: moderate risk CMS Treatment : establish ed problem (to examiner) : unstable or worsening Note: Date Diagnosed : 4 11:10 AM (473.8) ; Start Date : 4 Other chronic sinusitis ; Note: Date Diagnosed : 11/20/2018 4:09 PM (J32.8) Not Available [facility] 4 02:36:48 Other specified respirato ry system anomaly NOS Active 2019 Other specified respirato ry disorders ; Note: Date Diagnosed : 01/05/2020 1:51 PM (J98.8) Not Available [facility] 4 02:36:57 Allergic rhinitis 83006817 Active 2019 Allergic Rhinitis; Note: Date Diagnosed [...] : 01/05/2020 1:51 PM (J30.89) Not Available [facility] 4 02:36:44 Acute sinusitis 91532336 Active 2019 Other acute sinusitis ; Note: Date Diagnosed : 03/18/2020 3:53 PM (J01.80) Not Available [facility] 4 02:36:55 Multiple sclerosis 18772131 Active 2019 Multiple sclerosis ; Note: Date Diagnosed : 04/07/2020 10:34 AM (G35) Not Available [facility] 4 02:36:48 Disorder of smell 211469020 Active 2020 Other disturban maddie of smell and taste; Note: Date Diagnosed : 09/27/2020 3:36 PM (R43.8) Not Available [facility] 4 02:36:49 Disorder of taste 779842154 Active 2020 Other disturban maddie of smell and taste; Note: Date Diagnosed : 09/27/2020 3:36 PM (R43.8) Not Available [facility] 4 02:36:49 Exacerbat ion of moderate persisten t asthma 502954739 Active 2021 Moderate persisten t asthma with (acute) exacerbat ion; Note: Date Diagnosed : 12/16/2021 3:36 PM (J45.41) Not Available [facility] 4 02:36:55 Headache 24593317 Active 2021 Headache, unspecifi ed; Note: Date Diagnosed : 02/03/2022 4:09 PM (R51.9) Not Available [facility] 4 02:36:49 Polyp of nasal cavity and/or nasal sinus 749080801 Active 2023 JAYCE COVARRUBIAS MD [address] [facility] [[email or web address]] [address], [place], [address] , [place] - [facility] 4 15:46:43 Moderate persisten t asthma 440794486 Active 2023 JAYCE COVARRUBIAS MD [address], [place], [address] , [place] [facility] 4 09:29:22 Impacted cerumen in left ear 46502725148 37500 Active 2024 JAYCE COVARRUBIAS MD [address] [facility],[place] [address], [place], [address] , [place] [facility] 5 15:58:55 Problem Notes None recorded. Procedures Surgical History Date Name Laterality Status Provider Name and Address Organization Details Recorded Time 5 JMSNasal/Sinu s Endoscopy-BIANKA OR surgical cavities completed JAYCE SNYDER MD [address] [facility],[place] [address], [place], [address], [facility] - [facility] 09/26/2024 16:00:02 4 JMSNasal/Sinu s Endoscopy-BIANKA OR surgical cavities completed JAYCE SNYDER MD [address] [facility],[place] [address], [place], [address], [facility] 03/24/2024 15:46:29 Imaging Results None recorded. Procedure Notes None recorded. Medical Equipment None Reported. Allergies Allergen ID Allergen Name Allergen Category Reaction Reaction Severity Criticality Documentation Date Start Date Code Code System Note Provider Name and Address Organization Details Recorded Time 85986 aspirin medicatio n wheezing Not available Not available 12/18/2023 1191 RxNorm React ion: asthm a;; Not Available [facility] 4 00:58:11 31522 clarithro mycin medicatio n other Not available Not available 12/18/2023 24338 RxNorm React ion: unkno wn, unspe cifie d;; Not Available [facility] 4 00:28:41 62832 oxycodone medicatio n other Not available Not available 12/18/2023 7804 RxNorm React ion: unkno wn, unspe cifie d;; Not Available [facility] 4 00:58:13 Medications Name Sig Start Date Stop Date Status Note LastModified by Organization Details LastModified Time Prescript ion - Prior Authoriza tion Request active Script Copy/Bianka or Auth^Scr ipt Copy/Bianka or Auth_ Not Available Not Available Not Available cyclobenz aprine 10 mg tablet TAKE 1 TABLET BY MOUTH AT BEDTIME NEEDED FOR MUSCLE SPASM active Not Available Not Available No t Available Topamax 200 mg tablet 03/04 completed Medicati on ID: [id number] Br and Name: Topamax Send Method: E-Prescr ibed Sub s Allowed: subs OK Medic ationGen ericName : Topamax Not Available Not Available Not Available Augmentin 875 mg-125 mg tablet 09/26 completed Medicati on ID: [id number] Du ration Value: 21 Prescri bed By [...] mg tablet 09/26 completed Medicati on ID: [id number] Du ration Value: 5 Prescri bed By Name: Tay Fraga nd Name: predniso ne Send Method: E-Prescr ibed Sub s Allowed: subs OK Speci al Instruct ion: take as [facility] ed [facility] Not Available Not Available Not Available doxycycli ne hyclate 100 mg capsule by mouth 05/21 completed Medicati on ID: [id number] D uration Value: 10 Prescri bed By Name: Tay Reed nd Name: doxycycl ine hyclate Send Method: E-Prescr ibed Sub s Allowed: subs OK Speci al Instruct ion: Take 1 po BID X 10 days Med icationG enericNa me: doxycycl ine hyclate Not Available Not Available Not Available valacyclo vir 1 gram tablet 03/04 completed Medicati on ID: [id number] Pr escribed By Name: Tay Fraga nd [...] by mouth 09/26 completed Medicati on ID: [id number] D uration Value: 3 Prescri bed By [...] mg tablet 03/04 completed Medicati on ID: [id number] Br and Name: sertrali ne Send Method: E-Prescr ibed Sub s Allowed: subs OK Medic ationGen ericName : sertrali ne Not Available Not Available Not Available simvastat in 10 mg tablet TAKE 1 TABLET BY MOUTH EVERY DAY active Not Available Not Available No t Available Biaxin 500 mg tablet 1 tablet by mouth 09/26 completed Medicati on ID: [id number] D uration Value: 21 Prescri bed By Name: MITZI Alfredo nd Name: Biaxin S end Method: E-Prescr ibed Sub s Allowed: subs OK Medic ationGen ericName : Biaxin Not Available Not Available Not Available Nexium 40 mg capsule,d elayed release 10/27 completed Medicati on ID: [id number] D uration Value: 30 Reason: () Brand Name: Nexium S end Method: E-Prescr ibed Sub s Allowed: subs OK Speci al Instruct ion: 1 po qam Medi cationGe nericNam e: Nexium Not Available Not Available Not Available Zyrtec 10 mg tablet 09/26 completed Medicati on ID: [id number] Br and Name: Zyrtec S end Method: E-Prescr ibed Sub s Allowed: subs OK Medic ationGen ericName : Zyrtec Not Available Not Available Not Available Aspir-Low 81 mg tablet,de layed release 12/30 completed Medicati on ID: [id number] Br and Name: Aspir-Lo w Send Method: [...] mg tablet 09/26 completed Medicati on ID: [id number] B rand Name: alprazol am Send Method: [...] by mouth 09/26 completed Medicati on ID: [id number] D uration Value: 21 Prescri bed By Name: Tay Reed nd Name: doxycycl ine monohydr ate Send Method: E-Prescr ibed Sub s Allowed: subs OK Medic ationGen ericName : doxycycl ine monohydr ate Not Available Not Available Not Available Advair Diskus 500 mcg-50 mcg/dose powder for inhalatio n 1 puff 2019 active Medicati on ID: [id number] D uration Value: 30 Prescri bed By [...] tablet TAKE 1 TABLET BY MOUTH DAILY 2024 active Not Available Not Available Not Avai lable mupirocin 2 % topical ointment APPLY A SMALL AMOUNT TOPICALL Y EVERY [address] IN IRRIGATI ON TWICE DAILY AND ALONG THE NASAL APERTURE 09/26 completed Not Available Not Available Not Available epinephri ne 0.3 mg/0.3 mL injection , auto-inje ctor Inject 1 pen injector single dose as needed 2022 active Medicati on ID: [id number] D uration Value: 180 Brand Name: epinephr [...] by mouth 01/06 completed Medicati on ID: [id number] Pr escribed By Name: Tay Reed nd [...] a day 03/21 completed Medicati on ID: [id number] D uration Value: 30 Prescri bed By Name: Tay Reed nd Name: Spiriva with HandiHal er Send Method: E-Prescr ibed Sub s Allowed: subs OK Medic ationGen ericName : Spiriva with HandiHal er Not Available Not Available Not Available Tysabri 300 mg/15 mL intraveno us solution 09/26 completed Medicati on ID: [id number] B rand Name: Tysabri Send Method: E-Prescr ibed Sub s Allowed: subs OK Medic ationGen ericName : Tysabri Not Available Not Available Not Available prednison e 09/26 completed Medicati on ID: [id number] D uration Value: 10 Prescri bed By [...] as needed 09/26 completed Medicati on ID: [id number] D uration Value: 30 Prescri bed By Name: Tay Reed nd Name: ProAir HFA Send Method: E-Prescr ibed Sub s Allowed: subs OK Medic ationGen ericName : ProAir HFA Not Available Not Available Not Available Theraflu Cold-Sore Throat (PE) 20 mg-10 mg-325 mg oral powder packet 03/04 completed Medicati on ID: [id number] Br and Name: Theraflu Cold-Sor e Throat (PE) Sen d Method: E-Prescr ibed Sub s Allowed: subs OK Medic ationGen ericName : Theraflu Cold-Sor e Throat (PE) Not Available Not Available Not Available Nasacort 55 mcg nasal spray aerosol 12/30 completed Medicati on ID: [id number] Br and Name: Nasacort Send Method: E-Prescr [...] a day 2023 active Medicati on ID: [id number] D uration Value: 90 Prescri bed By [...] Details Last Updated DateTime 09/26/2024 157.48 cm 89614.59 g Danika Smith [place] [facility] 09/26/2024 15:23:55 Date Recorded Body height Body mass index (BMI) Body weight Provider Name and Address Organization Details Last Updated DateTime 03/24/2024 157.48 cm 33.8 kg/m2 57065.59 g Humphrey Benton [place] [facility] 03/24/2024 15:29:33 Social History None recorded. [...] SNOMED-CT Code Diagnosis ICD10 Code Diagnosis Note [id number] JAYCE COVARRUBIAS MD [facility] [address] [address] 03/24/2024 15:11:59 03/24/2024 15:51:16 Allergy to drug 125140347 Z88.6 Exacerbati on of moderate persistent asthma 571177024 J45.41 Disorder o f respiratory system 20161901 J70.8 Polyp of nasal cavity 73 2259964 J33.0 Chronic sinusitis 479779 00 J32.9 [id number] JAYCE COVARRUBIAS MD [facility] [address] [place] [address] 09/26/2024 15:06:10 09/26/2024 16:01:28 Allergy to drug 590294262 Z88.6 Polyp of n [place] cavity and/or nasal sinus 118392723 J33.1 Moderate p ersistent asthma 794177973 J45.40 Disorder o f respiratory system 09153727 J70.8 Impacted c erumen in left ear 6661173712 807751 H61.22 Suggested 3 drops distilled vinegar in each ear twice weekly to prevent the buildup of cerumen Health Concerns Section Related Observation LastModified by Organization Detai ls LastModified Time None Recorded Concern Status LastModified by Organization Details LastModified Time None Recorded Advance Directives Directive None Recorded Payers Insurance Date Sequence Insurance Name Policy Number Policy Benavides Covered Member ID Benavides Member ID Guarantor Name 09/26/2024 1 [facility] Tanya Bonilla [id number] Tanya Bonilla Notes Date Note Type Note Provider Name and Address Organization Details Recorded Time 03/24/2024 text/html Patient with his tory of aspirin exacerbated respiratory disease. They have undergone aspirin desensitization. It was not successful. They are not presently taking aspirin daily. They are presently using topical budesonide irrigations. They are taking a long-acting beta agonist with inhaled corticosteroid and a leukotriene modifier. Albuterol not needed recently < >They have previously undergone endoscopic sinus surgery twice. < >Presently the are experiencing asthma symptoms. No need for albuterol < > Their sense of smell is abnormal. < > They are not presently taking biologic therapy .She is on Tysabri for MS JAYCE SNYDER MD [address] [facility],[address], [address], [place] - [facility] 03/24/2024 15:49:52 09/26/2024 text/html Patient with his tory of aspirin exacerbated respiratory disease. They have undergone aspirin desensitization. It was not successful. They are not presently taking aspirin daily. They are presently using topical budesonide irrigations. They are taking a long-acting beta agonist with inhaled corticosteroid and a leukotriene modifier. Albuterol not needed recently<>They have previously undergone endoscopic sinus surgery twice.<>Presently are not experiencing asthma symptoms. No need for albuterol for over 30 days<> Their sense of smell is abnormal.<> They are not presently taking biologic therapy .She is on Tysabri for MS She notes blockage and crackling in the left ear. She has lost 35 pounds since starting Wegovy May 06 JAYCE SNYDER MD [address] [facility],[place] [address], [place], [address], [facility] 09/26/2024 16:00:28 OBGyn Episode No OBEpisode recorded.
--- OUTSIDE RECORDS SUMMARY | 2025-02-25 15:20 | XMS_ITS | Patient Health Record ---
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 Name Role Phone Arnol GUTIÉRREZ, [facility] Primary Care Provider Ash Ernandez Jr Unavailable [phone] Allergies Allergen (clinical drug ingredient) Drug/Non Drug Allergy documented on EMR Reaction Allergy Type Onset Date Status Vicodin Unknown Drug Allergy Active acetaminophen / oxycodone Percocet Unknown Drug Allergy Active aspirin Aspirin Unknown Drug Allergy Active Reason For Referral Referring Provider First Name Cari Referring Provider Last Name Arnol Referring Provider Speciality Internal M edicine Referred Organization [facility] Referred Provider Ash Obando Jr Referred Address [address] [place] [address], [address],[place], [place],[address], Referred Provider Specialty Gastroentero logy General Notes Maureen Cannon 2024 12:44:32 PM >requested a paw paw pilgrim referral from Dr. 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) Active confirmed Problem 590402178 Gastroesophageal reflux disease without esophagitis (K21.9) Active confirmed Problem 496398050 Family history o f colon cancer (Z80.0) Active confirmed Problem 433217474 FH: colon cancer (Z80.0) Active confirmed Problem 624728481 Adenomatous poly p of colon, unspecified part of colon (D12.6) Active confirmed Vital Signs Blood pressure diastolic 11 mm Hg 10/30/2024 Height 62 in 10/30/2024 Blood pressure systolic 111 mm Hg 10/30/2024 Weight 166 lbs 10/30/2024 BMI 30.36 kg/m2 10/30/2024 Encounters Encounter Location Date Provider Diagnosis [facility] [address] [place] [address] 10/30/2024 Ash Obando Jr Viveros's esophagus without dysplasia K22.70 and Colon cancer screening Z12.11 [facility] [address] [place] [address] 10/13/2024 sAh Obando Jr Assessments Encounter Date Diagnosis (ICD [...] Provider Name:Ash escobar , 06/09/2025 07:30:00 AM, [address] [place] [address] , [place], [place], [id number], Insurance Providers Payer Name Payer Address Payer Phone Subscriber Number Group Number Insured Name Patient Relationship to Insured Coverage Start Date Coverage End Date [facility] [address] [place] [phone] [id number] CORINA COLES Self - patient is the [...]
--- OUTSIDE RECORDS SUMMARY | 2025-02-25 15:20 | XMS_ITS | Patient Health Record ---
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 Name Role Phone Arnol GUTIÉRREZ, Asma Primary Care Provider Maite Tony Unavailable [phone] Allergies Allergen (clinical drug ingredient) Drug/Non Drug Allergy documented on EMR Reaction Allergy Type Onset Date Status codeine Codeine anaphylaxis Drug Allergy Activ e Reason For Referral No Information Medications Medication SIG (Take, Route, Frequency, Duration) Notes Start Date End Date Status Furosemide 20 MG 1 tablet Orally Once a day 07/22/2015 Not-Taking Night Splint AFO - L1930 as directed 07/27/2015 Not-Taking Topiramate 200 MG 1 tablet Orally Twic e a day 07/22/2015 Not-Taking Singulair Active ZyrTEC Active Advair Diskus 250-50 MCG/DOSE 1 puff Inhalation Twice a day 07/22/2015 Active Budesonide Active EpiPen 2-Rajeev 0.3 MG/0.3ML Injection 07/22/2015 Active Omeprazole 40 MG 1 capsule Orally Onc e a day 07/22/2015 Active Montelukast Sodium 10 MG 1 tablet in the evening Orally Once a day 07/22/2015 Not-Taking ProAir HFA 108 (90 Base) MCG/ACT 2 puffs as needed Inhalation every 4 hrs 07/22/2015 Active Social History Tobacco Use/Smoking Question Answer Notes Additional Findings: Tobacco Non-User Cu rrent non-smoker,Ex-cigarette smoker,Ex-moderate cigarette smoker (10-19/day) Alcohol Screen Question Answer Notes Did you have a drink contain ing alcohol in the past year? Yes How often did you have a dri nk containing alcohol in the past year? 4 or more times a week (4 points) Points 4 Interpretation Positive Tobacco use other than smoking: Question Answer Notes Are you an other tobacco user? No Problems No Known Problems Plan Of Treatment Pending Test Test Name Order Date X ray : Foot, left 3V 03/06/2018 X ray : Foot, right 3V 03/06/2018 Insurance Providers Payer Name Payer Address Payer Phone Subscriber Number Group Number Insured Name Patient Relationship to Insured Coverage Start Date Coverage End Date [facility] [address] [id number] Tanya Bonilla Self - patient is the insured Medical (General) History Medical History History ICD Code Back,Hip,and Knee pain Macular degeneration chronic sinusitis Chicken pox asthma Arthritis Broken bones Depression Headaches/Migraines Numbness Reflux ( GERD) Surgical History Surgery Date(Month/Year) shoulder x2 knee x2 sinus surgery x2 2016
== END 2025-02-25 15:07 | disposition home or self-care (01) ==
LOC: HO.HMCC 14:47
PROVIDERS: PCP Internal Medicine; Visit Provider Internal Medicine
DX: E66.3 Overweight (principal); E78.9 Disorder of lipoprotein metabolism, unspecified; G35 Multiple sclerosis; Z91.09 Other allergy status, other than to drugs and biological substances; K21.9 Gastro-esophageal reflux disease without esophagitis

== ENCOUNTER 2025-02-25 14:46 | Outpatient (REF) | payer OTHER, SELFPAY ==
[2025-02-25 16:55] LABS: Alanine Aminotransferase 29 U/L (0-31); Albumin Level 4.4 g/dL (3.5-5.0); Alkaline Phosphatase 69 U/L (39-117); Amylase 37 U/L (28-100); Anion Gap 12 (12-20); Aspartate Amino Transferase 30 U/L (5-31); Blood Urea Nitrogen 7 mg/dL (9-16); Calcium 9.2 mg/dL (8.4-10.2); Carbon Dioxide 26 mmol/L (22-29); Chloride 107 mmol/L (96-108); Estimated Glomerular Filt Rate > 60; Lipase 33 U/L (8-78); Potassium 4.1 mmol/L (3.3-5.1); Sodium 141 mmol/L (135-145); Total Protein 6.7 g/dL (6.5-8.0)
== END 2025-02-25 14:47 | disposition home or self-care (01) ==
LOC: HO.HMGCLDS 14:46
PROVIDERS: PCP Internal Medicine; Visit Provider Internal Medicine
DX: M54.2 Cervicalgia (principal); J45.40 Moderate persistent asthma, uncomplicated; E78.9 Disorder of lipoprotein metabolism, unspecified; E66.3 Overweight; G35 Multiple sclerosis; K21.9 Gastro-esophageal reflux disease without esophagitis; Z91.09 Other allergy status, other than to drugs and biological substances
CPT/HCPCS: 36415; 80053; 82150; 83690; 84443

== ENCOUNTER 2025-03-31 15:23 | Outpatient (AMB) | payer OTHER, SELFPAY ==
--- OUTSIDE RECORDS SUMMARY | 2024-05-23 13:18 | XMS_ITS | Encounter Summary ---
Author Organization [facility] Address [address] [place] [address] Care Team Providers Care Commodities Manager Name Role Phone Cari Ambrose MD Primary Care Provider [phone] Encounter Details Date Type Department Care Team [...] Care Team (Late st Contact Info) Description 04/10/2025 1:30 PM EDT Appointment [address] [phone] 05/08/2025 1:[address] [facility] [address] [place] [phone] documented as of this encounter Visit Diagnoses Not on filedocumented in this encounter Care Teams Commodities Manager Relationship Specialty Start Date End Date Cari Ambrose MD [address] [place] [phone] PCP - General Internal Medicine 04/13/20 documented as of this encounter
--- NOTE | 2025-03-31 15:29 | A.OFFVIS_ITS ---
Vital Signs 03/31/25 15:29 Height 5 ft 2 in Intake Visit Reasons: 3m/ Wants to review MRI w [facility] Allergies hydrocodone (From VICODIN) Allergy (Severe, Verified 03/31/25 15:41) SWELLING aspirin (ASPIRIN) Allergy (Intermediate, Verified 03/31/25 15:41) HIVES oxycodone (OXYCODONE) Allergy (Intermediate, Verified 03/31/25 15:41) HIVES ibuprofen Allergy (Unknown, Verified 03/31/25 15:41) Unknown Environmental Allergy (Unknown, Uncoded 03/31/25 15:41) Unknown Medication List - Last Reconciled 03/31/25 by Shakira Harry CNP acetaminophen (Tylenol) 325 mg PO Q8H PRN albuterol sulfate 90 mcg/actuation 1 puff inhalation Q4H PRN amitriptyline 37.5 mg PO BEDTIME cyclobenzaprine 10 mg PO BEDTIME PRN lidocaine 4% (AsperFlex (lidocaine)) 1 patch topical DAILY PRN [low impact exercise program as tolerated by the patient] montelukast 10 mg PO QPM natalizumab (Tysabri) 300 mg IV Q4W omeprazole 40 mg PO DAILY rizatriptan take 1 tab at onset of headache; if no relief may repeat 1 tab after at least 2 hrs; max = 3 tabs/24 hr PO simvastatin 10 mg PO DAILY 90 days tirzepatide (weight loss) 7.5 mg (0.5 mL) subcut QWEEK 30 days HPI Comments Details: Continues with numbness and paresthesia to both hands, R > L. Dexterity is not so good. Waking up with headaches more after reducing amitriptyline dose to 25mg, as she was having a hard time cutting pill in half. Ongoing neck and LBP for many years without radiation. No falls. On Tysabri, tolerating well, no medication side effects. Some numbness to left upper back area. Gets some zaps in neck if turns head to left. No change in numbness to L upper outer thigh and inside of calf. Occasional RLE spasms at night. Bad headache once every few weeks with occasional nausea and vomiting. No photophobia or sonophobia. Rizatriptan helps some. Some visual auras without headache lasting few minutes. Some R knee pain. Hx of migraines in teenage years. Some intermittent numbness to L side of face/h ead with and without headache. Intermittent episodes of numbness to LUE. Both legs feel numb from knee down. Had 3 doses of IV Solumedrol. Also has some numbness of chin. Tight band feeling in left calf, some to right. Numbness hands bilaterally. MRI brain and C spine show multiple white matter lesions in the supratential area, not specific. Whole left side feels heavy, weak, tingly and pain is also resolving except some left calf tightness. Seen at [facility] and saw Dr. Vallejo. She had an extensive work up and had everything ruled out. They questioned the diagnosis of MS. On 04/04/20 she woke with blindness in right eye that lasted 30minutes. She had bad headaches for 3 days before that. She was admitted to [facility] and had complete workup that was normal. CTA head and neck normal. MRI orbit negative. Sedrate 10. Feels tired and occasionally trips. Whole body feels weighted down. Tingling and electricity in her body, ankles, legs and hands constantly most of the time and elbow soreness. around 3 pm she runs out of energy. Vision has improved in OD. She recalls having soreness on eye movt in OD in mid to late May 2019. She was found to have a marked change in vision in the right eye which cannot be corrected with glasses therefore, question of optic neuritis was raised. She was not aware of it until the eye exam and had no complaints. Previously, had some issues with losing words in his speech and having difficulty getting stuck, sometimes she's not sure if she is taking the right turn when she is driving. She also gets some tingling paresthesia in the anterolateral thighs intermittently and had a single episode of generalized body tremor on awakening in the nights around 2016. There is no pain in the eye. Had bilateral cataract extraction. [facility] Medical History (Updated 03/31/25 @ 15:37 by Shakira Harry CNP) Carpal tunnel syndrome, bilateral upper limbs Lumbar disc disease Cervical disc disease Peripheral neuropathy Insomnia Optic neuritis Elevated cholesterol Asthma Anxiety Multiple sclerosis GERD (gastroesophageal reflux disease) Depression Vomiting Surgical History History of esophagogastroduodenoscopy (EGD) S/P dilation and curettage H/O prior ablation treatment H/O arthroscopy of knee History of arthroscopy of right shoulder History of sinus surgery Family History Father HTN (hypertension) Mother HTN (hypertension) Rectal cancer Brother No problems noted. Brother No problems noted. Sister No problems noted. Sister No problems noted. Social History Housing: Condominium Alcohol intake: current Alcohol intake frequency: holidays/special occasions only Patient Tobacco Use Status: Former Tobacco user e-Cigarette/Vaping Use: Never Used service: No Current occupational status: employed Cognitive needs: No Hearing needs: No Vision needs: Yes Review of Systems Const Denies chills, Denies daytime sleepiness, Reports difficulty sleeping, Reports fatigue, Denies fever(s), Denies frequent falls, Reports headache(s), Denies increased appetite, Denies poor appetite, Denies snoring, Denies weakness, Denies weight gain and Denies weight loss Eyes Denies loss of vision ENT Denies vertigo, Denies dizziness, Reports headache(s) and Reports neck pain Card Denies chest pain at rest, Denies chest pain with activity, Denies syncope, Denies leg edema, Denies palpitations, Denies dyspnea and Denies dyspnea on exertion Resp Denies cough, Denies dyspnea, Denies dyspnea on exertion and Denies snoring GI Denies abdominal pain, Denies constipation, Denies heartburn, Denies diarrhea and Denies nausea Denies urinary frequency, Denies urinary incontinence and Denies urinary urgency Musc Denies abnormal gait, Reports back pain, Denies myalgias, Denies arthralgias, Reports neck pain, Reports numbness and Reports tingling Neuro Denies abnormal gait, Denies vertigo, Denies dizziness, Denies syncope, Denies frequent falls, Reports headache(s), Denies lack of coordination, Denies loss of vision, Denies memory loss, Reports numbness, Denies Other visual disturbances, Denies restless legs, Denies seizure-like activity, Reports tingling, Denies paresthesias, Denies tremor(s), Denies weakness and Reports other (balance difficulty) Psych Denies anxiety, Denies depression, Denies auditory hallucinations, Denies memory loss and Denies visual hallucinations Endo Reports fatigue and Denies palpitations Physical Exam Const Other: General Appearance:? normal, in no acute distress. Heart:? S1, S2 normal, no murmurs. Lungs:? clear anteriorly and posteriorly. Musculoskeletal:? normal. Extremities:? no edema. Psych:? alert, oriented, cognitive function intact, cooperative with exam. Neuro Other: Abnormal Neurological Findings:?Visual acuity in the right is 20/200 with briskly responding. Pupillary reflexes. No papilledema or optic atrophy. Generalized LLE weakness 5-/5. R deltoid, R finger spread, R APB 5-/5 Mental Status: alert and oriented X 3. Normal attention, orientation, memory, and affect. Cranial Nerves: Pupils are equal, round, and reactive to light. External ocular muscles are intact. Visual manuel are full, no ptosis. Face is symmetrical, no facial weakness or droop. Facial sensations are normal. Tongue protrudes in midline. Palate elevates symmetrically. Shoulder shrugging is normal Motor Examination: As above, otherwise normal muscle tone, bulk and strength. No atrophy or fasciculations. No drift of the extended upper extremities. DTR 2+. Plantars are flexor. Sensory Exam: Normal light touch, temperature, pinprick, vibration, and joint- position sensations. Rhomberg sign is absent. Coordination: No ataxia. No titubation. Gait Exam: Within normal limits. Cerebellar Signs: [id number] is okay. Extrapyramidal System: No tremor, rigidity with normal facial expressions. No b radykinesia. No bradyphrenia. Normal arm swing and posture. No propulsion or retropulsion. Speech: Normal. Results Reviewed Results Reviewed: MRI C-Spine W&WO 02/01/2025: Degenerative changes. Stable, small syrinx. No demyelinating disease. NCV/ EMG upper extremities 01/28/25: Normal. C-spine XR 09/2024: Degenerative changes MRI Brain W+W/O 06/03/2024: No significant interval change in white matter lesions in both cerebral hemispheres mostly involving subcortical white matter. No focal areas of restricted diffusion or abnormal enhancement. Liver profile and JCV 01/2024: ok MRI Brain W+W/O 06/17/2023: Stable nonspecific supratentorial white matter T2 hyperintensities compared to 2021. No new lesions or abnormal enhancement MRI C-Spine W+W/O: Stable exam. No evidence of demyelination in cervical spine Assessment & Plan Assessment & Plan (1) Multiple sclerosis: Code(s): G35 - Multiple sclerosis Category: Medical Plan: She had CD of MRI - I reviewed CD of MRI along with Dr. Casillas, small central syrinx. No demyelinating disease. Continue Tysabri 300mg/15mL IV q28 days (2) Migraine with aura: Code(s): G43.109 - Migraine with aura, not intractable, without status migrainosus Category: Medical Qualifiers: Intractability: not intractable Status migrainosus presence: without status migrainosus Qualified Code(s): G43.109 - Migraine with aura, not intractable, without status migrainosus Plan: Continue rizatriptan 10mg 1 tablet as needed for migraine (3) Tension headache: Code(s): G44.209 - Tension-type headache, unspecified, not intractable Category: Medical Plan: May increase amitriptyline 25mg 2 tablets at bedtime. Continue cyclobenzaprine 10mg 1 tablet as needed for muscle spasm/pain. (4) Cervical disc disease: Code(s): M50.90 - Cervical disc disorder, unspecified, unspecified cervical region Category: Medical Plan: Continue acetaminophen 325mg 1 tablet as needed q8h for pain. (5) Lumbar disc disease: Code(s): M51.9 - Unspecified thoracic, thoracolumbar and lumbosacral intervertebral disc disorder Category: Medical Plan . Coding Level of Care Code Est Pt Level 4 (78596) Diagnoses Multiple sclerosis G35 Migraine with aura and without status migrainosus, not intractable G43.109 Intractability: not intractable Status migrainosus presence: without status migrainosus Tension headache G44.209 Cervical disc disease M50.90 Lumbar disc disease M51.9
--- OUTSIDE RECORDS SUMMARY | 2025-03-31 16:18 | XMS_ITS | Clinical Summary ---
Author Organization [facility] Address [address] [place] [address] Phone Care Team Providers Care Epitaxial Reactor Technician Name Role Phone Roxanne Garcia MD Primary Care Provider Anish John MD Unavailable [phone] Allergies Active Allergy Reactions Criticality Noted Date [...] day. 1 each 6 7 Active ID-aspirin ([id number]) 325 mg EC tablet Take 2 tablets [...] file Insurance [place] [address] [place], [place] [address] [place] [address] [facility] H[facility] Care Teams Epitaxial Reactor Technician Relationship Specialty Start Date End Date Roxanne Garcia MD [facility] [place] [address] PCP - General Internal Medicine 11/22/15 Anish John MD [facility] [address] [email or web address] Surgeon Otolaryngology 12/02/15 Additional Source Comments The information contained in this document represents components of the legal health record. It is not the complete legal health record.[facility]
--- OUTSIDE RECORDS SUMMARY | 2025-03-31 16:18 | XMS_ITS | Patient Health Record ---
Author Organization [facility] Address [address] [place] [address] Care Team Providers Care Room Service Clerk Name Role Phone Arnol [facility]UT[facility]RREZ, [facility] Primary Care Provider Ash Ernandez Jr Unavailable [phone] Allergies Allergen (clinical drug ingredient) Drug/Non Drug Allergy documented on EMR Reaction Allergy Type Onset Date Status Vicodin Unknown Drug Allergy Active acetaminophen / oxycodone Percocet Unknown Drug Allergy Active aspirin Aspirin Unknown Drug Allergy Active Reason For Referral Referring Provider First Name Cari Referring Provider Last Name Arnol Referring Provider Speciality Internal M edicine Referred Organization [facility] Referred Provider Ash Obando Jr Referred Address [address] [place] [address], [address],[place], [place],[address], Referred Provider Specialty Gastroentero logy General Notes Maureen Cannon 2024 12:44:32 PM >requested a cassatt pilgrim referral from Dr. 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) Active confirmed Problem 482404010 Gastroesophageal reflux disease without esophagitis (K21.9) Active confirmed Problem 604505078 Family history o f colon cancer (Z80.0) Active confirmed Problem 106684923 FH: colon cancer (Z80.0) Active confirmed Problem 295113318 Adenomatous poly p of colon, unspecified part of colon (D12.6) Active confirmed Vital Signs Blood pressure diastolic 11 mm Hg 10/30/2024 Height 62 in 10/30/2024 Blood pressure systolic 111 mm Hg 10/30/2024 Weight 166 lbs 10/30/2024 BMI 30.36 kg/m2 10/30/2024 Encounters Encounter Location Date Provider Diagnosis [facility] [address] [place] [phone] 10/30/2024 Ash Obando Jr Viveros's esophagus without dysplasia K22.70 and Colon cancer screening Z12.11 [facility] [address] [place] [phone] 10/13/2024 Ash Obando Jr Assessments Encounter Date [...] Provider Name:Ash escobar , 06/09/2025 07:30:00 AM, [address] [place] [address] , [place], [place], [id number], Insurance Providers Payer Name Payer Address Payer Phone Subscriber Number Group Number Insured Name Patient Relationship to Insured Coverage Start Date [facility]age End Date [facility] [address] [place] [id number] CORINA COLES Self - patient is the [...]
--- OUTSIDE RECORDS SUMMARY | 2025-03-31 16:18 | XMS_ITS | Patient Health Record ---
[facility] Address [address] [place] [address] Care Team Providers Care Arc Air Operator Name Role Phone Arnol GUTIÉRREZ, Asma Primary Care Provider Maite Tony Unavailable [phone] Allergies Allergen (clinical drug ingredient) Drug/Non Drug [...] Insured Coverage Start Date Coverage End Date [facility] [address] [place] [id number] Tanya Bonilla Self - patient is the insured Medical (General) History Medical History History ICD Code Back,Hip,and Knee pain Macular degeneration chronic sinusitis Chicken pox asthma Arthritis Broken bones Depression Headaches/Migraines Numbness Reflux ( GERD) Surgical History Surgery Date(Month/Year) shoulder x2 knee x2 sinus surgery x2 2016
--- OUTSIDE RECORDS SUMMARY | 2025-03-31 16:18 | XMS_ITS | Clinical Summary ---
Author Organization [facility] Address [address] [place] [address] Care Team Providers Care Transport Rn Name Role Phone Cari Ambrose MD Primary Care Provider [phone] Allergies Active Allergy Reactions Criticality Noted Date [...] age to complete this topic Care Teams Transport Rn Relationship Specialty Start Date End Date Cari Ambrose MD [address] [place] [address] PCP - General Internal Medicine 04/13/20
--- OUTSIDE RECORDS SUMMARY | 2025-03-31 16:18 | XMS_ITS | Clinical Summary ---
Author Organization [facility] Address [address] [place] [address] Phone Care Team Providers Care Pearl Diver Name Role Phone Cari Ambrose MD Primary Care Provider [phone] Allergies No known active allergies Medications acetaminophen [...] Noted Date Diagnosed Date MS (multiple sclerosis) ([facility] V24, [facility] V2 8) 06/20/2024 Encounters Date Type Department Care Team Description 03/13/2025 1:16 PM EDT - 03/13/2025 11:59 PM EDT Hospital Encounter [facility] [address] [address] Manda Casillas MD MS (multiple sclerosis) (CMS/HCC V24, [facility] V28) (Primary Dx) Discharge Disposition: Home or Self Care 02/13/2025 1:11 PM EDT - 02/13/2025 11:59 PM EDT Hospital Encounter [facility] [address] [place] [phone] Manda Casillas MD MS (multiple sclerosis) ([facility] V24, [facility] V28) (Primary Dx) Discharge Disposition: Home or Self Care 02/01/2025 7:37 AM EDT - 02/01/2025 11:59 PM EDT Hospital Encounter [address] [phone] MS (multiple sclerosis) ([facility] V24, [facility] V28) Discharge Disposition: Home or Self Care 01/09/2025 1:29 PM EDT - 01/09/2025 11:59 PM EDT Hospital Encounter [facility] [address] [place] [phone] Manda Casillas MD MS (multiple sclerosis) ([facility] V24, [facility] V28) (Primary Dx) Discharge Disposition: [...] Optic neuritis DX:Optic neuriti s Multiple sclerosis ([facility]/HCC V24, [facility] V28) DX:Multiple sclerosis (HCC) Insomnia DX:Insomnia Asthma [...] Sign Reading Time Taken Comments Blood Pressure 113/64 03/13/2025 1:30 PM EDT Pulse 83 03/13/2025 1:30 PM EDT Temperature 36.9 C (98.4 F) 03/13/2025 1:30 PM EDT Respiratory Rate 18 03/13/2025 1:30 PM EDT Oxygen Saturation 98% 03/13/2025 1:30 PM EDT Inhaled Oxygen Concentration - - Weight 69.4 kg (153 lb) 03/13/2025 1:30 PM EDT Height 157.5 cm (5' 2 ) 10/22/2020 7:50 AM EDT Body Mass Index 27.98 10/22/2020 7:50 AM EDT Plan of Treatment Upcoming Encounters Date Type Department Care Team (Late st Contact Info) Description 04/10/2025 1:30 PM EDT Appointment [facility] [address] [phone] 05/08/2025 1:30 PM EDT Appointment [facility] [address] [place] [phone] Health Maintenance Due Date Last Done Comments [...] 02/01/2025 8:56 AM EDT MS (multiple sclerosis) ([facility] V24, [facility] V28) from Last 3 Months Results * [...] Dictated Date: 02/01/2025 10:41 ET Assigned Physician: iTan Hylton Reviewed and Electronically Signed By: Tian Hylton Signed Date: 02/01/2025 10:47 ET Workstation ID: [id number] Transcribed By: Self Edit Transcribed Date: 02/01/2025 [...] Signed Date: 02/01/2025 10:47 ET Workstation ID: [id number] Transcribed By: Self Edit Transcribed Date: 02/01/2025 10:41 ET Manda Casillas MD IMG MRI PROCEDURES Final Result from Last 3 Months Insurance [facility] Care Teams Pearl Diver Relationship Specialty Start Date End Date Cari Ambrose MD [address] [place] [address] PCP - General Internal Medicine 04/13/20
== END 2025-03-31 16:17 | disposition home or self-care (01) ==
LOC: HO.HSM 15:24
PROVIDERS: PCP Internal Medicine; Referring Provider Internal Medicine; Visit Provider Registered Nurse
DX: G35 Multiple sclerosis (principal); G43.109 Migraine with aura, not intractable, without status migrainosus; G44.209 Tension-type headache, unspecified, not intractable; M50.90 Cervical disc disorder, unspecified, unspecified cervical region; M51.9 Unspecified thoracic, thoracolumbar and lumbosacral intervertebral disc disorder
CPT/HCPCS: 99214

== ENCOUNTER 2025-05-26 14:53 | Outpatient (AMB) | payer OTHER, SELFPAY ==
--- OUTSIDE RECORDS SUMMARY | 2024-05-23 13:18 | XMS_ITS | Encounter Summary ---
Author Organization [facility] Address [address] [place] [address] Care Team Providers Care Doll Dresser Name Role Phone Cari Ambrose MD Primary Care Provider [phone] Encounter Details Date Type Department Care Team [...] Care Team (Late st Contact Info) Description 06/05/2025 1:30 PM EDT Appointment [address] [phone] 07/03/2025 10:00 AM EST Appointment [facility] [address] [place] [phone] documented as of this encounter Visit Diagnoses Not on filedocumented in this encounter Care Teams Doll Dresser Relationship Specialty Start Date End Date Cari Ambrose MD [address] [place] [phone] PCP - General Internal Medicine 04/13/20 documented as of this encounter
[2025-05-26 15:03] VITALS: BP 108/66; PULSE 92; RESP 17; TEMP 36.7; O2SAT 96; BMI 25.1
--- NOTE | 2025-05-26 15:03 | A.OFFPC_ITS ---
Vital Signs 05/26/25 15:03 Height 5 ft 2 in Weight 137 lb BMI 25.1 BP 108/66 Blood Pressure Location Rt brachial Position Sitting Respiration 17 Pulse 92 Pulse Source Pulse Oximeter Temp 98.1 F Temp Source Oral Pulse Oximetry (%) 96 Oxygen Delivery Method Room Air Intake Visit Reasons: 3 months f/up Intake Note: Pt is h Allergies hydrocodone (From VICODIN) Allergy (Severe, Verified 05/26/25 15:07) SWELLING aspirin (ASPIRIN) Allergy (Intermediate, Verified 05/26/25 15:07) HIVES oxycodone (OXYCODONE) Allergy (Intermediate, Verified 05/26/25 15:07) HIVES ibuprofen Allergy (Unknown, Verified 05/26/25 15:07) Unknown Environmental Allergy (Unknown, Uncoded 05/26/25 15:07) Unknown Medication List - Last Reconciled 05/26/25 by Cari Ambrose MD acetaminophen (Tylenol) 325 mg PO Q8H PRN 30 days albuterol sulfate 90 mcg/actuation 1 puff inhalation Q4H PRN cyclobenzaprine 10 mg PO BEDTIME PRN fluticasone propion-salmeterol 250-50 mcg/dose 1 ea inhalation BID lidocaine 4% (AsperFlex (lidocaine)) 1 patch topical DAILY PRN [low impact exercise program as tolerated by the patient] montelukast 10 mg PO QPM natalizumab (Tysabri) 300 mg (15 mL) IV Q4W omeprazole 40 mg PO DAILY simvastatin 10 mg PO DAILY 90 days tirzepatide (weight loss) 7.5 mg (0.5 mL) subcut QWEEK 30 days Tobacco use date assessed: 05/26/25 Dental Screening Dental Screen Date: 11/26/24 HPI 3 months f/up HPI Details History of Present Illness The patient is a 64-year-old female presenting with asthma, GERD, weight management concerns, and hyperlipidemia. Asthma: - Patient reports using a maintenance in banner for asthma control. - Currently managing asthma with Montelu kast 10 mg daily. - No acute exacerbations reported since the last visit. Gastroesophageal Reflux Disease (GERD): - Chronic condition managed with Omepraz ole. - No new or worsening symptoms reported during the visit. Weight Management: - Patient has experienced significant we ight loss of 66 pounds over the past year and one month. - Previously weighed 154 pounds in February; currently weighs 137 pounds. - Patient attributes weight loss to Zepb ound, stating it is more effective than previously used Wegovy. - Reports body changes and is adjusting to new body image. - Involved in regular exercise, utilizin g a vibration plate for additional muscle stimulation. Medications: - Maintenance inhaler for asthma - Montelukast 10 mg for allergy and asth ma management - Simvastatin 10 mg for lipid control - Omeprazole for chronic GERD - Zepbound for weight loss Social History: - Actively engaged in exercise and utili zes a vibration plate for muscle stimulation. - Currently undergoing a significant giovana ght loss journey with an emphasis on achieving a normal BMI. - Reports challenges with excess skin fo llowing weight loss. - Assessing new body image and emotional adaptation due to weight changes. Diagnostic Results: - Labs from February this year show normal l iver enzymes and TSH levels, intact kidney function. - Earlier CBC from this year within norm al limits. Problem List - Asthma - Chronic Gastroesophageal Reflux Diseas e (GERD) - Hyperlipidemia - Weight management issues Plan - Continue Zepbound for weight loss as t he patient is pleased with results. Discussed potential for insurance changes and ensured refill plan until the end of the year. - Recommended continued physical activit y and vibration plate use for muscle tone while monitoring skin changes. - Continue Simvastatin for hyperlipidemi a with periodic lipid profile assessments. - Order blood tests to be done as fastin g before the next visit to monitor comprehensive health markers. - Schedule next follow-up appointment august. Review of Systems - General: No fever no chills - Neurological: No headaches no dizziness - Ear nose throat: No sore throat no hearing difficulty no ear pain - Cardiovascular: No syncope, no chest pain, no palpitations - Gastrointestinal: No nausea vomiting or diarrhea - Endocrine: No polyuria polydipsia no heat intolerance - Genitourinary: No dysuria , no blood in urine Physical Exam General: No acute distress HEENT: No acute findings Neck: Supple Respiratory system: Lungs are clear, able to talk in full sentences, no audible wheeze Cardiovascular: S1-S2 regular in rate and rhythm Gastrointestinal: No pain, no nausea Extremities: No new findings RIGGER SUPERVISOR: Alert awake oriented x3 motor intact Skin: Normal turgor [facility] Medical History Carpal tunnel syndrome, bilateral upper limbs Lumbar disc disease Cervical disc disease Peripheral neuropathy Insomnia Optic neuritis Elevated cholesterol Asthma Anxiety Multiple sclerosis GERD (gastroesophageal reflux disease) Depression Vomiting Surgical History History of esophagogastroduodenoscopy (EGD) S/P dilation and curettage H/O prior ablation treatment H/O arthroscopy of knee History of arthroscopy of right shoulder History of sinus surgery Family History Father HTN (hypertension) Mother HTN (hypertension) Rectal cancer Brother No problems noted. Brother No problems noted. Sister No problems noted. Sister No problems noted. Social History Housing: Condominium Alcohol intake: current Alcohol intake frequency: holidays/special occasions only Patient Tobacco Use Status: Former Tobacco user e-Cigarette/Vaping Use: Never Used service: No Current occupational status: employed Cognitive needs: No Hearing needs: No Vision needs: Yes Questionnaire Thrive Questionnaire Date Thrive assessed: 09/03/24 I am a: Patient What is your living situation today?: I have a steady place to live Within the past 12 months, did the food you bought not last and you didn't have the money to get more?: Never true Within the past 12 months, did you worry whether your food would run out before you got money to buy more?: Never true Do you have trouble paying for medicines?: No Do you have trouble getting transportation to medical appointments?: No Do you have trouble paying your heating and electricity bill?: No Do you have trouble taking care of your child, family member or friend?: No Do you have trouble with day-to-day activities such as bathing, preparing meals, shopping, managing finances, etc.?: No Are you currently unemployed and looking for a job?: No Are you interested in more education?: No Please select the resources that you would like help with: None Currently or been in a relationship where the following occur: No concerns reported THRIVE Score: 0 ANTELMO-7 AMB Questionnaire ANTELMO-7 Date ANTELMO - 7 assessed: 09/10/24 Source: Developed by Drs. Ino Horton, Lona Schaefer, Олег Robles and colleagues, with an educational azam from [employer]. Physical exam (Primary Care) Vital Signs: Last Vital Signs Temp 98.1 F 05/26/25 15:03 Pulse 92 05/26/25 15:03 Resp 17 05/26/25 15:03 BP 108/66 05/26/25 15:03 Pulse Ox 96 05/26/25 15:03 Oxygen Delivery Method Room Air 05/26/25 15:03 BMI result Body Mass Index 25.1 Tobacco/Smoking Status: Tobacco use Status Tobacco use date assessed 05/26/25 05/26/25 15:10 Patient Tobacco Use Status Former Tobacco user 05/26/25 15:10 e-Cigarette/Vaping Use Never Used 05/26/25 15:10 Thrive Assessment: Date of Thrive Assessment Date Thrive assessed 09/03/24 05/26/25 15:10 Currently or been in a relationship where the following occur: No concerns reported Coding Level of Care Code Est Pt Level 4 (26081) Diagnoses Lipid disorder E78.9 Multiple sclerosis G35 Environmental allergies Z91.09 Chronic GERD K21.9 Moderate persistent asthma without complication J45.40 Asthma persistence: persistent Asthma complication type: uncomplicated Assessment & Plan Assessment & Plan (1) Lipid disorder: Code(s): E78.9 - Disorder of lipoprotein metabolism, unspecified Category: Medical (2) Multiple sclerosis: Code(s): G35 - Multiple sclerosis Category: Medical (3) Environmental allergies: Code(s): Z91.09 - Other allergy status, other than to drugs and biological substances Category: Medical (4) Chronic GERD: Code(s): K21.9 - Gastro-esophageal reflux disease without esophagitis Category: Medical (5) Asthma, moderate: Code(s): J45.909 - Unspecified asthma, uncomplicated Category: Medical Qualifiers: Asthma persistence: persistent Asthma complication type: uncomplicated Qualified Code(s): J45.40 - Moderate persistent asthma, uncomplicated Plan Asthma: - Patient reports using a maintenance inhaler for asthma control. - Currently managing asthma with Montelukast 10 mg daily. - No acute exacerbations reported since the last visit. Gastroesophageal Reflux Disease (GERD): - Chronic condition managed with Omeprazole. - No new or worsening symptoms reported during the visit. Weight Management: - Patient has experienced significant weight loss of 66 pounds over the past year and one month. - Previously weighed 154 pounds in February; currently weighs 137 pounds. - Patient attributes weight loss to Zepbound, stating it is more effective than previously used Wegovy. - Reports body changes and is adjusting to new body image. - Involved in regular exercise, utilizing a vibration plate for additional muscle stimulation. Medications: - Maintenance inhaler for asthma - Montelukast 10 mg for allergy and asthma management - Simvastatin 10 mg for lipid control - Omeprazole for chronic GERD - Zepbound for weight loss Social History: - Actively engaged in exercise and utilizes a vibration plate for muscle stimulation. - Currently undergoing a significant weight loss journey with an emphasis on achieving a normal BMI. - Reports challenges with excess skin following weight loss. - Assessing new body image and emotional adaptation due to weight changes. Diagnostic Results: - Labs from February this year show normal liver enzymes and TSH levels, intact kidney function. - Earlier CBC from this year within normal limits. Problem List - Asthma - Chronic Gastroesophageal Reflux Disease (GERD) - Hyperlipidemia - Weight management issues Plan - Continue Zepbound for weight loss as the patient is pleased with results. Discussed potential for insurance changes and ensured refill plan until the end of the year. - Recommended continued physical activity and vibration plate use for muscle tone while monitoring skin changes. - Continue Simvastatin for hyperlipidemia with periodic lipid profile assessments. - Order blood tests to be done as fasting before the next visit to monitor comprehensive health markers. - Schedule next follow-up appointment for August. Medications: Refilled tirzepatide (weight loss) for 4 weeks 7.5 mg (0.5 mL) subcut QWEEK 2.5 mL 2RF 30 days
--- OUTSIDE RECORDS SUMMARY | 2025-05-26 20:04 | XMS_ITS | Clinical Summary ---
Author Organization [facility] Address [address] [place] [address] Care Team Providers Care Shoe Lacer Name Role Phone Cari Ambrose MD Primary Care Provider [phone] Allergies Active Allergy Reactions Criticality Noted Date [...] age to complete this topic Care Teams Shoe Lacer Relationship Specialty Start Date End Date Cari Ambrose MD [address] [facility] [place] [address] PCP - General Internal Medicine 04/13/20
--- OUTSIDE RECORDS SUMMARY | 2025-05-26 20:04 | XMS_ITS | Patient Health Record ---
Author Organization [facility] Address [address] [place] [address] Care Team Providers Care Seamer Name Role Phone Arnol GUTIÉRREZ, Asma Primary Care Provider Maite Tony Unavailable [phone] Allergies Allergen (clinical drug ingredient) Drug/Non Drug [...] Insured Coverage Start Date Coverage End Date [facility] [address] [place] [address] [phone] [id number] Tanya Bonilla Self - patient is the insured Medical (General) History Medical History History ICD Code Back,Hip,and Knee pain Macular degeneration chronic sinusitis Chicken pox asthma Arthritis Broken bones Depression Headaches/Migraines Numbness Reflux ( GERD) Surgical History Surgery Date(Month/Year) shoulder x2 knee x2 sinus surgery x2 2016
--- OUTSIDE RECORDS SUMMARY | 2025-05-26 20:04 | XMS_ITS | Patient Health Record ---
Author Organization [facility] Address [address] [place] [address] Care Team Providers Care Senior Technical Project Manager Name Role Phone Arnol GUTIÉRREZ, [facility] Primary Care Provider Ash Ernandez Jr [...] Provider Speciality Internal M edicine Referred Organization [facility] Referred Provider Ash Obando Jr Referred Address [address] [place] [address], [address],[place], [place],[address], Referred Provider Specialty Gastroentero logy General Notes Maureen Cannon 2024 12:44:32 PM >requested a [facility] pilgrim referral from Dr. Ambrose's office for appt with Dr. Obando on 10-30-2024 Referral Priority Routine Medications Medication SIG (Take, Route, Frequency, Duration) Notes Start Date End Date Status EpiPen Active Omeprazole 40 MG 1 capsule 30 minutes before morning meal Orally Once a day; Duration: 30 day(s) 06/19/2023 Active Rizatriptan Benzoate 10 MG TAKE 1 TABLET AT LEAST 4 HOURS BETWEEN DOSES NEEDED UP TO 2 DOSES PER 24 HOURS Oral; Duration: 30 Active Amitriptyline HCl 25 MG Oral; Duration: 30 Active Fluticasone-Salmeterol 250-50 MCG/ACT INHALE 2 PUFFS INTO THE LUNGS EVERY DAY DIRECTED Inhalation; Duration: 90 Active Montelukast Sodium 10 MG TAKE 1 TABLET B Y MOUTH EVERY DAY IN THE EVENING Oral; Duration: 90 Active Famotidine 20 MG 1 tablet at bedtime as needed Orally Once a day; Duration: 30 days 10/30/2024 Active Ashwagandha Active Wegovy 1 MG/0.5ML Subcutaneous; Durati on: 28 Days Active Tysabri 300 MG/15ML as directed Intravenous Active Lidocaine-Prilocaine 2.5-2.5 % External; Duration: 30 Not-T aking Budesonide Active ProAir HFA Active Simvastatin 10 MG TAKE 1 TABLET BY YASMEEN TH DAILY Oral; Duration: 90 Active Social History Tobacco Use: Social [...] Problem Status W/U Status Risk Notes Problem Colon cancer screening (581994944) Colon cancer screening (Z12.11) Active confirmed Problem Viveros's esophagus (624524706) Viveros's esophagus without dysplasia (K22.70) Active confirmed Problem Gastroesophageal reflux disease without esophagitis (964417909) Gastroesophageal reflux disease without esophagitis (K21.9) Active confirmed Problem Family History of Cancer of Colon (Situation) (743862295) Family history of colon cancer (Z80.0) Active confirmed Problem Family history of malignant neoplasm of gastrointestinal tract (382937922) FH: colon cancer (Z80.0) Active confirmed Problem Benign neoplasm of colon (83977687) Adenomatous polyp of colon, unspecified part of colon (D12.6) Active confirmed Vital Signs Blood pressure diastolic 11 mm Hg 10/30/2024 Height 62 in 10/30/2024 Blood pressure systolic 111 mm Hg 10/30/2024 Weight 166 lbs 10/30/2024 BMI 30.36 kg/m2 10/30/2024 Encounters Encounter Location Date Provider Diagnosis [facility] [address] [place] [phone] 10/30/2024 Ash Obando Jr Viveors's esophagus without dysplasia K22.70 and Colon cancer screening Z12.11 [facility] [address] [place] [address] 10/13/2024 Ash Obando Jr Assessments Encounter Date [...] ENDOSCOPY 10/30/2024 Next Appt Details Provider Name:Ash Shashi escobar Jr, 06/09/2025 07:30:00 AM, [address] [place] [address] , [place], [place], [phone], Insurance Providers Payer Name Payer Address Payer Phone Subscriber Number Group Number Insured Name Patient Relationship to Insured Coverage Start Date Coverage End Date [employer] [address] [place] [phone] [id number] [employer]INA COLES Self - patient is the [...]
--- OUTSIDE RECORDS SUMMARY | 2025-05-26 20:04 | XMS_ITS | Clinical Summary ---
Author Organization [facility] Address [address] [place] [address] Phone Care Team Providers Care Water Control Station Engineer Name Role Phone Cari Ambrose MD Primary Care Provider [phone] Allergies Active Allergy Reactions Criticality Noted Date Comments Aspirin Respiratory Issues,Unknown,Whee zing 04/13/2020 aspirin Codeine Anaphylaxis High 04/10/2025 Hydrocodone Rash 05/20/2021 Hydrocodone-Acetamin ophen Unknown 04/10/2025 Nsaids (Non-Steroidal Anti-Inflammatory Drug) Respiratory Issues,Shortness of breath High 12/02/2015 AERD/Samter's Triad - requires desensitization Oxycodone-Acetaminop hen Unknown 04/10/2025 Sulfamethoxazole-Tri methoprim Hives 04/10/2025 Medications acetaminophen (TYLENOL) 325 mg tablet Take [...] Active Zepbound 5 mg/0.5 mL injection Inject 7.5 mg under the skin every 7 (seven) days. Starting week of 02/16 5 Active Zepbound 2.5 mg/0.5 mL injection Inject 0.5 mL (2.5 mg total) under the skin every 7 (seven) days. Dose increasing week of 02/16 5 Active Active Problems Problem Noted Date Diagnosed Date MS (multiple sclerosis) 06/20/2024 Encounters Date Type Department Care Team Description 05/08/2025 1:12 PM EDT - 05/08/2025 11:59 PM EDT Hospital Encounter [facility] [address] [place] [phone] Manda Casillas MD MS (multiple sclerosis) (Primary Dx) Discharge Disposition: Home or Self Care 04/10/2025 1:13 PM EDT - 04/10/2025 11:59 PM EDT Hospital Encounter [facility] [address] [place] [phone] Manda Casillas MD MS (multiple sclerosis) (CMS/HCC V24, CMS/HCC V28) (Primary Dx) Discharge Disposition: Home or Self Care 03/13/2025 1:16 PM EDT - 03/13/2025 11:59 PM EDT Hospital Encounter [facility] [address] [place] [phone] Manda Casillas MD MS (multiple sclerosis) (CMS/HCC [...] Optic neuritis DX:Optic neuriti s Multiple sclerosis DX:Multiple s clerosis (HCC) Insomnia DX:Insomnia Asthma DX:Asthma Cataracts, bilateral [...] Sign Reading Time Taken Comments Blood Pressure 122/74 05/08/2025 1:33 PM EDT Pulse 89 05/08/2025 1:33 PM EDT Temperature 36.5 C (97.7 F) 05/08/2025 1:33 PM EDT Respiratory Rate 18 04/10/2025 1:18 PM EDT Oxygen Saturation 99% 05/08/2025 1:33 PM EDT Inhaled Oxygen Concentration - - Weight 67.5 kg (148 lb 13.9 oz) 04/10/2025 1:18 PM EDT Height 157.5 cm (5' 2 ) 10/22/2020 7:50 AM EDT Body Mass Index 27.23 10/22/2020 7:50 AM EDT Plan of Treatment Upcoming Encounters Date Type Department Care Team (Late st Contact Info) Description 06/05/2025 1:30 PM EDT Appointment [facility] [address] [place] [phone] 07/03/2025 10:00 AM EST Appointment [facility] [address] [place] [phone] Health Maintenance Due Date Last Done Comments Breast Cancer Screening 1960 Colorectal Cancer Screening: Colonoscopy 1962 DTaP,Tdap,and Td Vaccines (1 - Tdap) 1981 Pneumococcal Vaccine: 50+ Years (1 of 2 - PCV) 1981 Cervical Cancer Screening: Pap Smear 10/30/1983 RSV Immunization Adult Patients (1 - Risk 50-74 years 1-dose series) 2012 Zoster Vaccines (1 of 2) 2012 Cholesterol Screening (Lipid Panel) 07/08/2022 HIV Screening 07/08/2022 Hepatitis C Screening 07/08/2022 Social Influencers of Health Screening 07/08/2022 Depression Screening 08/06/2024 COVID-19 Vaccine ( season) 2025 06/07/2022, 11/21/2021, 06/01/2021, Additional history exists Influenza Vaccine (#1) 2025 , 05/07/2019, 05/09/2017, [...] patient's age to complete this topic Insurance [facility] Care Teams Water Control Station Engineer Relationship Specialty Start Date End Date Cari Ambrose MD [address] [facility] [place] [address] PCP - General Internal Medicine 04/13/20
--- OUTSIDE RECORDS SUMMARY | 2025-05-26 20:05 | XMS_ITS | Data Portability ---
Author Organization [place] - [facility], Allergy Address [address] [place] [address] Care Team Providers Care Tire Spotter Name Role Phone LILLIAN LEWISTomeka Primary Care Provider [phone] Assessment Encounter Date Assessment Date Assessment LastModified [...] 6 months nanda Not available 03/24/2024 15:48:00 09/26/2024 09/26/2024 Patient with history of aspirin exacerbated respiratory disease currently on topical steroid irrigations. Breathing and asthma are doing well. She will continue the current regimen and see me back in 6 months nanda Not available 09/26/2024 15:59:50 03/30/2025 03/30/2025 Patient with history of aspirin exacerbated respiratory disease currently on topical steroid irrigations. Breathing and asthma are doing well. She will continue the current regimen and see me back in 6 months - Aspirin-exacerbat ed respiratory disease, stable with current management. - Chronic sinusitis, status post middle turbinate resection. - Persistent anosmia and dysgeusia. - Multiple sclerosis, stable with Tysabri infusions. - Weight loss with Zepbound, ongoing. Continue current management with budesonide irrigations, Advair, and montelukast for sinus-related symptoms. Advise against adding Vaseline or other substances to nasal rinses. Discussed the potential irreversible nature of anosmia and dysgeusia due to chronic infection and loss of cilia function. Patient is encouraged to maintain weight loss efforts and monitor for any changes in symptoms. No need for additional medications such as Dupixent or Nucala at this time. Follow-up as needed for any new or worsening symptoms. [email or web address] Not available 03/30/2025 15:43:21 Plan of Treatment Reminders Order Date Submit Date Provider Last Modified By Organization Details Last Modified Time Details Appointments Establish ed 30 2025 03:30P M JAYCE HOOVER MD Not available Not available Not available Lab None recorded. Referral None recorded. Procedures None recorded. Surgeries None recorded. Imaging None recorded. Medication Orders budesonid e 0.5 mg/2 mL suspensio n for nebulizat ion 2023 024 [id number], [address], [place], [id number], 03/24/2024 15:49:24 Patient TargetsNo targets recorded. Patient Instructions Encounter Date Encounter Id Patient Instructions Last Modified By Organization Details Last Modified Time 09/26/2024 [id number] Overall doing well. No evidence of recurrent nasal polyps. Cerumen impaction removed from the left ear. Asthma appears to be under control. Continue current regimen. Vinegar drops recommended to prevent cerumen buildup. Avoid Q-tips jschreibstein Not available 09/26/2024 15:59:30 03/30/2025 [id number] Continue budesonide irrigations, Advair, and montelukast as prescribed. Avoid adding Vaseline or other substances to nasal rinses. Maintain weight loss efforts and monitor for any changes in symptoms. Follow up as needed for new or worsening symptoms. jschreibstein Not available 03/30/2025 15:43:21 Please note: Parts of this encounter note have been generated by AI based on audio conversation. Patient consent was required prior to utilizing this technology. Content review was required prior to finalizing the note. jschreibstein Not available 03/30/2025 15:43:21 Reason for Referral None Reported. Results Created [...] Herpes zoster with nervous system complicat ion [id number] Active 2014 Herpes zoster: Other; Note: Date Diagnosed : 08/31/2014 3:03 PM (053.19) Not Available [facility] 4 02:36:46 Nasal polyp Active 2014 Nasal polyps; Note: Date Diagnosed : 09/28/2014 5:00 PM (471.0) Not Available [facility] 4 02:36:45 Asthma 050150081 Active 2014 Asthma; Note: Date Diagnosed : 09/28/2014 5:00 PM (493.90) Not Available [facility] 4 02:36:48 Chronic maxillary sinusitis 94513833 Active 2014 Chronic maxillary sinusitis ; Note: Date Diagnosed : 11/27/2014 10:45 AM (473.0) Not Available [facility] 4 02:36:46 Uncomplic ated asthma 321477505 Active 2014 Asthma NOS; Note: Date Diagnosed : 02/03/2015 9:14 AM (J45.909) [mapped from ICD9 code: 493.90] Not Available [facility] 4 02:36:55 Chronic pansinusi tis 83488034 Active 2014 Chronic pansinusi tis; Note: Date Diagnosed : 02/03/2015 9:14 AM (J32.4) [mapped from ICD9 code: 473.8] Not Available [facility] 4 02:36:54 Seasonal allergic rhinitis 476725656 Active 2014 Other seasonal allergic rhinitis; Note: Date Diagnosed : 02/03/2015 9:14 AM (J30.2) [mapped from ICD9 code: 477.8] Not Available [facility] 4 02:36:47 Polyp of nasal cavity 651543659 Active 2014 Polyp of nasal cavity; Note: Date Diagnosed : 02/03/2015 9:14 AM (J33.0) [mapped from ICD9 code: 471.0] Not Available [facility] 4 02:36:51 Exacerbat ion of mild persisten t asthma 462762706 Active 2014 Mild persisten t asthma with (acute) exacerbat ion; CMS Risk: moderate risk CMS Treatment : establish ed problem (to examiner) : unstable or worsening Note: Date Diagnosed : 05/12/2015 9:03 AM (J45.31) Not Available [facility] 4 02:36:53 Mild intermitt ent asthma 514964856 Active 2014 Mild intermitt ent asthma, uncomplic ated; Note: Date Diagnosed : 5 1:21 PM (J45.20) Not Available [facility] 4 02:36:47 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 743282174 Active 2016 Coagulati on defects: Other hemorrhag ic disorder due to intrinsic circulati ng anticoagu lants, antibodie s, or inhibitor s; Note: Date Diagnosed : 05/12/2015 8:41 AM () Not Available [facility] 4 02:36:51 Allergy to drug 705445500 Active 2016 Allergy status to analgesic agent status; CMS Risk: moderate risk Note : Date Diagnosed : 05/12/2015 8:43 AM (Z88.6) Not Available [facility] 4 02:36:57 Disorder of respirato ry system 29470424 Active 2016 Respirato ry condition s due to other specified external agents; CMS Risk: moderate risk Note : Date Diagnosed : 05/12/2015 8:43 AM (J70.8) Not Available [facility] 4 02:36:57 Epistaxis Active 2016 Epistaxis ; Note: Date Diagnosed : 05/12/2015 8:41 AM () Not Available [facility] 4 02:36:49 Bleeding from nose 724307617 Active 2016 Epistaxis ; Note: Date Diagnosed : 05/12/2015 8:42 AM () Note: Date Diagnosed : 05/12/2015 8:42 AM () Not Available [facility] 4 01:05:06 Long-term current use of anticoagu lant 326450093 Active 2016 nursing home (current) use of anticoagu lants; Note: Date Diagnosed : 05/12/2015 8:42 AM () Not Available [facility] 4 02:36:45 Postopera tive visit 220114341 Active 2016 Post Op Visit; Note: Date Diagnosed : 12/22/2016 1:59 PM (V67.0) Not Available [facility] 4 02:36:51 Chronic rhinitis 59899063 Active 2016 Rhinitis, chronic; Note: Date Diagnosed : 01/04/2017 12:17 PM (472.0) Chronic rhinitis; Note: Date Diagnosed : 11/27/2014 10:45 AM (472.0) ; Start Date : 5 Not Available [facility] 4 02:36:46 Uncomplic ated moderate persisten t asthma 175147230 Active 2016 Moderate persisten t asthma, uncomplic ated; Note: Date Diagnosed : 10/07/2015 10:19 AM (J45.40) Not Available [facility] 4 02:36:51 Uncomplic ated mild persisten t asthma 452380918 Active 2016 Mild persisten t asthma, uncomplic ated; Note: Date Diagnosed : 10/07/2015 10:18 AM (J45.30) Not Available [facility] 4 02:36:54 Chronic sinusitis 54144865 Active 2018 Chronic pansinusi tis; CMS Risk: moderate risk CMS Treatment : establish ed problem (to examiner) : unstable or worsening Note: Date Diagnosed : 4 11:10 AM (473.8) ; Start Date : 4 Other chronic sinusitis ; Note: Date Diagnosed : 11/20/2018 4:09 PM (J32.8) Not Available [facility] 4 02:36:48 Other specified respirato ry system anomaly NOS Active 2019 Other specified respirato ry disorders ; Note: Date Diagnosed : 01/05/2020 1:51 PM (J98.8) Not Available [facility] 4 02:36:57 Allergic rhinitis 13069708 Active 2019 Allergic Rhinitis; Note: Date Diagnosed [...] : 01/05/2020 1:51 PM (J30.89) Not Available [facility] 4 02:36:44 Acute sinusitis 33347472 Active 2019 Other acute sinusitis ; Note: Date Diagnosed : 03/18/2020 3:53 PM (J01.80) Not Available [facility] 4 02:36:55 Multiple sclerosis 33875959 Active 2019 Multiple sclerosis ; Note: Date Diagnosed : 04/07/2020 10:34 AM (G35) Not Available [facility] 4 02:36:48 Disorder of smell 896843856 Active 2020 Other disturban maddie of smell and taste; Note: Date Diagnosed : 09/27/2020 3:36 PM (R43.8) Not Available [facility] 4 02:36:49 Disorder of taste 736625786 Active 2020 Other disturban maddie of smell and taste; Note: Date Diagnosed : 09/27/2020 3:36 PM (R43.8) Not Available [facility] 4 02:36:49 Exacerbat ion of moderate persisten t asthma 713922341 Active 2021 Moderate persisten t asthma with (acute) exacerbat ion; Note: Date Diagnosed : 12/16/2021 3:36 PM (J45.41) Not Available [facility] 4 02:36:55 Headache 41038661 Active 2021 Headache, unspecifi ed; Note: Date Diagnosed : 02/03/2022 4:09 PM (R51.9) Not Available [facility] 4 02:36:49 Polyp of nasal cavity and/or nasal sinus 966907186 Active 2023 JAYCE COVARRUBIAS MD [address] [facility],[address] [facility][note 3], [place], [address] , [facility] 4 15:46:43 Moderate persisten t asthma 040314861 Active 2023 JAYCE COVARRUBIAS MD [address] [facility],[place] [address], [place], [address] , [facility] 4 09:29:22 Impacted cerumen in left ear 29729020320 79826 Active 2024 JAYCE COVARRUBIAS MD [address] [facility],[address], [place], [address] , [facility] - [facility] 5 15:58:55 Problem Notes None recorded. Procedures Surgical History Date Name Laterality Status Provider Name and Address Organization Details Recorded Time 5 JMSNasal/Sinu s Endoscopy-[facility]ANKA [place] surgical cavities completed JAYCE SNYDER MD [address] [facility],[place] [facility][note 3], [place], [address], [place] - [facility] 03/30/2025 15:42:29 5 JMSNasal/Sinu s Endoscopy-BIANKA [place] surgical cavities completed JAYCE SNYDER MD [address] [facility],[address], [address], [place] - [facility] 09/26/2024 16:00:02 4 JMSNasal/Sinu s Endoscopy-BIANKA [place] surgical cavities completed JAYCE SNYDER MD [address] [facility] [address], [place], [address], [facility] 03/24/2024 15:46:29 Imaging Results None recorded. Procedure Notes None recorded. Medical Equipment None Reported. Allergies Allergen ID Allergen Name Allergen Category Reaction Reaction Severity Criticality Documentation Date Start Date Code Code System Note Provider Name and Address Organization Details Recorded Time 90419 aspirin medicatio n wheezing Not available Not available 12/18/2023 1191 RxNorm React ion: asthm a;; Not Available [facility] 4 00:58:11 19745 clarithro mycin medicatio n other Not available Not available 12/18/2023 90937 RxNorm React ion: unkno wn, unspe cifie d;; Not Available [facility] 4 00:28:41 48385 oxycodone medicatio n other Not available Not [...] mg tablet TAKE 1 TABLET BY MOUTH TWICE DAILY NEEDED active Not Available Not Available No t Available Topamax 200 mg tablet 03/04 completed Medicati on ID: [id number] Br and Name: Topamax Send Method: E-Prescr ibed Sub s Allowed: subs OK Medic ationGen ericName : Topamax Not Available Not Available Not Available Augmentin 875 mg-125 mg tablet 09/26 completed Medicati on ID: [id number] Du ration Value: 21 Prescri bed By [...] mg tablet 09/26 completed Medicati on ID: [id number] Du ration Value: 5 Prescri bed By Name: Tay Fraga nd Name: predniso ne Send Method: E-Prescr ibed Sub s Allowed: subs OK Speci al Instruct ion: take as instruct ed Medic ationGen ericName : predniso ne Not Available Not Available Not Available doxycycli ne hyclate 100 mg capsule by mouth 05/21 completed Medicati on ID: [id number] D uration Value: 10 Prescri bed By Name: Tay Reed nd Name: doxycycl ine hyclate Send Method: E-Prescr ibed Sub s Allowed: subs OK Speci al Instruct ion: Take 1 po BID X 10 days Med icationG enericNa me: doxycycl ine hyclate Not Available Not Available Not Available valacyclo vir 1 gram tablet 03/04 completed Medicati on ID: 79117 Pr escribed By Name: Tay Fraga nd [...] by mouth 09/26 completed Medicati on ID: [id number] D uration Value: 3 Prescri bed By [...] mg tablet 03/04 completed Medicati on ID: [id number] Br and Name: sertrali ne Send Method: E-Prescr ibed Sub s Allowed: subs OK Medic ationGen ericName : sertrali ne Not Available Not Available Not Available simvastat in 10 mg tablet TAKE 1 TABLET BY MOUTH DAILY active Not Available Not Available No t Available Biaxin 500 mg tablet 1 tablet by mouth 09/26 completed Medicati on ID: [id number] D uration Value: 21 Prescri bed By Name: MITZI Alfredo nd Name: Biaxin S end Method: E-Prescr ibed Sub s Allowed: subs OK Medic ationGen ericName : Biaxin Not Available Not Available Not Available Nexium 40 mg capsule,d elayed release 10/27 completed Medicati on ID: [id number] D uration Value: 30 Reason: () Brand Name: Nexium S end Method: E-Prescr ibed Sub s Allowed: subs OK Speci al Instruct ion: 1 po qam Medi cationGe nericNam e: Nexium Not Available Not Available Not Available Zyrtec 10 mg tablet 09/26 completed Medicati on ID: [id number] Br and Name: Zyrtec S end Method: E-Prescr ibed Sub s Allowed: subs OK Medic ationGen ericName : Zyrtec Not Available Not Available Not Available Aspir-Low 81 mg tablet,de layed release 12/30 completed Medicati on ID: [id number] Br and Name: Aspir-Lo w Send Method: [...] mg tablet 09/26 completed Medicati on ID: [id number] B rand Name: alprazol am Send Method: E-Prescr ibed Sub s Allowed: subs OK Medic ationGen ericName : alprazol am Not Available Not Available Not Available famotidin e 20 mg tablet TAKE 1 TABLET BY MOUTH DAILY AT BEDTIME NEEDED active Not Available Not Available No t Available amitripty line 25 mg tablet TAKE [...] by mouth 09/26 completed Medicati on ID: [id number] D uration Value: 21 Prescri bed By Name: Tay Reed nd Name: doxycycl ine monohydr ate Send Method: E-Prescr ibed Sub s Allowed: subs OK Medic ationGen ericName : doxycycl ine monohydr ate Not Available Not Available Not Available Advair Diskus 500 mcg-50 mcg/dose powder for inhalatio n 1 puff 2019 active Medicati on ID: [id number] D uration Value: 30 Prescri bed By [...] as needed 2022 active Medicati on ID: [id number] D uration Value: 180 Brand Name: abhishek trujillo Send Method: E-Prescr ibed Sub s Allowed: subs OK Medic ationGen ericName : epinephr ine Not Available Not Available Not Available cefuroxim e axetil 500 mg tablet TAKE 1 TABLET BY MOUTH EVERY 12 HOURS active Not Available Not Available No t Available Bactrim DS 800 mg-160 mg tablet 1 tablet by mouth 01/06 completed Medicati on ID: [id number] Pr escribed By Name: Tay Reed nd [...] a day 03/21 completed Medicati on ID: [id number] D uration Value: 30 Prescri bed By Name: Tay Reed nd Name: Spiriva with HandiHal er Send Method: E-Prescr ibed Sub s Allowed: subs OK Medic ationGen ericName : Spiriva with HandiHal er Not Available Not Available Not Available Tysabri 300 mg/15 mL intraveno us solution 09/26 completed Medicati on ID: [id number] B rand Name: Tysabri Send Method: E-Prescr ibed Sub s Allowed: subs OK Medic ationGen ericName : Tysabri Not Available Not Available Not Available prednison e 09/26 completed Medicati on ID: [id number] D uration Value: 10 Prescri bed By [...] as needed 09/26 completed Medicati on ID: [id number] D uration Value: 30 Prescri bed By Name: Tay Reed nd Name: ProAir HFA Send Method: E-Prescr ibed Sub s Allowed: subs OK Medic ationGen ericName : ProAir HFA Not Available Not Available Not Available Theraflu Cold-Sore Throat (PE) 20 mg-10 mg-325 mg oral powder packet 03/04 completed Medicati on ID: [id number] Br and Name: Theraflu Cold-Sor e Throat (PE) Sen d Method: E-Prescr ibed Sub s Allowed: subs OK Medic ationGen ericName : Theraflu Cold-Sor e Throat (PE) Not Available Not Available Not Available Nasacort 55 mcg nasal spray aerosol 12/30 completed Medicati on ID: [id number] Br and Name: Nasacort Send Method: E-Prescr [...] a day 2023 active Medicati on ID: [id number] D uration Value: 90 Prescri bed By [...] completed Not Available Not Available Not Available Zepbound 5 mg/0.5 mL subcutane ous pen injector INJECE 1 SYRINGE SUBCUTAN EOUS EVERY WEEK 03/30 completed Not Available Not Available Not Available Zepbound 2.5 mg/0.5 mL subcutane ous pen injector INJECT 2.5 MG UNDER THE SKIN WEEKLY 03/30 completed Not Available Not Available Not Available Zepbound 7.5 mg/0.5 mL subcutane ous pen injector active Not Available Not Available Not Available Vitals Date Recorded Body height Body weight Provider Name and Address Organization Details Last Updated DateTime 09/26/2024 157.48 cm 87538.59 g Danika Smith [place] [facility] 09/26/2024 15:23:55 Date Recorded Body height Body mass index (BMI) Body weight Provider Name and Address Organization Details Last Updated DateTime 03/24/2024 157.48 cm 33.8 kg/m2 57322.59 g Humphrey Benton [place] - [facility] 03/24/2024 15:29:33 Date Recorded Body height Body mass index (BMI) Body weight Provider Name and Address Organization Details Last Updated DateTime 03/30/2025 157.48 cm 26.5 kg/m2 17869.89 g Mady García [place] - [facility] 03/30/2025 15:24:45 Social History None recorded. Functional Status None [...] Diagnosis SNOMED-CT Code Diagnosis ICD10 Code Diagnosis IMO Codes Diagnosis Note [id number] JAYCE COVARRUBIAS MD [facility] [address] [address] 03/24/2024 15:11:59 03/24/2024 15:51:16 Allergy to drug 258826920 Z88.6 Exacerbati on of moderate persistent asthma 469844071 J45.41 Disorder o f respiratory system 08666447 J70.8 Polyp of nasal cavity 73 5331118 J33.0 Chronic sinusitis 317398 00 J32.9 [id number] JAYCE COVARRUBIAS MD [facility] [address] [address] 09/26/2024 15:06:10 09/26/2024 16:01:28 Allergy to drug 006171255 Z88.6 Polyp of n [place] cavity and/or nasal sinus 037717931 J33.1 Moderate p ersistent asthma 931906648 J45.40 Disorder o f respiratory system 47073929 J70.8 Impacted c erumen in left ear 9662261048 743993 H61.22 Suggested 3 drops distilled vinegar in each ear twice weekly to prevent the buildup of cerumen [id number] JAYCE COVARRUBIAS MD [facility] [address] [address] 03/30/2025 15:16:49 03/30/2025 15:45:54 Allergy to drug 857336195 Z88.6 Polyp of n [place] cavity and/or nasal sinus 443393651 J33.1 Moderate p ersistent asthma 298486054 J45.40 Disorder o f respiratory system 12221194 J70.8 Health Concerns Section Related Observation LastModified by Organization Detai ls LastModified Time None Recorded Concern Status LastModified by Organization Details LastModified Time None Recorded Advance Directives Directive None Recorded Payers Insurance Date Sequence Insurance Name Policy Number Policy Benavides Covered Member ID Benavides Member ID Guarantor Name 03/27/2025 1 [facility] [place] Tanya Bonilla [id number] Tanya A Irene Notes Date Note Type Note Provider Name and Address Organization Details Recorded Time 03/24/2024 text/html Patient with history of aspirin exacerbated respiratory disease. They have [...] on Tysabri for MS JAYCE SNYDER MD [address] [place] [address],[address], [address], [facility] 03/24/2024 15:49:52 09/26/2024 text/html ROS as noted in the HPI Patient with history of aspirin exacerbated respiratory disease. They have [...] starting Wegovy May 06 JAYCE SNYDER MD [address] [place] [address],[address], [address], [place] [facility] 09/26/2024 16:00:28 03/30/2025 text/html Tanya Bonilla is a 64-year-old female who presents for evaluation of sinus-related symptoms. She reports a history of aspirin-exacerbated respiratory disease and chronic sinus issues, including prior resection of her middle turbinates. Recently, she experienced spontaneous bleeding from the right side of her nose, which has since resolved. She denies bleeding related to high-dose aspirin use. She has been using budesonide irrigations, Advair, and montelukast for management of her symptoms. She notes good breathing but reports intermittent, unpleasant smells described as something in my nose. She has experienced persistent loss of smell and taste since her chronic sinus infections began. Her MS remains stable, and she is currently on Tysabri infusions every four weeks. She has lost 60 pounds with the use of Zepbound and hopes to lose 10 more pounds before her insurance coverage ends in June. JAYCE SNYDER MD [address] [place] [address], [place], [address], [place] [facility] 03/30/2025 15:44:36 OBGyn Episode No OBEpisode recorded.
== END 2025-05-26 15:23 | disposition home or self-care (01) ==
LOC: HO.HMCC 14:53
PROVIDERS: PCP Internal Medicine; Visit Provider Internal Medicine
DX: E78.9 Disorder of lipoprotein metabolism, unspecified (principal); G35.D Multiple sclerosis, unspecified; Z91.09 Other allergy status, other than to drugs and biological substances; K21.9 Gastro-esophageal reflux disease without esophagitis; J45.40 Moderate persistent asthma, uncomplicated

== ENCOUNTER 2025-06-09 07:20 | Day surgery (SDC) | payer OTHER, SELFPAY ==
[2025-06-05 14:30] VITALS: BMI 30.4
--- NOTE | 2025-06-08 08:34 | HO.ANESPROP2 ---
Documented by User: So Koroma NP 06/08/25 08:35 HPI - Anesthesia Eval Consult details Narrative: 64yo F for Upper Endoscopy Anesthesia Pre-Procedure Meds Is the patient on any of the following meds?: GLP1/DPP4 PMFSH Active Problems Active Problems: All Active Problems Lumbar disc disease (Acute) Cervical disc disease (Acute) Tension headache (Acute) Migraine with aura (Acute) Multiple sclerosis (Acute) Over weight (Acute) Neck pain (Acute) Blurring of vision (Acute) UTI (urinary tract infection) (Acute) Contusion of leg, left (Acute) Colon cancer screening (Acute) Encounter for general adult medical examination with abnormal findings (Acute) Upper respiratory tract infection (Acute) Frequency of urination (Acute) Obesity (BMI 30-39.9) (Acute) Depression, major, recurrent, moderate (Acute) Radiculitis of left cervical region (Acute) Foraminal stenosis of cervical region (Acute) Abnormal CBC measurement (Acute) Dysuria (Acute) Sinusitis, acute (Acute) Anxiety, generalized (Acute) Lumbar pain (Acute) Cataract (Acute) Chronic GERD (Acute) Environmental allergies (Acute) Asthma, moderate (Acute) Lipid disorder (Acute) Multiple sclerosis (Acute) Vomiting (Acute) Past Medical History Medical History Carpal tunnel syndrome, bilateral upper limbs Lumbar disc disease Cervical disc disease Peripheral neuropathy Insomnia Optic neuritis Elevated cholesterol Asthma Anxiety Multiple sclerosis GERD (gastroesophageal reflux disease) Depression Vomiting Family History Family History Father HTN (hypertension) Mother HTN (hypertension) Rectal cancer Brother No problems noted. Brother No problems noted. Sister No problems noted. Sister No problems noted. Family history of problems with anesthesia: No Surgical History Surgical History History of esophagogastroduodenoscopy (EGD) S/P dilation and curettage H/O prior ablation treatment H/O arthroscopy of knee History of arthroscopy of right shoulder History of sinus surgery History of Problems with Anesthesia: No Social History [facility] Alcohol intake: current Alcohol intake frequency: holidays/special occasions only Patient Tobacco Use Status: Former Tobacco user e-Cigarette/Vaping Use: Never Used Use of substances other than those prescribed or required for medical reasons: No Advance Directives: No Advance Directives Information Provided: Yes service: No Current occupational status: employed Cognitive needs: No Hearing needs: No Vision needs: Yes Meds Allergies Allergy/AdvReac Type Severity Reaction Status Date / Time hydrocodone (From VICODIN) Allergy Severe SWELLING Verified 05/26/25 15:07 aspirin (ASPIRIN) Allergy Intermediate HIVES Verified 05/26/25 15:07 oxycodone (OXYCODONE) Allergy Intermediate HIVES Verified 05/26/25 15:07 ibuprofen Allergy Unknown Unknown Verified 05/26/25 15:07 Environmental Allergy Unknown Unknown Uncoded 05/26/25 15:07 Home Medications ?Medication ?Instructions ?Recorded ?Confirmed ?Last Taken ?Type albuterol sulfate 90 mcg/actuation 1 puff inhalation Q4H PRN 09/03/20 06/05/25 Unknown History aerosol inhaler Shortness Of Breath Or Wheezing montelukast 10 mg tablet 10 mg PO QPM 06/15/23 06/05/25 Unknown History omeprazole 20 mg tablet,delayed 40 mg PO DAILY 06/27/24 06/05/25 Unknown History release cyclobenzaprine 10 mg tablet 10 mg PO BEDTIME PRN muscle 03/31/25 05/26/25 Unknown History spasm/pain fluticasone 250 mcg-salmeterol 50 1 ea inhalation BID 05/26/25 06/05/25 Unknown History mcg/dose blistr powdr for inhalation Exam Height,Weight and Vital Signs: Height 5 ft 2 in Weight 75.296 kg Assessment and Plan Assessment Anesthesia Assessment: Chart Reviewed Final Anesthetic Review Family History of Problems with Anesthesia: No History of Problems with Anesthesia: No Documented by User: Stephanie Palacios MD 06/09/25 08:26 [facility] Past Medical History Medical History Carpal tunnel syndrome, bilateral upper limbs Lumbar disc disease Cervical disc disease Peripheral neuropathy Insomnia Optic neuritis Elevated cholesterol Asthma Anxiety Multiple sclerosis GERD (gastroesophageal reflux disease) Depression Vomiting Family History Family History Father HTN (hypertension) Mother HTN (hypertension) Rectal cancer Brother No problems noted. Brother No problems noted. Sister No problems noted. Sister No problems noted. Surgical History Surgical History History of esophagogastroduodenoscopy (EGD) S/P dilation and curettage H/O prior ablation treatment H/O arthroscopy of knee History of arthroscopy of right shoulder History of sinus surgery Social History [facility] Alcohol intake: current Alcohol intake frequency: holidays/special occasions only Patient Tobacco Use Status: Former Tobacco user e-Cigarette/Vaping Use: Never Used Use of substances other than those prescribed or required for medical reasons: No Advance Directives: No Advance Directives Information Provided: Yes service: No Current occupational status: employed Cognitive needs: No Hearing needs: No Vision needs: Yes Meds Allergies Allergy/AdvReac Type Severity Reaction Status Date / Time hydrocodone (From VICODIN) Allergy Severe SWELLING Verified 05/26/25 15:07 aspirin (ASPIRIN) Allergy Intermediate HIVES Verified 05/26/25 15:07 oxycodone (OXYCODONE) Allergy Intermediate HIVES Verified 05/26/25 15:07 ibuprofen Allergy Unknown Unknown Verified 05/26/25 15:07 Environmental Allergy Unknown Unknown Uncoded 05/26/25 15:07 Home Medications ?Medication ?Instructions ?Recorded ?Confirmed ?Last Taken ?Type albuterol sulfate 90 mcg/actuation 1 puff inhalation Q4H PRN 09/03/20 06/05/25 Unknown History aerosol inhaler Shortness Of Breath Or Wheezing montelukast 10 mg tablet 10 mg PO QPM 06/15/23 06/05/25 Unknown History omeprazole 20 mg tablet,delayed 40 mg PO DAILY 06/27/24 06/05/25 Unknown History release cyclobenzaprine 10 mg tablet 10 mg PO BEDTIME PRN muscle 03/31/25 05/26/25 Unknown History spasm/pain fluticasone 250 mcg-salmeterol 50 1 ea inhalation BID 05/26/25 06/05/25 Unknown History mcg/dose blistr powdr for inhalation Exam Airway Mallampati Class: II TM Dist: >3cm Neck ROM: Limited Heart: rrr Lungs: cta Assessment and Plan Assessment Anesthesia Assessment: Anesthesia Plan Discussed Final Anesthetic Review NPO: Yes ASA Class: III Final Preanesthetic Review: No Changes in Pt Med Stat, Meds/Allgs Chart Reviewed, Consent Obtained/Reviewed and Anes Risks/Benef Reviewed Patient Risk: Intermediate Procedure Risk: Low Anesthetic Plan Anesthetic Plan: MAC: and Agree w/ Assess. and Plan Disposition: Standard PACU
[2025-06-09 07:13] VITALS: BP 127/82; PULSE 81; RESP 17; TEMP 37.1; O2SAT 100; BMI 25.4
[2025-06-09] MEDS: Lactated Ringers 1,000 ML 100 ML IVCONT (07:16)
--- NOTE | 2025-06-09 07:35 | MHC.SHP ---
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 Details of Present Illness: see H&P no changes Relevant Family History (Specify if Yes): No Relevant Social History: None Present Medications: see Short Stay Collaborative assessment Medical History: No relevant PMH History of Previous Operations: No relevant previous surgery Allergies: Allergies Allergy/AdvReac Type Severity Reaction Status Date / Time hydrocodone (From VICODIN) Allergy Severe SWELLING Verified 05/26/25 15:07 aspirin (ASPIRIN) Allergy Intermediate HIVES Verified 05/26/25 15:07 oxycodone (OXYCODONE) Allergy Intermediate HIVES Verified 05/26/25 15:07 ibuprofen Allergy Unknown Unknown Verified 05/26/25 15:07 Environmental Allergy Unknown Unknown Uncoded 05/26/25 15:07 Review of Systems Sugical H&P ROS: Negative: Constitution, Cardiovascular, Respiratory, Neurological, Psychiatric, Hem-Onc, Allergic/Immunologic, Gastrointestinal, Genitourinary, Musculoskeletal, Integumentary, Endocrine and Eyes/Ears/Nose/Throat Exam Surgical H&P Exam: Normal: HEENT, Normal: Heart, Normal: Lungs, Normal: Extremities, Normal: Abdomen, Normal: Skin and Normal: Neurological Plan Diagnosis/Plan: Unchanged I have reviewed the history and physical and performed a pertinent physical examination on my patient. No changes have occurred unless specified. Time Spent With Patient Time: Total time managing care of this patient today ____ minutes.
[2025-06-09 08:00] VITALS: BP 117/68; PULSE 80; RESP 16; TEMP 36.2; O2SAT 98
[2025-06-09 08:16] VITALS: BP 125/70; PULSE 69; RESP 14; TEMP 36.2; O2SAT 96
--- NOTE | 2025-06-09 08:47 | OP_ITS ---
DATE OF SERVICE: 06/09/2025 SURGEON: Ash Obando MD INDICATIONS: Viveros esophagus and dysphagia. PREOPERATIVE DIAGNOSIS: POSTOPERATIVE DIAGNOSIS: PROCEDURE PERFORMED: Upper endoscopy with biopsy. ESTIMATED BLOOD LOSS: COMPLICATIONS: ANESTHESIA: Monitored anesthesia care. ASSISTANTS: SPECIMENS: DESCRIPTION OF PROCEDURE: A history and physical was performed. The risks and benefits of the procedure were explained to the patient. Informed consent was obtained. The patient was placed in the left lateral decubitus position. The Olympus video gastroscope was introduced into the esophagus, stomach, and duodenum. Examination was performed. The scope was removed. She tolerated the procedure well and was returned to the recovery area in stable condition. FINDINGS: Esophagus: The esophagus showed some slight ridging. Biopsies were obtained from the body of the esophagus to rule out eosinophilic esophagitis. There was an irregular EG junction, but no evidence of masses, ulcers, or lesions. Biopsies were obtained from the EG junction. Stomach: The stomach showed no evidence of masses or ulcers. There was some mild nonspecific erythema at the antrum. This was biopsied. Duodenum: The bulb and 2nd portion were normal. IMPRESSION: 1. Viveros esophagus. 2. Dysphagia. RECOMMENDATION: Follow up the biopsy results. MD ZENOBIA Archuleta/LUIS / [id number]
== END 2025-06-09 08:56 | disposition home or self-care (01) ==
PROVIDERS: PCP Internal Medicine; Visit Provider Internal Medicine Gastroenterology
PROC: 0DJ08ZZ Inspection of Upper Intestinal Tract, Via Natural or Artificial Opening Endoscopic (ICD-10-PCS; CPT 43235; principal; 2025-06-09 07:30)
DX: K22.70 Barrett's esophagus without dysplasia (principal); R13.10 Dysphagia, unspecified; K20.90 Esophagitis, unspecified without bleeding
CPT/HCPCS: 43239; 88305; 88313; 88342; J2704

== ENCOUNTER 2025-07-06 15:49 | Outpatient (AMB) | payer OTHER, SELFPAY ==
--- OUTSIDE RECORDS SUMMARY | 2024-05-23 12:18 | XMS_ITS | Encounter Summary ---
Author Organization [facility] Address [address] [place] [address] Care Team Providers Care Executive Vice President Business Development Name Role Phone Cari Ambrose MD Primary Care Provider [phone] Encounter Details Date Type Department Care Team (Late st Contact Info) Description 05/23/2024 1:18 PM EDT Hospital Encounter TH HISTORIC ENCOUNTERS EASTERN CONVERSION ONLY Social History Tobacco Use Types Packs/Day Years Used Date Smoking Tobacco: Former Smokeless Tobacco: Never Comments Unknown Sex and Gender Information Value Date Recorded Sex Assigned at Female 08/22/2024 1:17 PM EST Legal Sex Female 6:20 PM EST Gender Identity Female 08/22/2024 1:17 PM EST Sexual Orientation Choose not to disclose 2024 1:17 PM EST documented as of this encounter Last Filed Vital Signs Vital Sign Reading Time Taken Comments Blood Pressure - - Pulse - - Temperature - - Respiratory Rate - - Oxygen Saturation - - Inhaled Oxygen Concentration - - Weight 83 kg (182 lb 15.7 oz) 02/29/2024 1:33 PM EDT Height 157.5 cm (5' 2 ) 10/22/2020 7:50 AM EDT Body Mass Index 33.47 10/22/2020 7:50 AM EDT documented in this encounter Progress Notes * Historical, Notes Results - 05/23/2024 1:30 PM EDT 1340- Pt arrived today for tysabri infusion. Reports starting wygovy and tolerating it well thus far. Stable assessment otherwise without acute complaints or changes. Tysabri online checklist completed. Port accessed without diff. Treatment released. Pt resting comfortably at this time. Call hutchinson in reach. 1530- Tysabri completed without incident. Pt rested comfortably throughout treatment. Next appts made and provided. No further questions. Port flushed/deaccessed per protocol. Pt left unit, stable atD/C. documented in this encounter Plan of Treatment Upcoming Encounters Date Type Department Care Team (Late st Contact Info) Description 07/31/2025 1:30 PM EST Appointment [address] [phone] 08/28/2025 1:30 PM EST Appointment [facility] [address] [place] [phone] documented as of this encounter Visit Diagnoses Not on filedocumented in this encounter Care Teams Executive Vice President Business Development Relationship Specialty Start Date End Date Cari Ambrose MD [address] [place] [phone] PCP - General Internal Medicine 04/13/20 documented as of this encounter
--- OUTSIDE RECORDS SUMMARY | 2025-07-03 09:45 | XMS_ITS | Encounter Summary ---
Author Organization [facility] Address [address] [place] [address] Care Team Providers Care Associate Business Analyst Name Role Phone Cari Ambrose MD Primary Care Provider [phone] Reason for Visit * Episode Based Medications (Routine) - Authorized Specialty Diagnoses / Procedures Referred By Charlene t Referred To Contact Diagnoses MS (multiple sclerosis) Manda Casillas MD [address] [place] [address] [place] [address] Phone: tel: fax: [facility] [address] [address] Phone: tel: fax: Referral ID Status Reason Start Date Expiration Date V isits Requested Visits Authorized [id number] Authorized 06/20/2024 06/20/2026 1 109 Encounter Details Date Type Department Care Team (Latest Contact Info) Description 07/03/2025 9:45 AM EST Hospital Encounter [facility] [address] [id number] Manda Casillas MD [address] [place] [address] [address] [place] [id number] MS (multiple sclerosis) (Primary Dx) Social History Tobacco Use Types Packs/Day Years [...] Sign Reading Time Taken Comments Blood Pressure 114/64 07/03/2025 9:55 AM EST Pulse 78 07/03/2025 9:55 AM EST Temperature 36.7 C (98 F) 07/03/2025 9:55 AM EST Respiratory Rate 18 07/03/2025 9:55 AM EST Oxygen Saturation 100% 07/03/2025 9:55 AM EST Inhaled Oxygen Concentration - - Weight 60.6 kg (133 lb 9.6 oz) 07/03/2025 9:55 A M EST Height - - Body Mass Index 24.44 10/22/2020 7:50 AM EDT documented in this encounter Progress Notes * Zuleima Medrano RN - 07/03/2025 10:00 AM EST Patient arrives ambulatory for monthly Tysabri. Stable patient assessment. Tysabri pre-infusion check list completed. Patient's port accessed without difficulty. + blood return after multiple flushes. Patient resting comfortably in chair with call hutchinson in reach. 1155-Patient completed Tysabri without incident. Patient's port flushed and deaccessed per protocol. Patient's next appointments in place. Patient discharged in stable condition. documented in this encounter Plan of Treatment Upcoming Encounters Date Type Department Care Team (Late st Contact Info) Description 07/31/2025 1:30 PM EST Appointment [facility] [address] [phone] 08/28/2025 1:30 PM EST Appointment [facility] [address] [phone] documented as of this encounter Visit Diagnoses Diagnosis MS (multiple sclerosis)- Primary Multiple sclerosis documented in this encounter Administered Medications Inactive Administered Medications - up to 3 most recent administrations Medication Order MAR Action Action Date Dose Rate Site natalizumab (TYSABRI) 300 mg in sodium chloride 0.9 % 115 mL IVPB 300 mg, intravenous, at 115 mL/hr, Administer over 60 Minutes, Once, On Sun07/03/25 at 1045, For 1 dose, After the infusion is complete, flush with Sodium Chloride Injection 0.9% (NS)Indications:MS (multiple sclerosis) New Bag 07/03/2025 10:44 AM EST 300 mg 115 mL/hr documented in this encounter Orders Medications Ordered That James ht Not Have Been Administered Count Last Ordered Date First Ordered Date natalizumab (TYSABRI) 300 mg in sodium chloride 0.9 % 115 mL IVPB 1 07/03/2025 Appointment Requests Count Last Ordered Date Fi rst Ordered Date ONCBCN INFUSION APPOINTMENT REQUEST 06 documented in this encounter Care Teams Associate Business Analyst Relationship Specialty Start Date End Date Cari Ambrose MD [address] [place] [id number] PCP - General Internal Medicine 04/13/20 documented as of this encounter
--- NOTE | 2025-07-06 16:05 | A.OFFVIS_ITS ---
Intake Visit Reasons: 3 months Allergies hydrocodone (From VICODIN) Allergy (Severe, Verified 07/06/25 16:08) SWELLING aspirin (ASPIRIN) Allergy (Intermediate, Verified 07/06/25 16:08) HIVES oxycodone (OXYCODONE) Allergy (Intermediate, Verified 07/06/25 16:08) HIVES ibuprofen Allergy (Unknown, Verified 07/06/25 16:08) Unknown Environmental Allergy (Unknown, Uncoded 07/06/25 16:08) Unknown Medication List - Last Reconciled 07/06/25 by Shakira Harry CNP acetaminophen (Tylenol) 325 mg PO Q8H PRN 30 days albuterol sulfate 90 mcg/actuation 1 puff inhalation Q4H PRN amitriptyline 25 mg PO BEDTIME cyclobenzaprine 10 mg PO BEDTIME PRN fluticasone propion-salmeterol 250-50 mcg/dose 1 ea inhalation BID lidocaine 4% (AsperFlex (lidocaine)) 1 patch topical DAILY PRN [low impact exercise program as tolerated by the patient] montelukast 10 mg PO QPM natalizumab (Tysabri) 300 mg (15 mL) IV Q4W omeprazole 40 mg PO DAILY simvastatin 10 mg PO DAILY 90 days tirzepatide (weight loss) 7.5 mg (0.5 mL) subcut QWEEK 30 days HPI Comments Details: She was doing okay. She was taking amitriptyline 25mg at bedtime, did not try increasing dose after last appointment. Headaches were better and have calmed down, with only few headaches in the last month. Sleep was also okay. She has lost about 70 pounds with Zepbound and was planning to stop medication at the end of this year. She was doing some exercise on vibration plate. She was ge tting feeling of hot numbness to back of left upper leg that would come and go, which she was not sure if it was related to use of vibration plate as it would start a while after finishing exercise and lasted 1-2 hours at a time. Ongoing neck and LBP for many years without radiation, unchanged. No falls. She continues with numbness and tingling, primarily to fingertips in both hands, that is worse in the morning and gets better as day goes on. No new or increased weakness. No vision changes. On Tysabri every 4 weeks, tolerating well. Previously, continues with numbness and paresthesia to both hands, R > L. Dexterity not so good. Was waking up with headaches more after reducing amitriptyline dose to 25mg. Ongoing neck and LBP for many years without radiation. No falls. On Tysabri, tolerating well, no medication side effects. Some numbness to left upper back area. Gets some zaps in neck if turns head to left. No change in numbness to L upper outer thigh and inside of calf. Occasion al RLE spasms at night. Bad headache once every few weeks with occasional nausea and vomiting. No photophobia or sonophobia. Rizatriptan helps some. Some visual auras without headache lasting few minutes. Some R knee pain. Hx of migraines in teenage years. Some intermittent numbness to L side of face/head with and without headache. Intermittent episodes of numbness to LUE. Both legs feel numb from knee down. Had 3 doses of IV Solumedrol. Also has some numbness of chin. Tight band feeling in left calf, some to right. Numbness hands bilaterally. MRI brain and C spine show multiple white matter lesions in the supratential area, not specific. Whole left side feels heavy, weak, tingly and pain is also resolving except some left calf tightness. Seen at [facility] and saw Dr. Vallejo. She had an extensive work up and had everything ruled out. They questioned the diagnosis of MS. On 04/04/20 she woke with blindness in right eye that lasted 30minutes. She had bad headaches for 3 days before that. She was admitted to [facility] and had complete workup that was normal. CTA head and neck normal. MRI orbit negative. Sedrate 10. Feels tired and occasionally trips. Whole body feels weighted down. Tingling and electricity in her body, ankles, legs and hands constantly most of the time and elbow soreness. around 3 pm she runs out of energy. Vision has improved in OD. She recalls having soreness on eye movt in OD in mid to late May 2019. She was found to have a marked change in vision in the right eye which cannot be corrected with glasses therefore, question of optic neuritis was raised. She was not aware of it until the eye exam and had no complaints. Previously, had some issues with losing words in his speech and having difficulty getting stuck, sometimes she's not sure if she is taking the right turn when she is driving. She also gets some tingling paresthesia in the anterolateral thighs intermittently and had a single episode of generalized body tremor on awakening in the nights around 2017. There is no pain in the eye. Had bilateral cataract extraction. [facility] Medical History Carpal tunnel syndrome, bilateral upper limbs Lumbar disc disease Cervical disc disease Peripheral neuropathy Insomnia Optic neuritis Elevated cholesterol Asthma Anxiety Multiple sclerosis GERD (gastroesophageal reflux disease) Depression Vomiting Surgical History History of esophagogastroduodenoscopy (EGD) S/P dilation and curettage H/O prior ablation treatment H/O arthroscopy of knee History of arthroscopy of right shoulder History of sinus surgery Family History Father HTN (hypertension) Mother HTN (hypertension) Rectal cancer Brother No problems noted. Brother No problems noted. Sister No problems noted. Sister No problems noted. Social History Housing: Condominium Alcohol intake: current Alcohol intake frequency: holidays/special occasions only Patient Tobacco Use Status: Former Tobacco user e-Cigarette/Vaping Use: Never Used service: No Current occupational status: employed Cognitive needs: No Hearing needs: No Vision needs: Yes Review of Systems Const Denies chills, Denies daytime sleepiness, Reports difficulty sleeping, Reports fatigue, Denies fever(s), Denies frequent falls, Reports headache(s), Denies increased appetite, Denies poor appetite, Denies snoring, Denies weakness, Denies weight gain and Denies weight loss Eyes Denies loss of vision ENT Denies vertigo, Denies dizziness, Reports headache(s) and Reports neck pain Card Denies chest pain at rest, Denies chest pain with activity, Denies syncope, Denies leg edema, Denies palpitations, Denies dyspnea and Denies dyspnea on exertion Resp Denies cough, Denies dyspnea, Denies dyspnea on exertion and Denies snoring GI Denies abdominal pain, Denies constipation, Denies heartburn, Denies diarrhea and Denies nausea Denies urinary frequency, Denies urinary incontinence and Denies urinary urgency Musc Denies abnormal gait, Reports back pain, Denies myalgias, Denies arthralgias, Reports neck pain, Reports numbness and Reports tingling Neuro Denies abnormal gait, Denies vertigo, Denies dizziness, Denies syncope, Denies frequent falls, Reports headache(s), Denies lack of coordination, Denies loss of vision, Denies memory loss, Reports numbness, Denies Other visual disturbances, Denies restless legs, Denies seizure-like activity, Reports tingling, Denies paresthesias, Denies tremor(s), Denies weakness and Reports other (balance difficulty) Psych Denies anxiety, Denies depression, Denies auditory hallucinations, Denies memory loss and Denies visual hallucinations Endo Reports fatigue and Denies palpitations Physical Exam Const Other: General Appearance:? normal, in no acute distress. Heart:? S1, S2 normal, no murmurs. Lungs:? clear anteriorly and posteriorly. Musculoskeletal:? normal. Extremities:? no edema. Psych:? alert, oriented, cognitive function intact, cooperative with exam. Neuro Other: Abnormal Neurological Findings:?Visual acuity in the right is 20/200 with briskly responding. Pupillary reflexes. No papilledema or optic atrophy. Generalized LLE weakness 5-/5. R deltoid, R finger spread, R APB 5-/5 Mental Status: alert and oriented X 3. Normal attention, orientation, memory, and affect. Cranial Nerves: Pupils are equal, round, and reactive to light. External ocular muscles are intact. Visual manuel are full, no ptosis. Face is symmetrical, no facial weakness or droop. Facial sensations are normal. Tongue protrudes in midline. Palate elevates symmetrically. Shoulder shrugging is normal Motor Examination: As above, otherwise normal muscle tone, bulk and strength. No atrophy or fasciculations. No drift of the extended upper extremities. DTR 2+. Plantars are flexor. Sensory Exam: Normal light touch, temperature, pinprick, vibration, and joint- position sensations. Rhomberg sign is absent. Coordination: No ataxia. No titubation. Gait Exam: Within normal limits. Cerebellar Signs: [id number] is okay. Extrapyramidal System: No tremor, rigidity with normal facial expressions. No bradykinesia. No bradyphrenia. Normal arm swing and posture. No propulsion or retropulsion. Speech: Normal. Results Reviewed Results Reviewed: MRI C-Spine W&WO 02/01/2025: Degenerative changes. Stable, small syrinx. No demyelinating disease. NCV/ EMG upper extremities 01/28/25: Normal. C-spine XR 09/2024: Degenerative changes MRI Brain W+W/O 06/03/2024: No significant interval change in white matter lesions in both cerebral hemispheres mostly involving subcortical white matter. No focal areas of restricted diffusion or abnormal enhancement. Liver profile and JCV 01/2024: ok MRI Brain W+W/O 06/17/2023: Stable nonspecific supratentorial white matter T2 hyperintensities compared to 2021. No new lesions or abnormal enhancement MRI C-Spine W+W/O: Stable exam. No evidence of demyelination in cervical spine Assessment & Plan Assessment & Plan (1) Multiple sclerosis: Code(s): G35 - Multiple sclerosis Category: Medical Plan: Last C-spine MRI 01/2025, last brain MRI 05/2024 - last brain MRI was over a year ago, she was not interested in repeat brain MRI at this time. Continue Tysabri 300mg/15mL IV q4 weeks. JCV titer ordered. Discussed symptomatic treatment with gabapentin, declining at this time. Follow up in 6 months or sooner as needed. (2) Migraine with aura: Code(s): G43.109 - Migraine with aura, not intractable, without status migrainosus Category: Medical Qualifiers: Status migrainosus presence: without status migrainosus Intractability: not intractable Qualified Code(s): G43.109 - Migraine with aura, not intracta ble, without status migrainosus Plan: Continue rizatriptan 10mg 1 tablet as needed for migraine. (3) Tension headache: Code(s): G44.209 - Tension-type headache, unspecified, not intractable Category: Medical Plan: Continue amitriptyline 25mg 1 tablet at bedtime. Continue cyclobenzaprine 10mg 1 tablet at bedtime as needed for muscle spasm/pain #30 for 30 days. (4) Cervical disc disease: Code(s): M50.90 - Cervical disc disorder, unspecified, unspecified cervical region Category: Medical Plan: Continue acetaminophen 325mg 1 tablet as needed q8h for pain #90 for 30 days. (5) Lumbar disc disease: Code(s): M51.9 - Unspecified thoracic, thoracolumbar and lumbosacral intervertebral disc disorder Category: Medical Plan . Orders: Orders JCV Ab w/Indx rflx Inhibition Today G35 - Multiple sclerosis Coding Level of Care Code Est Pt Level 4 (24520) Diagnoses Multiple sclerosis G35 Migraine with aura and without status migrainosus, not intractable G43.109 Status migrainosus presence: without status migrainosus Intractability: not intractable Tension headache G44.209 Cervical disc disease M50.90 Lumbar disc disease M51.9
--- OUTSIDE RECORDS SUMMARY | 2025-07-06 18:34 | XMS_ITS | Clinical Summary ---
Author Organization [facility] Address [address] [place] [id number] Care Team Providers Care Loader Machine Name Role Phone Cari Ambrose MD Primary Care Provider [phone] Allergies Active Allergy Reactions Criticality Noted Date [...] age to complete this topic Care Teams Loader Machine Relationship Specialty Start Date End Date Cari Ambrose MD [address] [facility] [place] [address] PCP - General Internal Medicine 04/13/20
--- OUTSIDE RECORDS SUMMARY | 2025-07-06 18:34 | XMS_ITS | Clinical Summary ---
Author Organization [facility] Address [address] [place] [address] Phone Care Team Providers Care Air Valve Repairer Name Role Phone Roxanne Garcia MD Primary Care Provider Anish John MD Unavailable [phone] Allergies Active Allergy Reactions Criticality Noted Date [...] day. 1 each 6 7 Active ID-aspirin ([id number]) 325 mg EC tablet Take 2 tablets [...] DEPRESSION SCREENING 1974 SMOKING Hx and SMOKELESS TOBACCO SCREENING 10/30/1975 HEPATITIS C SCREENING 1980 HIV ONE-TIME SCREENING (18-6 5 YEARS) 1980 PNEUMOCOCCAL VACCINES (50+ years) (1 of 2 - PCV) 1981 PAP SMEAR 10/30/1983 MAMMOGRAM 2002 COLOGUARD 10/30/2007 COLONOSCOPY 10/30/2007 COLORECTAL CANCER SCREENING 10/30/2007 FIT TEST 10/30/2007 FOBT 10/30/2007 SIGMOIDOSCOPY 10/30/2007 VIRTUAL COLONOSCOPY 10/30/2007 RSV VACCINE (1 - Risk 50-74 years 1-dose series) 2012 ZOSTER VACCINES (1 of 2) 2012 INFLUENZA VACCINE (#1) 2025 9, 05/09/2017, 04/14/2017 COVID-19 VACCINE (2 - 2024-2 6 season) 2025 11/02/2020 HEPATITIS A VACCINES Aged Out No [...] file Insurance O O O O O O O [facility] HMO Care Teams Air Valve Repairer Relationship Specialty Start Date End Date Roxanne Garcia MD [address] [place] [address] PCP - General Internal Medicine 11/22/15 Anish John MD [address] [place] [address] Surgeon Otolaryngology 12/02/15 Additional Source Comments The information contained in this document represents components of the legal health record. It is not the complete legal health record.[facility]
--- OUTSIDE RECORDS SUMMARY | 2025-07-06 18:34 | XMS_ITS | Data Portability ---
Author Organization [place] - [facility], Allergy Address [address] [place] [address] Care Team Providers Care Electrician Supervisor Substation Name Role Phone LILLIAN LEWISTomeka Primary Care Provider [phone] Assessment Encounter Date Assessment Date Assessment LastModified [...] ion 2023 024 [id number], [address], [place], [phone], 03/24/2024 15:49:24 Patient TargetsNo targets recorded. Patient Instructions Encounter Date Encounter Id Patient Instructions Last Modified By Organization Details Last Modified Time 09/26/2024 [id number] Overall doing well. No evidence of recurrent nasal polyps. Cerumen impaction removed from the left ear. Asthma appears to be under control. Continue current regimen. Vinegar drops recommended to prevent cerumen buildup. Avoid Q-tips jschreibstein Not available 09/26/2024 15:59:30 03/30/2025 [id number] Continue budesonide irrigations, Advair, and montelukast as [...] Herpes zoster with nervous system complicat ion [id number] Active 2014 Herpes zoster: Other; Note: Date Diagnosed : 08/31/2014 3:03 PM (053.19) Not Available [facility] 4 02:36:46 Nasal polyp Active 2014 Nasal polyps; Note: Date Diagnosed : 09/28/2014 5:00 PM (471.0) Not Available [facility] 4 02:36:45 Asthma 141433482 Active 2014 Asthma; Note: Date Diagnosed : 09/28/2014 5:00 PM (493.90) Not Available [facility] 4 02:36:48 Chronic maxillary sinusitis 52758359 Active 2014 Chronic maxillary sinusitis ; Note: Date Diagnosed : 11/27/2014 10:45 AM (473.0) Not Available [facility] 4 02:36:46 Uncomplic ated asthma 697869430 Active 2014 Asthma NOS; Note: Date Diagnosed : 02/03/2015 9:14 AM (J45.909) [mapped from ICD9 code: 493.90] Not Available [facility] 4 02:36:55 Chronic pansinusi tis 36912752 Active 2014 Chronic pansinusi tis; Note: Date Diagnosed : 02/03/2015 9:14 AM (J32.4) [mapped from ICD9 code: 473.8] Not Available [facility] 4 02:36:54 Seasonal allergic rhinitis 523979311 Active 2014 Other seasonal allergic rhinitis; Note: Date Diagnosed : 02/03/2015 9:14 AM (J30.2) [mapped from ICD9 code: 477.8] Not Available [facility] 4 02:36:47 Polyp of nasal cavity 799996688 Active 2014 Polyp of nasal cavity; Note: Date Diagnosed : 02/03/2015 9:14 AM (J33.0) [mapped from ICD9 code: 471.0] Not Available [facility] 4 02:36:51 Exacerbat ion of mild persisten t asthma 070346417 Active 2014 Mild persisten t asthma with (acute) exacerbat ion; CMS Risk: moderate risk CMS Treatment : establish ed problem (to examiner) : unstable or worsening Note: Date Diagnosed : 05/12/2015 9:03 AM (J45.31) Not Available [facility] 4 02:36:53 Mild intermitt ent asthma 207151144 Active 2014 Mild intermitt ent asthma, uncomplic ated; Note: Date Diagnosed : 5 1:21 PM (J45.20) Not Available [facility] 4 02:36:47 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 307884358 Active 2016 Coagulati on defects: Other hemorrhag ic disorder due to intrinsic circulati ng anticoagu lants, antibodie s, or inhibitor s; Note: Date Diagnosed : 05/12/2015 8:41 AM () Not Available [facility] 4 02:36:51 Allergy to drug 265426668 Active 2016 Allergy status to analgesic agent status; CMS Risk: moderate risk Note : Date Diagnosed : 05/12/2015 8:43 AM (Z88.6) Not Available [facility] 4 02:36:57 Disorder of respirato ry system 86119982 Active 2016 Respirato ry condition s due to other specified external agents; CMS Risk: moderate risk Note : Date Diagnosed : 05/12/2015 8:43 AM (J70.8) Not Available [facility] 4 02:36:57 Epistaxis Active 2016 Epistaxis ; Note: Date Diagnosed : 05/12/2015 8:41 AM () Not Available [facility] 4 02:36:49 Bleeding from nose 950641126 Active 2016 Epistaxis ; Note: Date Diagnosed : 05/12/2015 8:42 AM () Note: Date Diagnosed : 05/12/2015 8:42 AM () Not Available [facility] 4 01:05:06 Long-term current use of anticoagu lant 813560347 Active 2016 FDC (current) use of anticoagu lants; Note: Date Diagnosed : 05/12/2015 8:42 AM () Not Available [facility] 4 02:36:45 Postopera tive visit 232629529 Active 2016 Post Op Visit; Note: Date Diagnosed : 12/22/2016 1:59 PM (V67.0) Not Available [facility] 4 02:36:51 Chronic rhinitis 36749650 Active 2016 Rhinitis, chronic; Note: Date Diagnosed : 01/04/2017 12:17 PM (472.0) Chronic rhinitis; Note: Date Diagnosed : 11/27/2014 10:45 AM (472.0) ; Start Date : 5 Not Available [facility] 4 02:36:46 Uncomplic ated moderate persisten t asthma 469292275 Active 2016 Moderate persisten t asthma, uncomplic ated; Note: Date Diagnosed : 10/07/2015 10:19 AM (J45.40) Not Available [facility] 4 02:36:51 Uncomplic ated mild persisten t asthma 231678527 Active 2016 Mild persisten t asthma, uncomplic ated; Note: Date Diagnosed : 10/07/2015 10:18 AM (J45.30) Not Available [facility] 4 02:36:54 Chronic sinusitis 56888490 Active 2018 Chronic pansinusi tis; CMS Risk: moderate risk CMS Treatment : establish ed problem (to examiner) : unstable or worsening Note: Date Diagnosed : 4 11:10 AM (473.8) ; Start Date : 4 Other chronic sinusitis ; Note: Date Diagnosed : 11/20/2018 4:09 PM (J32.8) Not Available [facility] 4 02:36:48 Other specified respirato ry system anomaly NOS Active 2019 Other specified respirato ry disorders ; Note: Date Diagnosed : 01/05/2020 1:51 PM (J98.8) Not Available [facility] 4 02:36:57 Allergic rhinitis 60203502 Active 2019 Allergic Rhinitis; Note: Date Diagnosed [...] : 01/05/2020 1:51 PM (J30.89) Not Available [facility] 4 02:36:44 Acute sinusitis 46284512 Active 2019 Other acute sinusitis ; Note: Date Diagnosed : 03/18/2020 3:53 PM (J01.80) Not Available [facility] 4 02:36:55 Multiple sclerosis 15688873 Active 2019 Multiple sclerosis ; Note: Date Diagnosed : 04/07/2020 10:34 AM (G35) Not Available [facility] 4 02:36:48 Disorder of smell 339369307 Active 2020 Other disturban maddie of smell and taste; Note: Date Diagnosed : 09/27/2020 3:36 PM (R43.8) Not Available [facility] 4 02:36:49 Disorder of taste 959585981 Active 2020 Other disturban maddie of smell and taste; Note: Date Diagnosed : 09/27/2020 3:36 PM (R43.8) Not Available [facility] 4 02:36:49 Exacerbat ion of moderate persisten t asthma 728967603 Active 2021 Moderate persisten t asthma with (acute) exacerbat ion; Note: Date Diagnosed : 12/16/2021 3:36 PM (J45.41) Not Available [facility] 4 02:36:55 Headache 72058114 Active 2021 Headache, unspecifi ed; Note: Date Diagnosed : 02/03/2022 4:09 PM (R51.9) Not Available [facility] 4 02:36:49 Polyp of nasal cavity and/or nasal sinus 514675375 Active 2023 JAYCE COVARRUBIAS MD [address] [facility] [address],[place] [facility], [place], [address] , [facility] 4 15:46:43 Moderate persisten t asthma 469915718 Active 2023 JAYCE COVARRUBIAS MD [address] [facility] [address],[place] [address], [place], [address] , [facility] 4 09:29:22 Impacted cerumen in left ear 81017200222 27434 Active 2024 JAYCE COVARRUBIAS MD [address] [facility],[address], [place], [address] , [facility] - [facility] 5 15:58:55 Problem Notes None recorded. Procedures Surgical History Date Name Laterality Status Provider Name and Address Organization Details Recorded Time 5 JMSNasal/Sinu s Endoscopy-BIANKA OR surgical cavities completed JAYCE SNYDER MD [address] [facility] [address],[place] [facility], [place], [address], [place] - [facility] 03/30/2025 15:42:29 5 JMSNasal/Sinu s Endoscopy-BIANKA OR surgical cavities completed JAYCE SNYDER MD [address] [facility],[address], [address], [place] - [facility] 09/26/2024 16:00:02 4 JMSNasal/Sinu s Endoscopy-BIANKA OR surgical cavities completed JAYCE SNYDER MD [address] [facility] [address],[facility] [address], [address], [facility] 03/24/2024 15:46:29 Imaging Results None recorded. Procedure Notes None recorded. Medical Equipment None Reported. Allergies Allergen ID Allergen Name Allergen Category Reaction Reaction Severity Criticality Documentation Date Start Date Code Code System Note Provider Name and Address Organization Details Recorded Time 62583 aspirin medicatio n wheezing Not available Not available 12/18/2023 1191 RxNorm React ion: asthm a;; Not Available [facility] 4 00:58:11 02002 clarithro mycin medicatio n other Not available Not available 12/18/2023 58842 RxNorm React ion: unkno wn, unspe cifie d;; Not Available [facility] 4 00:28:41 57305 oxycodone medicatio n other Not available Not available 12/18/2023 7804 RxNorm React ion: unkno wn, unspe cifie d;; Not Available [facility] 4 00:58:13 Medications Name Sig Start [...] mg tablet 03/04 completed Medicati on ID: [id number] Br and Name: Topamax Send Method: E-Prescr ibed Sub s Allowed: subs OK Medic ationGen ericName : Topamax Not Available Not Available Not Available Augmentin 875 mg-125 mg tablet 09/26 completed Medicati on ID: [id number] Du ration Value: 21 Prescri bed By Name: Tay Fraga nd Name: Augmenti n Send Method: E-Prescr ibed Sub s Allowed: subs OK Speci al Instruct ion: 1 po bid for 21 days Med icationG enericNa me: Augmenti n Not Available Not Available Not Available fluticaso ne 250 mcg-salme terol 50 mcg/dose blistr powdr for inhalatio n USE 1 INHALATI ON BY MOUTH TWICE DAILY 2024 active Not Available Not Available Not Avai lable acetamino phen 325 mg tablet TAKE 1 TABLET BY MOUTH EVERY 8 HOURS NEEDED active Not Available Not Available No t Available prednison e 10 mg tablet 09/26 completed Medicati on ID: [id number] Du ration Value: 5 Prescri bed By Name: Tay Fraga nd Name: predniso ne Send Method: E-Prescr ibed Sub s Allowed: subs OK Speci al Instruct ion: take as instruct ed Medic ationGen ericName : predniso ne Not Available Not Available Not Available doxycycli ne hyclate 100 mg capsule by mouth 05/21 completed Medicati on ID: [id number] D uration Value: 10 Prescri bed By Name: Tay Reed nd Name: doxycycl ine hyclate Send Method: E-Prescr ibed Sub s Allowed: subs OK Speci al Instruct ion: Take 1 po BID X 10 days Med icationG enericNa me: doxycycl ine hyclate Not Available Not Available Not Available valacyclo vir 1 gram tablet 03/04 completed Medicati on ID: 47430 Pr escribed By Name: Tay Fraga nd [...] by mouth 09/26 completed Medicati on ID: [id number] D uration Value: 3 Prescri bed By [...] mg tablet 03/04 completed Medicati on ID: [id number] Br and Name: sertrali ne Send Method: E-Prescr ibed Sub s Allowed: subs OK Medic ationGen ericName : sertrali ne Not Available Not Available Not Available simvastat in 10 mg tablet TAKE 1 TABLET BY MOUTH DAILY active Not Available Not Available No t Available Biaxin 500 mg tablet 1 tablet by mouth 09/26 completed Medicati on ID: [id number] D uration Value: 21 Prescri bed By Name: MITZI Alfredo nd Name: Biaxin S end Method: E-Prescr ibed Sub s Allowed: subs OK Medic ationGen ericName : Biaxin Not Available Not Available Not Available Nexium 40 mg capsule,d elayed release 10/27 completed Medicati on ID: [id number] D uration Value: 30 Reason: () Brand Name: Nexium S end Method: E-Prescr ibed Sub s Allowed: subs OK Speci al Instruct ion: 1 po qam Medi cationGe nericNam e: Nexium Not Available Not Available Not Available Zyrtec 10 mg tablet 09/26 completed Medicati on ID: [id number] Br and Name: Zyrtec S end Method: E-Prescr ibed Sub s Allowed: subs OK Medic ationGen ericName : Zyrtec Not Available Not Available Not Available Aspir-Low 81 mg tablet,de layed release 12/30 completed Medicati on ID: [id number] Br and Name: Aspir-Lo w Send Method: [...] mg tablet 09/26 completed Medicati on ID: [id number] B rand Name: alprazol am Send Method: [...] by mouth 09/26 completed Medicati on ID: [id number] D uration Value: 21 Prescri bed By Name: Tay Reed nd Name: doxycycl ine monohydr ate Send Method: E-Prescr ibed Sub s Allowed: subs OK Medic ationGen ericName : doxycycl ine monohydr ate Not Available Not Available Not Available Advair Diskus 500 mcg-50 mcg/dose powder for inhalatio n 1 puff 2019 active Medicati on ID: [id number] D uration Value: 30 Prescri bed By [...] as needed 2022 active Medicati on ID: [id number] D uration Value: 180 Brand Name: abhishek [...] by mouth 01/06 completed Medicati on ID: [id number] Pr escribed By Name: Tay Reed nd [...] a day 03/21 completed Medicati on ID: [id number] D uration Value: 30 Prescri bed By Name: Tay Reed nd Name: Spiriva with HandiHal er Send Method: E-Prescr ibed Sub s Allowed: subs OK Medic ationGen ericName : Spiriva with HandiHal er Not Available Not Available Not Available Tysabri 300 mg/15 mL intraveno us solution 09/26 completed Medicati on ID: [id number] B rand Name: Tysabri Send Method: E-Prescr ibed Sub s Allowed: subs OK Medic ationGen ericName : Tysabri Not Available Not Available Not Available prednison e 09/26 completed Medicati on ID: [id number] D uration Value: 10 Prescri bed By [...] as needed 09/26 completed Medicati on ID: [id number] D uration Value: 30 Prescri bed By Name: Tay Reed nd Name: ProAir HFA Send Method: E-Prescr ibed Sub s Allowed: subs OK Medic ationGen ericName : ProAir HFA Not Available Not Available Not Available Theraflu Cold-Sore Throat (PE) 20 mg-10 mg-325 mg oral powder packet 03/04 completed Medicati on ID: [id number] Br and Name: Theraflu Cold-Sor e Throat (PE) Sen d Method: E-Prescr ibed Sub s Allowed: subs OK Medic ationGen ericName : Theraflu Cold-Sor e Throat (PE) Not Available Not Available Not Available Nasacort 55 mcg nasal spray aerosol 12/30 completed Medicati on ID: 95127 Br and Name: Nasacort Send Method: E-Prescr [...] a day 2023 active Medicati on ID: [id number] D uration Value: 90 Prescri bed By Name: Tay Reed nd Name: Andres Macias end Method: E-Prescr ibed Sub s Allowed: subs OK Medic ationGen ericName : Richarddanilojanice Not Available Not Available Not Available Wegovy [...] Details Last Updated DateTime 09/26/2024 157.48 cm 92196.59 g Danika Smith [place] - [facility] 09/26/2024 15:23:55 Date Recorded Body height Body mass index (BMI) Body weight Provider Name and Address Organization Details Last Updated DateTime 03/24/2024 157.48 cm 33.8 kg/m2 54491.59 g Humphrey Benton [place] - [facility] 03/24/2024 15:29:33 Date Recorded Body height Body mass index (BMI) Body weight Provider Name and Address Organization Details Last Updated DateTime 03/30/2025 157.48 cm 26.5 kg/m2 67525.89 g Mady García [place] - [facility] 03/30/2025 15:24:45 Social History None recorded. [...] ICD10 Code Diagnosis IMO Codes Diagnosis Note [id number] JAYCE COVARRUBIAS MD [facility] [address] [address] 03/24/2024 15:11:59 03/24/2024 15:51:16 Allergy to drug 513644880 Z88.6 Exacerbati on of moderate persistent asthma 187118665 J45.41 Disorder o f respiratory system 40467704 J70.8 Polyp of nasal cavity 73 1666037 J33.0 Chronic sinusitis 736382 00 J32.9 [id number] JAYCE COVARRUBIAS MD [facility] [address] [address] 09/26/2024 15:06:10 09/26/2024 16:01:28 Allergy to drug 483470985 Z88.6 Polyp of n [place] cavity and/or nasal sinus 789794276 J33.1 Moderate p ersistent asthma 211188451 J45.40 Disorder o f respiratory system 81271358 J70.8 Impacted c erumen in left ear 8221423962 371681 H61.22 Suggested 3 drops distilled vinegar in each ear twice weekly to prevent the buildup of cerumen [id number] JAYCE COVARRUBIAS MD [facility] [address] [address] 03/30/2025 15:16:49 03/30/2025 15:45:54 Allergy to drug 573262094 Z88.6 Polyp of n [place] cavity and/or nasal sinus 621314537 J33.1 Moderate p ersistent asthma 765689627 J45.40 Disorder o f respiratory system 78291700 J70.8 Health Concerns Section Related Observation LastModified by Organization Detai ls LastModified Time None Recorded Concern Status LastModified by Organization Details LastModified Time None Recorded Advance Directives Directive None Recorded Payers Insurance Date Sequence Insurance Name Policy Number Policy Benavides Covered Member ID Benavides Member ID Guarantor Name 03/27/2025 1 [facility] [place] Tanya Bonilla [id number] Tanya A Irene Notes Date Note [...] on Tysabri for MS JAYCE SNYDER MD [address] [place] [address], [address], [facility] 03/24/2024 15:49:52 09/26/2024 text/html ROS as [...] Wegovy May 06 JAYCE SNYDER MD [address] [facility],[address], [address], [facility] 09/26/2024 16:00:28 03/30/2025 text/html Tanya Bonilla [...] coverage ends in June. JAYCE SNYDER MD [address] [place] [address] [address], [place], [address], [facility] 03/30/2025 15:44:36 OBGyn Episode No OBEpisode recorded.
--- OUTSIDE RECORDS SUMMARY | 2025-07-06 18:34 | XMS_ITS | Clinical Summary ---
Author Organization [facility] Address [address] [place] [address] Phone Care Team Providers Care Conference Planning Manager Name Role Phone Cari Ambrose MD Primary Care Provider [phone] Allergies Active Allergy Reactions Criticality Noted Date [...] Encounters Date Type Department Care Team Description 07/03/2025 9:45 AM EST Hospital Encounter [facility] [address] [place] [phone] Manda Casillas MD MS (multiple sclerosis) (Primary Dx) 06/05/2025 1:15 PM EDT - 06/05/2025 11:59 PM EDT Hospital Encounter [facility] [address] [place] [phone] Manda Casillas MD MS (multiple sclerosis) (Primary Dx) Discharge Disposition: Home or Self Care 05/08/2025 1:12 PM EDT - 05/08/2025 11:59 PM EDT Hospital Encounter [facility] [address] [place] [phone] Manda Casillas MD MS (multiple sclerosis) (Primary Dx) Discharge Disposition: Home or Self Care 04/10/2025 1:13 PM EDT - 04/10/2025 11:59 PM EDT Hospital Encounter [facility] [address] [place] [phone] Manda Casillas MD MS (multiple sclerosis) (CMS/HCC [...] oz) 07/03/2025 9:55 A M EST Height 157.5 cm (5' 2 ) 10/22/2020 7:50 AM EDT Body Mass Index 24.44 10/22/2020 7:50 AM EDT Plan of Treatment Upcoming Encounters Date Type Department Care Team (Late st Contact Info) Description 07/31/2025 1:30 PM EST Appointment [facility] [address] [address] 08/28/2025 1:30 PM EST Appointment [facility] [address] [phone] Health Maintenance Due Date Last Done Comments [...] 07/08/2022 Depression Screening 08/06/2024 COVID-19 Vaccine ( - season) 2025 06/07/2022, 11/21/2021, 06/01/2021, Additional history exists Influenza Vaccine (#1) 2025 2, 05/07/2019, 05/09/2017, Additional history exists HIB Vaccines [...] patient's age to complete this topic Insurance [facility] Care Teams Conference Planning Manager Relationship Specialty Start Date End Date Cari Ambrose MD [address] [place] [phone] PCP - General Internal Medicine 04/13/20
== END 2025-07-06 16:22 | disposition home or self-care (01) ==
LOC: HO.HSM 15:50
PROVIDERS: PCP Internal Medicine; Visit Provider Registered Nurse
DX: G35.D Multiple sclerosis, unspecified (principal); G43.109 Migraine with aura, not intractable, without status migrainosus; G44.209 Tension-type headache, unspecified, not intractable; M50.90 Cervical disc disorder, unspecified, unspecified cervical region; M51.9 Unspecified thoracic, thoracolumbar and lumbosacral intervertebral disc disorder
CPT/HCPCS: 99214